=== PATIENT | male | born 1950 | race Caucasian/White ===

== ENCOUNTER → 2017-01-29 | Outpatient (CLI) | payer MEDICARE ==
[2017-01-29 16:55] LABS: Appearance,Urine Clear (Clear); Bilirubin,Urine Negative (Negative); Glucose,Urine (UA) 4+ (Negative); Ketones,Urine Negative (Negative); Leukocyte Esterase,Urine Negative (Negative); Nitrite,Urine Negative (Negative); Protein,Urine Negative (Negative); Specific Gravity,Urine 1.015 (1.001-1.035); UA Billing (MACRO vs. MICRO) CHEM; Urobilinogen,Urine <2.0 mg/dL (<2.0)
[2017-01-29 19:36] LABS: Prostate Specific Antigen 1.35 ng/mL (0.00-4.00)
== END ==
LOC: LABWHC1 16:12
PROVIDERS: ATTEND Internal Medicine
DX: Z00.00 Encounter for general adult medical examination without abnormal findings (principal); E55.9 Vitamin D deficiency, unspecified; E78.4 Other hyperlipidemia; E11.69 Type 2 diabetes mellitus with other specified complication; E03.9 Hypothyroidism, unspecified; I10 Essential (primary) hypertension; N40.0 Benign prostatic hyperplasia without lower urinary tract symptoms
CPT/HCPCS: 36415; 81003; 82550; 84153; 84439; 84550

== ENCOUNTER → 2017-01-29 | Outpatient (CLI) | payer MEDICARE ==
[2017-01-29 15:04] VITALS: BMI 31.1
[2017-01-29 15:20] VITALS: BP 135/73; PULSE 73; TEMP 97.7
[2017-01-29 16:44] LABS: Basophils # (A) 0.1 k/uL (0-0.2); Basophils % (A) 1 %; CH 28.2; Eosinophils # (A) 0.1 k/uL (0-0.7); Eosinophils % (A) 2 %; HCT 43.8 % (39.0-53.0); HDW 3.17; HGB 14.4 gm/dL (13.0-17.5); Luc # (Auto) 0.12; Luc % (Auto) 3; Lymphocytes # (A) 1.4 k/uL (1.0-4.8); Lymphocytes % (A) 32 %; MCH 28.2 pg (25.0-35.0); MCHC 32.9 g/dL (31.0-37.0); MCV 85.9 fL (80.0-100.0); Mean Platelet Volume 6.8; Monocytes # (A) 0.2 k/uL (0-1.0); Monocytes % (A) 5 %; Neutrophils # (A) 2.4 k/uL (1.3-7.7); Neutrophils % (A) 56 %; WBC 4.2 k/uL (3.8-10.6); WBC (Perox) 4.15
[2017-01-29 16:53] LABS: INR 1.1 (<1.1); Prothrombin Time 10.8 sec (9.0-12.0)
[2017-01-29 17:06] LABS: ALT 54 U/L (21-72); AST 38 U/L (17-59); Alkaline Phosphatase 88 U/L (38-126); Anion Gap 15 mmol/L; Blood Urea Nitrogen 25 mg/dL (9-20); Calcium 8.9 mg/dL (8.4-10.2); Carbon Dioxide 23 mmol/L (22-30); Chloride 104 mmol/L (98-107); Cholesterol 147 mg/dL (<200); Glucose 116 mg/dL (74-99); HDL Cholesterol 38 mg/dL (40-60); Iron 93 ug/dL (49-181); Magnesium 2.1 mg/dL (1.6-2.3); Non-African American GFR(MDRD) >60 (>60 ml/min/1.73 sqM); Phosphorous 3.8 mg/dL (2.5-4.5); Potassium 4.3 mmol/L (3.5-5.1); Sodium 142 mmol/L (137-145); Total Bilirubin 1.8 mg/dL (0.2-1.3); Total Protein 7.6 g/dL (6.3-8.2); Triglycerides 283 mg/dL (<150)
[2017-01-29 17:17] LABS: % Iron Saturation 21.1 % (20-50); Prealbumin 28 mg/dL (18-36); Total Iron Binding Capacity 440 ug/dL (261-462)
[2017-01-29 18:14] LABS: Vitamin B12 >1000 pg/mL (239-931)
[2017-01-29 19:50] LABS: Hemoglobin A1C 7.4 % (4.2-6.1)
[2017-02-04 17:58] LABS: Selenium 131 mcg/L (63-160)
--- NOTE | 2017-02-28 23:04 | P.PN ---
Progress Note - Text DATE OF SERVICE: 01/29/2017 CHIEF COMPLAINT: Followup gastric bypass. HISTORY OF PRESENT ILLNESS: Tim Rosas is a 66-year-old gentleman who is status post Tala-en-Y gastric bypass from January 23, 2015. He is now 2 years out. His highest weight was 274 pounds. Today he comes in weighing 222 pounds. He is maintaining a 61 pound weight loss. Percentage weight loss is 54%. Body mass index is reduced from 38.3 down to 31.1. He is 45 pounds overweight. Since his last visit, almost 6 to 7 months ago, he has gained 6 pounds. He comes in with frustration with weight regain. Upon further discussion, he still eats a moderate amount of carbohydrates despite being a diabetic. His is at his bedside and also confirms that he has moderate snacking habits. He now presents for further evaluation and management. PAST MEDICAL HISTORY: 1. Osteoarthritis. 2. Diabetes mellitus type 2 with moderate reduction in insulin use. 3. Hypothyroidism. 4. Hypertension. 5. ADHD. 6. Gastroesophageal reflux disease. 7. Dyslipidemia. 8. Obstructive sleep apnea. 9. Morbid obesity. 10. Diverticulosis. PAST SURGICAL HISTORY: 1. Tonsillectomy. 2. Cholecystectomy. 3. Liver biopsy. 4. Pilonidal cystectomy. 5. Multiple skin lesions removal on his head. 6. A broken left foot. 7. Status post Tala-en-Y gastric bypass. 8. Upper endoscopy. 9. Lower endoscopy. 10. Cystoscopy with kidney stone extraction. 11. Debridement of the bilateral great toes. MEDICATIONS: 1. Metformin. 2. Vitamin B. 3. Multivitamin. 4. Cozaar. 5. Synthroid. 6. Fish oil. 7. Vitamin D. 8. Invokana. 9. Tylenol. ALLERGIES: CLINDAMYCIN. SOCIAL HISTORY: Lifelong nontobacco user. FAMILY HISTORY: Denies any esophageal or stomach cancer. Colon cancer runs in the family. His father of blood clots after orthopedic procedure. Also he has mother with diabetes. REVIEW OF SYSTEMS: CONSTITUTIONAL: Weight gain of 5 pounds in approximately 6 to 7 months. Total maintained weight loss of 61 pounds. Percent excess weight loss is 54%. Body mass index reduced from 38.3 down to 31.1. [place] body weight of 178 pounds. Highest weight 274 pounds. ENDOCRINE: History of diabetes type 2; improved in terms of decreased insulin use. No reports of hypothyroidism. CARDIOVASCULAR: Hypertension is improved. GASTROINTESTINAL: No reports of gastroesophageal reflux disease. No reports of dumping syndrome. MUSCULOSKELETAL: He had chronic ulcerations of the bilateral great toes, now resolved. RESPIRATORY: He is off his CPAP machine. SKIN: He has history of dryness of the skin including chronic foot ulcers for which [facility]. HEENT: No troubles with vision or hearing. NEUROLOGIC: No reports of seizure disorder or stroke. PSYCH: No reports of depression or suicidal ideation. PHYSICAL EXAM: VITAL SIGNS: 97.7, 73, 12, 135/73, 5 foot 11, 223 pounds. Body mass index of 31.1. ABDOMEN: Soft, nontender. No palpable incisional hernias. GENERAL: Well-developed pleasant male in no acute distress. MUSCULOSKELETAL: No clubbing, cyanosis, or edema. HEENT: No sclerae icterus. Extraocular movements grossly intact. Moist buccal mucosa. NECK: Supple without lymphadenopathy. CHEST: Nonlabored respirations. Equal bilateral excursions. CARDIOVASCULAR: Regular rate. NEURO: No focal or lateralizing signs. PSYCH: Appropriate affect. Alert and oriented to person, place, and time. LABS: Bariatric metabolic panel demonstrates hemoglobin normal at 14.4. BUN is elevated at 25. Glucose was elevated at 116. Hemoglobin A1c is improved from 7.6 to 7.4. Ferritin is low at 11. Total bilirubin elevated at 1.8. Triglycerides elevated at 283. HDL low at 38. Vitamin B12 greater than 1000. ASSESSMENT: 1. Morbid obesity due to excess calories. 2. Body mass index reduced from 38.3 down to 31.1. 3. Status post Tala-en-Y gastric bypass. 4. History of food addiction, now resolved. 5. History of insulin-dependent diabetes type 2, now improved. 6. History of bilateral nonhealing, chronic great toe ulcers, now resolved. 7. Dietary surveillance and counseling. 8. History of gastrojejunal ulcer. 9. History of diverticulosis. 10. 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 11. Hypertensive heart disease, improved and stable. 12. Hypothyroidism. 13. Obstructive sleep apnea, improved. 14. Weight gain following a Tala-en-Y gastric bypass. 15. Food addiction. PLAN: 1. I have gone over with him that keeping close monitoring of his carbohydrate intake can actually help with weight loss. 2. As for his hunger, I have asked him to increase his protein intake including vegetables and fruits. 3. He has completed a bariatric metabolic panel without any findings of overt nutritional deficiencies. 4. Recommend increase in activity such as exercise to help improve his HDL's. 5. I have recommended followup at least on a yearly basis, if not sooner to help with overall weight loss.
== END | disposition home or self-care (01) ==
LOC: BARWHC3 13:58
PROVIDERS: ATTEND Surgery Plastic and Reconstructive Surgery
DX: Z48.815 Encounter for surgical aftercare following surgery on the digestive system (principal); E66.01 Morbid (severe) obesity due to excess calories; Z68.31 Body mass index [BMI] 31.0-31.9, adult; Z98.84 Bariatric surgery status; Z71.3 Dietary counseling and surveillance; E89.1 Postprocedural hypoinsulinemia; D50.8 Other iron deficiency anemias; E44.0 Moderate protein-calorie malnutrition; E55.9 Vitamin D deficiency, unspecified; K74.1 Hepatic sclerosis; N19 Unspecified kidney failure; K50.90 Crohn's disease, unspecified, without complications
CPT/HCPCS: 84255; 84134; 84425; 80061; 80053; 82607; 82728; 83036; 82525; 82746; 83540; 83550; 83735; 84100; 84443; 84590; 84630; 85025; 85610; 85730; 82306; 83970; 97803; G0463; 99211

== ENCOUNTER → 2017-04-07 | Outpatient (CLI) | payer MEDICARE ==
[2017-04-07 11:00] LABS: Basophils % (A) 1 %; CH 27.9; CHCM 33.2; Eosinophils # (A) 0.1 k/uL (0-0.7); Eosinophils % (A) 2 %; HCT 47.7 % (39.0-53.0); HDW 3.17; HGB 15.3 gm/dL (13.0-17.5); Luc # (Auto) 0.11; Luc % (Auto) 3; Lymphocytes # (A) 1.4 k/uL (1.0-4.8); Lymphocytes % (A) 33 %; MCH 27.1 pg (25.0-35.0); MCHC 32.1 g/dL (31.0-37.0); MCV 84.5 fL (80.0-100.0); Mean Platelet Volume 7.4; Monocytes # (A) 0.2 k/uL (0-1.0); Monocytes % (A) 5 %; Neutrophils # (A) 2.4 k/uL (1.3-7.7); Neutrophils % (A) 57 %; RBC 5.64 m/uL (4.30-5.90); RDW 15.3 % (11.5-15.5); WBC 4.2 k/uL (3.8-10.6); WBC (Perox) 4.03
[2017-04-07 11:01] LABS: Appearance,Urine Clear (Clear); Bilirubin,Urine Negative (Negative); Glucose,Urine (UA) 4+ (Negative); Ketones,Urine Negative (Negative); Leukocyte Esterase,Urine Negative (Negative); Nitrite,Urine Negative (Negative); Protein,Urine Negative (Negative); Specific Gravity,Urine 1.015 (1.001-1.035); UA Billing (MACRO vs. MICRO) CHEM; Urobilinogen,Urine <2.0 mg/dL (<2.0)
[2017-04-07 11:19] LABS: ALT 63 U/L (21-72); AST 38 U/L (17-59); Alkaline Phosphatase 94 U/L (38-126); Anion Gap 14 mmol/L; Blood Urea Nitrogen 22 mg/dL (9-20); Carbon Dioxide 24 mmol/L (22-30); Chloride 103 mmol/L (98-107); Cholesterol 155 mg/dL (<200); Creatine Kinase 204 U/L (55-170); Glucose 138 mg/dL (74-99); HDL Cholesterol 39 mg/dL (40-60); Non-African American GFR(MDRD) >60 (>60 ml/min/1.73 sqM); Potassium 4.2 mmol/L (3.5-5.1); Sodium 141 mmol/L (137-145); Total Bilirubin 2.3 mg/dL (0.2-1.3); Total Protein 7.6 g/dL (6.3-8.2); Triglycerides 213 mg/dL (<150); Uric Acid 6.8 mg/dL (3.5-8.5)
[2017-04-07 11:48] LABS: Prostate Specific Antigen 1.42 ng/mL (0.00-4.00)
[2017-04-07 12:18] LABS: Hemoglobin A1C 7.9 % (4.2-6.1)
[2017-04-07 17:05] LABS: Urine Creatinine 48.3 mg/dL
== END | disposition home or self-care (01) ==
LOC: LABWHC1 10:23
PROVIDERS: ATTEND Internal Medicine Endocrinology, Diabetes & Metabolism
DX: Z00.00 Encounter for general adult medical examination without abnormal findings (principal); E55.9 Vitamin D deficiency, unspecified; I10 Essential (primary) hypertension; E78.4 Other hyperlipidemia; E11.69 Type 2 diabetes mellitus with other specified complication; E03.9 Hypothyroidism, unspecified; N40.0 Benign prostatic hyperplasia without lower urinary tract symptoms; E11.65 Type 2 diabetes mellitus with hyperglycemia; E03.8 Other specified hypothyroidism
CPT/HCPCS: 36415; 80053; 80061; 81003; 82043; 82306; 82550; 82570; 83036; 84153; 84403; 84439; 84443; 84550; 85025

== ENCOUNTER → 2018-01-21 | Outpatient (CLI) | payer MEDICARE ==
--- NOTE | 2018-01-21 14:06 | P.PN ---
Subjective Progress Note Date: 01/21/18 DATE OF SERVICE: 01/21/2018 CHIEF COMPLAINT: Followup gastric bypass. HISTORY OF PRESENT ILLNESS: Tim Rosas is a 67-year-old gentleman who is status post Tala-en-Y gastric bypass from January 23, 2015. He is now 3 years out. His highest weight was 274 pounds. [place] body weight is 178 pounds. Today he comes in weighing 220 pounds from 222 pounds 1 year ago. He has lost 2 pounds in 1 year. He is maintaining a 54 pound weight, lifetime. Percentage weight loss is 56%. Body mass index is reduced from 38.3 down to 30.8. He is 42 pounds overweight. He is doing well. He went down to 207 pounds last year. He reports having the flu at that time. He has now regained his weight. Blood sugars are improved with Hgb A1 6.1. He reports grazing through the day. He is snacking on eggs, cheese, and sauerkraut. He had a foot ulcer along the left great toe now resolved. He still reports neuropathy of the fingers. No abdominal pain. PAST MEDICAL HISTORY: 1. Osteoarthritis. 2. Diabetes mellitus type 2 with moderate reduction in insulin use. 3. Hypothyroidism. 4. Hypertension. 5. ADHD. 6. Gastroesophageal reflux disease. 7. Dyslipidemia. 8. Obstructive sleep apnea. 9. Morbid obesity, BMI 38.3, initial 10. Diverticulosis. PAST SURGICAL HISTORY: 1. Tonsillectomy. 2. Cholecystectomy. 3. Liver biopsy. 4. Pilonidal cystectomy. 5. Multiple skin lesions removal on his head. 6. A broken left foot. 7. Status post Tala-en-Y gastric bypass. 8. Upper endoscopy. 9. Lower endoscopy. 10. Cystoscopy with kidney stone extraction. 11. Debridement of the bilateral great toes. MEDICATIONS: 1. Metformin. 2. Vitamin B. 3. Multivitamin. 4. Cozaar. 5. Synthroid. 6. Fish oil. 7. Vitamin D. 8. Invokana. 9. Tylenol. 10. Amaryl 11. Trulicity ALLERGIES: CLINDAMYCIN. SOCIAL HISTORY: Lifelong nontobacco user. FAMILY HISTORY: Denies any esophageal or stomach cancer. Colon cancer runs in the family. His father of blood clots after orthopedic procedure. Also he has mother with diabetes. REVIEW OF SYSTEMS: CONSTITUTIONAL: His highest weight was 274 pounds. Today he comes in weighing 220 pounds from 222 pounds 1 year ago. He has lost 2 pounds in 1 year. He is maintaining a 54 pound weight, lifetime. Percentage weight loss is 56%. Body mass index is reduced from 38.3 down to 30.8. He is 42 pounds overweight. [place] body weight is 178 pounds. ENDOCRINE: History of diabetes type 2; improved in terms of decreased insulin use. No reports of hypothyroidism. CARDIOVASCULAR: Hypertension is improved. GASTROINTESTINAL: No reports of gastroesophageal reflux disease. No reports of dumping syndrome. MUSCULOSKELETAL: He had chronic ulcerations of the bilateral great toes, now resolved. RESPIRATORY: He is off his CPAP machine. No pneumonia. SKIN: He has history of dryness of the skin. No panniculitis. HEENT: No troubles with vision or hearing. No dysphagia. NEUROLOGIC: No reports of seizure disorder or stroke. PSYCH: No reports of depression or suicidal ideation. PHYSICAL EXAM: VITAL SIGNS: 5 foot 11, 220 pounds. Body mass index of 30.8 Vital Signs Temp 98 F 01/21/18 14:57 Pulse 92 01/21/18 14:57 Resp BP 125/73 01/21/18 14:57 Pulse Ox . ABDOMEN: Soft, nontender. No palpable incisional hernias. GENERAL: Well-developed pleasant male in no acute distress. MUSCULOSKELETAL: No clubbing, cyanosis, or edema. HEENT: No sclerae icterus. Extraocular movements grossly intact. Moist buccal mucosa. NECK: Supple without lymphadenopathy. CHEST: Nonlabored respirations. Equal bilateral excursions. CARDIOVASCULAR: Regular rate. Regular rhythm. Radial pulses 2+. NEURO: No focal or lateralizing signs. Cranial nerves II-12 grossly intact. PSYCH: Appropriate affect. Alert and oriented to person, place, and time. SKIN: Well perfused. Good skin turgor. ASSESSMENT: 1. Morbid obesity due to excess calories. 2. Body mass index reduced from 38.3 down to 30.8 3. Status post Tala-en-Y gastric bypass. 4. History of food addiction, now resolved. 5. History of insulin-dependent diabetes type 2, now improved. 6. History of bilateral nonhealing, chronic great toe ulcers, now resolved. 7. Dietary surveillance and counseling. 8. History of gastrojejunal ulcer. 9. History of diverticulosis. 10. 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 11. Hypertensive heart disease, improved and stable. 12. Hypothyroidism. 13. Obstructive sleep apnea, improved. 14. Weight gain following a Tala-en-Y gastric bypass. 15. Food addiction. PLAN: 1. Recommend bariatric blood panel 2. He may be developing food allergy to milk 3. Recommend seeing food client care consultant 4. Recommend caution whey protein
[2018-01-21 15:07] VITALS: BP 125/73; PULSE 92; TEMP 98; BMI 30.8
== END | disposition home or self-care (01) ==
LOC: BARWHC3 12:47
PROVIDERS: ATTEND Surgery Plastic and Reconstructive Surgery
DX: Z48.815 Encounter for surgical aftercare following surgery on the digestive system (principal); E66.01 Morbid (severe) obesity due to excess calories; Z68.30 Body mass index [BMI] 30.0-30.9, adult; E03.9 Hypothyroidism, unspecified; E11.40 Type 2 diabetes mellitus with diabetic neuropathy, unspecified; I11.9 Hypertensive heart disease without heart failure; G47.33 Obstructive sleep apnea (adult) (pediatric); Z79.4 Long term (current) use of insulin; Z98.84 Bariatric surgery status
CPT/HCPCS: 99211

== ENCOUNTER → 2018-02-02 | Outpatient (CLI) | payer MEDICARE ==
[2018-02-02 12:25] LABS: Appearance,Urine Clear (Clear); Bilirubin,Urine Negative (Negative); Blood,Urine Negative (Negative); Color,Urine Yellow; Glucose,Urine (UA) 4+ (Negative); HCT 42.2 % (39.0-53.0); HGB 14.1 gm/dL (13.0-17.5); Ketones,Urine Negative (Negative); Leukocyte Esterase,Urine Negative (Negative); MCH 27.3 pg (25.0-35.0); MCHC 33.3 g/dL (31.0-37.0); MCV 81.7 fL (80.0-100.0); Mean Platelet Volume 6.9; Nitrite,Urine Negative (Negative); Platelet Count 164 k/uL (150-450); Protein,Urine Negative (Negative); RBC 5.16 m/uL (4.30-5.90); RDW 14.6 % (11.5-15.5); Specific Gravity,Urine 1.015 (1.001-1.035); Urobilinogen,Urine <2.0 mg/dL (<2.0); WBC 3.8 k/uL (3.8-10.6)
[2018-02-02 12:29] LABS: INR 1.1 (<1.2); Partial Thromboplastin Time 25.3 sec (22.0-30.0); Prothrombin Time 10.9 sec (9.0-12.0)
[2018-02-02 12:33] LABS: ALT 65 U/L (21-72); AST 47 U/L (17-59); Alkaline Phosphatase 97 U/L (38-126); Anion Gap 18 mmol/L; Blood Urea Nitrogen 29 mg/dL (9-20); Calcium 8.7 mg/dL (8.4-10.2); Carbon Dioxide 19 mmol/L (22-30); Chloride 107 mmol/L (98-107); Cholesterol 135 mg/dL (<200); Glucose 112 mg/dL (74-99); HDL Cholesterol 32 mg/dL (40-60); LDL Cholesterol,Calculated 67 mg/dL (0-99); Phosphorus 4.5 mg/dL (2.5-4.5); Potassium 4.3 mmol/L (3.5-5.1); Sodium 144 mmol/L (137-145); Total Bilirubin 1.7 mg/dL (0.2-1.3); Total Protein 7.7 g/dL (6.3-8.2); Triglycerides 178 mg/dL (<150); Uric Acid 6.6 mg/dL (3.5-8.5)
[2018-02-02 13:04] LABS: Prostate Specific Antigen 1.51 ng/mL (0.00-4.00)
[2018-02-02 18:41] LABS: Iron Saturation 18.03 (15.00-50.00)
[2018-02-02 18:49] LABS: Vitamin D 25 Hydroxy 52.9 ng/mL (30.0-100.0)
[2018-02-02 19:02] LABS: Folate, Serum >24.0 ng/mL
[2018-02-02 19:24] LABS: Parathyroid Hormone Intact 38.7 pg/mL (14.0-72.0)
[2018-02-03 14:01] LABS: Vitamin A 65 ug/dL (38-106)
[2018-02-03 15:34] LABS: Zinc, Serum 94 ug/dL (60-130)
[2018-02-04 05:42] LABS: Vitamin B1 74 ug/L (38-122)
== END | disposition home or self-care (01) ==
LOC: LABWHC1 11:04
PROVIDERS: ATTEND Internal Medicine Endocrinology, Diabetes & Metabolism
DX: E11.65 Type 2 diabetes mellitus with hyperglycemia (principal); E03.8 Other specified hypothyroidism; N40.0 Benign prostatic hyperplasia without lower urinary tract symptoms; E21.1 Secondary hyperparathyroidism, not elsewhere classified; E89.1 Postprocedural hypoinsulinemia; D50.8 Other iron deficiency anemias; K90.89 Other intestinal malabsorption; E44.0 Moderate protein-calorie malnutrition; K74.1 Hepatic sclerosis; E55.9 Vitamin D deficiency, unspecified; N19 Unspecified kidney failure; K50.90 Crohn's disease, unspecified, without complications
CPT/HCPCS: 36415; 80053; 80061; 81003; 82043; 82306; 82525; 82570; 82607; 82728; 82746; 83036; 83540; 83550; 83735; 83970; 84100; 84134; 84153; 84255; 84425; 84443; 84550; 84590; 84630; 85027; 85610; 85730

== ENCOUNTER → 2018-11-02 | Outpatient (CLI) | payer MEDICARE ==
--- NOTE | 2018-11-02 17:27 | XR ---
EXAMINATION TYPE: XR lumbar spine 2 or 3V DATE OF EXAM: 11/02/2018 CLINICAL HISTORY: Low back pain into right hip for 2 weeks after shoveling snow. TECHNIQUE: Frontal and lateral images of the lumbar spine are obtained. COMPARISON: CT abdomen and pelvis from 2015 FINDINGS: There are 5 lumbar type vertebral bodies redemonstrated. The lumbar spine redemonstrates straightened alignment without evidence of acute fracture or dislocation. Vertebral body heights kami in within normal limits. There is moderate disc space narrowing with moderate anterior spurring L3-L4 level redemonstrated. There is additional mild multilevel disc space narrowing with relative sparing of L4-L5 level redemonstrated. There are surgical sutures epigastric region from prior gastric bypas s surgery redemonstrated. IMPRESSION: No acute fracture or dislocation is seen in the lumbar spine.
== END | disposition home or self-care (01) ==
LOC: RADXRMAIN 16:31
PROVIDERS: ATTEND Internal Medicine
DX: M54.9 Dorsalgia, unspecified (principal)
CPT/HCPCS: 72100

== ENCOUNTER → 2018-12-09 | Outpatient (CLI) | payer MEDICARE ==
[2018-12-09 10:21] LABS: INR 1.1 (<1.2); Partial Thromboplastin Time 28.4 sec (22.0-30.0); Prothrombin Time 11.3 sec (9.0-12.0)
[2018-12-09 10:54] LABS: HCT 44.2 % (39.0-53.0); HGB 14.8 gm/dL (13.0-17.5); MCH 29.3 pg (25.0-35.0); MCHC 33.6 g/dL (31.0-37.0); MCV 87.2 fL (80.0-100.0); Mean Platelet Volume 6.9; Platelet Count 156 k/uL (150-450); RBC 5.07 m/uL (4.30-5.90); RDW 14.5 % (11.5-15.5); WBC 3.7 k/uL (3.8-10.6)
[2018-12-09 16:57] LABS: Iron Saturation 30.03 (15.00-50.00)
[2018-12-09 17:02] LABS: Albumin 4.8 g/dL (3.80-4.90); Albumin/Globulin Ratio 2.29 (1.60-3.17); Anion Gap 9.9 mmol/L (4.00-12.00); Calcium 8.9 mg/dL (8.7-10.3); Carbon Dioxide 23.1 mmol/L (21.6-31.8); Globulin 2.1 g/dL (1.6-3.3); LDL Cholesterol,Calculated 64.6 mg/dL (0.0-131.0); Magnesium 1.8 mg/dL (1.5-2.4); Phosphorus 3.9 mg/dL (2.4-5.1); Potassium 3.8 mmol/L (3.5-5.5); Total Bilirubin 2.5 mg/dL (0.3-1.2); Total Protein 6.9 g/dL (6.2-8.2); VLDL Calculation 42.4 mg/dL (5.00-40.00)
[2018-12-09 17:06] LABS: Vitamin D 25 Hydroxy 43.4 ng/mL (30.0-100.0)
[2018-12-09 17:27] LABS: Parathyroid Hormone Intact 55.9 pg/mL (14.0-72.0)
[2018-12-09 17:36] LABS: Folate, Serum >24.0 ng/mL
[2018-12-09 21:11] LABS: Hemoglobin A1C 7.4 % (4.0-6.0)
[2018-12-10 11:45] LABS: Zinc, Serum 79 ug/dL (60-130)
[2018-12-11 07:55] LABS: Vitamin A 68 ug/dL (38-106)
[2018-12-11 08:40] LABS: Vit B1(Thiamine) 71 ug/L (38-122)
== END ==
LOC: LABWHC1 08:51
PROVIDERS: ATTEND Internal Medicine Endocrinology, Diabetes & Metabolism
DX: Z48.815 Encounter for surgical aftercare following surgery on the digestive system (principal); E66.01 Morbid (severe) obesity due to excess calories; E21.1 Secondary hyperparathyroidism, not elsewhere classified; E89.1 Postprocedural hypoinsulinemia; D50.9 Iron deficiency anemia, unspecified; E44.0 Moderate protein-calorie malnutrition; E55.9 Vitamin D deficiency, unspecified; K74.1 Hepatic sclerosis; N19 Unspecified kidney failure; K50.90 Crohn's disease, unspecified, without complications; E11.65 Type 2 diabetes mellitus with hyperglycemia; Z98.84 Bariatric surgery status
CPT/HCPCS: 36415; 80053; 80061; 82043; 82306; 82525; 82570; 82607; 82728; 82746; 83036; 83540; 83550; 83735; 83970; 84100; 84134; 84255; 84425; 84443; 84590; 84630; 85027; 85610; 85730

== ENCOUNTER → 2019-01-06 | Outpatient (CLI) | payer MEDICARE ==
[2019-01-06 18:08] VITALS: BP 133/91; PULSE 75; TEMP 97.2; BMI 30.8
--- NOTE | 2019-01-06 18:14 | P.PN ---
Subjective Progress Note Date: 01/06/19 DATE OF SERVICE: 01/06/2019 CHIEF COMPLAINT: Followup gastric bypass. HISTORY OF PRESENT ILLNESS: Tim Rosas is a 68-year-old gentleman who is status post Tala-en-Y gastric bypass from January 23, 2015. He is now 4 years out. His highest weight was 274 pounds. [place] body weight is 178 pounds. Today he comes in weighing 221 pounds from 220 pounds, 1 year ago. He has lost gained 1 pound in 1 year. He has maintained 53 pound weight, lifetime. Percentage weight loss is 56%. Body mass index is reduced from 38.3 down to 30.8. He is 42 pounds overweight. He is doing a new diet called 16 hr fast. He gained his weight after being on vacation. He reports chronic pain all through out including new bilateral calf pain with walking. He reports infections of his feet. He is on new medications to manage his diabetes. No reports of abdominal pain. No dysphagia. No recent blood in stools. PAST MEDICAL HISTORY: 1. Osteoarthritis. 2. Diabetes mellitus type 2 with moderate reduction in insulin use. 3. Hypothyroidism. 4. Hypertension. 5. ADHD. 6. Gastroesophageal reflux disease. 7. Dyslipidemia. 8. Obstructive sleep apnea. 9. Morbid obesity, BMI 38.3, initial 10. Diverticulosis. PAST SURGICAL HISTORY: 1. Tonsillectomy. 2. Cholecystectomy. 3. Liver biopsy. 4. Pilonidal cystectomy. 5. Multiple skin lesions removal on his head. 6. A broken left foot. 7. Status post Tala-en-Y gastric bypass. 8. Upper endoscopy. 9. Lower endoscopy. 10. Cystoscopy with kidney stone extraction. 11. Debridement of the bilateral great toes. MEDICATIONS: Home Medications Medication Instructions Recorded Confirmed Levothyroxine Sodium [Synthroid] 112 mcg PO QAM 12/28/14 01/06/19 Losartan [Cozaar] 50 mg PO QAM 01/18/15 01/06/19 Cholecalciferol [Vitamin D3] 10,000 unit PO DAILY 01/24/15 01/06/19 Multivitamins, Thera [Theragran] 1 each PO DAILY 01/24/15 01/06/19 metFORMIN HCL [metFORMIN HCL ER] 1,000 mg PO BID 06/16/15 01/06/19 Fish Oil/Dha/Epa [Fish Oil 1,200 1 each PO DAILY 09/13/15 01/06/19 mg Fish Oil] Vitamin B Complex 1 each PO DAILY 10/12/15 01/06/19 Acetaminophen Tab [Tylenol Tab] 1,000 mg PO Q6HR PRN 12/14/15 01/06/19 Dulaglutide [Trulicity] 0.75 mg SQ WEEKLY 01/21/18 01/06/19 Glimepiride [Amaryl] 1 mg PO DAILY 01/21/18 01/06/19 ALLERGIES: CLINDAMYCIN. SOCIAL HISTORY: Lifelong nontobacco user. FAMILY HISTORY: Denies any esophageal or stomach cancer. Colon cancer runs in the family. His father of blood clots after orthopedic procedure. Also he has mother with diabetes. REVIEW OF SYSTEMS: CONSTITUTIONAL: His highest weight was 274 pounds. Body mass index was 38.3. [place] body weight is 178 pounds. ENDOCRINE: History of diabetes type 2; improved in terms of decreased insulin use. No reports of hypothyroidism. CARDIOVASCULAR: Hypertension is improved. GASTROINTESTINAL: No reports of gastroesophageal reflux disease. No reports of dumping syndrome. MUSCULOSKELETAL: He had chronic ulcerations of the bilateral great toes, now resolved. RESPIRATORY: He is off his CPAP machine. No pneumonia. SKIN: He has history of dryness of the skin. No panniculitis. HEENT: No troubles with vision or hearing. No dysphagia. NEUROLOGIC: No reports of seizure disorder or stroke. PSYCH: No reports of depression or suicidal ideation. PHYSICAL EXAM: VITAL SIGNS: 5 foot 11, 221 pounds. Body mass index of 30.8 Vital Signs Temp 97.2 F L 01/06/19 18:06 Pulse 75 01/06/19 18:06 Resp BP 133/91 01/06/19 18:06 Pulse Ox ABDOMEN: Soft, nontender. No palpable incisional hernias. GENERAL: Well-developed pleasant male in no acute distress. MUSCULOSKELETAL: No clubbing, cyanosis, or edema. HEENT: No sclerae icterus. Extraocular movements grossly intact. Moist buccal mucosa. NECK: Supple without lymphadenopathy. CHEST: Nonlabored respirations. Equal bilateral excursions. CARDIOVASCULAR: Regular rate. Regular rhythm. Radial pulses 2+. NEURO: No focal or lateralizing signs. Cranial nerves II-12 grossly intact. PSYCH: Appropriate affect. Alert and oriented to person, place, and time. SKIN: Well perfused. Good skin turgor. LABS: reviewed with Vitamin D deficiency ASSESSMENT: 1. Morbid obesity due to excess calories. 2. Body mass index reduced from 38.3 down to 30.8 3. Status post Tala-en-Y gastric bypass. 4. History of food addiction, now resolved. 5. History of insulin-dependent diabetes type 2, now improved. 6. History of bilateral nonhealing, chronic great toe ulcers, now resolved. 7. Dietary surveillance and counseling. 8. History of gastrojejunal ulcer, resolved 9. History of diverticulosis. 10. 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 11. Hypertensive heart disease, improved and stable. 12. Hypothyroidism. 13. Obstructive sleep apnea, improved. 14. Peripheral vascular occlussive disease 15. Vitamin D deficiency PLANT: 1. He reports chronic foot ulcerations including new foot cramping of the lower legs and feet. Recommend evaluation with vascular surgeon for worsening symptoms. 2. Recommend vitamin D supplement 3. Recommend bariatric labs
== END | disposition home or self-care (01) ==
LOC: BARWHC3 15:47
PROVIDERS: ATTEND Surgery Plastic and Reconstructive Surgery
DX: Z48.815 Encounter for surgical aftercare following surgery on the digestive system (principal); E66.01 Morbid (severe) obesity due to excess calories; E11.621 Type 2 diabetes mellitus with foot ulcer; L97.509 Non-pressure chronic ulcer of other part of unspecified foot with unspecified severity; E11.40 Type 2 diabetes mellitus with diabetic neuropathy, unspecified; I11.9 Hypertensive heart disease without heart failure; E03.9 Hypothyroidism, unspecified; G47.33 Obstructive sleep apnea (adult) (pediatric); E11.51 Type 2 diabetes mellitus with diabetic peripheral angiopathy without gangrene; E55.9 Vitamin D deficiency, unspecified; Z68.30 Body mass index [BMI] 30.0-30.9, adult; Z87.19 Personal history of other diseases of the digestive system; Z71.3 Dietary counseling and surveillance; Z98.84 Bariatric surgery status; Z79.4 Long term (current) use of insulin; Z79.899 Other long term (current) drug therapy; Z88.1 Allergy status to other antibiotic agents
CPT/HCPCS: 99211

== ENCOUNTER → 2019-04-29 | Outpatient (CLI) | payer MEDICARE ==
--- NOTE | 2019-04-29 14:44 | XR ---
EXAMINATION TYPE: XR cervical spine comp DATE OF EXAM: 04/29/2019 COMPARISON: NONE HISTORY: Pain TECHNIQUE: Four views are submitted. FINDINGS: The odontoid is intact. There are no compression deformities. The prevertebral soft tissue structur es are within normal limits. Calcifications the soft tissue the neck are noted. Hypertrophic spurs a nteriorly with multilevel mild degenerative disc disease. Suggestion of foraminal encroachment C4-5 o n the right. IMPRESSION: 1. Hypertrophic and changes involving the cervical spine with multilevel mild degenerative disc disea se. Findings are suspicious for foraminal encroachment C4-5 on the right. 2. Carotid artery atherosclerotic changes.
--- NOTE | 2019-04-29 14:47 | XR ---
EXAM TYPE: LUMBAR SPINE X RAY SERIES COMPARISON: 11/02/2018 HISTORY: Pain TECHNIQUE: 4 views are submitted. FINDINGS: Alignment is anatomic. The pedicles are intact. The transverse processes are intact. There is no s pondylolysis or spondylolisthesis. Hypertrophic change and degenerative changes are seen with facet arthropathy. Anterior spurring noted. Chronic appearing deformity superior endplate L4. This appears stable dating back to 2014. IMPRESSION: 1. Multilevel hypertrophic and degenerative changes..
== END | disposition home or self-care (01) ==
LOC: RADXRMAIN 13:44
PROVIDERS: ATTEND Internal Medicine
DX: M50.321 Other cervical disc degeneration at C4-C5 level (principal); I65.29 Occlusion and stenosis of unspecified carotid artery; M47.816 Spondylosis without myelopathy or radiculopathy, lumbar region
CPT/HCPCS: 72050; 72100

== ENCOUNTER → 2019-08-03 | Outpatient (CLI) | payer MEDICARE ==
[2019-08-03 21:13] LABS: African American GFR (CKD) 80.1 (60.0-200.0); Albumin/Globulin Ratio 2.63 (1.60-3.17); Anion Gap 5.7 mmol/L (4.00-12.00); Carbon Dioxide 30.3 mmol/L (21.6-31.8); Chol/HDL Ratio 3.69; Globulin 1.9 g/dL (1.6-3.3); LDL Cholesterol,Calculated 58.4 mg/dL (0.0-131.0); Non-African American GFR(CKD) 69.1 (60.0-200.0); Potassium 4.2 mmol/L (3.5-5.5); Total Bilirubin 1.9 mg/dL (0.2-1.2); Total Protein 6.9 g/dL (6.2-8.2); VLDL Calculation 38.6 mg/dL (5.00-40.00)
[2019-08-03 22:45] LABS: Hemoglobin A1C 6.7 % (4.0-6.0)
== END | disposition home or self-care (01) ==
LOC: LABWHC1 10:17
PROVIDERS: ATTEND Internal Medicine Endocrinology, Diabetes & Metabolism
DX: E11.65 Type 2 diabetes mellitus with hyperglycemia (principal)
CPT/HCPCS: 36415; 80053; 80061; 82043; 82570; 83036; 84443

== ENCOUNTER → 2019-10-06 | Outpatient (CLI) | payer MEDICARE ==
[2019-10-06 10:10] LABS: HCT 46.8 % (39.0-53.0); HGB 15.6 gm/dL (13.0-17.5); MCH 29.1 pg (25.0-35.0); MCHC 33.3 g/dL (31.0-37.0); MCV 87.3 fL (80.0-100.0); Mean Platelet Volume 7.4; Platelet Count 172 k/uL (150-450); RBC 5.36 m/uL (4.30-5.90); RDW 13.5 % (11.5-15.5)
[2019-10-06 10:19] LABS: Partial Thromboplastin Time 25.2 sec (22.0-30.0); Prothrombin Time 10.6 sec (9.0-12.0)
[2019-10-06 16:29] LABS: % Iron Saturation 22.91 (15.00-50.00); ALT 39 U/L (10-49); AST 34 U/L (14-35); African American GFR (CKD) 89.9 (60.0-200.0); Albumin/Globulin Ratio 2.58 (1.60-3.17); Alkaline Phosphatase 105 U/L (41-126); Calcium 8.6 mg/dL (8.7-10.3); Carbon Dioxide 26.4 mmol/L (21.6-31.8); Chloride 104 mmol/L (96-109); Chol/HDL Ratio 3.73; Cholesterol 138 mg/dL (0-200); Globulin 1.9 g/dL (1.6-3.3); Glucose 164 mg/dL (70-110); Iron 93 ug/dL (65-175); LDL Cholesterol,Calculated 60.2 mg/dL (0.0-131.0); Magnesium 2.1 mg/dL (1.5-2.4); Non-African American GFR(CKD) 77.5 (60.0-200.0); Phosphorus 3.3 mg/dL (2.4-5.1); Potassium 4.1 mmol/L (3.5-5.5); Sodium 141 mmol/L (135-145); Total Bilirubin 1.5 mg/dL (0.3-1.2); Total Iron Binding Capacity 406 ug/dL (228-460); Total Protein 6.8 g/dL (6.2-8.2)
[2019-10-06 16:43] LABS: Ferritin 18.3 ng/mL (22.0-322.0); Folate, Serum >24.0 ng/mL
[2019-10-06 18:41] LABS: Hemoglobin A1C 6.9 % (4.0-6.0)
[2019-10-07 14:50] LABS: Zinc, Serum 97 ug/dL (60-130)
[2019-10-08 07:45] LABS: Vitamin A 77 ug/dL (38-106)
[2019-10-08 10:48] LABS: Vit B1(Thiamine) 75 ug/L (38-122)
== END | disposition home or self-care (01) ==
LOC: LABWHC1 08:50
PROVIDERS: ATTEND Surgery Plastic and Reconstructive Surgery
DX: E21.1 Secondary hyperparathyroidism, not elsewhere classified (principal); D60.9 Acquired pure red cell aplasia, unspecified; E44.0 Moderate protein-calorie malnutrition; E55.9 Vitamin D deficiency, unspecified; K74.1 Hepatic sclerosis; N19 Unspecified kidney failure; K50.90 Crohn's disease, unspecified, without complications
CPT/HCPCS: 36415; 80053; 80061; 82306; 82525; 82607; 82728; 82746; 83036; 83540; 83550; 83735; 83970; 84100; 84134; 84255; 84425; 84443; 84590; 84630; 85027; 85610; 85730

== ENCOUNTER → 2019-10-13 | Outpatient (CLI) | payer MEDICARE ==
[2019-10-13 16:08] VITALS: BP 144/87; PULSE 92; RESP 16; TEMP 97.3; BMI 29.8
--- NOTE | 2019-10-13 17:15 | P.PN ---
Subjective Progress Note Date: 10/13/19 DATE OF SERVICE: 10/13/2019 CHIEF COMPLAINT: Followup gastric bypass. HISTORY OF PRESENT ILLNESS: Tim Rosas is a 68-year-old gentleman who is status post Tala-en-Y gastric bypass from January 23, 2015. He is 5 years out. He comes in with weight loss in the past year intentional. He reports no further diabetic foot sores on the feet. His Hgb A1c is down from over 8.0 to 6.9 in the past 5 years. He reports moderate burping. He has lower appetite. He is on iron. He is on [place]. He comes in with kidney stones. His highest weight was 274 pounds. [place] body weight is 178 pounds. Today he comes in weighing 214 pounds from 221 pounds, 9 months ago. He has lost 7 pounds in 9 months. He has maintained 60 pound weight loss, lifetime. Lifetime percent excess weight loss is 63%. Body mass index is reduced from 38.3 down to 29.8. He is 36 pounds overweight. PHYSICAL EXAM: VITAL SIGNS: 5 foot 11 inches, 214 pounds. Body mass index of 29.8 Vital Signs Temp 97.3 F L 10/13/19 16:06 Pulse 92 10/13/19 16:06 Resp 16 10/13/19 16:06 BP 144/87 10/13/19 16:06 Pulse Ox ABDOMEN: Soft, nontender. No palpable incisional hernias. GENERAL: Well-developed pleasant male in no acute distress. MUSCULOSKELETAL: No clubbing, cyanosis, or edema. HEENT: No sclerae icterus. Extraocular movements grossly intact. Moist buccal mucosa. NECK: Supple without lymphadenopathy. CHEST: Nonlabored respirations. Equal bilateral excursions. CARDIOVASCULAR: Regular rate. Regular rhythm. Radial pulses 2+. NEURO: No focal or lateralizing signs. Cranial nerves II-12 grossly intact. PSYCH: Appropriate affect. Alert and oriented to person, place, and time. SKIN: Well perfused. Good skin turgor. LABS: reviewed with Vitamin D deficiency ASSESSMENT: 1. Morbid obesity due to excess calories. 2. Body mass index reduced from 38.3 down to 29.8 3. Status post Tala-en-Y gastric bypass. 4. History of food addiction, now resolved. 5. History of insulin-dependent diabetes type 2, now improved. 6. History of bilateral nonhealing, chronic great toe ulcers, now resolved. 7. Dietary surveillance and counseling. 8. History of gastrojejunal ulcer, resolved 9. History of diverticulosis. 10. 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 11. Hypertensive heart disease, improved and stable. 12. Hypothyroidism. 13. Obstructive sleep apnea, improved. 14. Peripheral vascular occlussive disease 15. Vitamin D deficiency, resolved 16. Kidney stones PLAN: 1. He reports recurrent kidney stones and went over kidney stone diet 2. Medical reconciliation reviewed. Objective - Vital Signs Vital signs: Vital Signs Temp 97.3 F L 10/13/19 16:06 Pulse 92 10/13/19 16:06 Resp 16 10/13/19 16:06 BP 144/87 10/13/19 16:06 Pulse Ox Intake & Output 10/12/19 10/13/19 10/13/19 18:59 06:59 18:59 Weight 97.069 kg
== END | disposition home or self-care (01) ==
LOC: BARWHC3 15:40
PROVIDERS: ATTEND Surgery Plastic and Reconstructive Surgery
DX: Z48.815 Encounter for surgical aftercare following surgery on the digestive system (principal); E66.01 Morbid (severe) obesity due to excess calories; E11.621 Type 2 diabetes mellitus with foot ulcer; E11.40 Type 2 diabetes mellitus with diabetic neuropathy, unspecified; I11.9 Hypertensive heart disease without heart failure; E03.9 Hypothyroidism, unspecified; G47.33 Obstructive sleep apnea (adult) (pediatric); I99.8 Other disorder of circulatory system; N20.0 Calculus of kidney; Z68.29 Body mass index [BMI] 29.0-29.9, adult; Z87.19 Personal history of other diseases of the digestive system; Z71.3 Dietary counseling and surveillance; Z98.84 Bariatric surgery status; Z79.4 Long term (current) use of insulin
CPT/HCPCS: 99211

== ENCOUNTER → 2020-03-13 | Outpatient (CLI) | payer MEDICARE ==
[2020-03-13 15:26] LABS: African American GFR (CKD) 79.5 (60.0-200.0); Albumin 4.7 g/dL (3.80-4.90); Albumin/Globulin Ratio 2.14 (1.60-3.17); Anion Gap 6.1 mmol/L (4.00-12.00); BUN/Creat Ratio 23.64 Ratio (12.00-20.00); Calcium 9.1 mg/dL (8.7-10.3); Carbon Dioxide 27.9 mmol/L (21.6-31.8); Chol/HDL Ratio 3.41; Globulin 2.2 g/dL (1.6-3.3); LDL Cholesterol,Calculated 44.6 mg/dL (0.0-131.0); Non-African American GFR(CKD) 68.6 (60.0-200.0); Potassium 4.7 mmol/L (3.5-5.5); Total Bilirubin 2.6 mg/dL (0.2-1.2); Total Protein 6.9 g/dL (6.2-8.2); VLDL Calculation 49.4 mg/dL (5.00-40.00)
[2020-03-13 17:29] LABS: Hemoglobin A1C 7.8 % (4.0-6.0)
[2020-03-13 18:16] LABS: Urine Creatinine 75.2 mg/dL
== END | disposition home or self-care (01) ==
LOC: LABWHC1 08:55
PROVIDERS: ATTEND Internal Medicine Endocrinology, Diabetes & Metabolism
DX: E11.65 Type 2 diabetes mellitus with hyperglycemia (principal); E03.8 Other specified hypothyroidism
CPT/HCPCS: 36415; 80053; 80061; 82043; 82570; 83036; 84443

== ENCOUNTER → 2020-04-19 | Outpatient (CLI) | payer MEDICARE ==
[2020-04-19 17:31] VITALS: BP 139/85; PULSE 102; RESP 18; TEMP 98.1
--- NOTE | 2020-04-19 18:05 | P.PN ---
Subjective Progress Note Date: 04/19/20 Has new nausea and has decreased weight as a result. He is not eating much. He was started on Niacin. He has more burping. He is on niacin for triglycerides. he has been on niacin for sep 2019. Stop niacin he eats too much carbs Objective - Vital Signs Vital signs: Vital Signs Temp 98.1 F 04/19/20 17:26 Pulse 102 H 04/19/20 17:26 Resp 18 04/19/20 17:26 BP 139/85 04/19/20 17:26 Pulse Ox
== END | disposition home or self-care (01) ==
LOC: BARWHC3 16:21
PROVIDERS: ATTEND Surgery Plastic and Reconstructive Surgery
DX: R11.0 Nausea (principal); R63.4 Abnormal weight loss; R93.3 Abnormal findings on diagnostic imaging of other parts of digestive tract
CPT/HCPCS: 99211

== ENCOUNTER → 2020-05-22 | Outpatient (CLI) | payer MEDICARE ==
[2020-05-22 11:36] LABS: HCT 42.8 % (39.0-53.0); HGB 14.3 gm/dL (13.0-17.5); MCH 29.1 pg (25.0-35.0); MCHC 33.3 g/dL (31.0-37.0); MCV 87.5 fL (80.0-100.0); Platelet Count 145 k/uL (150-450); RBC 4.89 m/uL (4.30-5.90); WBC 4.1 k/uL (3.8-10.6)
[2020-05-22 16:38] LABS: INR 1.03 (0.90-1.11); Partial Thromboplastin Time 29.4 sec (24.7-29.9)
[2020-05-22 18:11] LABS: % Iron Saturation 24.61 (15.00-50.00); ALT 36 U/L (10-49); AST 31 U/L (14-35); African American GFR (CKD) 79.5 (60.0-200.0); Albumin/Globulin Ratio 2.37 (1.60-3.17); Alkaline Phosphatase 105 U/L (41-126); BUN/Creat Ratio 18.18 Ratio (12.00-20.00); Calcium 8.5 mg/dL (8.7-10.3); Carbon Dioxide 25.3 mmol/L (21.6-31.8); Chloride 105 mmol/L (96-109); Chol/HDL Ratio 3.36; Cholesterol 121 mg/dL (0-200); Globulin 1.9 g/dL (1.6-3.3); Glucose 166 mg/dL (70-110); Iron 95 ug/dL (65-175); LDL Cholesterol,Calculated 51.2 mg/dL (0.0-131.0); Magnesium 1.8 mg/dL (1.5-2.4); Non-African American GFR(CKD) 68.6 (60.0-200.0); Phosphorus 3.6 mg/dL (2.4-5.1); Potassium 4.2 mmol/L (3.5-5.5); Sodium 140 mmol/L (135-145); Total Bilirubin 1.8 mg/dL (0.3-1.2); Total Iron Binding Capacity 386 ug/dL (228-460); Total Protein 6.4 g/dL (6.2-8.2)
[2020-05-22 18:45] LABS: Ferritin 18.8 ng/mL (22.0-322.0); Folate, Serum >24.0 ng/mL; Vitamin B12 >4000.0 pg/mL (211-911)
[2020-05-22 19:46] LABS: Hemoglobin A1C 8.3 % (4.0-6.0)
[2020-05-23 14:04] LABS: Zinc, Serum 79 ug/dL (60-130)
[2020-05-24 06:49] LABS: Vit B1(Thiamine) 81 ug/L (38-122)
== END | disposition home or self-care (01) ==
LOC: LABWHC1 10:22
PROVIDERS: ATTEND Surgery Plastic and Reconstructive Surgery
DX: E89.1 Postprocedural hypoinsulinemia (principal); D50.8 Other iron deficiency anemias; K90.89 Other intestinal malabsorption; E55.9 Vitamin D deficiency, unspecified; K74.1 Hepatic sclerosis; N19 Unspecified kidney failure; K50.90 Crohn's disease, unspecified, without complications; E66.01 Morbid (severe) obesity due to excess calories
CPT/HCPCS: 36415; 80053; 80061; 82306; 82525; 82607; 82728; 82746; 83036; 83540; 83550; 83735; 83970; 84100; 84134; 84255; 84425; 84443; 84590; 84630; 85027; 85610; 85730

== ENCOUNTER → 2020-05-31 | Outpatient (CLI) | payer MEDICARE ==
--- NOTE | 2020-05-31 14:56 | XR ---
Lumbar spine HISTORY: Spondylosis with myelopathy 3 views of lumbar spine correlated prior exam 04/29/2019 There is no significant interval change. Multilevel spondylosis is present. Lumbar vertebral bodies s how preserved height, alignment, bone mineralization. Loss of disc height is present greatest at L3-4 greater than L5-S1. Sclerosis is present in the posterior elements consistent with facet arthropathy . Surgical clips present in the right upper quadrant, suture in the upper quadrant present on the lef t. Some rounded calcifications in the right hemiabdomen again noted consistent with calcified diverti cula. IMPRESSION: Degenerative disc disease, facet arthropathy. Stable exam with additional findings above.
== END | disposition home or self-care (01) ==
LOC: RADXRMAIN 12:08
PROVIDERS: ATTEND Internal Medicine
DX: M51.16 Intervertebral disc disorders with radiculopathy, lumbar region (principal); M47.16 Other spondylosis with myelopathy, lumbar region; M46.96 Unspecified inflammatory spondylopathy, lumbar region
CPT/HCPCS: 72100

== ENCOUNTER → 2020-06-21 | Outpatient (CLI) | payer MEDICARE ==
[2020-06-21 14:38] VITALS: BP 142/83; PULSE 85; RESP 18; TEMP 98.2; BMI 28.7
--- NOTE | 2020-06-21 15:06 | P.PN ---
Subjective Progress Note Date: 06/21/20 DATE OF SERVICE: 06/21/2020 CHIEF COMPLAINT: Followup gastric bypass. HISTORY OF PRESENT ILLNESS: Tim Rosas is a 69-year-old gentleman who is status post Tala-en-Y gastric bypass from January 23, 2015. He is 5 years out. He has started GOLO for diet. He reports nausea. He is losing weight from his medications. He is drinking tea. He reports stomach ache since being on GOLO. He presents with abdominal pain. His highest weight was 274 pounds. [place] body weight is 178 pounds. Today he comes in weighing 206 pounds from 208 pounds, 2 months ago. He has lost 2 pounds in 2 months. He has maintained 68 pound weight loss, lifetime. Lifetime percent excess weight loss is 71 %. Body mass index is reduced from 38.3 down to 28.7. He is 28 pounds overweight. PHYSICAL EXAM: VITAL SIGNS: 5 foot 11 inches, 206 pounds. Body mass index of 28.7 Vital Signs Temp 98.2 F 06/21/20 14:26 Pulse 85 06/21/20 14:26 Resp 18 06/21/20 14:26 BP 142/83 06/21/20 14:26 Pulse Ox ABDOMEN: Soft, nontender. No palpable incisional hernias. GENERAL: Well-developed pleasant male in no acute distress. MUSCULOSKELETAL: No clubbing, cyanosis, or edema. HEENT: No sclerae icterus. Extraocular movements grossly intact. Moist buccal mucosa. NECK: Supple without lymphadenopathy. CHEST: Nonlabored respirations. Equal bilateral excursions. CARDIOVASCULAR: Radial pulses 2+. NEURO: No focal or lateralizing signs. Cranial nerves II-12 grossly intact. PSYCH: Appropriate affect. Alert and oriented to person, place, and time. SKIN: Well perfused. Good skin turgor. LABS: Reviewed. Platelets is low. Hgb A1c elevated 8.3%. Triglycerides are elevated. Total bilirubin is elevated. ASSESSMENT: 1. Morbid obesity due to excess calories. 2. Body mass index reduced from 38.3 down to 28.7 3. Status post Tala-en-Y gastric bypass. 4. History of food addiction, now resolved. 5. History of insulin-dependent diabetes type 2, now improved. 6. History of bilateral nonhealing, chronic great toe ulcers, now resolved. 7. Dietary surveillance and counseling. 8. History of gastrojejunal ulcer, resolved 9. History of diverticulosis. 10. 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 11. Hypertensive heart disease, improved and stable. 12. Hypothyroidism. 13. Obstructive sleep apnea, improved. 14. Peripheral vascular occlussive disease 15. Vitamin D deficiency, resolved 16. Kidney stones 17. Generalized abdominal pain. PLAN: 1. He is on GOLO diet with side effections. Recommend stop GOLO. 2. He has abdominal pain with risk for gastritis. Recommend upper endoscopy. Objective - Vital Signs Vital signs: Vital Signs Temp 98.2 F 06/21/20 14:26 Pulse 85 06/21/20 14:26 Resp 18 06/21/20 14:26 BP 142/83 06/21/20 14:26 Pulse Ox Intake & Output 06/20/20 06/21/20 06/21/20 18:59 06:59 18:59 Weight 93.44 kg
== END | disposition home or self-care (01) ==
LOC: BARWHC3 14:08
PROVIDERS: ATTEND Surgery Plastic and Reconstructive Surgery
DX: E66.01 Morbid (severe) obesity due to excess calories (principal); E11.621 Type 2 diabetes mellitus with foot ulcer; I11.9 Hypertensive heart disease without heart failure; E03.9 Hypothyroidism, unspecified; G47.33 Obstructive sleep apnea (adult) (pediatric); I82.90 Acute embolism and thrombosis of unspecified vein; N20.0 Calculus of kidney; R10.9 Unspecified abdominal pain; Z79.4 Long term (current) use of insulin; Z71.3 Dietary counseling and surveillance; Z87.19 Personal history of other diseases of the digestive system; Z68.28 Body mass index [BMI] 28.0-28.9, adult; Z98.84 Bariatric surgery status
CPT/HCPCS: 99211

== ENCOUNTER 2020-07-06 08:15 | Day surgery (SDC) | payer MEDICARE ==
[2020-07-05 11:10] VITALS: BMI 28.7
--- NOTE | 2020-07-06 08:00 | P.GSHP ---
History of Present Illness H&P Date: 07/06/20 CHIEF COMPLAINT: GERD HISTORY OF PRESENT ILLNESS: The patient is a 69-year-old male who presents reports gastroesophageal reflux disease. Upper endoscopy was offered for further evaluation and management. PAST MEDICAL HISTORY: Please see list. PAST SURGICAL HISTORY: Please see list. MEDICATIONS: Please see list. ALLERGIES: Please see list. SOCIAL HISTORY: No illicit drug use FAMILY HISTORY: No reports of Crohn disease or ulcerative colitis. REVIEW OF ORGAN SYSTEMS: CONSTITUTIONAL: No reports of fevers or chills. GI: Denies any blood in stools or constipation. PHYSICAL EXAM: VITAL SIGNS: Stable GENERAL: Well-developed and pleasant in no acute distress. HEENT: No scleral icterus. Extraocular movements grossly intact. Moist buccal mucosa. NECK: Supple without lymphadenopathy. CHEST: Unlabored respirations. Equal bilateral excursions. CARDIOVASCULAR: Regular rate and rhythm. Distal 2+ pulses. ABDOMEN: Soft, nondistended. MUSCULOSKELETAL: No clubbing, cyanosis, or edema. ASSESSMENT: 1. Gastroesophageal reflux disease PLAN: 1. Recommend proceeding with an upper endoscopy Past Medical History Past Medical History: Diabetes Mellitus, GERD/Reflux, Hypertension, Osteoarthritis (OA), Skin Disorder, Sleep Apnea/CPAP/BIPAP, Thyroid Disorder Additional Past Medical History / Comment(s): Uses CPAP. Limps due to broken left foot in past that didn't heal properly, diabetic retinopathy & neuropathy. HAVING NAUSEA WITH EATING, CURRENTLY HAS UMBILICAL HERNIA, History of Any Multi-Drug Resistant Organisms: None Reported Past Surgical History: Bariatric Surgery, Cholecystectomy Additional Past Surgical History / Comment(s): Liver biopy. Pilonidal cyst. Cysts removed from head. Cataract & retinopathy surgery. Tala-en-Y. COLONOSCOPY Past Anesthesia/Blood Transfusion Reactions: No Reported Reaction Smoking Status: Never smoker - Past Family History Father Family Medical History: Diabetes Mellitus, Deep Vein Thrombosis (DVT) Mother Family Medical History: Cancer, Diabetes Mellitus Sister(s) Family Medical History: Cancer, Diabetes Mellitus Additional Family Medical History / Comment(s): uterine CA, lupus, bipolar disorder Medications and Allergies Home Medications Medication Instructions Recorded Confirmed Type Levothyroxine Sodium [Synthroid] 112 mcg PO QAM 12/28/14 07/05/20 History Losartan [Cozaar] 25 mg PO BID 01/18/15 07/05/20 History Cholecalciferol [Vitamin D3] 10,000 unit PO DAILY 01/24/15 07/05/20 History Multivitamins, Thera [Theragran] 1 each PO DAILY 01/24/15 07/05/20 History metFORMIN HCL [metFORMIN HCL ER] 1,000 mg PO BID 06/16/15 07/05/20 History Fish Oil/Dha/Epa [Fish Oil 1,200 1 each PO DAILY 09/13/15 07/05/20 History mg Fish Oil] Vitamin B Complex 1 each PO DAILY 10/12/15 07/05/20 History Acetaminophen Tab [Tylenol Tab] 1,000 mg PO Q6HR PRN 12/14/15 07/05/20 History Dulaglutide [Trulicity] 150 mg SQ WEEKLY 01/21/18 07/05/20 History Cyanocobalamin [Vitamin B-12] 500 mcg PO DAILY 04/19/20 07/05/20 History Magnesium 324 mg PO DAILY 04/19/20 07/05/20 History Pentoxifylline [TRENtal] 400 mg PO AC-TID 04/19/20 07/05/20 History Cyclobenzaprine [Flexeril] 5 mg PO BID PRN 06/21/20 07/05/20 History Allergies Allergy/AdvReac Type Severity Reaction Status Date / Time clindamycin Allergy Rash/Hives Verified 07/05/20 11:02 BACTRIM DS Allergy Rash/Hives. Uncoded 07/05/20 11:02 ITCHING.
[~2020-07-06 08:15] MED LIST: LACTATED RINGERS 1,000 ML IV SCH; LIDOCAINE 1% (10MG/ML) FOR IV START INTRADERMA PRN
[2020-07-06] MEDS ORDERED: LACTATED RINGERS 1,000 ML IV ONE (08:40)
[2020-07-06 08:47] LABS: Glucose,Whole Blood 138 mg/dL (75-99)
[2020-07-06 09:00] VITALS: TEMP 97.9
[2020-07-06] MEDS ORDERED: PROPOFOL 10 MG/ML 20 ML VIAL IV ONE (09:00)
[2020-07-06] MEDS ORDERED: LIDOCAINE 1% INJ 10MG/ML (20 ML MDV) ONE (09:00)
--- NOTE | 2020-07-06 09:26 | P.PCN ---
Date of Procedure: 07/06/20 Description of Procedure: PREOPERATIVE DIAGNOSES: 1. Epigastric abdominal pain. 2. Nausea and vomiting. 3. History of gastric bypass. 4. History of gastric ulcers. POSTOPERATIVE DIAGNOSES: 1. Epigastric abdominal pain. 2. Nausea and vomiting. 3. History of gastric bypass. 4. History of gastric ulcers. PROCEDURE PERFORMED: Esophagogastrojejunoscopy. SURGEON: Martita Wills MD ANESTHESIA: MAC. INDICATIONS: The patient is a 69-year-old male with prior history of Tala-en-Y gastric bypass. In the last several weeks, he has had intermittent nausea and vomiting, particularly of the epigastric abdominal pain. With his history of Tala-en-Y gastric bypass, upper endoscopy was offered for further evaluation and management. DESCRIPTION: Patient was brought to the endoscopy suite and laid in the left lateral decubitus position. After adequate IV sedation, a bite block was placed. An Olympus gastroscope was passed along the posterior oropharynx down to the distal esophagus where the squamocolumnar junction was found at approximately 38 cm from the incisors. His anastomosis was found at 42 cm, consistent with approximately 4 cm gastric pouch. The scope was advanced 60 cm from the incisors. No evidence of foreign body was found. No evidence of active gastrojejunal ulcerations were encountered. The GI tract was desufflated. The patient tolerated the procedure well. FINDINGS: 1. No acute gastrojejunal ulceration. 2. No foreign body found along the anastomosis. PLAN: 1. Recommend upper endoscopy as needed. 2. May benefit from additional studies with history of epigastric abdominal pain such as upper GI barium study. Plan - Discharge Summary Discharge Rx Participant: No New Discharge Prescriptions: Continue Levothyroxine Sodium [Synthroid] 112 mcg PO QAM Losartan [Cozaar] 25 mg PO BID Multivitamins, Thera [Multivitamin (formulary)] 1 each PO DAILY Cholecalciferol [Vitamin D3 (25 Mcg = 1000 Iu)] 10,000 unit PO DAILY metFORMIN HCL [metFORMIN HCL ER] 1,000 mg PO BID Fish Oil/Dha/Epa [Fish Oil 1,200 mg Fish Oil] 1 each PO DAILY Vitamin B Complex 1 each PO DAILY Acetaminophen Tab [Tylenol] 1,000 mg PO Q6HR PRN PRN Reason: Pain Dulaglutide [Trulicity] 150 mg SQ WEEKLY Pentoxifylline [TRENtal] 400 mg PO AC-TID Magnesium 324 mg PO DAILY Cyanocobalamin [Vitamin B-12] 500 mcg PO DAILY Cyclobenzaprine [Flexeril] 5 mg PO BID PRN PRN Reason: Muscle Spasm Discharge Medication List Levothyroxine Sodium [Synthroid] 112 mcg PO QAM 12/28/14 [History] Losartan [Cozaar] 25 mg PO BID 01/18/15 [History] Cholecalciferol [Vitamin D3 (25 Mcg = 1000 Iu)] 10,000 unit PO DAILY 01/24/15 [History] Multivitamins, Thera [Multivitamin (formulary)] 1 each PO DAILY 01/24/15 [History] metFORMIN HCL [metFORMIN HCL ER] 1,000 mg PO BID 06/16/15 [History] Fish Oil/Dha/Epa [Fish Oil 1,200 mg Fish Oil] 1 each PO DAILY 09/13/15 [History] Vitamin B Complex 1 each PO DAILY 10/12/15 [History] Acetaminophen Tab [Tylenol] 1,000 mg PO Q6HR PRN 12/14/15 [History] Dulaglutide [Trulicity] 150 mg SQ WEEKLY 01/21/18 [History] Cyanocobalamin [Vitamin B-12] 500 mcg PO DAILY 04/19/20 [History] Magnesium 324 mg PO DAILY 04/19/20 [History] Pentoxifylline [TRENtal] 400 mg PO AC-TID 04/19/20 [History] Cyclobenzaprine [Flexeril] 5 mg PO BID PRN 06/21/20 [History] [facility]Ref[facility] [facility] [place] [place] [facility] [place] [facility]20 Patient Instructions/Handouts: Gastroesophageal Reflux Disease (DC) Discharge Disposition: HOME SELF-CARE
[2020-07-06 09:42] VITALS: BP 124/78; PULSE 74; RESP 20
== END 2020-07-06 10:11 | disposition home or self-care (01) ==
LOC: ORWHC2ENDO 08:15
PROVIDERS: ATTEND Surgery Plastic and Reconstructive Surgery
DX: R10.13 Epigastric pain (principal); R11.2 Nausea with vomiting, unspecified; K21.9 Gastro-esophageal reflux disease without esophagitis; I10 Essential (primary) hypertension; M19.90 Unspecified osteoarthritis, unspecified site; E07.9 Disorder of thyroid, unspecified; R26.89 Other abnormalities of gait and mobility; E11.319 Type 2 diabetes mellitus with unspecified diabetic retinopathy without macular edema; E11.40 Type 2 diabetes mellitus with diabetic neuropathy, unspecified; K42.9 Umbilical hernia without obstruction or gangrene; I73.9 Peripheral vascular disease, unspecified; Z98.84 Bariatric surgery status; Z87.11 Personal history of peptic ulcer disease; Z88.2 Allergy status to sulfonamides; Z88.1 Allergy status to other antibiotic agents; Z87.2 Personal history of diseases of the skin and subcutaneous tissue; Z99.89 Dependence on other enabling machines and devices; Z87.81 Personal history of (healed) traumatic fracture; Z90.49 Acquired absence of other specified parts of digestive tract; Z98.890 Other specified postprocedural states; Z98.49 Cataract extraction status, unspecified eye; Z79.890 Hormone replacement therapy; Z79.899 Other long term (current) drug therapy; Z79.84 Long term (current) use of oral hypoglycemic drugs; Z83.3 Family history of diabetes mellitus; Z82.49 Family history of ischemic heart disease and other diseases of the circulatory system; Z80.9 Family history of malignant neoplasm, unspecified; Z80.49 Family history of malignant neoplasm of other genital organs; Z82.69 Family history of other diseases of the musculoskeletal system and connective tissue; Z81.8 Family history of other mental and behavioral disorders
CPT/HCPCS: 43235; J2001; J2704

== ENCOUNTER → 2020-07-19 | Outpatient (CLI) | payer MEDICARE ==
[2020-07-19 14:29] VITALS: BP 152/88; PULSE 98; RESP 16; TEMP 97.6; BMI 28.8
--- NOTE | 2020-07-19 15:01 | P.PN ---
Subjective Progress Note Date: 07/19/20 DATE OF SERVICE: 07/19/2020 CHIEF COMPLAINT: Followup gastric bypass. HISTORY OF PRESENT ILLNESS: Tim Rosas is a 69-year-old gentleman who is status post Tala-en-Y gastric bypass from January 23, 2015. He is 5 years out. He has side effects to [place] with stomach pain. He is taking 2 tablets at night and in the morning. His highest weight was 274 pounds. [place] body weight is 178 pounds. Today he comes in weighing 207 pounds from 206 pounds, 1 months ago. He has gained 1 pounds in 1 months. He has maintained 67 pound weight loss, lifetime. Lifetime percent excess weight loss is 70 %. Body mass index is reduced from 38.3 down to 28.9. He is 29 pounds overweight. PHYSICAL EXAM: VITAL SIGNS: 5 foot 11 inches, 207 pounds. Body mass index of 28.9 Vital Signs Temp 97.6 F 07/19/20 14:27 Pulse 98 07/19/20 14:27 Resp 16 07/19/20 14:27 BP 152/88 07/19/20 14:27 Pulse Ox ABDOMEN: Soft, nontender. GENERAL: Well-developed pleasant male in no acute distress. MUSCULOSKELETAL: No clubbing, cyanosis, or edema. HEENT: No sclerae icterus. Extraocular movements grossly intact. Moist buccal mucosa. NECK: Supple without lymphadenopathy. CHEST: Nonlabored respirations. Equal bilateral excursions. CARDIOVASCULAR: Radial pulses 2+. NEURO: No focal or lateralizing signs. Cranial nerves II-12 grossly intact. PSYCH: Appropriate affect. Alert and oriented to person, place, and time. SKIN: Well perfused. Good skin turgor. ASSESSMENT: 1. Morbid obesity due to excess calories. 2. Body mass index reduced from 38.3 down to 28.9 3. Status post Tala-en-Y gastric bypass. 4. History of food addiction, now resolved. 5. History of insulin-dependent diabetes type 2, now improved. 6. History of bilateral nonhealing, chronic great toe ulcers, now resolved. 7. Dietary surveillance and counseling. 8. History of gastrojejunal ulcer, resolved 9. History of diverticulosis. 10. 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 11. Hypertensive heart disease, improved and stable. 12. Hypothyroidism. 13. Obstructive sleep apnea, improved. 14. Peripheral vascular occlussive disease 15. Vitamin D deficiency, resolved 16. Kidney stones 17. Generalized abdominal pain. PLAN: 1. Medical reconciliation was performed. 2. Recommend exofolliant for skin and moisturizer. Objective - Vital Signs Vital signs: Vital Signs Temp 97.6 F 07/19/20 14:27 Pulse 98 07/19/20 14:27 Resp 16 07/19/20 14:27 BP 152/88 07/19/20 14:27 Pulse Ox Intake & Output 07/18/20 07/19/20 07/19/20 18:59 06:59 18:59 Weight 93.894 kg
== END | disposition home or self-care (01) ==
LOC: BARWHC3 14:02
PROVIDERS: ATTEND Surgery Plastic and Reconstructive Surgery
DX: E66.01 Morbid (severe) obesity due to excess calories (principal); E11.40 Type 2 diabetes mellitus with diabetic neuropathy, unspecified; I11.9 Hypertensive heart disease without heart failure; E03.9 Hypothyroidism, unspecified; G47.33 Obstructive sleep apnea (adult) (pediatric); I82.90 Acute embolism and thrombosis of unspecified vein; N20.0 Calculus of kidney; R10.9 Unspecified abdominal pain; Z87.19 Personal history of other diseases of the digestive system; Z68.28 Body mass index [BMI] 28.0-28.9, adult; Z98.84 Bariatric surgery status; Z71.3 Dietary counseling and surveillance
CPT/HCPCS: 99211

== ENCOUNTER → 2020-10-18 | Outpatient (CLI) | payer MEDICARE ==
[2020-10-18 16:15] LABS: Basophils # (A) 0.02 X 10*3/uL (0.00-0.10); Basophils % (A) 0.5 %; Eosinophils # (A) 0.08 X 10*3/uL (0.04-0.35); Eosinophils % (A) 2.1 %; HCT 43.5 % (39.6-50.0); HGB 14.6 g/dL (13.0-17.0); Lymphocytes # (A) 1.26 X 10*3/uL (0.90-5.00); Lymphocytes % (A) 33.5 %; MCH 29.3 pg (27.0-32.0); MCHC 33.6 g/dL (32.0-37.0); MCV 87.3 fL (80.0-97.0); Mean Platelet Volume 10.3 fL (9.5-12.2); Monocytes # (A) 0.27 X 10*3/uL (0.20-1.00); Monocytes % (A) 7.2 %; Neutrophils # (A) 2.12 X 10*3/uL (1.80-7.70); Neutrophils % (A) 56.4 %; Platelet Count 174 X 10*3/uL (140-440); RBC 4.98 X 10*6/uL (4.40-5.60); RDW 13.6 % (11.5-14.5); WBC 3.76 X 10*3/uL (4.50-10.00)
[2020-10-18 16:43] LABS: African American GFR (CKD) 71.6 (60.0-200.0); Albumin 5.1 g/dL (3.80-4.90); Albumin/Globulin Ratio 2.55 (1.60-3.17); Anion Gap 7.8 mmol/L (4.00-12.00); BUN/Creat Ratio 14.17 Ratio (12.00-20.00); Calcium 8.6 mg/dL (8.7-10.3); Carbon Dioxide 24.2 mmol/L (21.6-31.8); Chol/HDL Ratio 3.55; LDL Cholesterol,Calculated 53.4 mg/dL (0.0-131.0); Non-African American GFR(CKD) 61.8 (60.0-200.0); Potassium 4.2 mmol/L (3.5-5.5); Total Bilirubin 1.7 mg/dL (0.3-1.2); Total Protein 7.1 g/dL (6.2-8.2); VLDL Calculation 43.6 mg/dL (5.00-40.00)
[2020-10-18 17:41] LABS: Urine Creatinine 100.9 mg/dL
== END | disposition home or self-care (01) ==
LOC: LABWHC1 09:15
PROVIDERS: ATTEND Internal Medicine Endocrinology, Diabetes & Metabolism
DX: E11.65 Type 2 diabetes mellitus with hyperglycemia (principal); E11.621 Type 2 diabetes mellitus with foot ulcer
CPT/HCPCS: 36415; 80053; 80061; 82043; 82570; 83036; 84134; 84443; 85025

== ENCOUNTER → 2020-11-10 | Outpatient (CLI) | payer MEDICARE | END | disposition home or self-care (01) | LOC: LABWHC1 09:15 | PROVIDERS: ATTEND Internal Medicine Endocrinology, Diabetes & Metabolism | DX: I10 Essential (primary) hypertension (principal); E03.8 Other specified hypothyroidism; E11.65 Type 2 diabetes mellitus with hyperglycemia; E78.5 Hyperlipidemia, unspecified | CPT/HCPCS: 36415; 84403 ==

== ENCOUNTER → 2020-12-13 | Outpatient (CLI) | payer MEDICARE ==
--- NOTE | 2020-12-14 02:16 | MR ---
EXAMINATION TYPE: MR lumbar spine wo con DATE OF EXAM: 12/13/2020 COMPARISON: None HISTORY: Low back pain down left and right leg for 1-2 years. Multiplanar multiecho imaging of the lumbar spine was performed with no contrast. Lumbar vertebra have normal alignment. There is decreased signal in the disks throughout the lumbar s pine. There is some narrowing of the disc spaces and more noticeable at L3-4. There is no compression fracture. The neural foramina are fairly well-maintained. There is small posterior disc bulging at L 3-4. Sacroiliac joints are intact. There is no lumbar paraspinal mass. I see no significant spinal st enosis. There is developmentally adequate spinal canal. Lumbar nerve roots appear normal. IMPRESSION: Multilevel spondylotic changes. No fracture. Small posterior disc bulging at L3-4 and L5-S1 without s ignificant impingement on the spinal canal.
== END | disposition home or self-care (01) ==
LOC: RADMRIMAIN 19:43
PROVIDERS: ATTEND Internal Medicine
DX: M51.27 Other intervertebral disc displacement, lumbosacral region (principal); M47.816 Spondylosis without myelopathy or radiculopathy, lumbar region
CPT/HCPCS: 72148

== ENCOUNTER → 2021-01-03 | Outpatient (CLI) | payer MEDICARE ==
[2021-01-03 11:29] VITALS: BP 131/92; PULSE 100; RESP 16; TEMP 97.4
--- NOTE | 2021-01-03 11:51 | P.PAINCN ---
History of Present Illness - Reason for Consult Consult date: 01/03/21 - History of Present Illness This is a 70-year-old patient referred by Dr. Foster with a chief complaint of chronic pain in the low back. Patient has been having bilateral low back pain for many years. Pain is located in the low back with radiation into the buttocks. Pain is described as sharp and constant throughout the day. It is alleviated by sitting down and made worse with lumbar extension and rising from a seated position. Does not endorse any pain or weakness in his lower extremities, however he says it is difficult to walk due to the pain. Pain is currently a 3 out of 10, at best a 1 out of 10, at its worst 8 out of 10. In Terms of management the patient will take half a Chase 5 every now and then which he says helps, only takes it when he gets very bad. Patient is partially blind and he notes that taking too much Chase, which would be one tablet, makes his vision fuzzy and even more blind. He did physical therapy but he says this only made his pain worse. In terms of injections he recalls one year ago he had some type of injection involving 3 needles which only helped for 2-3 days. Notes spasms in his low back as well. Patient has been taking medications from primary care physician including [] with some relief. Patient denies adverse drug effects from medications. Patient also denies new-onset weakness, bowel/bladder incontinence, or any other signs or symptoms of cauda equina syndrome. There are no signs of acute intoxication, and no indications of medication diversion or overuse. In addition to above, 13-point review of systems is also negative for chest pain, shortness of breath, changes in vision, changes in hearing, new onset weakness, abdominal pain, diarrhea, extreme fatigue, malaise, fever, skin changes, homicidal or suicidal ideation, or bowel or bladder incontinence. Physical exam: Vital Signs: Reviewed in EMR GENERAL: Well appearing, in no acute distress PSYCH: Mood and affect is appropriate. Awake, alert, and oriented SKIN: Skin color, texture, turgor normal, no rashes or lesions HEENT: Normocephalic, atraumatic. EOM intact CV: No pedal edema RESP: Respirations are unlabored, no audible wheezing GI: Abdomen non-distended MUSCULOSKELETAL: Bilateral upper and lower extremity strength is normal and symmetric. No atrophy or tone abnormalities are noted. Lumbar spine: Straight leg raising in the sitting position is negative for radicular pain. Significant pain to palpation over the lumbar spine and paraspinous muscles. positive for pain with facet loading and back extension/rotation. Decreased range of motion, almost no ability to extend the low back due to pain Extremities: Peripheral joint ROM is full and pain free without obvious instability or laxity in all four extremities. No edema or skin discolorations noted. Gait: Gait is antalgic and slow, patient walks with a cane and flexing forward. NEUR: Bilateral upper and lower extremity coordination and muscle stretch reflexes are physiologic and symmetric. Negative clonus. No loss of sensation is noted. Cranial nerves are grossly intact. Imaging: Lumbar MRI 11/2020 View of the lumbar MRI shows normal alignment. There is significant disc dehydration throughout the spine. There is some narrowing of the disc space is most noticeable at L3-L4. Neural foramen are well maintained. Small posterior disc bulge L3-L4. No significant spinal stenosis. Mild to moderate facet hypertrophy at L4-5 and L5-S1 Assessment: 1. Lumbar spondylosis without myelopathy Plan: 1. Explanation: Diagnoses, prognoses, and multiple treatment options including but not limited to physical therapy, interventional therapies, medication management and surgery were discussed with the patient and all questions were answered to the patient's satisfaction. 2. Investigations: none 3. Counseling: The patient was counseled for 3 minutes on SMOKING CESSATION, BODY MASS INDEX, EXERCISE. Specifically, the patient was instructed regarding the importance of smoking cessation, weight control, and exercise in the context of both chronic pain and overall health. 4. Procedures: B/l MBB L4-L5 and L5-S1. Long discussion with the patient detailing the chronology of the procedure, commenting that we would need 2 good results from these medial branch blocks before proceeding to radiofrequency ablation. Patient understands 5. Consultations: none 6. Medications: Continue Chase sparingly as needed. I did discuss muscle relaxants given his muscle spasms in his low back, however given that even 2.5 mg of hydrocodone makes him feel drowsy I am worried what a muscle relaxant would do to him, so we will hold off 7. Disposition: For above procedure Past Medical History Past Medical History: Diabetes Mellitus, GERD/Reflux, Hypertension, Osteoarthritis (OA), Skin Disorder, Sleep Apnea/CPAP/BIPAP, Thyroid Disorder Additional Past Medical History / Comment(s): Uses CPAP. Limps due to broken left foot in past that didn't heal properly, diabetic retinopathy & neuropathy. HAVING NAUSEA WITH EATING, CURRENTLY HAS UMBILICAL HERNIA, History of Any Multi-Drug Resistant Organisms: None Reported Past Surgical History: Bariatric Surgery, Cholecystectomy Additional Past Surgical History / Comment(s): Liver biopy. Pilonidal cyst. Cysts removed from head. Cataract & retinopathy surgery. Tala-en-Y. COLONOSCOPY Past Anesthesia/Blood Transfusion Reactions: No Reported Reaction Past Psychological History: ADD/ADHD Smoking Status: Never smoker Past Alcohol Use History: Rare Additional Past Alcohol Use History / Comment(s): Patient is a lifelong nonsmoker. No medical marijuana, marijuana or street drug use. Patient drinks alcohol rarely. He is a retired nurse. He lives at home with his . Past Drug Use History: None Reported - Past Family History Father Family Medical History: Diabetes Mellitus, Deep Vein Thrombosis (DVT) Mother Family Medical History: Cancer, Diabetes Mellitus Sister(s) Family Medical History: Cancer, Diabetes Mellitus Additional Family Medical History / Comment(s): uterine CA, lupus, bipolar disorder Medications and Allergies Home Medications Medication Instructions Recorded Confirmed Type Levothyroxine Sodium [Synthroid] 112 mcg PO QAM 12/28/14 07/20/20 History Losartan [Cozaar] 25 mg PO BID 01/18/15 07/20/20 History Cholecalciferol [Vitamin D3 (25 10,000 unit PO DAILY 01/24/15 07/20/20 History Mcg = 1000 Iu)] metFORMIN HCL [metFORMIN HCL ER] 1,000 mg PO BID 06/16/15 07/20/20 History Acetaminophen Tab [Tylenol] 1,000 mg PO Q6HR PRN 12/14/15 07/20/20 History Dulaglutide [Trulicity] 150 mg SQ WEEKLY 01/21/18 07/20/20 History Cyanocobalamin [Vitamin B-12] 500 mcg PO DAILY 04/19/20 07/20/20 History Magnesium 324 mg PO DAILY 04/19/20 07/20/20 History Pentoxifylline [TRENtal] 400 mg PO AC-TID 04/19/20 07/20/20 History Allergies Allergy/AdvReac Type Severity Reaction Status Date / Time clindamycin Allergy Rash/Hives Verified 07/20/20 09:11 BACTRIM DS Allergy Rash/Hives. Uncoded 07/20/20 09:11 ITCHING. PQRS Measure Charge Sheet PQRS Narrative: Smoking Status Never smoker Home Medications: Ambulatory Orders Levothyroxine Sodium [Synthroid] 112 mcg PO QAM 12/28/14 Losartan [Cozaar] 25 mg PO BID 01/18/15 Cholecalciferol [Vitamin D3 (25 Mcg = 1000 Iu)] 10,000 unit PO DAILY 01/24/15 metFORMIN HCL [metFORMIN HCL ER] 1,000 mg PO BID 06/16/15 Acetaminophen Tab [Tylenol] 1,000 mg PO Q6HR PRN 12/14/15 Dulaglutide [Trulicity] 150 mg SQ WEEKLY 01/21/18 Cyanocobalamin [Vitamin B-12] 500 mcg PO DAILY 04/19/20 Magnesium 324 mg PO DAILY 04/19/20 Pentoxifylline [TRENtal] 400 mg PO AC-TID 04/19/20
== END ==
LOC: PNWHC3 11:08
PROVIDERS: ATTEND Anesthesiology
DX: M47.816 Spondylosis without myelopathy or radiculopathy, lumbar region (principal); E11.9 Type 2 diabetes mellitus without complications; I10 Essential (primary) hypertension; M19.90 Unspecified osteoarthritis, unspecified site; F90.9 Attention-deficit hyperactivity disorder, unspecified type; Z79.84 Long term (current) use of oral hypoglycemic drugs
CPT/HCPCS: 99211

== ENCOUNTER 2021-01-26 13:33 | Day surgery (SDC) | payer MEDICARE ==
[2021-01-24 11:34] VITALS: BMI 29.0
[~2021-01-26 13:33] MED LIST changes: -LIDOCAINE 1% (10MG/ML) FOR IV START INTRADERMA PRN
[2021-01-26 14:07] VITALS: RESP 16; TEMP 96.9
[2021-01-26 14:12] LABS: Glucose,Whole Blood 118 mg/dL (75-99)
[2021-01-26] MEDS ORDERED: MIDAZOLAM 2 MG/2 ML VIAL ONE (14:45)
[2021-01-26] MEDS ORDERED: fentaNYL (PF) 50 MCG/ML 2 ML AMP ONE (14:45)
[2021-01-26] MEDS ORDERED: methylPREDNISolone ACETATE 40 MG/ML 1 ML VIAL ONE (14:45)
[2021-01-26] MEDS ORDERED: ROPIVACAINE 5MG/ML 20ML VIAL ONE (14:45)
--- NOTE | 2021-01-26 15:02 | P.PCN ---
Date of Procedure: 01/26/21 Procedure(s) Performed: PREOPERATIVE DIAGNOSIS : 1- Lumbar spondylosis with Facet Arthropathy without myelopathy . POSTOPERATIVE DIAGNOSIS: 1- Lumbar spondylosis with Facet Arthropathy without myelopathy . PROCEDURE: Diagnostic bilateral L3 , L4 , and L5 medial branch block under fluoroscopy guidance(fluoroscopy images available in the radiology Department ) ( To target the facet joint between Bilateral L4-5 , and L5-S1 ) #1 st ANESTHESIA:monitored anesthesia care as per anesthesia department. EBL: Minimal COMPLICATION: None PROCEDURE INDICATION: Chronic low back pain secondary to Facet arthropathy unresponsive to conservative treatment. PROCEDURE DESCRIPTION: the patient was seen and identified in the preop holding area , risks and benefits and possible complications of the procedure and alternative were discussed with the patient, and the patient agreed to proceed with the procedure and signed the consent and vital signs monitored during the procedure and fluoroscopy was used to maximize the benefit and accuracy of the needle placement, and sedation was given to decrease patient anxiety, patient was taken to the procedure room and placed in prone position vital signs monitored in the back prepped with chlorhexidine X3 then under strict sterile technique using a right oblique fluoroscopy ,the junction of the transverse process and the superior articulating process of the right L3 , L4 , and L5 vertebra which corresponding to the fluoroscopy image of the eye of the Gregor dog on the block side for the medial branches and subsequently , after local infiltration of skin and subcu tissuies with Ropivacaine 0.5 % , one mL at each level ,then 22-gauge Quincke-type needles , 3 needle was used , each one of them placed at the junction of the base of the transverse process and the superior articular process at the appropriate level, and the needle was advanced until the periosteum contacted, needle placement confirmed with AP oblique and lateral view and after appropriate needle placement confirmed, and after negative aspiration for heme and CSF and there was no paresthesia 1-1/2 mL of Ropivacaine 0.5% mixed with 20 mg Depo-Medrol , then half mL injected at each level after negative aspiration the needle subsequently removed and the same procedure repeated for the left side at left side at L3 , L4 and L5 levels. At the end of the procedure and the needles removed and a bandage applied after the skin was cleaned the cleaning solution patient taken to recovery room in stable condition and monitors in the recovery room for 20-30 minutes and discharged home in stable condition after discharge criteria met and patient will follow up with the pain clinic in 2-4 weeks
[2021-01-26] MEDS ORDERED: IV FLUID CONTINUATION 1,000 ML IV ONE (15:06)
[2021-01-26 15:21] VITALS: BP 145/94; PULSE 85
--- NOTE | 2021-01-26 16:12 | FL ---
Fluoroscopy HISTORY: Pain 9 seconds fluoroscopy time supplied to the referring clinician. 4 intraoperative C-arm images docume nt the procedure. See dictated report from anesthesia.
== END 2021-01-26 15:34 | disposition home or self-care (01) ==
LOC: ORPAIN 13:33
PROVIDERS: ATTEND Specialist
DX: G89.29 Other chronic pain (principal); M47.816 Spondylosis without myelopathy or radiculopathy, lumbar region; Z88.1 Allergy status to other antibiotic agents; Z88.2 Allergy status to sulfonamides
CPT/HCPCS: 64493; 64494; J2250; J1030; J3010; J2795

== ENCOUNTER → 2021-02-21 | Outpatient (CLI) | payer MEDICARE ==
[2021-02-21 09:00] VITALS: BP 124/85; PULSE 105; RESP 18; TEMP 97.7
--- NOTE | 2021-02-21 09:04 | P.PAINPG ---
Subjective Progress Note Date: 02/21/21 This is a 70-year-old patient referred by Dr. Foster with a chief complaint of chronic pain in the low back. To recap he is been having bilateral low back pain for many years with radiation into the buttocks. Pain described as sharp and stabbing alleviated by sitting down made worse with extension and rising from a seated position. Denies any weakness in his lower extremities. Mentions that it is difficult to walk due to the pain. Terms of management he does take [place] 5 every now and then and tries to limit it given that he is partially blind and does not want to become dizzy. Has done physical therapy with no relief. In terms of injections he had what sounds Like medial branch blocks in the past which helped for 2 to 3 days. He recently received bilateral MBB of L4, L5, DR. Girard for followup today. he notes that she had 80% relief from medial branch block as well as a significant increase in his functionality. Him and his had several questions regarding the pathway towards radiofrequency ablation. I repeated that we would have to repeat this injection a second time to determine if he had similar relief in order to proceed with the radiofrequency ablation. Patient also had questions regarding her sizing and core strengthening. I told him that he should start a home exercise regimen consisting of low back stretching and strengthening as will help with his long-term health and might even prolong the efficacy of his radiofrequency ablation were we to go that route. Physical exam: Vital Signs: Reviewed in EMR GENERAL: Well appearing, in no acute distress PSYCH: Mood and affect is appropriate. Awake, alert, and oriented SKIN: Skin color, texture, turgor normal, no rashes or lesions HEENT: Normocephalic, atraumatic. EOM intact CV: No pedal edema RESP: Respirations are unlabored, no audible wheezing GI: Abdomen non-distended MUSCULOSKELETAL: Bilateral upper and lower extremity strength is normal and symmetric. No atrophy or tone abnormalities are noted. Lumbar spine: Straight leg raising in the sitting position is negative for radicular pain. Significant pain to palpation over the lumbar spine and paraspinous muscles. positive for pain with facet loading and back extension/rotation. Decreased range of motion, almost no ability to extend the low back due to pain Extremities: Peripheral joint ROM is full and pain free without obvious instability or laxity in all four extremities. No edema or skin discolorations noted. Gait: Gait is antalgic and slow, patient walks with a cane and flexing forward. NEUR: Bilateral upper and lower extremity coordination and muscle stretch reflexes are physiologic and symmetric. Negative clonus. No loss of sensation is noted. Cranial nerves are grossly intact. Imaging: Lumbar MRI 11/2020 View of the lumbar MRI shows normal alignment. There is significant disc dehydration throughout the spine. There is some narrowing of the disc space is most noticeable at L3-L4. Neural foramen are well maintained. Small posterior disc bulge L3-L4. No significant spinal stenosis. Mild to moderate facet hypertrophy at L4-5 and L5-S1 Assessment: 1. Lumbar spondylosis without myelopathy Plan: 1. Explanation: Diagnoses, prognoses, and multiple treatment options including but not limited to physical therapy, interventional therapies, medication management and surgery were discussed with the patient and all questions were answered to the patient's satisfaction. 2. Investigations: none 3. Counseling: The patient was counseled for 3 minutes on BODY MASS INDEX, EXERCISE. Specifically, the patient was instructed regarding the importance of smoking cessation, weight control, and exercise in the context of both chronic pain and overall health. 4. Procedures: B/l MBB L4-L5 and L5-S1 #2 5. Consultations: none 6. Medications: None at this time 7. Disposition: For above procedure I have spent 22 minutes on review of the records, review of the imaging available, [id number] interaction with the patient, medication management, follow-up care coordination and record creation. Objective - Vital Signs Vital signs: Intake & Output 02/19/21 02/20/21 02/20/21 18:59 06:59 18:59 Weight 90.718 kg PQRS Measure Charge Sheet PQRS Narrative: Smoking Status Never smoker Pain Intensity [Lower Back] 2 Scale Used Numeric (1 - 10) Hx Alcohol Use (MH) Yes Home Medications: Ambulatory Orders Levothyroxine Sodium [Synthroid] 112 mcg PO QAM 12/28/14 Losartan [Cozaar] 25 mg PO QAM 01/18/15 Cholecalciferol [Vitamin D3 (25 Mcg = 1000 Iu)] 5,000 unit PO DAILY 01/24/15 metFORMIN HCL [metFORMIN HCL ER] 1,000 mg PO BID 06/16/15 Dulaglutide [Trulicity] 150 mg SQ CARPIO 05/23/18 Magnesium 324 mg PO DAILY 04/19/20 Pentoxifylline [TRENtal] 400 mg PO AC-TID 04/19/20 Glimepiride [Amaryl] 1 mg PO AC-BRKFST 01/24/21 Multivitamins, Thera [Multivitamin (formulary)] 1 mg PO DAILY 01/24/21 HYDROcodone/APAP 5-325MG [[place] 5-325] 1 tab PO DIRECTED PRN 02/19/21 Controlled Substance Measures - Controlled Substance Measures Is patient prescribed a controlled substance at discharge?: No
== END | disposition home or self-care (01) ==
LOC: PNWHC3 08:35
PROVIDERS: ATTEND Anesthesiology
DX: M47.816 Spondylosis without myelopathy or radiculopathy, lumbar region (principal)
CPT/HCPCS: 99211

== ENCOUNTER 2021-03-16 07:45 | Day surgery (SDC) | payer MEDICARE ==
[2021-03-15 13:38] VITALS: BMI 29.0
[2021-03-16 08:01] VITALS: TEMP 97.7
[2021-03-16 08:07] LABS: Glucose,Whole Blood 95 mg/dL (75-99)
[2021-03-16] MEDS ORDERED: ROPIVACAINE 5MG/ML 20ML VIAL ONE (08:45)
[2021-03-16] MEDS ORDERED: MIDAZOLAM 2 MG/2 ML VIAL ONE (08:45)
[2021-03-16] MEDS ORDERED: fentaNYL (PF) 50 MCG/ML 2 ML AMP ONE (08:45)
[2021-03-16] MEDS ORDERED: TRIAMCINOLONE ACETONIDE 40 MG/ML 1 ML VIAL ONE (08:45)
--- NOTE | 2021-03-16 09:02 | P.PCN ---
Date of Procedure: 03/16/21 Surgeon: Lalitha Cano Pathology: none sent Condition: stable Disposition: PACU Description of Procedure: PREOPERATIVE DIAGNOSIS : 1- Lumbar spondylosis with Facet Arthropathy without myelopathy . POSTOPERATIVE DIAGNOSIS: 1- Lumbar spondylosis with Facet Arthropathy without myelopathy . PROCEDURE: Diagnostic bilateral L3 , L4 , and L5 medial branch block under fluoroscopy guidance(fluoroscopy images available in the radiology Department ) ( To target the facet joint between Bilateral L4-5 , and L5-S1 ) #2 ANESTHESIA:monitored anesthesia care as per anesthesia department. EBL: Minimal COMPLICATION: None PROCEDURE INDICATION: Chronic low back pain secondary to Facet arthropathy unresponsive to conservative treatment. PROCEDURE DESCRIPTION: the patient was seen and identified in the preop holding area , risks and benefits and possible complications of the procedure and alternative were discussed with the patient, and the patient agreed to proceed with the procedure and signed the consent and vital signs monitored during the procedure and fluoroscopy was used to maximize the benefit and accuracy of the needle placement, and sedation was given to decrease patient anxiety, patient was taken to the procedure room and placed in prone position vital signs monitored in the back prepped with chlorhexidine X3 then under strict sterile technique using a right oblique fluoroscopy ,the junction of the transverse process and the superior articulating process of the right L3 , L4 , and L5 vertebra which corresponding to the fluoroscopy image of the eye of the Gregor dog on the block side for the medial branches and subsequently , after local infiltration of skin and subcu tissuies with Ropivacaine 0.5 % , one mL at each level ,then 22-gauge 5 "Quincke-type spinal needles , 3 needle was used , each one of them placed at the junction of the base of the transverse process and the superior articular process at the appropriate level, and the needle was advanced until the periosteum contacted, needle placement confirmed with AP oblique and lateral view and after appropriate needle placement confirmed, and after negative aspiration for heme and CSF and there was no paresthesia 1-1/2 mL of Ropivacaine 0.5% mixed with 20 mg Kenalog , then half mL injected at each level after negative aspiration the needle subsequently removed and the same procedure repeated for the left side at left side at L3 , L4 and L5 levels. At the end of the procedure and the needles removed and a bandage applied after the skin was cleaned the cleaning solution patient taken to recovery room in stable condition and monitors in the recovery room for 20-30 minutes and discharged home in stable condition after discharge criteria met and patient will follow up with the pain clinic in 2-4 weeks
[2021-03-16] MEDS ORDERED: IV FLUID CONTINUATION 1,000 ML IV ONE (09:10)
[2021-03-16 09:27] VITALS: BP 152/89; PULSE 74; RESP 16
--- NOTE | 2021-03-16 09:54 | FL ---
EXAMINATION TYPE: FL guided pain mgmt statistic DATE OF EXAM: 03/16/2021 COMPARISON: NONE HISTORY: Bilateral facet block TECHNIQUE: Fluoroscopy. FINDINGS: Fluoroscopic guidance was provided during procedure performed by Dr. Cano. A total of 7 seconds of fluoroscopic time was utilized during the procedure and 4 spot images acquired. IMPRESSION: As Above.
== END 2021-03-16 09:51 | disposition home or self-care (01) ==
LOC: ORPAIN 07:45
PROVIDERS: ATTEND Anesthesiology
DX: M47.816 Spondylosis without myelopathy or radiculopathy, lumbar region (principal); I10 Essential (primary) hypertension; G47.33 Obstructive sleep apnea (adult) (pediatric); E11.9 Type 2 diabetes mellitus without complications; K21.9 Gastro-esophageal reflux disease without esophagitis; E07.9 Disorder of thyroid, unspecified; G62.9 Polyneuropathy, unspecified; Z79.84 Long term (current) use of oral hypoglycemic drugs; Z79.899 Other long term (current) drug therapy; Z88.1 Allergy status to other antibiotic agents
CPT/HCPCS: 64493; 64494; J2250; J3301; J3010; J2795

== ENCOUNTER → 2021-04-04 | Outpatient (CLI) | payer MEDICARE ==
--- NOTE | 2021-04-04 13:31 | P.PAINPG ---
Subjective Progress Note Date: 04/04/21 This is a 70-year-old patient referred by Dr. Foster with a chief complaint of chronic pain in the low back. To recap he is been having bilateral low back pain for many years with radiation into the buttocks. Pain described as sharp and stabbing alleviated by sitting down made worse with extension and rising from a seated position. Denies any weakness in his lower extremities. Mentions that it is difficult to walk due to the pain. Terms of management he does take [place] 5 every now and then and tries to limit it given that he is partially blind and does not want to become dizzy. Has done physical therapy with no relief. In terms of injections he had what sounds Like medial branch blocks in the past which helped for 2 to 3 days. He recently received bilateral MBB of L4, L5, DR #2 Here for followup today. The patient notes that second medial branch block was also significantly helpful providing greater than 80% relief and a significant increase in his functionality. A long discussion with the patient and his today regarding plan of care. I discussed that we'll be proceeding with radiofrequency ablation and specifically healthy ablation works. We also talked about length of analgesia, mentioning that it can last anywhere between 6-12 months but pain re lief can be prolonged with good exercise program and muscle strengthening. Patient was eager to start physical therapy but was concerned about doing too quickly, I mentioned that he can begin physical therapy after he starts to feel relief from the ablation itself. Physical exam: Vital Signs: Reviewed in EMR GENERAL: Well appearing, in no acute distress PSYCH: Mood and affect is appropriate. Awake, alert, and oriented SKIN: Skin color, texture, turgor normal, no rashes or lesions HEENT: Normocephalic, atraumatic. EOM intact CV: No pedal edema RESP: Respirations are unlabored, no audible wheezing GI: Abdomen non-distended MUSCULOSKELETAL: Bilateral upper and lower extremity strength is normal and symmetric. No atrophy or tone abnormalities are noted. Lumbar spine: Straight leg raising in the sitting position is negative for radicular pain. Significant pain to palpation over the lumbar spine and paraspinous muscles. positive for pain with facet loading and back extension/rotation. Decreased range of motion, almost no ability to extend the low back due to pain Extremities: Peripheral joint ROM is full and pain free without obvious instability or laxity in all four extremities. No edema or skin discolorations noted. Gait: Gait is antalgic and slow, patient walks with a cane and flexing forward. NEUR: Bilateral upper and lower extremity coordination and muscle stretch reflexes are physiologic and symmetric. Negative clonus. No loss of sensation is noted. Cranial nerves are grossly intact. Imaging: Lumbar MRI 11/2020 View of the lumbar MRI shows normal alignment. There is significant disc dehydration throughout the spine. There is some narrowing of the disc space is most noticeable at L3-L4. Neural foramen are well maintained. Small posterior disc bulge L3-L4. No significant spinal stenosis. Mild to moderate facet hypertrophy at L4-5 and L5-S1 Assessment: 1. Lumbar spondylosis without myelopathy Plan: 1. Explanation: Diagnoses, prognoses, and multiple treatment options including but not limited to physical therapy, interventional therapies, medication management and surgery were discussed with the patient and all questions were answered to the patient's satisfaction. 2. Investigations: none 3. Counseling: The patient was counseled for 3 minutes on BODY MASS INDEX, EXERCISE. Specifically, the patient was instructed regarding the importance of smoking cessation, weight control, and exercise in the context of both chronic pain and overall health. 4. Procedures: B/l RFA L4-L5 and L5-S1 5. Consultations: none 6. Medications: None at this time 7. Disposition: For above procedure I have spent 32 minutes on review of the records, review of the imaging available, [id number] interaction with the patient, medication management, follow-up care coordination and record creation. Objective - Vital Signs Vital signs: Intake & Output 04/02/21 04/03/21 04/03/21 18:59 06:59 18:59 Weight 90.718 kg PQRS Measure Charge Sheet PQRS Narrative: Smoking Status Never smoker Pain Intensity [Lower Back] 3 Hx Alcohol Use (MH) Yes Home Medications: Ambulatory Orders Levothyroxine Sodium [Synthroid] 112 mcg PO QAM 12/28/14 Losartan [Cozaar] 25 mg PO QAM 01/18/15 Cholecalciferol [Vitamin D3 (25 Mcg = 1000 Iu)] 5,000 unit PO DAILY 01/24/15 metFORMIN HCL [metFORMIN HCL ER] 1,000 mg PO BID 06/16/15 Dulaglutide [Trulicity] 1.5 mg SQ CARPIO 01/21/18 Magnesium 324 mg PO DAILY 04/19/20 Pentoxifylline [TRENtal] 400 mg PO AC-TID 04/19/20 Glimepiride [Amaryl] 1 mg PO AC-BRKFST 01/24/21 Multivitamins, Thera [Multivitamin (formulary)] 1 mg PO DAILY 01/24/21 B Complex W-C No.20/Folic Acid [Renal Caps Softgel] 1 mg PO BID 04/02/21 Controlled Substance Measures - Controlled Substance Measures Is patient prescribed a controlled substance at discharge?: No
[2021-04-04 14:00] VITALS: BP 121/84; PULSE 84; RESP 18; TEMP 98
== END | disposition home or self-care (01) ==
LOC: PNWHC3 13:01
PROVIDERS: ATTEND Anesthesiology
DX: M47.816 Spondylosis without myelopathy or radiculopathy, lumbar region (principal)
CPT/HCPCS: 99211

== ENCOUNTER 2021-06-08 10:43 | Day surgery (SDC) | payer MEDICARE ==
[2021-06-07 08:46] VITALS: BMI 28.1
[2021-06-08 11:02] VITALS: RESP 16; TEMP 97.6
[2021-06-08 11:09] LABS: Glucose,Whole Blood 106 mg/dL (75-99)
[2021-06-08] MEDS ORDERED: TRIAMCINOLONE ACETONIDE 40 MG/ML 1 ML VIAL ONE (11:14)
[2021-06-08] MEDS ORDERED: ROPIVACAINE 5MG/ML 20ML VIAL ONE (11:14)
[2021-06-08] MEDS ORDERED: LIDOCAINE 1% INJ 10MG/ML (20 ML MDV) ONE (11:14)
[2021-06-08] MEDS ORDERED: fentaNYL (PF) 50 MCG/ML 2 ML AMP ONE (11:14)
[2021-06-08] MEDS ORDERED: MIDAZOLAM 2 MG/2 ML VIAL ONE (11:14)
--- NOTE | 2021-06-08 11:53 | P.PCN ---
Date of Procedure: 06/08/21 Description of Procedure: Description of Procedure: Surgeon: Lalitah Cano Pathology: none sent Condition: stable Disposition: PACU Description of Procedure: PREOPERATIVE DIAGNOSIS: Lumbar spondylosis without myelopathy, obesity POSTOPERATIVE DIAGNOSIS: Lumbar spondylosis without myelopathy, obesity PROCEDURES : Bilateral Radiofrequency thermocoagulation L4-L5, and L5-S1 medial branch, with fluoroscopic guidance ANESTHESIA: IV moderate conscious sedation with versed and fentanyl by the anesthesia Department and local infiltration with lidocaine 1% 5 ml Physician:Lalitha Cano MD EBL: Minimal PROCEDURE INDICATION: The patient with low back pain secondary to lumbar facet arthropathy who had more than 50% relief of her pain with previous diagnostic lumbar medial branch block with bupivacaine. PROCEDURE DESCRIPTION / TECHNIQUE: The patient was seen and identified in the preoperative area. Risks, benefits, complications, including but not limited to risk of infection ,bleeding , allergic reactions to the medications and no complete pain relief , and alternatives were discussed with the patient, the patient agreed to proceed with the procedure and signed the consent. IV was sta rted. Vital signs remained stable throughout the procedure. Patient was taken to the OR and time out was completed. The patient was placed in the prone position on the procedure table. The lumber area was prepped and draped in the usual sterile fashion. . Vital signs were closely monitored during the procedure .IV sedation was used during the procedure to decrease patients anxiety. The target points were identified as follows: For the L5-S1 level which corresponds to the dorsal ramus of L5 the target point was at the superior medial aspect of the sacral ala on both sides of the spine on the AP view of fluoroscopy and for the L3, and L4 medial branches the target points were at the connection between the transverse process and the superior articular process of L4, and L5 vertebra respectively on the oblique view of fluoroscopy bilaterally. skin was marked, and localized with 1% lidocaineat these points. Subsequently, an [id number] radiofrequency needles with a 10-mm curved active tips were advanced guided by fluoroscopy to each of the target points mentioned above in a superior medial direction to get the active tips as parall el as possible to the medial branches tracks. AP, oblique, and lateral views of fluoroscopy were used to verify needle tips position. Each level then underwent motor testing at 2.5 Hz and 0 to 3 volt with local stimulation, but no radicular symptoms down the legs. I then injected 1 mL of lidocaine 1% in each needle before starting radiofrequency thermocoagulation at 80 degrees celsius for 90 seconds. After that I injected 1 ml of PF ropivacaine 0.5%(3 mls) with 40 mg of Kenalog, 1 mL of this mixture was given in each needle before taking the needles out intact. At the end of the procedure, the skin was cleansed and bandages were applied. A copy of needle placement fluoroscopy was saved on the C-arm machine. COMPLICATIONS: No acute complications. DISPOSITION / PLANS: The patient was placed in a supine position and transferred to the recovery area in a stable condition for observation and was discharged from the recovery room after meeting discharge criteria. Home discharge instructions given to the patient by the staff. The patient was reexamined prior to discharge. The patient will schedule a follow up in the clinic in 2-4 weeks.
[2021-06-08] MEDS ORDERED: IV FLUID CONTINUATION 1,000 ML IV ONE (12:04)
--- NOTE | 2021-06-08 12:13 | FL ---
Fluoroscopy HISTORY: Pain 22 seconds fluoroscopy time supplied to the referring clinician. 7 intraoperative C-arm images docum ent the procedure. See dictated report from anesthesia.
[2021-06-08 12:21] VITALS: BP 123/79; PULSE 85
== END 2021-06-08 12:53 | disposition home or self-care (01) ==
LOC: ORPAIN 10:43
PROVIDERS: ATTEND Anesthesiology
DX: M47.816 Spondylosis without myelopathy or radiculopathy, lumbar region (principal)
CPT/HCPCS: 64635; 64636; J2250; J3301; J2001 ×2; J3010; J2795

== ENCOUNTER → 2021-07-02 | Outpatient (CLI) | payer MEDICARE ==
[2021-07-02 12:53] VITALS: BP 151/92; PULSE 89; RESP 18; TEMP 97.9
--- NOTE | 2021-07-02 15:21 | P.PN ---
Subjective Progress Note Date: 07/02/21 Tim is a 70-year-old male presenting to clinic today for follow-up appointment after a bilateral radiofrequency ablation at L4 5 and L5-S1 on 06/08/2021. He has a history of lumbar spinal stenosis, lumbar spondylosis without myelopathy. He reports that after procedure he had significant reduction in his pain for about 9 days he states that his pain was relieved bilateral 75%. However his pain has returned in his lower back which reports he has difficulty standing up straight. He describes the pain in his back is a dull achy sensation. He states his pain is worse with excessive walking and excessive sitting. Pain is better with rest medications and interventions. His pain is currently localized between the spinous process and iliac crest. He rates his pain today as 6 out of 10 on a 0-to-10 scale. He denies any bowel or bladder dysfunction, saddle anesthesia, or any other red flag symptoms Objective - Vital Signs Vital signs: Vital Signs Temp 97.9 F 07/02/21 12:46 Pulse 89 07/02/21 12:46 Resp 18 07/02/21 12:46 BP 151/92 07/02/21 12:46 Pulse Ox 97 07/02/21 12:46 - Exam Physical Examinations : -Constitutiona : Cooperative , not in acute distress . -HEENT : nech : supple , no Lymphadenopathy , normal thyroid size . : eyes : no ptosis , no icterus, no photophobia , blind . - neurologic : Cranial nerve II to XII intact , no focal neurological deffecit . -psychatric : alert , oriented X 3 , appropriate affect , intact judgment and insight . -Lymphatic : no Lymphadenopathy . - musculoskeltal : moter stegnth lower extremities ,thigh and legs 5/5 Right side , 5/5 Left side deep tendon reflexes : normal Knee Jerk , normal ankle Jerk lumber facet Loading Test =positive Right , positive Left Range of motion of the lumbar spine Flexion 30 degrees, extension 10 degrees strait leg raising test = positive at 30 degree Fabere test= positive Right , and positive LT . Sever tenderness over the Sacroiliac joint on the Right , and Left sides Gaenslen test= positive right ,and positive left . Seated flexion test= positive right ,and positive Left . Distraction test= positive bilaterally Sacroiliac compression test= positive bilaterally Severe pain to palpation between the vertebral spinous process and the iliac crest bilaterally Assessment and Plan Assessment: Assessment and plan Assessment: Lumbar spondylosis and facet arthropathy without myelopathy Bilateral iliolumbar ligament inflammation Plan: Patient may benefit from bilateral iliolumbar ligament injections - PQRS measures = - Patient's medications are documented in the chart. -Tobacco use is negative -Patient's has received pneumococcal vaccine. -Advanced care planning discussed, patient not eligible. -Opiate contract not signed. -Pain positive and follow-up visit/procedure is scheduled. -Patient's blood pressure measured [151/92 ] , and documented in the record ,and patient will follow up with the primary care. -Patient was not identified as an unhealthy alcohol user
== END | disposition home or self-care (01) ==
LOC: PNWHC3 12:40
PROVIDERS: ATTEND Student in an Organized Health Care Education/Training Program
DX: M47.896 Other spondylosis, lumbar region (principal)
CPT/HCPCS: 99211

== ENCOUNTER 2021-08-07 11:58 | Day surgery (SDC) | payer MEDICARE ==
[2021-08-03 14:39] VITALS: BMI 29.0
[2021-08-07 12:24] VITALS: RESP 16; TEMP 96.8
[2021-08-07 12:25] LABS: Glucose,Whole Blood 103 mg/dL (75-99)
[2021-08-07] MEDS ORDERED: LIDOCAINE 1% (10MG/ML) FOR IV START INTRADERMA ONE (12:25)
[2021-08-07] MEDS ORDERED: ROPIVACAINE 5MG/ML 20ML VIAL ONE (12:26)
[2021-08-07] MEDS ORDERED: methylPREDNISolone ACETATE 40 MG/ML 1 ML VIAL ONE (12:26)
[2021-08-07] MEDS ORDERED: MIDAZOLAM 2 MG/2 ML VIAL ONE (12:26)
[2021-08-07] MEDS ORDERED: .fentaNYL (PF) 50 MCG/ML 2 ML AMP ONE (12:26)
[2021-08-07] MEDS ORDERED: IV FLUID CONTINUATION 700 ML IV ONE (12:45)
--- NOTE | 2021-08-07 12:46 | P.PCN ---
Date of Procedure: 08/07/21 Procedure(s) Performed: Procedure= bilateral iliolumbar ligament steroid injection under fluoroscopy guidance (fluoroscopy image stored on file in the radiology Department ) Preoperative diagnosis= 1-bilateral Iliolumbar ligament neurologic 2-lumbar facet arthropathy Postoperative diagnosis=Same as preop Diagnosis . Complication = none Condition= stable Anesthesia= moderate sedation with intravenous Versed 2 mg , and fentanyl 100 micrograms . Indication for the procedure= patient complaining of low back pain , examination was positive for severe tenderness over the iliolumbar ligament bilaterally and patient diagnosed with sacroiliitis, for this reason ,he was good candidate for bilateral iliolumbar ligament steroid injection steroid injection. Description of the procedure= procedure risk and benefits discussed with the patient, including but not limited, risk of infection and bleeding, and ALLERGIC reaction to the medication and not complete pain relief and patient agreed with the preceding patient taken to the operating room, placed in prone position or standard monitors applied to the patient then after induction of anesthesia back prepped with chlorhexidine 3 times , Then under strict sterile technique, first I did the right iliolumbar ligament steroid injections the which was identified under fluoroscopy guidance been local infiltration of the skin and subcu interstitial with lidocaine 1% then 22- gauge Quincke Needle advanced slowly under fluoroscopy and the needle placed between the middle of the distance between the transverse process of L5 on the right side and between the sacral ala,(the location of the right iliolumbar ligament ) then after needle placement confirmed under fluoroscopy total of ropivacaine 0.5% 4 mL and 20 mg of Depo-Medrol mixed with her and injected at the right iliolumbar ligament, injection done after negative aspiration under was no paresthesia during the injection and the needle removed and the exact same procedure done for the left side iliolumbar ligament, she tolerated the procedure well without any complications and he will follow up in the pain clinic in a few weeks.
--- NOTE | 2021-08-07 12:57 | FL ---
EXAMINATION TYPE: FL guided pain mgmt statistic DATE OF EXAM: 08/07/2021 HISTORY: Fluoroscopy time 3 seconds of fluoroscopy provided. IMPRESSION: 1. Fluoroscopy time.
[2021-08-07 13:08] VITALS: BP 135/81; PULSE 89
== END 2021-08-07 13:18 | disposition home or self-care (01) ==
LOC: ORPAIN 11:58
PROVIDERS: ATTEND Specialist
DX: M47.816 Spondylosis without myelopathy or radiculopathy, lumbar region (principal)
CPT/HCPCS: 20550; 99152

== ENCOUNTER → 2021-10-22 | Outpatient (CLI) | payer MEDICARE ==
--- NOTE | 2021-10-23 02:32 | MR ---
EXAMINATION TYPE: MR hips BILAT wo con DATE OF EXAM: 10/22/2021 COMPARISON: None HISTORY: Chronic bilateral hip pain, limited ROM. Multiplanar multiecho imaging of the pelvis and both hips without contrast. The pelvic ring appears intact. Acetabula appear intact. Proximal femurs have fairly normal signal pa ttern. There is no evidence of avascular necrosis. There is no evidence of any significant hip joint effusion. There is minimal hip joint space narrowing. There is no evidence of a pelvic mass. There is no free fluid in the pelvis. Bladder distends smoothl y. Sacroiliac joints appear normal. IMPRESSION: There is slight narrowing of the hip joint spaces. No fracture seen. No evidence of avascular necrosi s.
== END ==
LOC: RADMRIMAIN 15:53
PROVIDERS: ATTEND Orthopaedic Surgery Sports Medicine
DX: M25.561 Pain in right knee (principal); M87.051 Idiopathic aseptic necrosis of right femur; M87.052 Idiopathic aseptic necrosis of left femur

== ENCOUNTER → 2022-01-14 | Outpatient (CLI) | payer MEDICARE ==
--- NOTE | 2022-01-14 16:08 | CT ---
EXAMINATION TYPE: CT abdomen pelvis wo con DATE OF EXAM: 01/14/2022 COMPARISON: 01/10/2015 HISTORY: 71-year-old male R10.32, LLQ abdomen pain. Hx renal stones. CT DLP: 1025 mGycm. Automated exposure control for dose reduction was used. TECHNIQUE: Contiguous axial scanning of the abdomen and pelvis without IV contrast. Coronal and sagit ioana reconstructions performed. FINDINGS: Heart normal size with trace pericardial fluid. Strandy atelectasis/scarring in the lower lungs. No p leural effusion. Postsurgical change of Tala-en-Y gastric bypass. Noncontrast appearance of the liver, adrenal glands, and pancreas show no gross abnormality. Spleen enlarged at 15.1 cm measured on coronal series. Scattered right-sided renal calculi measuring up to 8 mm. No hydronephrosis. However, on the left, there are more numerous renal calculi measuring up to 9 mm as well as moderate hydronephrosis and a 1.5 x 1.0 cm stone in the upper third left ureter with proximal hydroureter. Perinephric edema is symmetric from [id number] likely senescent change. However, some asymmetric mi ld edema tracks down the left retroperitoneum. No dilated small bowel, free fluid, or free air. No mesenteric or retroperitoneal lymphadenopathy. Normal appendix. Moderate stool right side of the abdomen. There is some irregular nearly circumferential mural thick ening at the level of the rectum that probably represents adherent stool material. Direct visualizati on to exclude polyps or other suspicious mucosal lesion. Refer to axial image 148. No pericolonic inf lammatory change. Redundant sigmoid colon. Moderate circumferential wall thickening of the bladder. Prostate gland mildly enlarged at 4.7 cm wid e. No abnormal fluid collection in the pelvis or pelvic lymphadenopathy. Bones: Moderate degenerative change of the hips. Mild degenerative changes SI joints. Moderate degenerative disc disease L3-L4 and L5-S1. Facet arthropathy mid to lower lumbar spine. IMPRESSION: 1. A 1.5 x 1.0 cm stone in the upper third left ureter with moderate obstructive uropathy. 2. A number of additional nonobstructive renal calculi, greater in number in the left kidney, measur ing up to 9 mm. 3. Status post Tala-en-Y gastric bypass. Mild splenomegaly at 15.1 cm; clinically correlate. 4. Some irregular nearly circumferential mural thickening at the level of the rectum probably repres ents adherent stool material. Direct visualization to exclude polyps or other suspicious mucosal lesi on. 5. Moderate circumferential bladder wall thickening. Findings may represent chronic bladder wall hyp ertrophy. Correlate to exclude cystitis and correlate with patient's symptoms and PSA values.
== END | disposition home or self-care (01) ==
LOC: RADCTMAIN 15:02
PROVIDERS: ATTEND Internal Medicine
DX: N20.2 Calculus of kidney with calculus of ureter (principal)
CPT/HCPCS: 74176

== ENCOUNTER → 2022-01-25 | Outpatient (CLI) | payer MEDICARE ==
[2022-01-25 19:08] LABS: Basophils # (A) 0.01 X 10*3/uL (0.00-0.10); Basophils % (A) 0.2 %; Eosinophils # (A) 0.05 X 10*3/uL (0.04-0.35); HGB 11.7 g/dL (13.0-17.0); Immature Grans, Automated 0.2 %; Lymphocytes # (A) 0.92 X 10*3/uL (0.90-5.00); Lymphocytes % (A) 19.1 %; MCH 27.7 pg (27.0-32.0); MCHC 32.5 g/dL (32.0-37.0); MCV 85.1 fL (80.0-97.0); Mean Platelet Volume 9.5 fL (9.5-12.2); Monocytes # (A) 0.36 X 10*3/uL (0.20-1.00); Monocytes % (A) 7.5 %; NRBC Per 100 WBC 0 /100 WBCS (0.0-0.0); Neutrophils # (A) 3.47 X 10*3/uL (1.80-7.70); Platelet Count 247 X 10*3/uL (140-440); RBC 4.23 X 10*6/uL (4.40-5.60); RDW 12.8 % (11.5-14.5); WBC 4.82 X 10*3/uL (4.50-10.00)
[2022-01-25 19:18] LABS: African American GFR (CKD) 53.9 (60.0-200.0); Anion Gap 12.3 mmol/L (10.00-18.00); BUN/Creat Ratio 15.93 Ratio (12.00-20.00); Blood Urea Nitrogen 23.9 mg/dL (9.0-27.0); Calcium 8.2 mg/dL (8.7-10.3); Carbon Dioxide 20.7 mmol/L (20.0-27.5); Non-African American GFR(CKD) 46.5 (60.0-200.0); Potassium 4.4 mmol/L (3.5-5.5)
== END | disposition home or self-care (01) ==
LOC: LABPAT 11:06
PROVIDERS: ATTEND Urology
DX: Z01.812 Encounter for preprocedural laboratory examination (principal); N20.2 Calculus of kidney with calculus of ureter
CPT/HCPCS: 80048; 85025

== ENCOUNTER 2022-01-30 09:48 | Day surgery (SDC) | payer MEDICARE ==
--- NOTE | 2022-01-29 12:07 | P.GSHP ---
History of Present Illness H&P Date: 01/29/22 71 yo male recently evaluated for left back and abdominal pain. He was found to have a 12mm mid ureteral tone on the left and bilateral renal stones. He has had previous stones. There is no evidence of uti. We discussed the treatment options. He comes for left ureteroscopy with laser lithotripy to the ureteral stone on the left. - Constitutional Constitutional: Denies chills, Denies fever - EENT Eyes: denies blurred vision, denies pain Ears, nose, mouth and throat: Denies headache, Denies sore throat - Cardiovascular Cardiovascular: Denies chest pain, Denies shortness of breath - Respiratory Respiratory: Denies cough, Denies 7 - Gastrointestinal Gastrointestinal: Denies abdominal pain, Denies diarrhea, Denies nausea, Denies vomiting - Genitourinary (Female) Genitourinary: Denies dysuria, Denies hematuria - Genitourinary (Male) Genitourinary: Denies dysuria, Denies hematuria - Musculoskeletal Musculoskeletal: Denies myalgias - Integumentary Integumentary: Denies pruritus, Denies rash - Neurological Neurological: Denies numbness, Denies weakness - Psychiatric Psychiatric: Denies anxiety, Denies depression - Endocrine Endocrine: Denies fatigue, Denies weight change Past Medical History Past Medical History: Diabetes Mellitus, Eye Disorder, GERD/Reflux, Hypertension, Osteoarthritis (OA), Skin Disorder, Sleep Apnea/CPAP/BIPAP, Thyroid Disorder Additional Past Medical History / Comment(s): NEW SORE BEGINNING ON LEFT GREAT TOE, TRYING TO GET APPOINTMENT WITH DR KENT. Sore on Rt 2nd toe -pt states open but not draining., Not using CPAP. Limps due to broken left foot in the past that didn't heal properly. Diabetic Retinopathy and Neuropathy. UMBILICAL HERNIA. Legally blind. Chronic back pain. Fatty liver. Hx kidney stones. History of Any Multi-Drug Resistant Organisms: None Reported Past Surgical History: Bariatric Surgery, Cholecystectomy Additional Past Surgical History / Comment(s): Liver biopy. Pilonidal cyst. Cysts removed from head. Cataract & Retinopathy surgery. Tala-en-Y. COLONOSCOPY. Pain procedures Past Anesthesia/Blood Transfusion Reactions: No Reported Reaction, Motion Sickness Past Psychological History: No Psychological Hx Reported Smoking Status: Never smoker Past Alcohol Use History: Rare Additional Past Alcohol Use History / Comment(s): Patient is a lifelong nonsmoker. No medical marijuana, marijuana or street drug use. Patient drinks alcohol rarely. He is a retired nurse. He lives at home with his . Past Drug Use History: None Reported - Past Family History Father Family Medical History: Diabetes Mellitus, Deep Vein Thrombosis (DVT) Mother Family Medical History: Cancer, Diabetes Mellitus Sister(s) Family Medical History: Cancer, Diabetes Mellitus Additional Family Medical History / Comment(s): Uterine Cancer, Lupus, Bipolar Disorder. Medications and Allergies Home Medications Medication Instructions Recorded Confirmed Type Levothyroxine Sodium [Synthroid] 112 mcg PO QAM 12/28/14 01/29/22 History Losartan [Cozaar] 25 mg PO QAM 01/18/15 01/29/22 History Cholecalciferol [Vitamin D3 (25 5,000 unit PO DAILY 01/24/15 01/29/22 History Mcg = 1000 Iu)] metFORMIN HCL [metFORMIN HCL ER] 1,000 mg PO BID 06/16/15 01/29/22 History Dulaglutide [Trulicity] 1.5 mg SQ CARPIO 01/21/18 01/29/22 History Magnesium 324 mg PO HS 04/19/20 01/29/22 History Pentoxifylline [TRENtal] 400 mg PO AC-TID 04/19/20 01/29/22 History Glimepiride [Amaryl] 1 mg PO AC-BRKFST 01/24/21 01/29/22 History Multivitamins, Thera [Multivitamin 1 mg PO DAILY 01/24/21 01/29/22 History (formulary)] B Complex W-C No.20/Folic Acid 1 mg PO BID 04/02/21 01/29/22 History [Renal Caps Softgel] Pregabalin [Lyrica] 75 mg PO HS 06/29/21 01/29/22 History Acetaminophen-Codeine 300-30mg 1 tab PO Q8H PRN 01/29/22 01/29/22 History [Tylenol w/codeine #3] Allergies Allergy/AdvReac Type Severity Reaction Status Date / Time clindamycin Allergy Rash/Hives Verified 01/29/22 08:43 BACTRIM DS Allergy Rash/Hives. Uncoded 01/29/22 08:43 ITCHING. Surgical - Exam - General well developed, well nourished, no distress - Eyes normal ocular movement, no icteric - ENT no hearing loss, no congestion - Neck no masses, trachea midline - Respiratory normal respiratory effort, clear to auscultation - Abdomen Abdomen: soft, non tender, no guarding, no rigid, no rebound - Integumentary no rash, no abnormal pigmentation - Neurologic no disoriented, no combative - Psychiatric oriented to time, oriented to person, oriented to place, speech is normal, memory intact Results - Imaging CT scan - abdomen: report reviewed, image reviewed CT scan - pelvis: report reviewed, image reviewed Assessment and Plan Assessment: Impression: left ureteral stone , large. Plan: Left ureteroscoy with laser lithotripsy
[~2022-01-30 09:48] MED LIST changes: +DEXAMETHASONE SOD PHOSPHATE 4 MG/ML 1 ML VIAL IV ONE; +HYDROmorphone 0.5 MG/0.5 ML SYRINGE IVP PRN; +LIDOCAINE 1% (10MG/ML) FOR IV START INTRADERMA PRN; +ONDANSETRON 4 MG/2 ML VIAL IVP ONE
[2022-01-30] MEDS ORDERED: LACTATED RINGERS 1,000 ML IV ONE ×2 (10:24)
[2022-01-30 10:44] LABS: Glucose,Whole Blood 170 mg/dL (75-99)
--- NOTE | 2022-01-30 10:54 | XR ---
AB HISTORY: Preop, renal calculi, bilateral nephrolithiasis Correlation to CT 01/14/2022 , KUB submitted on 2 images Probable phleboliths are present within the pelvis. Bowel gas obscures detail, bilateral renal calcul i are again noted, approximately 10-15 calcifications are present in the left, largest measures appro ximately 1 cm. Approximately 6-7 calcifications are present in the right, largest measures 8 mm. Mid left ureteral calcification seen on CT not as well seen. Multiple clips are present in the right uppe r quadrant. Splenic artery calcifications are present. Degenerative disc change present in the visual ized spine. Postop changes are noted to the stomach. IMPRESSION: Bilateral nephrolithiasis.
[2022-01-30] MEDS ORDERED: fentaNYL (PF) 50 MCG/ML 2 ML AMP ONE (11:30)
[2022-01-30] MEDS ORDERED: LIDOCAINE 2% INJ 20 MG/ML (2 ML VIAL) ONE (11:30)
[2022-01-30] MEDS ORDERED: PHENYLEPHRINE-0.9% NACL SYG 1,000 MCG/10 ML SYRINGE ONE (11:30)
[2022-01-30] MEDS ORDERED: MIDAZOLAM 2 MG/2 ML VIAL ONE (11:30)
[2022-01-30] MEDS ORDERED: PROPOFOL 10 MG/ML 20 ML VIAL IV ONE (11:30)
--- NOTE | 2022-01-30 13:13 | P.OP ---
Date of Procedure: 01/30/22 Preoperative Diagnosis: Left ureteral stone with obstruction, large Postoperative Diagnosis: Same Procedure(s) Performed: Cystoscopy, left ureteroscopy with laser lithotripsy, placement of 626 stent Anesthesia: ALECIA Surgeon: Azeem Starr Estimated Blood Loss (ml): 10 Pathology: other (Stone) Condition: stable Disposition: PACU Indications for Procedure: The patient is 71. He has a 15 mm mid left ureteral stone causing obstruction and pain. He comes for left ureteroscopy and laser lithotripsy Description of Procedure: Patient is brought to the operating suite. He is given a general endotracheal anesthesia. He's placed lithotomy position with sterile prep and drape. Cystoscopy Foroblique lens and 21-Mongolian sheath identifies normal urethra. The prostate is not significantly obstructing. The bladder wall shows mild trabeculation. Both ureteral orifices are normal. Through the left ureteral orifice a 7-Mongolian ureteroscope was passed up to the stone. The stone was large and impacted. I attempted to pass an 035 wire by this but I cannot. I thus passed a 365 laser probe to the stone. I slowly dust the stone into small fragments up. Eventually I a remove about half of the stone. I then am able to pass an 035 wire up into the kidney. I repassed the ureteroscope alongside the wire. I then continue with the same laser probe and fracture and dust the remaining portion of the ureteral stone. I then use a 1.9 basket to scrape out the largest fragments out of the ureter. At the end of the procedure the only thing remaining is dust and sand-like fragments. I removed the ureteroscope and backloaded the wire onto the cystoscope. I then pass a 6 x 26 double-J catheter up the left ureter that coils in the renal pelvis and the bladder bladder strain the patient is awakened and returned recovery room good condition. He will be discharged home upon recovery. He'll follow in the office in 2 weeks for cystoscopy stent removal.
[2022-01-30 13:15] VITALS: TEMP 97
--- NOTE | 2022-01-30 13:31 | FL ---
Fluoroscopy HISTORY: Ureteral stent placement, left ureteral stone 11 seconds fluoroscopy time supplied to the referring clinician. 2 intraoperative C-arm images docum ent the procedure. See dictated report from urology.
[2022-01-30 13:41] LABS: Glucose,Whole Blood 178 mg/dL (75-99)
[2022-01-30] MEDS ORDERED: ONDANSETRON 4 MG/2 ML VIAL IVP ONE (13:50)
[2022-01-30 14:18] VITALS: PULSE 96
[2022-01-30 14:39] VITALS: BP 159/121; RESP 17
== END 2022-01-30 14:50 | disposition home or self-care (01) ==
LOC: OR 09:48
PROVIDERS: ATTEND Urology
DX: N20.2 Calculus of kidney with calculus of ureter (principal); E11.319 Type 2 diabetes mellitus with unspecified diabetic retinopathy without macular edema; E11.36 Type 2 diabetes mellitus with diabetic cataract; E11.40 Type 2 diabetes mellitus with diabetic neuropathy, unspecified; G47.30 Sleep apnea, unspecified; I10 Essential (primary) hypertension; K21.9 Gastro-esophageal reflux disease without esophagitis; K76.0 Fatty (change of) liver, not elsewhere classified; M19.90 Unspecified osteoarthritis, unspecified site; Z79.84 Long term (current) use of oral hypoglycemic drugs; Z83.3 Family history of diabetes mellitus; Z87.442 Personal history of urinary calculi; Z90.49 Acquired absence of other specified parts of digestive tract
CPT/HCPCS: 52356; 82365; 74018; C2625; C1769; J2250; J1100; J0690; J2405; J3010; J2370; J2704; J1170; J2001

== ENCOUNTER → 2022-09-24 | Outpatient (CLI) | payer MEDICARE ==
--- NOTE | 2022-09-24 10:21 | XR ---
EXAMINATION TYPE: XR chest 2V DATE OF EXAM: 09/24/2022 COMPARISON: 05/23/2016 HISTORY: Cough, congestion, shortness of breath x2 weeks TECHNIQUE: Frontal and lateral views of the chest are obtained. FINDINGS: There is no focal air space opacity, pleural effusion, or pneumothorax seen. The cardiac silhouette size is within normal limits. The osseous structures are intact. Surgical clips in the r ight upper quadrant. IMPRESSION: No acute cardiopulmonary process.
== END | disposition home or self-care (01) ==
LOC: RADXRMAIN 09:54
PROVIDERS: ATTEND Internal Medicine
DX: J21.9 Acute bronchiolitis, unspecified (principal)
CPT/HCPCS: 71046

== ENCOUNTER → 2022-10-03 | Outpatient (CLI) | payer MEDICARE ==
[2022-10-03 19:00] LABS: ALT 32 U/L (10-49); AST 34 U/L (14-35); African American GFR (CKD) 70.6 (60.0-200.0); Albumin 4.8 g/dL (3.8-4.9); Albumin/Globulin Ratio 1.78 (1.60-3.17); Alkaline Phosphatase 133 U/L (41-126); BUN/Creat Ratio 20.08 Ratio (12.00-20.00); Blood Urea Nitrogen 24.1 mg/dL (9.0-27.0); Calcium 9.3 mg/dL (8.7-10.3); Carbon Dioxide 22.5 mmol/L (20.0-27.5); Chloride 103 mmol/L (96-109); Chol/HDL Ratio 3.54 Ratio; Globulin 2.7 g/dL (1.6-3.3); Glucose 152 mg/dL (70-110); LDL Cholesterol,Calculated 77.5 mg/dL (0.0-131.0); Non-African American GFR(CKD) 60.9 (60.0-200.0); Potassium 4.6 mmol/L (3.5-5.5); Sodium 139 mmol/L (135-145); Total Protein 7.5 g/dL (6.2-8.2)
[2022-10-03 22:59] LABS: Urine Creatinine 64.9 mg/dL (39.0-259.0)
== END | disposition home or self-care (01) ==
LOC: LABWHC1 08:37
PROVIDERS: ATTEND Internal Medicine Endocrinology, Diabetes & Metabolism
DX: E11.65 Type 2 diabetes mellitus with hyperglycemia (principal)
CPT/HCPCS: 36415; 80053; 80061; 82043; 82570; 83036; 84443

== ENCOUNTER → 2022-11-25 | Outpatient (CLI) | payer MEDICARE ==
[~2022-11-25] MED LIST changes: -DEXAMETHASONE SOD PHOSPHATE 4 MG/ML 1 ML VIAL IV ONE; -HYDROmorphone 0.5 MG/0.5 ML SYRINGE IVP PRN; -LACTATED RINGERS 1,000 ML IV SCH; -LIDOCAINE 1% (10MG/ML) FOR IV START INTRADERMA PRN; -ONDANSETRON 4 MG/2 ML VIAL IVP ONE; +REGADENOSON 0.4 MG/5 ML SYRINGE IV PRN
--- NOTE | 2022-11-25 08:23 | US ---
EXAMINATION TYPE: US carotid duplex BILAT DATE OF EXAM: 11/25/2022 COMPARISON: US 2010 CLINICAL HISTORY: I25.10ashd I65.23occl stenosis b/l carotid arterie. Lightheadedness TECHNIQUE: Carotid duplex ultrasound examination. Indirect Doppler criteria was utilized. FINDINGS: EXAM MEASUREMENTS: RIGHT: Peak Systolic Velocity (PSV) cm/sec ----- Right CCA: 87.6 ----- Right ICA: 89.5 ----- Right ECA: 80.3 ICA/CCA ratio: 1.0 RIGHT: End Diastole cm/sec ----- Right CCA: 25.3 ----- Right ICA: 20.5 ----- Right ECA: 9.6 LEFT: Peak Systolic Velocity (PSV) cm/sec ----- Left CCA: 105.0 ----- Left ICA: 80.7 ----- Left ECA: 71.5 ICA/CCA ratio: 0.8 LEFT: End Diastole cm/sec ----- Left CCA: 16.7 ----- Left ICA: 28.0 ----- Left ECA: 11.1 VERTEBRALS (direction of flow): Right Vertebral: Antegrade Left Vertebral: Antegrade Rhythm: Arrhythmia No significant stenosis IMPRESSION: No evidence for hemodynamically significant stenosis. Criteria for Assigning % of Stenosis / Diameter reduction (Estimation based on the indirect measurements of the internal carotid artery velocities (ICA PSV). 1. Normal (no stenosis)=ICA PSV < 125 cm/s: ratio < 2.0: ICA EDV<40 cm/s. 2. Less than 50% stenosis=ICA PSV < 125 cm/s: ratio < 2.0: ICA EDV<40 cm/s. 3. 50 to 69% stenosis=ICA PSV of 125 to 230 cm/s: ration 2.0 ? 4.0: ICA EDV 40-100 cm/s. 4. Greater than 70% stenosis to near occlusion= ICA PSV > 230 cm/s: ratio > 4.0: ICA EDV > 100 cm/s. 5. Near occlusion= ICA PSV velocities may be low or undetectable: variable ratio and ICA EDV. 6. Total occlusion=unable to detect flow.
--- NOTE | 2022-11-25 12:38 | NM ---
EXAMINATION TYPE: NM stress lexiscan cardiolite DATE OF EXAM: 11/25/2022 COMPARISON: NONE HISTORY: Chest pain TECHNIQUE: After the intravenous administration of 10.7 mCi Tc 99m Sestamibi - Cardiolite resting SP ECT images acquired 45 minutes post injection. The patient received 0.4mg Lexiscan, 25.5 mCi Tc 99m Sestamibi - Stress images obtained [address] injection FINDINGS: Review of stress and rest SPECT images demonstrates there is a small apical lateral area of stress-in duced reversible ischemia.. Gated analysis shows an estimated left ventricular ejection fraction of 43 %. IMPRESSION: 1. There is a small area of stress-induced reversible ischemia in apical lateral myocardium. 2. Ejection fraction of 43% correlate clinically. A [place] level critical message alert has been initiated for Jeff Foster MD via the [employer] Critical Results System on 11/25/2022 12:36 PM. This message alert has been sent to Jeff Foster MD vi a the preferences provided by the clinician for the receipt of Radiology Critical Findings. Message I [id number].
--- NOTE | 2022-11-25 13:10 | CA ---
Lexiscan Nuclear Stress Test Report Name: Tim Rosas Exam Date: 11/25/2022 10:20 Exam Location: [facility] Ht (in): 70 Wt (lb): 201 BSA: 2.09 Ordering Phys: Jeff Foster MD Referring Phys: Jeff Foster MD Technologist: Jason Chapman Age: 71 Gender: M : 1950 Procedure CPT: Indications: I25.10ashd I65.23occl stenosis b/l carotid arterie ICD-10 Codes: Patient History: Medications: SYNTHROID, METFORMIN, OZEMPIC, METOPROLOL, ACTOSE, LOSARTAN Meds past 24 hrs: Pretest Chest Pain: STRESS TEST Lexiscan Protocol Exercise Duration (min:sec): 01:[address] Depressions (mm): Angina Score: Daven[place] Score: Resting HR (bpm): 107 Peak HR (bpm): 121 Resting BP (mmHg): 135 / 96 Peak BP (mmHg): 114 / 69 MPHR: 150 Target HR: 128 % MPHR: 81 METS: 1.0 Total Dose: Peak Dose: Atropine: Double Product: 82797 BP Response: Stress Termination: INFUSION COMPLETE Stress Symptoms: DIFFICULTY IN BREATHING,NAUSEA Stress Summary: ECG ANALYSIS Resting ECG: Stress ECG: CONCLUSIONS At baseline EKG showed normal sinus rhythm, normal axis, no significant ST or T wave abnormalities. Patient recieved IV infusion of Lexiscan 0.4mg and at peak infusion EKG showed no significant change from baseline. Conclusions: 1. Normal EKG response to Lexiscan infusion 2. Nuclear imaging to be reported separately. Dr. Mauri Cortes DO (Electronically Signed) Final Date: 25 November 2022 13:10
== END | disposition home or self-care (01) ==
LOC: RADUSWWP 07:32
PROVIDERS: ATTEND Internal Medicine
DX: I25.10 Atherosclerotic heart disease of native coronary artery without angina pectoris (principal); I65.23 Occlusion and stenosis of bilateral carotid arteries; I24.8 Other forms of acute ischemic heart disease
CPT/HCPCS: 93017; 93880; 78452; A9500; J2785

== ENCOUNTER → 2023-01-13 | Outpatient (CLI) | payer MEDICARE ==
--- NOTE | 2023-01-14 08:53 | CT ---
EXAMINATION TYPE: CT brain wo/w con DATE OF EXAM: 01/13/2023 COMPARISON: None HISTORY: Visual hallucinations since heart cath last placed x [address] DLP: 2438 mGycm Automated exposure control for dose reduction was used. CONTRAST: CT scan of the head is performed without and with IV Contrast, patient injected with 80 cc mL of Isov ue 300. FINDINGS: There is no abnormal enhancing mass or midline shift identified. The ventricles and sulci are within normal limits in size. The globes are intact and the visualized sinuses are clear. There is subcutaneous area of increased density along the left lateral occiput axial image 9 could re present a small soft tissue hematoma or area of scarring measuring 1 x 2 cm. Correlate with clinical exam. Craniocervical junction maintained. There is mild generalized degenerative change. Intracranial ather osclerotic changes noted. IMPRESSION: 1. No enhancing mass or mass effect. Mild generalized degenerative change. 2. There is a subcutaneous area of abnormal soft tissue attenuation measuring 1 x 2 cm along the left lateral occipital axial image 9. It could represent scarring or soft tissue hematoma. Correlate clin ically
== END | disposition home or self-care (01) ==
LOC: RADCTMAIN 15:13
PROVIDERS: ATTEND Internal Medicine Interventional Cardiology
DX: G93.89 Other specified disorders of brain (principal); R44.1 Visual hallucinations; I10 Essential (primary) hypertension; R93.89 Abnormal findings on diagnostic imaging of other specified body structures; G31.89 Other specified degenerative diseases of nervous system; R44.3 Hallucinations, unspecified
CPT/HCPCS: 82565; 84520; 70470; 36415; Q9967

== ENCOUNTER → 2023-03-07 | Outpatient (CLI) | payer MEDICARE ==
--- NOTE | 2023-03-07 11:08 | MR ---
EXAMINATION TYPE: MR lumbar spine wo con DATE OF EXAM: 03/07/2023 COMPARISON: 12/14/2019 HISTORY: Pain. TECHNIQUE: T1 and T2 axial and sagittal images of the lumbar spine are submitted. FINDINGS: There is no abnormal signal seen within the visualized spinal cord. There are bilateral harpreet al calculi. At L1-2 there is mild degenerative disc disease. No foraminal encroachment or canal stenosis. At L2-3 there is Hypertrophic facet arthropathy. No disc herniation or canal stenosis. No foraminal e ncroachment. Mild degenerative disc disease. At L3-4 there is severe degenerative disc disease with discogenic marrow changes. Mild circumferentia l disc bulging with no focal herniation. No canal stenosis. Hypertrophic facet arthropathy with mild bilateral foraminal encroachment. At L4-5 there is mild degenerative disc disease with circumferential disc bulging, ligamentum flavum hypertrophy and facet arthropathy result in borderline canal stenosis and mild bilateral approach. At L5-S1 there is severe degenerative disc disease with vacuum disc. There is facet arthropathy with small focal central disc version abutting the anterior margin of the thecal sac. No nerve root contac t. Mild bilateral foraminal encroachment. IMPRESSION: 1. Stable small focal central disc protrusion at L5-S1 with mild bilateral foraminal encroachment but no canal stenosis. 2. Multilevel degenerative disc disease with severe changes at L3-4 and L5-S1. 3. Stable multilevel disc bulging and facet arthropathy with mild multilevel foraminal protrusion sim ilar to the prior exam. 4. Bilateral renal calculi.
== END | disposition home or self-care (01) ==
LOC: RADMRIMAIN 09:23
PROVIDERS: ATTEND Internal Medicine
DX: M47.817 Spondylosis without myelopathy or radiculopathy, lumbosacral region (principal); M51.37 Other intervertebral disc degeneration, lumbosacral region; M99.73 Connective tissue and disc stenosis of intervertebral foramina of lumbar region
CPT/HCPCS: 72148

== ENCOUNTER → 2023-04-14 | Outpatient (CLI) | payer MEDICARE ==
[2023-04-14 20:06] LABS: ALT 23 U/L (10-49); AST 28 U/L (14-35); Albumin 4.9 d/dL (3.8-4.9); Albumin/Globulin Ratio 2.04 Ratio (1.60-3.17); Alkaline Phosphatase 115 U/L (41-126); BUN/Creat Ratio 16.33 Ratio (12.00-20.00); Blood Urea Nitrogen 19.6 mg/dL (9.0-27.0); Calcium 9.2 mg/dL (8.7-10.3); Carbon Dioxide 19.3 mmol/L (21.6-31.8); Chloride 109 mmol/L (96-109); Chol/HDL Ratio 3.17 Ratio; Globulin 2.4 d/dL (1.6-3.3); Glucose 95 mg/dL (70-110); LDL Cholesterol,Calculated 58.1 mg/dL (0.0-131.0); Potassium 4.3 mmol/L (3.5-5.5); Sodium 142 mmol/L (135-145); Total Bilirubin 1.2 mg/dL (0.3-1.2); Total Protein 7.3 d/dL (6.2-8.2)
[2023-04-15 02:43] LABS: Urine Creatinine 69.8 mg/dL (39.0-259.0)
== END | disposition home or self-care (01) ==
LOC: LABWHC1 10:27
PROVIDERS: ATTEND Internal Medicine Endocrinology, Diabetes & Metabolism
DX: E11.65 Type 2 diabetes mellitus with hyperglycemia (principal)
CPT/HCPCS: 36415; 80053; 80061; 82043; 82570; 83036; 84443

== ENCOUNTER → 2023-07-16 | Outpatient (CLI) | payer MEDICARE ==
[2023-07-16 20:47] LABS: HCT 38.6 % (39.6-50.0); HGB 12.2 g/dL (13.0-17.0); MCH 24.7 pg (27.0-32.0); MCHC 31.6 g/dL (32.0-37.0); MCV 78.1 FL (80.0-97.0); Mean Platelet Volume 10.8 FL (9.5-12.2); NRBC Per 100 WBC 0 X 10*3/uL (0.00-0.01); Platelet Count 223 X 10*3/uL (140-440); RBC 4.94 X 10*6/uL (4.40-5.60); RDW 15.2 % (11.5-14.5); WBC 4.54 X 10*3/uL (4.50-10.00)
[2023-07-16 21:50] LABS: Prealbumin 22.9 mg/dL (18.0-42.0)
[2023-07-16 22:38] LABS: % Iron Saturation 8.63 (15.00-50.00); ALT 20 U/L (10-49); AST 23 U/L (14-35); Albumin 4.5 g/dL (3.8-4.9); Albumin/Globulin Ratio 1.96 Ratio (1.60-3.17); Alkaline Phosphatase 118 U/L (41-126); BUN/Creat Ratio 24.08 Ratio (12.00-20.00); Blood Urea Nitrogen 28.9 mg/dL (9.0-27.0); Calcium 9.4 mg/dL (8.7-10.3); Carbon Dioxide 19.5 mmol/L (21.6-31.8); Chloride 102 mmol/L (96-109); Chol/HDL Ratio 3.61 Ratio; Ferritin 11.9 ng/mL (22.0-322.0); Globulin 2.3 g/dL (1.6-3.3); Glucose 129 mg/dL (70-110); Iron 41 UG/DL (65-175); LDL Cholesterol,Calculated 56.3 mg/dL (0.0-131.0); Magnesium 1.5 mg/dL (1.5-2.4); Phosphorus 3.4 mg/dL (2.4-5.1); Potassium 4.4 mmol/L (3.5-5.5); Sodium 139 mmol/L (135-145); Total Bilirubin 1.1 mg/dL (0.3-1.2); Total Iron Binding Capacity 475 UG/DL (228-460); Total Protein 6.8 g/dL (6.2-8.2)
[2023-07-17 10:30] LABS: Zinc, Serum 78 ug/dL (60-130)
[2023-07-18 08:40] LABS: Vitamin A 72 ug/dL (38-106)
[2023-07-18 09:14] LABS: Vit B1(Thiamine) 43 ug/L (38-122)
== END | disposition home or self-care (01) ==
LOC: LABWHC1 14:59
PROVIDERS: ATTEND Surgery Plastic and Reconstructive Surgery
DX: E66.01 Morbid (severe) obesity due to excess calories (principal)
CPT/HCPCS: 36415; 80053; 80061; 82306; 82525; 82607; 82728; 82746; 83036; 83540; 83550; 83735; 83970; 84100; 84134; 84255; 84425; 84443; 84590; 84630; 85027; 85610; 85730

== ENCOUNTER 2023-08-13 06:54 | Day surgery (SDC) | payer MEDICARE ==
[2023-08-11 18:15] VITALS: BMI 28.1
[~2023-08-13 06:54] MED LIST changes: +LACTATED RINGERS 1,000 ML IV SCH; -REGADENOSON 0.4 MG/5 ML SYRINGE IV PRN
[2023-08-13 07:31] LABS: Glucose,Whole Blood 92 mg/dL (70-110)
[2023-08-13] MEDS ORDERED: LIDOCAINE 1% INJ 10MG/ML (20 ML MDV) ONE (07:34)
[2023-08-13] MEDS ORDERED: PROPOFOL 10 MG/ML 20 ML VIAL IV ONE (07:34)
--- NOTE | 2023-08-13 07:35 | P.GSHP ---
History of Present Illness H&P Date: 08/13/23 CHIEF COMPLAINT: GERD and colon screen HISTORY OF PRESENT ILLNESS: The patient is a 72-year-old male who presents with gastroesophageal reflux disease and need for colon screen. Upper and lower endoscopy were offered for further evaluation and management. PAST MEDICAL HISTORY: Please see list. PAST SURGICAL HISTORY: Please see list. MEDICATIONS: Please see list. ALLERGIES: Please see list. SOCIAL HISTORY: No illicit drug use FAMILY HISTORY: No reports of Crohn disease or ulcerative colitis. REVIEW OF ORGAN SYSTEMS: CONSTITUTIONAL: No reports of fevers or chills. GI: Denies any blood in stools or constipation. PHYSICAL EXAM: VITAL SIGNS: Stable GENERAL: Well-developed pleasant in no acute distress. HEENT: No scleral icterus. Extraocular movements grossly intact. Moist buccal mucosa. NECK: Supple without lymphadenopathy. CHEST: Unlabored respirations. Equal bilateral excursions. CARDIOVASCULAR: Regular rate and rhythm. Distal 2+ pulses. ABDOMEN: Soft, nondistended. MUSCULOSKELETAL: No clubbing, cyanosis, or edema. ASSESSMENT: 1. Gastroesophageal reflux disease 2. Colon screen. PLAN: 1. Recommend proceeding with an upper and lower endoscopy Past Medical History Past Medical History: Diabetes Mellitus, Eye Disorder, GERD/Reflux, Hypertension, Osteoarthritis (OA), Skin Disorder, Sleep Apnea/CPAP/BIPAP, Thyroid Disorder Additional Past Medical History / Comment(s): Not using CPAP. Limps due to broken left foot in the past that didn't heal properly. Diabetic Retinopathy and Neuropathy. UMBILICAL HERNIA. Legally blind. Chronic back pain. Fatty liver. Hx kidney stones. LOW HGB History of Any Multi-Drug Resistant Organisms: None Reported Past Surgical History: Bariatric Surgery, Cholecystectomy Additional Past Surgical History / Comment(s): Liver biopsy. Pilonidal cyst. Cysts removed from head. Cataract & Retinopathy surgery. Tala-en-Y. COLONOSCOPY. Pain procedures Past Anesthesia/Blood Transfusion Reactions: No Reported Reaction Smoking Status: Never smoker - Past Family History Father Family Medical History: Diabetes Mellitus, Deep Vein Thrombosis (DVT) Mother Family Medical History: Cancer, Diabetes Mellitus Sister(s) Family Medical History: Cancer, Diabetes Mellitus Additional Family Medical History / Comment(s): Uterine Cancer, Lupus, Bipolar Disorder. Medications and Allergies Home Medications Medication Instructions Recorded Confirmed Type Levothyroxine Sodium [Synthroid] 112 mcg PO QAM 12/28/14 08/11/23 History Losartan [Cozaar] 25 mg PO QAM 01/18/15 08/11/23 History Cholecalciferol [Vitamin D3 (25 10,000 unit PO DAILY 01/24/15 08/11/23 History Mcg = 1000 Iu)] metFORMIN HCL [metFORMIN HCL ER] 1,000 mg PO BID 06/16/15 08/11/23 History Multivitamins, Thera [Multivitamin 1 tab PO DAILY 01/24/21 08/11/23 History (formulary)] Aspirin EC [Ecotrin Low Dose] 81 mg PO DAILY 01/02/23 08/11/23 History Pentoxifylline [TRENtal] 400 mg PO BID 01/02/23 08/11/23 History Pioglitazone [Actos] 30 mg PO DAILY 01/02/23 08/11/23 History Semaglutide [Ozempic] 0.5 mg SQ CARPIO 01/02/23 08/11/23 History Glimepiride [Amaryl] 1 mg PO AC-BRKFST 08/11/23 08/11/23 History Metoprolol Succinate (ER) [Toprol 50 mg PO HS 08/11/23 08/11/23 History Xl] Allergies Allergy/AdvReac Type Severity Reaction Status Date / Time clindamycin Allergy Rash/Hives Verified 08/13/23 07:18 BACTRIM DS Allergy Rash/Hives. Uncoded 08/13/23 07:18 ITCHING. Surgical - Exam Vital Signs Temp Pulse Resp BP Pulse Ox 97.1 F L 60 16 122/88 95 08/13/23 07:18 08/13/23 07:18 08/13/23 07:18 08/13/23 07:18 08/13/23 07:18
[2023-08-13 07:38] VITALS: TEMP 97.1
--- NOTE | 2023-08-13 08:07 | P.PCN ---
Date of Procedure: 08/13/23 Description of Procedure: PREOPERATIVE DIAGNOSIS: Dysphagia. Gastroesophageal reflux disease POSTOPERATIVE DIAGNOSIS: Dysphagia. Gastroesophageal reflux disease Esophageal dysmotility Angiodysplasia of the stomach Esophageal partial obstruction OPERATION: Esophagogastrojejunoscopy with rigid dilator over the guidewire 57 Fr with dilation of esophageal stenosis/dysmotility SURGEON: Martita Wills MD ANESTHESIA: MAC. INDICATIONS: The patient is a 72-year-old female who presents with a history of dysphagia. Benefits and risks of the procedure were described. Informed consent was obtained. DESCRIPTION: The patient was brought into the endoscopy suite and laid in the left lateral decubitus position. After a timeout was confirmed, the procedure was initiated. An Olympus gastroscope was passed into the posterior oropharynx down into the gastric pouch. The scope was entered into the gastric pouch with angiodysplasia of the stomach and anastomosis was identified without active bleeding. Hypertensive lower esophageal sphincter was identified as a cause of dysphagia. Next using an [place] rigid dilator, a guidewire was placed through the gastroscope. Next the scope was withdrawn. A 57-Tamazight rigid [place] dilator was passed carefully along the posterior oropharynx to 45 cm and left in place for 2-3 minutes stretch to treat presbyesophagus. The dilator was withdrawn including the guidewire. The scope was reentered along the posterior oropharynx with no findings of full-thickness tear of the upper esophageal sphincter. No full-thickness injury was encountered. The GI tract was desufflated. The patient tolerated the procedure well. FINDINGS: Gastrojejunal anastomotic angiodysplasia without active bleeding Presbyesophagus with esophageal dysmotility dilated [place]ian rigid dilator 57-Tamazight completed. Gastric pouch 5 cm RECOMMENDATIONS: Upper endoscopy as needed
--- NOTE | 2023-08-13 08:12 | P.PCN ---
Date of Procedure: 08/13/23 Description of Procedure: PREOPERATIVE DIAGNOSIS: Personal history colon polyps Colonoscopy screening. POSTOPERATIVE DIAGNOSIS: Diverticulosis, scattered. Internal and external hemorrhoids, grade 2 OPERATION: Colonoscopy to the cecum, ileocecal valve and appendiceal orifice. SURGEON: Martita Wills MD. ANESTHESIA: MAC. INDICATIONS: The patient is a 72-year-old male who presents for colonoscopy screening. Last colonoscopy over 5 years ago with personal history of colon polyps Benefits and risks were described and informed consent was obtained. DESCRIPTION OF PROCEDURE: The patient had undergone Sutab prep. The patient had been brought into the operating room and laid in the left lateral decubitus position. After adequate intravenous sedation, the rectum was examined with 2% lidocaine jelly. External hemorrhoids were encountered. The rectal tone was within normal limits. No lesions were palpated in the rectal vault. An Olympus colonoscope was advanced until the cecum, ileocecal valve and appendiceal orifice were clearly viewed. The prep was good. Scattered diverticulosis was encountered. No colonic polyps were found. No evidence of focal colitis was found. Retroflexion of the scope demonstrated grade 3 internal hemorrhoids without active bleeding or inflammation. The colon was desufflated. The patient had tolerated the procedure well. Withdrawal time was over 6 minutes. FINDINGS: Aronchick preparation quality scale 2 (1-5) Internal hemorrhoids, grade 2 External prolapsed hemorrhoids, grade 2 No arteriovenous malformations. No adenomatous polyps. No focal colitis. Scattered diverticulosis RECOMMENDATIONS: Lower endoscopy 5 years, 2027 Plan - Discharge Summary Discharge Rx Participant: No New Discharge Prescriptions: Continue Levothyroxine Sodium [Synthroid] 112 mcg PO QAM Losartan [Cozaar] 25 mg PO QAM Cholecalciferol [Vitamin D3 (25 Mcg = 1000 Iu)] 10,000 unit PO DAILY metFORMIN HCL [metFORMIN HCL ER] 1,000 mg PO BID Pentoxifylline [TRENtal] 400 mg PO BID Metoprolol Succinate (ER) [Toprol XL] 50 mg PO HS Glimepiride [Amaryl] 1 mg PO AC-BRKFST Multivitamins, Thera [Multivitamin (formulary)] 1 tab PO DAILY Pioglitazone [Actos] 30 mg PO DAILY Semaglutide [Ozempic] 0.5 mg SQ CARPIO Aspirin EC [Ecotrin Low Dose] 81 mg PO DAILY Discharge Medication List Levothyroxine Sodium [Synthroid] 112 mcg PO QAM 12/28/14 [History] Losartan [Cozaar] 25 mg PO QAM 01/18/15 [History] Cholecalciferol [Vitamin D3 (25 Mcg = 1000 Iu)] 10,000 unit PO DAILY 01/24/15 [History] metFORMIN HCL [metFORMIN HCL ER] 1,000 mg PO BID 06/16/15 [History] Multivitamins, Thera [Multivitamin (formulary)] 1 tab PO DAILY 01/24/21 [History] Aspirin EC [Ecotrin Low Dose] 81 mg PO DAILY 01/02/23 [History] Pentoxifylline [TRENtal] 400 mg PO BID 01/02/23 [History] Pioglitazone [Actos] 30 mg PO DAILY 01/02/23 [History] Semaglutide [Ozempic] 0.5 mg SQ CARPIO 01/02/23 [History] Glimepiride [Amaryl] 1 mg PO AC-BRKFST 08/11/23 [History] Metoprolol Succinate (ER) [Toprol XL] 50 mg PO HS 08/11/23 [History] [facility]ment[facility] [place] [facility] - [facility] Patient Instructions/Handouts: Diverticulosis (GEN), Dysphagia (ED), Angiodysplasia of the Gastrointestinal Tract (DC) Activity/Diet/Wound Care/Special Instructions: Repeat colonoscopy 5 years, 2027 Discharge Disposition: HOME SELF-CARE
[2023-08-13 08:30] VITALS: RESP 20
[2023-08-13 08:55] VITALS: BP 120/75; PULSE 70
== END 2023-08-13 09:25 | disposition home or self-care (01) ==
LOC: ORWHC2ENDO 06:54
PROVIDERS: ATTEND Surgery Plastic and Reconstructive Surgery
DX: Z12.11 Encounter for screening for malignant neoplasm of colon (principal); K22.4 Dyskinesia of esophagus; K21.00 Gastro-esophageal reflux disease with esophagitis, without bleeding; K64.1 Second degree hemorrhoids; E11.40 Type 2 diabetes mellitus with diabetic neuropathy, unspecified; G47.30 Sleep apnea, unspecified; K64.4 Residual hemorrhoidal skin tags; G89.29 Other chronic pain; I10 Essential (primary) hypertension; K21.9 Gastro-esophageal reflux disease without esophagitis; M19.90 Unspecified osteoarthritis, unspecified site; K76.0 Fatty (change of) liver, not elsewhere classified; E11.36 Type 2 diabetes mellitus with diabetic cataract; E11.319 Type 2 diabetes mellitus with unspecified diabetic retinopathy without macular edema; Z79.82 Long term (current) use of aspirin; Z79.84 Long term (current) use of oral hypoglycemic drugs; Z79.890 Hormone replacement therapy; Z90.49 Acquired absence of other specified parts of digestive tract
CPT/HCPCS: 43249; J2001; J2704; G0121

== ENCOUNTER → 2023-08-16 | Outpatient (CLI) | payer MEDICARE ==
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
== END | disposition home or self-care (01) ==
LOC: RADMRIMAIN 13:31
PROVIDERS: ATTEND Neurological Surgery
DX: M47.812 Spondylosis without myelopathy or radiculopathy, cervical region (principal); M99.71 Connective tissue and disc stenosis of intervertebral foramina of cervical region; M50.30 Other cervical disc degeneration, unspecified cervical region
CPT/HCPCS: 72141

== ENCOUNTER → 2023-08-27 | Outpatient (CLI) | payer MEDICARE ==
[2023-08-27 13:30] VITALS: BP 132/78; PULSE 99; RESP 16; TEMP 98.2; BMI 28.5
--- NOTE | 2023-08-27 14:17 | P.BASOAP ---
Subjective Progress Note Date: 08/27/23 DATE OF SERVICE: 08/27/23 CHIEF COMPLAINT: Followup gastric bypass. HISTORY OF PRESENT ILLNESS: Tim Rosas is a 72-year-old gentleman who is status post Tala-en-Y gastric bypass from January 23, 2015. He is 8 years out. He comes in her chronic nausea. He has on Ozempic for diabetes. He completed both upper and lower endoscopy due to his abdominal pain. He is still taking Ozempic for glycemic control. He reports intermittent hypoglycemia. He reports worsening symptoms. His highest weight was 274 pounds. [place] body weight is 178 pounds. Today he comes in weighing 205 pounds from 206 pounds, 3 years. He has lost 2 pounds in 1 year. He has maintained 69 pound weight loss, lifetime. Lifetime percent excess weight loss is 72 %. Body mass index is reduced from 38.3 down to 28.6. He is 27 pounds overweight. PAST MEDICAL HISTORY: 1. Osteoarthritis. 2. Diabetes type 2. 3. Hypothyroidism. 4. Hypertensive heart disease 5. ADHD. 6. Gastroesophageal reflux disease. 7. Dyslipidemia. 8. Obstructive sleep apnea. 9. Morbid obesity. 10. Diverticulosis. 11. Hyperlipidemia PAST SURGICAL HISTORY: 1. Tonsillectomy. 2. Cholecystectomy. 3. Liver biopsy. 4. Pilonidal cystectomy. 5. Multiple skin lesions removal on his head. 6. A broken left foot. 7. Status post Tala-en-Y gastric bypass. 8. Upper endoscopy. 9. Lower endoscopy. 10. Cystoscopy with kidney stone extraction. MEDICATIONS: Home Medications Medication Instructions Recorded Confirmed Levothyroxine Sodium [Synthroid] 112 mcg PO QAM 12/28/14 08/27/23 Losartan [Cozaar] 25 mg PO QAM 01/18/15 08/27/23 Cholecalciferol [Vitamin D3 (25 10,000 unit PO DAILY 01/24/15 08/27/23 Mcg = 1000 Iu)] metFORMIN HCL [metFORMIN HCL ER] 1,000 mg PO BID 06/16/15 08/27/23 Multivitamins, Thera [Multivitamin 1 tab PO DAILY 01/24/21 08/27/23 (formulary)] Aspirin EC [Ecotrin Low Dose] 81 mg PO DAILY 01/02/23 08/27/23 Pentoxifylline [TRENtal] 400 mg PO BID 01/02/23 08/27/23 Pioglitazone [Actos] 30 mg PO DAILY 01/02/23 08/27/23 Semaglutide [Ozempic] 0.5 mg SQ CARPIO 01/02/23 08/27/23 Glimepiride [Amaryl] 1 mg PO AC-BRKFST 08/11/23 08/27/23 Metoprolol Succinate (ER) [Toprol 50 mg PO HS 08/11/23 08/27/23 XL] ALLERGIES: CLINDAMYCIN. SOCIAL HISTORY: Lifelong nontobacco user. FAMILY HISTORY: Denies any esophageal or stomach cancer. Colon cancer runs in the family. His father of blood clots after orthopedic procedure. Also he has mother with diabetes. REVIEW OF SYSTEMS: CONSTITUTIONAL: His highest weight was 274 pounds. [place] body weight is 178 pounds. Today he comes in weighing 205 pounds from 206 pounds, 3 years. He has lost 2 pounds in 1 year. He has maintained 69 pound weight loss, lifetime. Lifetime percent excess weight loss is 72 %. Body mass index is reduced from 38.3 down to 28.6. He is 27 pounds overweight. HEENT: Denies any trouble with vision, hearing or nosebleeds. No difficulty swallowing. LYMPHATIC: The patient denies any lumps and bumps around the neck. ENDOCRINE: Has hypothyroidism. Has diabetes type 2, [id number]. RESPIRATORY: Denies pneumonia. Denies any troubles with breathing or dyspnea on exertion. CARDIOVASCULAR: Hypertensive heart disease. Has hyperlipidemia. GASTROINTESTINAL: History of gastrointestinal bleed. GENITOURINARY: Denies any blood in urine or increased urinary frequency. Has diabetic nephropathy MUSCULOSKELETAL: Has back pain, stiffness, joint arthritis. NEUROLOGIC: Has diabetic neuropathy. PSYCHIATRIC: Denies depression or suidical ideation. HEMATOLOGIC: Denies any abnormal bleeding or bruising. BREASTS: Denies any breast lumps, pain or nipple discharge. PHYSICAL EXAM: VITAL SIGNS: 5 foot 11 inches, 205 pounds. Body mass index of 28.6 Vital Signs Temp 98.2 F 08/27/23 13:09 Pulse 99 08/27/23 13:09 Resp 16 08/27/23 13:09 BP 132/78 08/27/23 13:09 Pulse Ox FiO2 ABDOMEN: Soft, nontender. No palpable incisional hernias. GENERAL: Well-developed pleasant male in no acute distress. MUSCULOSKELETAL: No clubbing, cyanosis, or edema. HEENT: No sclerae icterus. Extraocular movements grossly intact. Moist buccal mucosa. NECK: Supple without lymphadenopathy. CHEST: Nonlabored respirations. Equal bilateral excursions. CARDIOVASCULAR: Radial pulses 2+. NEURO: No focal or lateralizing signs. Cranial nerves II-12 grossly intact. PSYCH: Appropriate affect. Alert and oriented to person, place, and time. SKIN: Well perfused. Good skin turgor. LABS: Reviewed. Hemoglobin 12.2, low; atropine elevated, hemoglobin A1c 7.5, elevated; iron low EGD FINDINGS: Gastrojejunal anastomotic angiodysplasia without active bleeding Presbyesophagus with esophageal dysmotility dilated [place] rigid dilator 57-Frisian completed. Gastric pouch 5 cm COLON FINDINGS: Aronchick preparation quality scale 2 (1-5) Internal hemorrhoids, grade 2 External prolapsed hemorrhoids, grade 2 No arteriovenous malformations. No adenomatous polyps. No focal colitis. Scattered diverticulosis ASSESSMENT: 1. Morbid obesity due to excess calories. 2. Body mass index reduced from 38.3 down to 28.6 3. Status post Tala-en-Y gastric bypass. 4. History of food addiction, now resolved. 5. Insulin-dependent diabetes type 2 with nephropathy 6. Bilateral nonhealing, chronic great toe ulcers, now resolved. 7. Dietary surveillance and counseling. 8. History of gastrojejunal ulcer, resolved 9. Sigmoid diverticulosis 10. 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 11. Hypertensive heart disease 12. Hypothyroidism. 13. Obstructive sleep apnea 14. Peripheral vascular occlussive disease 15. Vitamin D deficiency 16. Kidney stones 17. Generalized abdominal pain. 18. Adverse reaction from medication, Ozempic 19. Presbyesophagus 20. Anemia, iron deficiency 21. Hyperlipidemia PLAN: 1. He has side effect of ozempic with chronic nausea. Adjustment of medication per primary care provider. Medical reconciliation performed 2. Repeat colonoscopy in 5 years Objective - Vital Signs Vital signs: Vital Signs Temp 98.2 F 08/27/23 13:09 Pulse 99 08/27/23 13:09 Resp 16 08/27/23 13:09 BP 132/78 08/27/23 13:09 Pulse Ox FiO2 Intake & Output 08/26/23 08/27/23 08/27/23 18:59 06:59 18:59 Weight 92.986 kg Assessment/Plan Plan: Date: 08/27/23 Initial Weight: 124.466 kg Initial BMI: 38.2 Current Weight: 92.986 kg Current BMI: 28.5 Type of Surgery: Tala-en-Y Gastric Bypass Total Volume in Band: Previous Volume: Volume Removed: Volume Added: Band Size:
== END ==
LOC: BARWHC3 12:57
PROVIDERS: ATTEND Surgery Plastic and Reconstructive Surgery
DX: E66.01 Morbid (severe) obesity due to excess calories (principal); M19.90 Unspecified osteoarthritis, unspecified site; I11.0 Hypertensive heart disease with heart failure; E03.9 Hypothyroidism, unspecified; F90.9 Attention-deficit hyperactivity disorder, unspecified type; K21.9 Gastro-esophageal reflux disease without esophagitis; E78.5 Hyperlipidemia, unspecified; G47.33 Obstructive sleep apnea (adult) (pediatric); L97.529 Non-pressure chronic ulcer of other part of left foot with unspecified severity; L97.519 Non-pressure chronic ulcer of other part of right foot with unspecified severity; K57.90 Diverticulosis of intestine, part unspecified, without perforation or abscess without bleeding; E11.21 Type 2 diabetes mellitus with diabetic nephropathy; E11.40 Type 2 diabetes mellitus with diabetic neuropathy, unspecified; I73.9 Peripheral vascular disease, unspecified; E55.9 Vitamin D deficiency, unspecified; N20.0 Calculus of kidney; R10.84 Generalized abdominal pain; Z98.84 Bariatric surgery status; Z90.49 Acquired absence of other specified parts of digestive tract; Z98.890 Other specified postprocedural states; Z68.28 Body mass index [BMI] 28.0-28.9, adult; Z79.4 Long term (current) use of insulin; Z88.1 Allergy status to other antibiotic agents; Z79.84 Long term (current) use of oral hypoglycemic drugs; Z79.899 Other long term (current) drug therapy; Z79.890 Hormone replacement therapy; Z79.82 Long term (current) use of aspirin
CPT/HCPCS: 99211

== ENCOUNTER → 2024-01-23 | Outpatient (CLI) | payer MEDICARE ==
[2024-01-23 15:22] LABS: ALT 18 U/L (10-49); AST 25 U/L (14-35); Albumin 4.7 g/dL (3.8-4.9); Albumin/Globulin Ratio 2.14 Ratio (1.60-3.17); Alkaline Phosphatase 116 U/L (41-126); Blood Urea Nitrogen 16.4 mg/dL (9.0-27.0); Calcium 9.5 mg/dL (8.7-10.3); Carbon Dioxide 27.8 mmol/L (21.6-31.8); Chloride 100 mmol/L (96-109); Chol/HDL Ratio 2.97 Ratio; Globulin 2.2 g/dL (1.6-3.3); Glucose 97 mg/dL (70-110); LDL Cholesterol,Calculated 55.4 mg/dL (0.0-131.0); Potassium 3.6 mmol/L (3.5-5.5); Sodium 141 mmol/L (135-145); Total Bilirubin 1.9 mg/dL (0.3-1.2); Total Protein 6.9 g/dL (6.2-8.2)
[2024-01-23 19:22] LABS: Urine Creatinine 92.9 mg/dL (39.0-259.0)
== END | disposition home or self-care (01) ==
LOC: LABWHC1 08:59
PROVIDERS: ATTEND Internal Medicine Endocrinology, Diabetes & Metabolism
DX: E11.65 Type 2 diabetes mellitus with hyperglycemia (principal)
CPT/HCPCS: 36415; 80053; 80061; 82043; 82570; 83036; 84443

== ENCOUNTER → 2024-05-12 | Outpatient (CLI) | payer MEDICARE ==
[2024-05-12 16:22] LABS: Chol/HDL Ratio 4.21 Ratio; LDL Cholesterol,Calculated 78.5 mg/dL (0.0-131.0)
[2024-05-12 16:23] LABS: ALT 28 U/L (10-49); AST 24 U/L (14-35); Albumin 4.6 g/dL (3.8-4.9); Alkaline Phosphatase 150 U/L (41-126); BUN/Creat Ratio 13.73 Ratio (12.00-20.00); Blood Urea Nitrogen 15.1 mg/dL (9.0-27.0); Carbon Dioxide 21.9 mmol/L (21.6-31.8); Chloride 106 mmol/L (96-109); Globulin 2.3 g/dL (1.6-3.3); Glucose 174 mg/dL (70-110); Potassium 3.8 mmol/L (3.5-5.5); Sodium 143 mmol/L (135-145); Total Bilirubin 2.2 mg/dL (0.3-1.2); Total Protein 6.9 g/dL (6.2-8.2)
[2024-05-12 18:13] LABS: Urine Creatinine 96.8 mg/dL (39.0-259.0)
== END | disposition home or self-care (01) ==
LOC: LABWHC1 11:03
PROVIDERS: ATTEND Internal Medicine Endocrinology, Diabetes & Metabolism
DX: E11.65 Type 2 diabetes mellitus with hyperglycemia (principal)
CPT/HCPCS: 36415; 80053; 80061; 82043; 82570; 83036; 84443

== ENCOUNTER → 2024-08-04 | Outpatient (CLI) | payer MEDICARE ==
[2024-08-04 15:49] VITALS: BMI 27.8
[2024-08-04 15:51] VITALS: BP 147/90; PULSE 92; RESP 16; TEMP 97.2
--- NOTE | 2024-08-04 16:13 | P.HPBAR ---
Bariatric H&P - History & Physicial H&P Date: 08/04/24 History & Physicial: Visit/CC: f/u Patient initial contact: Initial weight: 124.466 kg Initial weight in pounds: 274.40 Height: 5 ft 10 in Initial BMI: 39.4 Last weight: Current weight: 87.997 kg Current weight in pounds: 194.00 Current BMI: 27.8 [place] body weight (based on NIH guidelines): 75.296 kg Excess body weight loss: 74.1% The patient is a 73 year-old M who presents for Bariatric Assessment. He comes in with moderate abdominal pain. He is taking ozempic. All side effects. Will need EGD/Colon GI bleed. He has left upper abdominal pain. Labs EKG. CT scan of abdomen. Needs lysis of adhesions aug 23 Past Medical History Past Medical History: Diabetes Mellitus, Eye Disorder, GERD/Reflux, Hypertension, Osteoarthritis (OA), Skin Disorder, Sleep Apnea/CPAP/BIPAP, Thyroid Disorder Additional Past Medical History / Comment(s): Not using CPAP. Limps due to broken left foot in the past that didn't heal properly. Diabetic Retinopathy and Neuropathy. UMBILICAL HERNIA. Legally blind. Chronic back pain. Fatty liver. Hx kidney stones. History of Any Multi-Drug Resistant Organisms: None Reported Past Surgical History: Bariatric Surgery, Cholecystectomy Additional Past Surgical History / Comment(s): Liver biopsy. Pilonidal cyst. Cysts removed from head. Cataract & Retinopathy surgery. Tala-en-Y. COLONOSCOPY. Pain procedures, Kidney stone sx/ureteral stenting with removal last 06/2024 Past Anesthesia/Blood Transfusion Reactions: No Reported Reaction Past Psychological History: No Psychological Hx Reported Smoking Status: Never smoker Past Alcohol Use History: Rare Additional Past Alcohol Use History / Comment(s): Patient is a lifelong nonsmoker. No medical marijuana, marijuana or street drug use. Patient drinks alcohol rarely. He is a retired nurse. He lives at home with his . Past Drug Use History: None Reported - Past Family History Father Family Medical History: Diabetes Mellitus, Deep Vein Thrombosis (DVT) Mother Family Medical History: Cancer, Diabetes Mellitus Sister(s) Family Medical History: Cancer, Diabetes Mellitus Additional Family Medical History / Comment(s): Uterine Cancer, Lupus, Bipolar Disorder. Surgical - Exam Vital Signs Temp Pulse Resp BP 97.2 F L 92 16 147/90 08/04/24 15:41 08/04/24 15:41 08/04/24 15:41 08/04/24 15:41 Bariatric Checklist Checklist: Plan: Checklist: EGD: 1. Hiatal hernia: 2. H. Pylori: HgbA1c: Vitamin D: Smoking: Never smoker Primary care physician referral: DR. HILL Psychiatry clearance: Cardiology clearance: Sleep study: Diet journal: VTE risk score: VTE risk level: Rehab needs at discharge:
== END ==
LOC: BARWHC3 15:25
PROVIDERS: ATTEND Surgery Plastic and Reconstructive Surgery
DX: E66.01 Morbid (severe) obesity due to excess calories (principal); R10.9 Unspecified abdominal pain; Z68.27 Body mass index [BMI] 27.0-27.9, adult; Z98.84 Bariatric surgery status; Z88.1 Allergy status to other antibiotic agents
CPT/HCPCS: 99211

== ENCOUNTER → 2024-08-06 | Outpatient (CLI) | payer MEDICARE ==
[2024-08-06 13:16] LABS: Partial Thromboplastin Time 27.1 sec (22.0-30.0); Prothrombin Time 10.8 sec (10.0-12.5)
[2024-08-06 19:46] LABS: % Iron Saturation 17.65 (15.00-50.00); ALT 22 U/L (10-49); AST 25 U/L (14-35); Albumin 4.7 g/dL (3.8-4.9); Albumin/Globulin Ratio 1.74 Ratio (1.60-3.17); Alkaline Phosphatase 186 U/L (41-126); BUN/Creat Ratio 19.18 Ratio (12.00-20.00); Blood Urea Nitrogen 21.1 mg/dL (9.0-27.0); Carbon Dioxide 23.9 mmol/L (21.6-31.8); Chloride 100 mmol/L (96-109); Chol/HDL Ratio 4.47 Ratio; Creatine Kinase 216 U/L (35-257); Ferritin 23.7 ng/mL (22.0-322.0); Globulin 2.7 g/dL (1.6-3.3); Glucose 185 mg/dL (70-110); Iron 81 UG/DL (65-175); LDL Cholesterol,Calculated 92.8 mg/dL (0.0-131.0); Magnesium 1.9 mg/dL (1.5-2.4); Phosphorus 3.3 mg/dL (2.4-5.1); Potassium 4.8 mmol/L (3.5-5.5); Sodium 138 mmol/L (135-145); Total Bilirubin 1.8 mg/dL (0.3-1.2); Total Iron Binding Capacity 459 UG/DL (228-460); Total Protein 7.4 g/dL (6.2-8.2); Uric Acid 6.9 mg/dL (3.7-8.7)
[2024-08-06 19:51] LABS: Appearance,Urine Clear (Clear); Bilirubin,Urine Negative (Negative); Blood,Urine Trace (Negative); Color,Urine Yellow (Yellow); Ketones,Urine Negative (Negative); Nitrite,Urine Negative (Negative); Specific Gravity,Urine 1.018 (1.001-1.030); Urobilinogen,Urine 0.2 E.U./DL
[2024-08-06 19:57] LABS: Bacteria,Urine None Seen (None Seen)
[2024-08-06 20:16] LABS: Basophils # (A) 0.04 X 10*3/uL (0.00-0.10); Eosinophils # (A) 0.07 X 10*3/uL (0.04-0.35); Eosinophils % (A) 1.8 %; HCT 46.4 % (39.6-50.0); HGB 14.9 g/dL (13.0-17.0); Lymphocytes # (A) 1.01 X 10*3/uL (0.90-5.00); Lymphocytes % (A) 26.5 %; MCH 28.1 pg (27.0-32.0); MCHC 32.1 g/dL (32.0-37.0); MCV 87.4 FL (80.0-97.0); Mean Platelet Volume 10.8 FL (9.5-12.2); Monocytes # (A) 0.24 X 10*3/uL (0.20-1.00); Monocytes % (A) 6.3 %; NRBC Per 100 WBC 0 X 10*3/uL (0.00-0.01); Neutrophils # (A) 2.44 X 10*3/uL (1.80-7.70); Neutrophils % (A) 64.1 %; Platelet Count 236 X 10*3/uL (140-440); RBC 5.31 X 10*6/uL (4.40-5.60); RDW 13.2 % (11.5-14.5); WBC 3.81 X 10*3/uL (4.50-10.00)
[2024-08-06 20:25] LABS: Prealbumin 24.3 mg/dL (18.0-42.0)
== END | disposition home or self-care (01) ==
LOC: LABWHC1 11:57
PROVIDERS: ATTEND Internal Medicine
DX: Z00.00 Encounter for general adult medical examination without abnormal findings (principal); I10 Essential (primary) hypertension; E78.2 Mixed hyperlipidemia; E11.9 Type 2 diabetes mellitus without complications; E11.65 Type 2 diabetes mellitus with hyperglycemia; D50.0 Iron deficiency anemia secondary to blood loss (chronic); E66.01 Morbid (severe) obesity due to excess calories; E03.9 Hypothyroidism, unspecified; E55.9 Vitamin D deficiency, unspecified; E89.1 Postprocedural hypoinsulinemia; D50.8 Other iron deficiency anemias; D50.9 Iron deficiency anemia, unspecified; E44.0 Moderate protein-calorie malnutrition; E44.1 Mild protein-calorie malnutrition; E46 Unspecified protein-calorie malnutrition; K74.1 Hepatic sclerosis; N19 Unspecified kidney failure; T56.894A Toxic effect of other metals, undetermined, initial encounter
CPT/HCPCS: 36415; 80053; 80061; 81001; 82043; 82306; 82525; 82550; 82570; 82607; 82728; 82746; 83036; 83540; 83550; 83735; 83970; 84100; 84134; 84255; 84425; 84439; 84443; 84550; 84590; 84630; 85025; 85610; 85730; 93005

== ENCOUNTER → 2024-08-10 | Outpatient (CLI) | payer MEDICARE ==
[2024-08-10 12:40] LABS: African American GFR (CKD) 81 (>60 ml/min/1.73 sqM); Blood Urea Nitrogen 21 mg/dL (9-20); Non-African American GFR(CKD) 70 (>60 ml/min/1.73 sqM)
--- NOTE | 2024-08-10 15:56 | CT ---
EXAMINATION TYPE: CT abdomen pelvis w con CT DLP: 1887 mGycm, Automated exposure control for dose reduction was used. DATE OF EXAM: 08/10/2024 2:11 PM COMPARISON: CT abdomen pelvis 01/14/2022 CLINICAL INDICATION:Male, 73 years old with history of K56.601 COMPLETE INTESTINAL OBSTRUCTION; compl ete intestinal obstruction TECHNIQUE: Standard CT of the abdomen and pelvis following the administration of 100 cc of Isovue 3 00 IV contrast material and oral contrast. Coronal and sagittal reformats were performed. FINDINGS: LOWER CHEST: Unremarkable ABDOMEN LIVER: Subcentimeter right hepatic lobe hypodense lesion which is too small characterize but probably represents a cyst. Anterior right hepatic dome heterogenous enhancing 2.7 cm lesion (series 3, image 14). May have been present on prior CT with low attenuating region however evaluation is limited due to lack of contrast from prior CT. GALLBLADDER AND BILE DUCTS: The gallbladder is surgically absent. No biliary duct dilatation. PANCREAS: Unremarkable. SPLEEN: Unremarkable. ADRENAL GLANDS: Unremarkable. KIDNEYS AND URETERS: No evidence of hydronephrosis. Nonobstructive bilateral renal calculi with large st in the right kidney measuring up to 1.6 cm. Largest within the left kidney measures up to 1.6 cm. The kidneys enhance symmetrically. Contrast is demonstrated within both collecting systems on the del ayed phase. PELVIS BLADDER: Unremarkable REPRODUCTIVE: Unremarkable. ABDOMEN & PELVIS STOMACH AND BOWEL: Postsurgical changes from Tala-en-Y gastric bypass.Redundant sigmoid colon. Enteri c contrast reaches the hepatic flexure. No focal bowel wall thickening or surrounding inflammatory ch anges. The appendix is within normal limits. No evidence of bowel obstruction. PERITONEUM: No evidence of pneumoperitoneum or free fluid. Several peritoneal and metastatic soft tis waldo lesions identified which are new from prior CT. Examples include a right mid abdomen mesenteric 4 .3 x 4.2 cm soft tissue mass (series 3, image 48), and adjacent inferior right midabdomen 5.4 x 3.7 c m soft tissue mass (series 3, image 55), a 2.1 x 2.0 cm soft tissue mass abutting the inferior right hepatic lobe anteriorly (series 3, image 36), left mid abdomen mesenteric 1.9 cm soft tissue mass (se alena 3, and 43), peripheral left peritoneal 1.3 cm soft tissue nodule (series 3, image 28), and a rig ht upper quadrant peritoneal 1 cm soft tissue nodule (series 3, image 29), No other lymphadenopathy i dentified. VASCULATURE: No evidence of aortic aneurysm. MUSCULOSKELETAL: No acute osseous abnormalities. Moderate lower lumbar spine degenerative disc diseas e. No aggressive osseous lesion. SOFT TISSUE/ABDOMINAL WALL: Unremarkable IMPRESSION: 1. Several soft tissue peritoneal/mesenteric masses and nodules identified measuring up to 5.4 cm an d are highly concerning for malignancy until proven otherwise. Etiologies include lymphoma versus met astasis from unknown primary. Further workup is recommended. 2. Enhancing indeterminate anterior right hepatic dome 2.7 cm lesion. Could represent metastasis gerber florencia other etiologies such as a hemangioma. Further evaluation with MR abdomen with IV contrast liver mass protocol is recommended. 3. No evidence for bowel obstruction. 4. Nonobstructive bilateral renal calculi. [facility], , 08/10/2024 3:54 PM
== END | disposition home or self-care (01) ==
LOC: RADCTMAIN 11:57
PROVIDERS: ATTEND Surgery Plastic and Reconstructive Surgery
DX: K56.601 Complete intestinal obstruction, unspecified as to cause (principal); N20.0 Calculus of kidney
CPT/HCPCS: 82565; 84520; 74177; 36415; Q9967

== ENCOUNTER 2024-08-16 08:04 | Day surgery (SDC) | payer MEDICARE ==
[2024-08-13 08:55] VITALS: BMI 26.4
[2024-08-16] MEDS: LACTATED RINGERS 1,000 ML IV SCH (08:50)
[2024-08-16] MEDS: IV FLUID CONTINUATION 1,000 ML IV ONE (08:50)
[2024-08-16] MEDS: LIDOCAINE 1% (10MG/ML) FOR IV START INTRADERMA STA (08:50)
[2024-08-16 09:02] VITALS: RESP 16; TEMP 97.4
[2024-08-16 09:04] LABS: Glucose,Whole Blood 182 mg/dL (70-110)
[2024-08-16] MEDS ORDERED: LIDOCAINE 1% INJ 10MG/ML (20 ML MDV) ONE (09:10)
[2024-08-16] MEDS ORDERED: PROPOFOL 10 MG/ML 20 ML VIAL IV ONE (09:10)
--- NOTE | 2024-08-16 09:15 | P.GSHP ---
History of Present Illness H&P Date: 08/16/24 CHIEF COMPLAINT: GERD and colon screen HISTORY OF PRESENT ILLNESS: The patient is a 73-year-old male who presents with gastroesophageal reflux disease and need for colon screen. Upper and lower endoscopy were offered for further evaluation and management. PAST MEDICAL HISTORY: Please see list. PAST SURGICAL HISTORY: Please see list. MEDICATIONS: Please see list. ALLERGIES: Please see list. SOCIAL HISTORY: No illicit drug use FAMILY HISTORY: No reports of Crohn disease or ulcerative colitis. REVIEW OF ORGAN SYSTEMS: CONSTITUTIONAL: No reports of fevers or chills. GI: Denies any blood in stools or constipation. PHYSICAL EXAM: VITAL SIGNS: Stable GENERAL: Well-developed pleasant in no acute distress. HEENT: No scleral icterus. Extraocular movements grossly intact. Moist buccal mucosa. NECK: Supple without lymphadenopathy. CHEST: Unlabored respirations. Equal bilateral excursions. CARDIOVASCULAR: Regular rate and rhythm. Distal 2+ pulses. ABDOMEN: Soft, nondistended. MUSCULOSKELETAL: No clubbing, cyanosis, or edema. ASSESSMENT: 1. Gastroesophageal reflux disease 2. Colon screen. PLAN: 1. Recommend proceeding with an upper and lower endoscopy Past Medical History Past Medical History: Diabetes Mellitus, Eye Disorder, GERD/Reflux, Hypertension, Osteoarthritis (OA), Skin Disorder, Sleep Apnea/CPAP/BIPAP, Thyroid Disorder Additional Past Medical History / Comment(s): Not using CPAP. Limps due to broken left foot in the past that didn't heal properly. Diabetic Retinopathy and Neuropathy. UMBILICAL HERNIA. Legally blind. Chronic back pain. Fatty liver. Hx kidney stones. History of Any Multi-Drug Resistant Organisms: None Reported Past Surgical History: Bariatric Surgery, Cholecystectomy Additional Past Surgical History / Comment(s): Liver biopsy. Pilonidal cyst. Cysts removed from head. Cataract & Retinopathy surgery. Tala-en-Y. COLONOSCOPY. Pain procedures, Kidney stone sx/ureteral stenting with removal last , 06/2024, colonoscopy Past Anesthesia/Blood Transfusion Reactions: No Reported Reaction Additional Past Anesthesia/Blood Transfusion Reaction / Comment(s): no blood transfusion Smoking Status: Never smoker - Past Family History Father Family Medical History: Diabetes Mellitus, Deep Vein Thrombosis (DVT) Mother Family Medical History: Cancer, Diabetes Mellitus Additional Family Medical History / Comment(s): thyroid Sister(s) Family Medical History: Cancer, Diabetes Mellitus Additional Family Medical History / Comment(s): Uterine Cancer, Lupus, Bipolar Disorder. Medications and Allergies Home Medications Medication Instructions Recorded Confirmed Type Levothyroxine Sodium [Synthroid] 112 mcg PO QAM 12/28/14 08/13/24 History Losartan [Cozaar] 25 mg PO QAM 01/18/15 08/13/24 History Cholecalciferol [Vitamin D3 (25 10,000 unit PO DAILY 01/24/15 08/13/24 History Mcg = 1000 Iu)] metFORMIN HCL [metFORMIN HCL ER] 1,000 mg PO BID 06/16/15 08/13/24 History Multivitamins, Thera [Multivitamin 1 tab PO DAILY 01/24/21 08/13/24 History (formulary)] Aspirin EC [Ecotrin Low Dose] 81 mg PO DAILY 01/02/23 08/13/24 History Pentoxifylline [TRENtal] 400 mg PO BID 01/02/23 08/13/24 History Pioglitazone [Actos] 30 mg PO DAILY 01/02/23 08/13/24 History Semaglutide [Ozempic] 0.35 mg SQ CARPIO 01/02/23 08/13/24 History Glimepiride [Amaryl] 1 mg PO AC-BRKFST 08/11/23 08/13/24 History Metoprolol Succinate (ER) [Toprol 50 mg PO HS 08/11/23 08/13/24 History XL] Omeprazole 20 mg PO DAILY 08/04/24 08/13/24 History Potassium Citrate [Potassium 20 meq PO TID 08/04/24 08/13/24 History Citrate ER] Allergies Allergy/AdvReac Type Severity Reaction Status Date / Time clindamycin Allergy Rash/Hives Verified 08/13/24 08:49 BACTRIM DS Allergy Rash/Hives. Uncoded 08/13/24 08:49 ITCHING. Surgical - Exam Vital Signs Temp Pulse Resp BP Pulse Ox 97.4 F L 88 16 165/92 98 08/16/24 08:50 08/16/24 08:50 08/16/24 08:50 08/16/24 08:50 08/16/24 08:50 Results - Labs Abnormal Lab Results - Last 24 Hours (Table) 08/16/24 Range/Units 08:47 POC Glucose (mg/dL) 182 H (70-110) mg/dL
--- NOTE | 2024-08-16 09:29 | P.PCN ---
Date of Procedure: 08/16/24 Description of Procedure: PREOPERATIVE DIAGNOSES: 1. Gastroesophageal reflux disease 2. Epigastric abdominal pain. 3. History of Tala-en-Y gastric bypass 4. Lymphoma POSTOPERATIVE DIAGNOSES: 1. Gastroesophageal reflux disease 2. Acute posterior oropharyngeal bleeding 3. Gastritis PROCEDURE PERFORMED: Esophagogastrojejunoscopy with biopsies on the gastric pouch, esophagus, jejunum. SURGEON: Martita Wills MD ANESTHESIA: MAC. INDICATIONS: The patient is a 73-year-old male with prior history of Tala-en-Y gastric bypass. He reports unintentional weight loss including epigastric abdominal pain. He has pre-existing history of gastroesophageal reflux disease. Recent diagnostic imaging demonstrated multiple nodules within the abdomen highly suspicious for lymphoma. Upper endoscopy with biopsies were described. Informed consent was obtained. DESCRIPTION: Patient was brought to the endoscopy suite and laid in the left lateral decubitus position. After adequate IV sedation, a bite block was placed. An Olympus gastroscope was passed along the posterior oropharynx down to the distal esophagus where the squamocolumnar junction was found at approximately 40 cm from the incisors. The diaphragmatic hiatus was found at 40 cm from the incisors. The anastomosis was found at 45 cm, consistent with approximately 5 cm gastric pouch. No evidence of foreign body was found. No active gastrojejunal ulceration was found. Biopsies along the gastric pouch, jejunum, esophagus was performed. The scope was passed to 60 cm of the Tala limb. The GI tract was desufflated. The patient tolerated the procedure well. FINDINGS: 1. No acute gastrojejunal ulceration 2. Acute posterior oropharyngeal bleeding found within the oropharynx from nasal pharyngeal source 3. No elongated jejunal blind pouch. 4. Squamocolumnar junction at 40 cm from the incisors. 5. Diaphragmatic hiatus at 40 cm from the incisors. 6. No large hiatal hernia 7. Anastomosis at 45 cm from the incisors. 8. Gastric pouch 5 cm. 9. Chronic gastritis of the gastric pouch. 10. Biopsies obtained of gastric pouch, jejunum, esophagus. PLAN: 1. Upper endoscopy as needed
--- NOTE | 2024-08-16 10:11 | P.PCN ---
Date of Procedure: 08/16/24 Description of Procedure: PREOPERATIVE DIAGNOSIS: Personal history of colon polyps Colonoscopy screening Abnormal CT scan for lymphoma, metastatic disease POSTOPERATIVE DIAGNOSIS: Tubular adenoma sigmoid colon Sigmoid diverticulosis Internal hemorrhoids, grade 2 OPERATION: Colonoscopy to the ileocecal valve and appendiceal orifice, cecum Colonoscopy with cold forceps biopsy SURGEON: Martita Wills MD. ANESTHESIA: MAC. INDICATIONS: The patient is an 73-year-old male who presents personal history of colon polyps. Last colonoscopy 5 years. Additionally, patient has new diagnosis of intra-abdominal lesions from metastatic lesions versus lymphoma. Benefits and risks were described and informed consent was obtained. DESCRIPTION OF PROCEDURE: The patient had undergone Sutab prep. The patient had been brought into the operating room and laid in the left lateral decubitus position. After adequate intravenous sedation, the rectum was examined with 2% lidocaine jelly. The prostate was unremarkable. External hemorrhoids were encountered. The rectal tone was within normal limits. No lesions were palpated in the rectal vault. An Olympus colonoscope was advanced until the cecum, ileocecal valve and appendiceal orifice were clearly viewed. The prep was excellent. Sigmoid diverticulosis was encountered. Colonic polyps were found and removed. Random biopsies were obtained for metastatic disease. No evidence of focal colitis was found. Retroflexion of the scope demonstrated grade 2 internal hemorrhoids without active bleeding or inflammation. The colon was desufflated. The patient had tolerated the procedure well. Withdrawal time was over 6 minutes. FINDINGS: Aronchick preparation quality scale 1 (1-5) Internal hemorrhoids, grade 1 External hemorrhoids, grade 1. No arteriovenous malformations. Sigmoid diverticulosis Random biopsies for lymphoma/metastatic disease Removal of 1 polyps: - Cold forceps biopsy at 20 cm from the anal verge, 4 mm polyp, sigmoid No focal colitis. RECOMMENDATIONS: Recommend repeat colonoscopy 3 years, 2026. Plan - Discharge Summary Discharge Rx Participant: No New Discharge Prescriptions: Continue Levothyroxine Sodium [Synthroid] 112 mcg PO QAM Losartan [Cozaar] 25 mg PO QAM Cholecalciferol [Vitamin D3 (25 Mcg = 1000 Iu)] 10,000 unit PO DAILY metFORMIN HCL [metFORMIN HCL ER] 1,000 mg PO BID Pentoxifylline [TRENtal] 400 mg PO BID Metoprolol Succinate (ER) [Toprol XL] 50 mg PO HS Glimepiride [Amaryl] 1 mg PO AC-BRKFST Potassium Citrate [Potassium Citrate ER] 20 meq PO TID Omeprazole 20 mg PO DAILY Multivitamins, Thera [Multivitamin (formulary)] 1 tab PO DAILY Pioglitazone [Actos] 30 mg PO DAILY Semaglutide [Ozempic] 0.35 mg SQ CARPIO Aspirin EC [Ecotrin Low Dose] 81 mg PO DAILY Discharge Medication List Levothyroxine Sodium [Synthroid] 112 mcg PO QAM 12/28/14 [History] Losartan [Cozaar] 25 mg PO QAM 01/18/15 [History] Cholecalciferol [Vitamin D3 (25 Mcg = 1000 Iu)] 10,000 unit PO DAILY 01/24/15 [History] metFORMIN HCL [metFORMIN HCL ER] 1,000 mg PO BID 06/16/15 [History] Multivitamins, Thera [Multivitamin (formulary)] 1 tab PO DAILY 01/24/21 [History] Aspirin EC [Ecotrin Low Dose] 81 mg PO DAILY 01/02/23 [History] Pentoxifylline [TRENtal] 400 mg PO BID 01/02/23 [History] Pioglitazone [Actos] 30 mg PO DAILY 01/02/23 [History] Semaglutide [Ozempic] 0.35 mg SQ CARPIO 01/02/23 [History] Glimepiride [Amaryl] 1 mg PO AC-BRKFST 08/11/23 [History] Metoprolol Succinate (ER) [Toprol XL] 50 mg PO HS 08/11/23 [History] Omeprazole 20 mg PO DAILY 08/04/24 [History] Potassium Citrate [Potassium Citrate ER] 20 meq PO TID 08/04/24 [History] Follow up Appointment(s)/Referral(s): Martita Wills MD [STAFF PHYSICIAN] - As Needed Patient Instructions/Handouts: Colorectal Polyps (GEN), Moderate Sedation (ED), Diverticulosis Diet (GEN) Activity/Diet/Wound Care/Special Instructions: Repeat colonoscopy 3 years, 2026 Discharge Disposition: HOME SELF-CARE
[2024-08-16 10:21] VITALS: BP 120/76; PULSE 80
== END 2024-08-16 11:02 | disposition home or self-care (01) ==
LOC: ORWHC2ENDO 08:04
PROVIDERS: ATTEND Surgery Plastic and Reconstructive Surgery
DX: Z12.11 Encounter for screening for malignant neoplasm of colon (principal); K29.50 Unspecified chronic gastritis without bleeding; D12.5 Benign neoplasm of sigmoid colon; K21.9 Gastro-esophageal reflux disease without esophagitis; K57.30 Diverticulosis of large intestine without perforation or abscess without bleeding; K64.0 First degree hemorrhoids; K64.1 Second degree hemorrhoids; C85.90 Non-Hodgkin lymphoma, unspecified, unspecified site; I10 Essential (primary) hypertension; G47.33 Obstructive sleep apnea (adult) (pediatric); E07.9 Disorder of thyroid, unspecified; E11.36 Type 2 diabetes mellitus with diabetic cataract; M19.90 Unspecified osteoarthritis, unspecified site; E11.319 Type 2 diabetes mellitus with unspecified diabetic retinopathy without macular edema; E11.40 Type 2 diabetes mellitus with diabetic neuropathy, unspecified; K76.0 Fatty (change of) liver, not elsewhere classified; Z90.49 Acquired absence of other specified parts of digestive tract; Z98.84 Bariatric surgery status; Z83.3 Family history of diabetes mellitus; Z83.49 Family history of other endocrine, nutritional and metabolic diseases; Z79.890 Hormone replacement therapy; Z79.82 Long term (current) use of aspirin; Z79.899 Other long term (current) drug therapy; Z79.84 Long term (current) use of oral hypoglycemic drugs
CPT/HCPCS: 88305; 45380; 43239; J2003; J2704

== ENCOUNTER 2024-08-23 07:46 | Day surgery (SDC) | payer MEDICARE ==
[2024-08-20 10:55] VITALS: BMI 27.2
[~2024-08-23 07:46] MED LIST changes: -LACTATED RINGERS 1,000 ML IV SCH; +LIDOCAINE 1% (10MG/ML) FOR IV START INTRADERMA PRN; +Pre Op ABX Message 1 EACH MISC MISCELLANE ONE; +droPERidol 5 MG/2 ML VIAL IVP ONE
--- NOTE | 2024-08-23 08:02 | P.GSHP ---
History of Present Illness H&P Date: 08/23/24 CHIEF COMPLAINT: History of intra-abdominal adhesions HISTORY OF PRESENT ILLNESS: The patient is a 73-year-old male who presents with history of intra-abdominal adhesions from multiple prior surgeries including increasing abdominal pain for over 3 months. He recently underwent CT scan demonstrating new intra-abdominal lesions suspicious for malignancy. Oncology consultation was obtained for possible biopsies. He now presents for diagnostic laparoscopy including lysis of adhesions. PAST MEDICAL HISTORY: Please see list. PAST SURGICAL HISTORY: Please see list. MEDICATIONS: Please see list. ALLERGIES: Please see list. SOCIAL HISTORY: No illicit drug use FAMILY HISTORY: No reports of Crohn disease or ulcerative colitis. REVIEW OF ORGAN SYSTEMS: CONSTITUTIONAL: Denies any fever or chills. Has recent weight loss. HEENT: Denies any trouble with vision, hearing or nosebleeds. No difficulty swallowing. LYMPHATIC: The patient denies any lumps and bumps around the neck. ENDOCRINE: Has diabetes type 2, uncontrolled. RESPIRATORY: Denies pneumonia. Denies any troubles with breathing or dyspnea on exertion. CARDIOVASCULAR: Denies any chest pain, palpitations, or recent heart attacks. GASTROINTESTINAL: Denies heart burn, constipation or bright red blood per rectum. GENITOURINARY: Denies any blood in urine or increased urinary frequency. MUSCULOSKELETAL: Has back pain, stiffness, joint arthritis. NEUROLOGIC: Has neuropathy. PSYCHIATRIC: Denies depression or suidical ideation. HEMATOLOGIC: Denies any abnormal bleeding or bruising. BREASTS: Denies any breast lumps, pain or nipple discharge. PHYSICAL EXAM: GENERAL: Well-developed pleasant male in no acute distress. HEENT: No scleral icterus. Extraocular movements grossly intact. Moist buccal mucosa. NECK: Supple without lymphadenopathy. CHEST: Unlabored respirations. Equal bilateral excursions. CARDIOVASCULAR: Regular rate and rhythm. Distal 2+ pulses. ABDOMEN: Soft, nondistended. Generalized tenderness. MUSCULOSKELETAL: No clubbing, cyanosis, or edema. SKIN: Well perfused. PSYCH: Alert and oriented to self, place and time STUDIES: CT of the abdomen pelvis independently reviewed demonstrating multiple intra-abdominal lesions with along the mesentery. Highly suspicious for malignancy versus lymphoma. ASSESSMENT: 1. Diffuse abdominal pain. 2. History of multiple abdominal surgeries. 3. Intra-abdominal adhesions. 4. Multiple intra-abdominal neoplasms PLAN: 1. Robotic lysis of adhesions were described in detail including risk of injury to the intestine, need for further surgery, and open technique. Possible biopsies described 2. DVT prophylaxis. 3. Antibiotic prophylaxis. Past Medical History Past Medical History: Diabetes Mellitus, Eye Disorder, GERD/Reflux, Hypertension, Osteoarthritis (OA), Skin Disorder, Sleep Apnea/CPAP/BIPAP, Thyroid Disorder Additional Past Medical History / Comment(s): Not using CPAP. Limps due to broken left foot in the past that didn't heal properly. Diabetic Retinopathy and Neuropathy. UMBILICAL HERNIA. Legally blind. Chronic back pain. Fatty liver. Hx kidney stones. States possibly adhesions now. History of Any Multi-Drug Resistant Organisms: None Reported Past Surgical History: Bariatric Surgery, Cholecystectomy Additional Past Surgical History / Comment(s): Liver biopsy. Pilonidal cyst. Cysts removed from head. Cataract & Retinopathy surgery. Tala-en-Y. . Pain procedures, Kidney stone sx/ureteral stenting with removal last 06/2024, colonoscopy. Past Anesthesia/Blood Transfusion Reactions: No Reported Reaction Smoking Status: Never smoker - Past Family History Father Family Medical History: Diabetes Mellitus, Deep Vein Thrombosis (DVT) Mother Family Medical History: Cancer, Diabetes Mellitus Additional Family Medical History / Comment(s): thyroid Sister(s) Family Medical History: Cancer, Diabetes Mellitus Additional Family Medical History / Comment(s): Uterine Cancer, Lupus, Bipolar Disorder. Medications and Allergies Home Medications Medication Instructions Recorded Confirmed Type Levothyroxine Sodium [Synthroid] 112 mcg PO QAM 12/28/14 08/20/24 History Losartan [Cozaar] 25 mg PO QAM 01/18/15 08/20/24 History Cholecalciferol [Vitamin D3 (25 10,000 unit PO DAILY 01/24/15 08/20/24 History Mcg = 1000 Iu)] metFORMIN HCL [metFORMIN HCL ER] 1,000 mg PO BID 06/16/15 08/20/24 History Multivitamins, Thera [Multivitamin 1 tab PO DAILY 01/24/21 08/20/24 History (formulary)] Aspirin EC [Ecotrin Low Dose] 81 mg PO DAILY 01/02/23 08/20/24 History Pentoxifylline [TRENtal] 400 mg PO BID 01/02/23 08/20/24 History Pioglitazone [Actos] 30 mg PO DAILY 01/02/23 08/20/24 History Metoprolol Succinate (ER) [Toprol 50 mg PO HS 08/11/23 08/20/24 History XL] Omeprazole 20 mg PO DAILY 08/04/24 08/20/24 History Potassium Citrate [Potassium 20 meq PO TID 08/04/24 08/20/24 History Citrate ER] Insulin Aspart [Insulin Aspart 0 unit SQ TID PRN 08/20/24 08/20/24 History Flexpen] Allergies Allergy/AdvReac Type Severity Reaction Status Date / Time clindamycin Allergy Rash/Hives Verified 08/20/24 10:23 BACTRIM DS Allergy Rash/Hives. Uncoded 08/20/24 10:23 ITCHING.
[2024-08-23] MEDS: IV FLUID CONTINUATION 1,000 ML IV ONE ×2 (08:10→15:10)
[2024-08-23 08:21] VITALS: RESP 16
[2024-08-23 08:29] LABS: Glucose,Whole Blood 140 mg/dL (70-110)
[2024-08-23] MEDS: DEXAMETHASONE SOD PHOSPHATE 4 MG/ML 1 ML VIAL IV ONE (08:50)
[2024-08-23] MEDS: ONDANSETRON 4 MG/2 ML VIAL IVP STA (08:50)
[2024-08-23] MEDS: LACTATED RINGERS 1,000 ML IV SCH (08:51)
[2024-08-23] MEDS: MIDAZOLAM 2 MG/2 ML VIAL IVP ONE (09:02)
[2024-08-23] MEDS ORDERED: ePHEDrine 50 MG/ML 1 ML VIAL ONE (09:52)
[2024-08-23] MEDS ORDERED: HEPARIN SODIUM,PORCINE 5,000 UNIT/ML 1 ML VIAL ONE (09:52)
[2024-08-23] MEDS ORDERED: SODIUM CHLORIDE 0.9% (PF) 10 ML VIAL ONE (09:52)
[2024-08-23] MEDS ORDERED: PHENYLEPHRINE-0.9% NACL SYG 1,000 MCG/10 ML SYRINGE ONE (09:52)
[2024-08-23] MEDS ORDERED: PROPOFOL 10 MG/ML 20 ML VIAL IV ONE (09:52)
[2024-08-23] MEDS ORDERED: GLYCOPYRROLATE 0.2 MG/ML 2 ML VIAL ONE (09:52)
[2024-08-23] MEDS ORDERED: MIDAZOLAM 2 MG/2 ML VIAL ONE (09:52)
[2024-08-23] MEDS ORDERED: ceFAZolin 1 GM/50 ML BAG (PMX) ONE (09:52)
[2024-08-23] MEDS ORDERED: WATER FOR INJECTION, STERILE 10 ML VIAL IV ONE (09:52)
[2024-08-23] MEDS ORDERED: ROCURONIUM 10 MG/ML (5 ML VIAL) IV ONE (09:52)
[2024-08-23] MEDS ORDERED: NEOSTIGMINE 1 MG/ML 10 ML VIAL ONE (09:52)
[2024-08-23] MEDS ORDERED: ROPIVACAINE 5 MG/ML 30 ML VIAL ONE (09:52)
[2024-08-23] MEDS ORDERED: SUCCINYLCHOLINE CHLORIDE 200 MG/10 ML VIAL IV ONE (09:52)
[2024-08-23] MEDS ORDERED: fentaNYL (PF) 50 MCG/ML 2 ML AMP ONE (09:52)
[2024-08-23] MEDS ORDERED: LIDOCAINE 1% INJ 10MG/ML (20 ML MDV) ONE (09:52)
[2024-08-23] MEDS: ceFAZolin 1,000 MG VIAL IVPB ONE (10:22)
--- NOTE | 2024-08-23 10:22 | P.ANPRN ---
Procedure Note - Anesthesia - Nerve Block Performed Erector Spinae Time Out Performed: Yes (900) Date of Procedure: 08/23/24 Procedure Start Time: : Procedure Stop Time: :10 Location of Patient: PreOp Indication: Acute Post-Operative Pain, Analgesia, Requested by Surgeon Sedation Type: Sedate with meaningful contact maintained Preparation: Sterile Prep Position: Prone Needle Types: Pajunk Needle Gauge: 21 Ultrasound used to visualize needle placement: Yes Ultrasound used to observe medication spread: Yes
[2024-08-23] MEDS: LIDOCAINE 1%-EPI 1:100,000 20 ML VIAL SQ ONE (10:23)
[2024-08-23] MEDS: LACTATED RINGERS 1,000 ML IV ONE (10:45)
[2024-08-23 11:59] VITALS: TEMP 97
[2024-08-23] MEDS: HYDROmorphone 0.5 MG/0.5 ML SYRINGE IVP PRN (12:48)
[2024-08-23 13:28] LABS: Glucose,Whole Blood 227 mg/dL (70-110)
--- NOTE | 2024-08-23 13:55 | P.OP ---
Date of Procedure: 08/23/24 Description of Procedure: SURGEON: DESTINEY GORDON MD MOTOR WINDER: MARYJANE PREOPERATIVE DIAGNOSES: 1. Generalized abdominal pain risk of abdominal adhesions/internal hernia 2. Abnormal CT scan for intra-abdominal neoplasm 3. History of gastric bypass 4. Diabetes type 2 with hyperglycemia, poorly controlled 5. Hypothyroidism 6. Diabetes type 2 with diabetic retinopathy, blindness 7. Diabetes type 2 with diabetic nephropathy 8. Vascular occlusive disease 9. Hypertensive heart disease 10. Gastroesophageal reflux disease 11. Insulin-dependent diabetes type 2 12. Obstructive sleep apnea 13. Recurrent kidney stones 14. Family history of deep venous thrombosis POSTOPERATIVE DIAGNOSES: 1. Diffuse nodular malignant neoplasms, omental lesions 2. Abnormal CT scan for intra-abdominal neoplasm 3. History of gastric bypass 4. Diabetes type 2 with hyperglycemia, poorly controlled 5. Hypothyroidism 6. Diabetes type 2 with diabetic retinopathy, blindness 7. Diabetes type 2 with diabetic nephropathy 8. Vascular occlusive disease 9. Hypertensive heart disease 10. Gastroesophageal reflux disease 11. Insulin-dependent diabetes type 2 12. Obstructive sleep apnea 13. Recurrent kidney stones 14. Family history of deep venous thrombosis 15. Retroperitoneal lymphadenopathy 16. Periaortic lymphadenopathy 17. Abdominal wall malignant neoplasm OPERATION: 1. Robotic-assisted da Charis Xi laparoscopic lysis of adhesions 2. Robotic-assisted da Charis Xi laparoscopic excision of omental transverse mesocolon highly suspicious for malignant neoplasm, 9 x 3 cm ESTIMATED BLOOD LOSS: 50 mL. SPECIMENS REMOVED: None. COMPLICATIONS: None. OPERATIVE FINDINGS: 1. Bleeding metastatic omental mass/neoplasm involving transverse mesocolon, 9 x 3 cm 2. Periaortic lymphadenopathy 3. Multiple abdominal wall neoplastic nodularity 1 to 3 cm periumbilical, right lateral abdominal wall including left lateral abdominal wall 4. Mildly distended sigmoid colon for sigmoid volvulus 5. Adherent right lower quadrant adenopathy with adhesions 6. Petersons defect obliterated without internal hernia 7. Jejunojejunostomy mesenteric defect without internal hernia 8. Small bowel without ischemia or volvulus 9. Excision of omental mass 9 x 3 cm transvers mesocolon 10. Lysis of adhesions performed 11. Left sided docking performed 12. Incision left upper quadrant extended to 3 cm to facilitate removal of large mass 13. Diffuse nodularity and lymphadenopathy of the mesentery including the abdominal wall over 1 to 3 cm highly suspicious for malignant neoplasm 14. Retroperitoneal lymphadenopathy identified along the aorta at the superior mesenteric artery axis 15. Andrews-en-Y gastric bypass otherwise unremarkable 16. Tethering point along the right lower quadrant suspicious for aggressive retroadenopathy 17. Oncologist notified of findings 18. Specimen sent as fresh for cytology flow cytometry and malignancy INDICATIONS: The patient is a 73-year-old male who presents with epigastric abdominal pain including right, left upper quadrant and periumbilical abdominal pain. Patient had recent CT scan with unexpected findings of multiple intra- abdominal neoplasms. Surgical intervention with diagnostic laparoscopy, lysis of adhesions including biopsy were described. Informed consent was obtained. Robotic assisted laparoscopic approach was described. Benefits and risks of the procedure including but not limited to bleeding, infection, injury to the small bowel was described. Informed consent was obtained. DESCRIPTION OF PROCEDURE: Patient was brought to the operating room, placed in supine position. After general induction, the abdomen had been prepped and draped in standard sterile fashion. The robotic da Charis XI system was primed. After a timeout protocol was performed, the patient had been prepped and draped in standard sterile fashion. The robot was docked along the right lateral abdomen. The patient was repositioned in with right side up. Please note prior to docking of the robot; however, a 5 mm 0 degrees laparoscopic trocar entry was performed along the left upper quadrant. The abdomen was insufflated to 15 mmHg pressure which she tolerated well. Diagnostic laparoscopy was performed. A bleeding multinodular mass of the right transverse mesocolon was identified. Multiple small nodularities 1 to 3 cm flesh-colored appearance was found along the right side of the abdominal wall including left-sided abdominal wall. At the umbilical area a abdominal wall neoplasm firm calcified of 3 cm size was found. All findings are highly suspicious of metastatic malignant neoplasm. Next, two 8 mm robotic ports were placed along the left lateral abdominal wall. The 5 mm trocar was replaced for a 12 mm trocar. The camera 8-mm port was maintained along mid-lateral abdomen. Please note that the ports were placed at least 10 to 15 cm away from the target anatomy. Instruments including graspers and vessel sealer were interchanged by the geological survey field assistant. I had sat at the console. No evidence of incisional hernia was identified. The small bowel from the andrews limb to distal ileum was inspected without volvulus. The small bowel was investigated from the terminal ileum to the ligament of Treitz with finding of tethered small bowel at the right lower quadrant highly suspicious of retroperitoneal adenopathy. Attention was brought to the Petersons defect which was obliterated and without internal hernia. The mesentery small bowel was without volvulus. Adhesions along the epigastrium linvolving the transverse colon to the andrews limb was lysed using vessel sealer. No herniation of bowel was found along the Oconnor defect or jejunojejunostomy mesenteric defect. Multiple lymphadenopathy and nodularity of abdominal aorta and superior mesenteric arterial access was found. Moderate gaseous distention including redundancy of sigmoid colon was identified without active sigmoid volvulus. Attention was brought to the multinodular bleeding mass 9 x 3 cm found of the right to mid transverse mesocolon which was resected using vessel sealer. The small bowel was viable and without active obstruction.The robot was undocked. The specimen was removed via the left upper quadrant using 10 mm Endo Catch bag. Incision was widened to 3 cm to allow for complete removal of the specimen which was passed fresh to pathology for flow cytometry, assessment of malignant lymphoma and metastatic malignancy. The incision was closed using Arcenio Castaneda and 0 Vicryl. All pneumoperitoneum instruments were evacuated from the abdominal cavity. The incisions were cleaned with hydrogen peroxide and reapproximated using 4-0 Monocryl in an interrupted subcuticular fashion. Please note along the trocar sites, local anesthetic was placed as a field block prior to insertion of all instruments. Dermabond was applied to the skin with Optifoam applied to the left upper quadrant widening incision. At the end of the procedure needle, sponge, and instrument count had been verified correct by the rn surgical. The patient was transferred to postanesthesia care unit in stable condition. Intraoperative findings were photographed and given to the patient's . His oncologist was notified of intra-abdominal findings as well. Plan - Discharge Summary Discharge Rx Participant: Yes New Discharge Prescriptions: New Simethicone [Gas-X] 125 mg PO AC-TID PRN #20 capsule PRN Reason: Pain Acetaminophen Tab [Tylenol Tab] 1,000 mg PO Q6HR PRN #30 tablet PRN Reason: Pain Continue Levothyroxine Sodium [Synthroid] 112 mcg PO QAM Losartan [Cozaar] 25 mg PO QAM Cholecalciferol [Vitamin D3 (25 Mcg = 1000 Iu)] 10,000 unit PO DAILY metFORMIN HCL [metFORMIN HCL ER] 1,000 mg PO BID Pentoxifylline [TRENtal] 400 mg PO BID Metoprolol Succinate (ER) [Toprol XL] 50 mg PO HS Potassium Citrate [Potassium Citrate ER] 20 meq PO TID Omeprazole 20 mg PO DAILY Multivitamins, Thera [Multivitamin (formulary)] 1 tab PO DAILY Pioglitazone [Actos] 30 mg PO DAILY Aspirin EC [Ecotrin Low Dose] 81 mg PO DAILY Insulin Aspart [Insulin Aspart Flexpen] 0 unit SQ TID PRN PRN Reason: Blood Sugar - High Discharge Medication List Levothyroxine Sodium [Synthroid] 112 mcg PO QAM 12/28/14 [History] Losartan [Cozaar] 25 mg PO QAM 01/18/15 [History] Cholecalciferol [Vitamin D3 (25 Mcg = 1000 Iu)] 10,000 unit PO DAILY 01/24/15 [History] metFORMIN HCL [metFORMIN HCL ER] 1,000 mg PO BID 06/16/15 [History] Multivitamins, Thera [Multivitamin (formulary)] 1 tab PO DAILY 01/24/21 [History] Aspirin EC [Ecotrin Low Dose] 81 mg PO DAILY 01/02/23 [History] Pentoxifylline [TRENtal] 400 mg PO BID 01/02/23 [History] Pioglitazone [Actos] 30 mg PO DAILY 01/02/23 [History] Metoprolol Succinate (ER) [Toprol XL] 50 mg PO HS 08/11/23 [History] Omeprazole 20 mg PO DAILY 08/04/24 [History] Potassium Citrate [Potassium Citrate ER] 20 meq PO TID 08/04/24 [History] Insulin Aspart [Insulin Aspart Flexpen] 0 unit SQ TID PRN 08/20/24 [History] Acetaminophen Tab [Tylenol Tab] 1,000 mg PO Q6HR PRN #30 tablet 08/23/24 [Rx] Simethicone [Gas-X] 125 mg PO AC-TID PRN #20 capsule 08/23/24 [Rx] Follow up Appointment(s[facility] [place] [facility] - 08/27/24 9:00 am Patient Instructions/Handouts: *Surgery [facility] - (Anesthesia) Discharge Instructions Outpatient Surgery, Lysis of Abdominal Adhesions (DC) Activity/Diet/Wound Care/Special Instructions: NO LONG DRIVES OR AIRPLANE RIDES OVER 60 MINUTES FOR THE NEXT 2 WEEKS, 09/06/24, DUE TO HIGH RISK OF PULMONARY EMBOLISM/DVTs May drive in 72 hrs, 08/26/24 No lifting over 10 pounds in 2 weeks until 09/06/24 May shower. No bath tub soaks for two weeks until 09/06/24, Diet as tolerated. Use Tylenol, simethicone scheduled for the next 24-48 hours for best pain relief. Use ice along incisions for today to prevent swelling. Discharge Disposition: HOME SELF-CARE
[2024-08-23] MEDS: METOCLOPRAMIDE 5 MG/ML 2 ML VIAL IVP STA (16:51)
[2024-08-23 16:55] VITALS: PULSE 85
[2024-08-23 17:51] VITALS: BP 145/78
[2024-08-23] MEDS: TAMSULOSIN 0.4 MG CAP.ER.24H PO STA (18:08)
== END 2024-08-23 18:43 | disposition home or self-care (01) ==
LOC: OR 07:46
PROVIDERS: ATTEND Surgery Plastic and Reconstructive Surgery
DX: K66.0 Peritoneal adhesions (postprocedural) (postinfection) (principal); K21.9 Gastro-esophageal reflux disease without esophagitis; K76.0 Fatty (change of) liver, not elsewhere classified; N20.0 Calculus of kidney; G47.33 Obstructive sleep apnea (adult) (pediatric); R59.0 Localized enlarged lymph nodes; E11.65 Type 2 diabetes mellitus with hyperglycemia; E03.9 Hypothyroidism, unspecified; E11.319 Type 2 diabetes mellitus with unspecified diabetic retinopathy without macular edema; E11.21 Type 2 diabetes mellitus with diabetic nephropathy; E11.36 Type 2 diabetes mellitus with diabetic cataract; M19.90 Unspecified osteoarthritis, unspecified site; I11.9 Hypertensive heart disease without heart failure; Z82.49 Family history of ischemic heart disease and other diseases of the circulatory system; Z98.84 Bariatric surgery status; Z90.49 Acquired absence of other specified parts of digestive tract; Z83.3 Family history of diabetes mellitus; Z83.49 Family history of other endocrine, nutritional and metabolic diseases; Z79.890 Hormone replacement therapy; Z79.84 Long term (current) use of oral hypoglycemic drugs; Z79.82 Long term (current) use of aspirin; Z79.4 Long term (current) use of insulin; Z79.899 Other long term (current) drug therapy
CPT/HCPCS: 43644; 49329; S2900; 64999

== ENCOUNTER → 2024-08-27 | Outpatient (CLI) | payer MEDICARE ==
[2024-08-27 09:33] VITALS: BP 129/86; PULSE 76; RESP 16; TEMP 97.9
== END ==
LOC: BARWHC3 08:51
PROVIDERS: ATTEND Surgery Plastic and Reconstructive Surgery
DX: E66.01 Morbid (severe) obesity due to excess calories (principal); Z53.9 Procedure and treatment not carried out, unspecified reason
CPT/HCPCS: 99211

== ENCOUNTER → 2024-09-20 | Outpatient (CLI) | payer MEDICARE ==
[2024-09-20 14:45] LABS: African American GFR (CKD) 85 (>60 ml/min/1.73 sqM); Blood Urea Nitrogen 22 mg/dL (9-20); Non-African American GFR(CKD) 73 (>60 ml/min/1.73 sqM)
--- NOTE | 2024-09-20 15:33 | CT ---
EXAMINATION TYPE: CT chest w con CT DLP: 648 mGycm, Automated exposure control for dose reduction was used. DATE OF EXAM: 09/20/2024 3:15 PM COMPARISON: CT abdomen and pelvis 08/10/2024 CLINICAL INDICATION:Male, 73 years old with history of C22.0 Liver cancer; PHH, Chest discomfort, rib pain. r/o Ca. Mets from Liver TECHNIQUE: Multiple axial images were obtained through the chest following the administration of 100 cc of Isovue 300. . Coronal and sagittal reformats reviewed. FINDINGS: LUNGS/ PLEURA: No pleural effusion, pneumothorax, or focal consolidation. Elevation of the right ravinder diaphragm. No 2 mm right upper lobe pulmonary nodule (series 4, image 16). AIRWAY: Patent and unremarkable. HEART: Size within normal limits.No pericardial effusion. MEDIASTINUM: No evidence of adenopathy. VASCULATURE: No aortic aneurysm. MUSCULOSKELETAL: No acute osseous abnormalities. No aggressive osseous lesion. SOFT TISSUES/LYMPH NODES: Unremarkable. LOWER NECK: No significant findings. UPPER ABDOMEN: Post surgical changes from Tala-en-Y gastric bypass. Postsurgical changes from cholecy stectomy. Redemonstration anterior right hepatic dome 2.7 cm heterogenous enhancing lesion. Additiona l increased size of a soft tissue lesion of the anterior right hepatic lobe inferiorly measuring up t o 3.2 cm, previously measured up to 2.9 cm one measurement was similar technique. Increasing size of several scattered enhancing nodules within the upper abdomen with exams including a right anterior up per abdomen 1.7 cm lesion, previously measured 1 cm (series 3, image 55). Left upper abdomen lateral to 0.2 cm enhancing lesion, previously measured 1.3 cm (series 3, image 58). Increasing size of peric aval enlarged lymph node measuring up to 2.3 cm, previously 1.1 cm (series 3, image 60). IMPRESSION: 1. No definitive evidence for metastasis within the chest however there is a 2 mm right upper lobe pu lmonary nodule. Attention on follow-up exams. No thoracic adenopathy. 2. Progression of disease within the visualized upper abdomen with enlarging peritoneal nodules and p ericaval adenopathy. Stable size of right hepatic dome enhancing lesion. [facility], , 09/20/2024 3:31 PM
== END | disposition home or self-care (01) ==
LOC: RADCTMAIN 13:53
PROVIDERS: ATTEND Internal Medicine
DX: E03.9 Hypothyroidism, unspecified (principal); I88.0 Nonspecific mesenteric lymphadenitis; E11.9 Type 2 diabetes mellitus without complications; C78.7 Secondary malignant neoplasm of liver and intrahepatic bile duct; M10.9 Gout, unspecified; R60.0 Localized edema; Z85.05 Personal history of malignant neoplasm of liver
CPT/HCPCS: 82565; 84520; 71260; 36415; Q9967

== ENCOUNTER → 2024-09-29 | Outpatient (CLI) | payer MEDICARE ==
[2024-09-29 13:38] VITALS: BP 151/95; PULSE 79; RESP 16; TEMP 97.4; BMI 27.8
--- NOTE | 2024-09-29 13:49 | P.BASOAP ---
Subjective Progress Note Date: 09/29/24 DATE OF SERVICE: 09/29/24 CHIEF COMPLAINT: Followup gastric bypass. HISTORY OF PRESENT ILLNESS: Tim Rosas is a 73-year-old gentleman who is status post Tala-en-Y gastric bypass from January 23, 2015. He is 10 years out. He comes in with new diagnosis of hepatocellular cancer. Patient has seen an oncologist. He reports increased midepigastric abdominal pain from his metastatic cancer. He is pending further oncological workup. Patient reports that he is pending chemotherapy. His highest weight was 274 pounds. Milligan body weight is 178 pounds. Today he comes in weighing pounds 200 from 207 pounds, 5 years ago. He has lost 7 pounds in 5 years. He has maintained 74 pound weight loss, lifetime. Lifetime percent excess weight loss is 77 %. Body mass index is reduced from 38.3 down to 27.9. He is 22 pounds overweight. PAST MEDICAL HISTORY: 1. Osteoarthritis. 2. Diabetes mellitus type 2 with moderate reduction in insulin use. 3. Hypothyroidism. 4. Hypertension. 5. ADHD. 6. Gastroesophageal reflux disease. 7. Dyslipidemia. 8. Obstructive sleep apnea. 9. Morbid obesity, BMI 38.3, initial 10. Diverticulosis. PAST SURGICAL HISTORY: 1. Tonsillectomy. 2. Cholecystectomy. 3. Liver biopsy. 4. Pilonidal cystectomy. 5. Multiple skin lesions removal on his head. 6. A broken left foot. 7. Status post Tala-en-Y gastric bypass. 8. Upper endoscopy. 9. Lower endoscopy. 10. Cystoscopy with kidney stone extraction. 11. Debridement of the bilateral great toes. MEDICATIONS: Home Medications Medication Instructions Recorded Confirmed Aspirin EC [Ecotrin Low Dose] 81 mg PO DAILY 01/02/23 10/01/24 Insulin Glargine,Hum.rec.anlog 30 units SQ HS 09/29/24 10/01/24 [Lantus Solostar Pen] Previous Rx's Medication Instructions Recorded Acetaminophen Tab [Tylenol Tab] 1,000 mg PO Q6HR PRN #30 tablet 10/04/24 ALLERGIES: Allergies Allergy/AdvReac Type Severity Reaction Status Date / Time clindamycin Allergy Rash/Hives Verified 10/01/24 11:22 BACTRIM DS Allergy Rash/Hives. Uncoded 10/01/24 11:22 ITCHING. SOCIAL HISTORY: Lifelong nontobacco user. FAMILY HISTORY: Denies any esophageal or stomach cancer. Colon cancer runs in the family. His father of blood clots after orthopedic procedure. Also he has mother with diabetes. REVIEW OF SYSTEMS: CONSTITUTIONAL: His highest weight was 274 pounds. Milligan body weight is 178 pounds. Today he comes in weighing pounds 200 from 207 pounds, 5 years ago. He has lost 7 pounds in 5 years. He has maintained 74 pound weight loss, lifetime. Lifetime percent excess weight loss is 77 %. Body mass index is reduced from 38.3 down to 27.9. He is 22 pounds overweight. ENDOCRINE: History of diabetes type 2. No reports of hypothyroidism. CARDIOVASCULAR: Hypertension is improved. GASTROINTESTINAL: No reports of gastroesophageal reflux disease. No reports of dumping syndrome. MUSCULOSKELETAL: He had chronic ulcerations of the bilateral great toes, now resolved. RESPIRATORY: He is off his CPAP machine. No pneumonia. SKIN: He has history of dryness of the skin. No panniculitis. HEENT: No troubles with vision or hearing. No dysphagia. NEUROLOGIC: No reports of seizure disorder or stroke. PSYCH: No reports of depression or suicidal ideation. PHYSICAL EXAM: VITAL SIGNS: 5 foot 11 inches, 200 pounds. Body mass index of 27.9 Vital Signs Temp 97.4 F L 09/29/24 13:25 Pulse 79 09/29/24 13:25 Resp 16 09/29/24 13:25 BP 151/95 09/29/24 13:25 Pulse Ox FiO2 ABDOMEN: Soft incisions clean dry intact. Incisions granulated.. GENERAL: Well-developed pleasant male in no acute distress. MUSCULOSKELETAL: No clubbing, cyanosis, or edema. HEENT: No sclerae icterus. Extraocular movements grossly intact. Moist buccal mucosa. NECK: Supple without lymphadenopathy. CHEST: Nonlabored respirations. Equal bilateral excursions. CARDIOVASCULAR: Radial pulses 2+. NEURO: No focal or lateralizing signs. Cranial nerves II-12 grossly intact. PSYCH: Appropriate affect. Alert and oriented to person, place, and time. SKIN: Well perfused. Good skin turgor. ASSESSMENT: 1. Hepatocellular carcinoma, metastatic 2. History of morbid obesity due to excess calories. Body mass index reduced from 38.3 down to 27.9 3. Status post Tala-en-Y gastric bypass. 4. History of food addiction, now resolved. 5. History of insulin-dependent diabetes type 2, now improved. 6. History of bilateral nonhealing, chronic great toe ulcers, now resolved. 7. Dietary surveillance and counseling. 8. History of gastrojejunal ulcer, resolved 9. History of diverticulosis. 10. 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 11. Hypertensive heart disease, improved and stable. 12. Hypothyroidism. 13. Obstructive sleep apnea, improved. 14. Peripheral vascular occlussive disease 15. Vitamin D deficiency, resolved 16. Kidney stones 17. Generalized abdominal pain. PLAN: 1. Recommend optimal nutritional intake at least over 60 to 75 g daily due to new cancer diagnosis and risk of wasting away syndrome. 2. May need a port for chemotherapy treatment. Oncologist Dr. Reyes. 3. Additional education provided for chronic abdominal pain from his cancer which should improve following chemotherapy. 4. May need PET CT scan for additional diagnostic workup. Objective - Vital Signs Vital signs: Vital Signs Temp 97.4 F L 09/29/24 13:25 Pulse 79 09/29/24 13:25 Resp 16 09/29/24 13:25 BP 151/95 09/29/24 13:25 Pulse Ox FiO2 Intake & Output 09/28/24 09/29/24 09/29/24 18:59 06:59 18:59 Weight 90.718 kg Assessment/Plan Plan: Date: 09/29/24 Initial Weight: 124.466 kg Initial BMI: 38.2 Current Weight: 90.718 kg Current BMI: 27.8 Type of Surgery: Total Volume in Band: Previous Volume: Volume Removed: Volume Added: Band Size:
== END ==
LOC: BARWHC3 13:16
PROVIDERS: ATTEND Surgery Plastic and Reconstructive Surgery
DX: C78.7 Secondary malignant neoplasm of liver and intrahepatic bile duct (principal); G47.33 Obstructive sleep apnea (adult) (pediatric); N20.0 Calculus of kidney; I73.9 Peripheral vascular disease, unspecified; E03.9 Hypothyroidism, unspecified; I11.9 Hypertensive heart disease without heart failure; E11.621 Type 2 diabetes mellitus with foot ulcer; Z87.19 Personal history of other diseases of the digestive system; Z98.84 Bariatric surgery status; Z71.3 Dietary counseling and surveillance; Z88.1 Allergy status to other antibiotic agents; Z88.8 Allergy status to other drugs, medicaments and biological substances
CPT/HCPCS: 99211

== ENCOUNTER 2024-10-04 07:00 | Day surgery (SDC) | payer MEDICARE ==
[2024-10-01 11:35] VITALS: BMI 29.0
[~2024-10-04 07:00] MED LIST changes: +HYDROmorphone 0.5 MG/0.5 ML SYRINGE IVP PRN; +LACTATED RINGERS 1,000 ML IV SCH; -LIDOCAINE 1% (10MG/ML) FOR IV START INTRADERMA PRN; +ONDANSETRON 4 MG/2 ML VIAL IVP PRN; -droPERidol 5 MG/2 ML VIAL IVP ONE
[2024-10-04] MEDS: ACETAMINOPHEN TAB 500 MG TAB PO PRN (07:24)
--- NOTE | 2024-10-04 07:28 | P.GSHP ---
History of Present Illness H&P Date: 10/04/24 CHIEF COMPLAINT: Metastatic liver cancer HISTORY OF PRESENT ILLNESS: The patient is a 73-year-old male diagnosed with metastatic liver cancer. He needs a Mediport placement for chemotherapy. PAST MEDICAL HISTORY: See list and reviewed PAST SURGICAL HISTORY: See list and reviewed CURRENT MEDICATIONS: See list and reviewed ALLERGIES: See list and reviewed SOCIAL HISTORY: See list and reviewed FAMILY HISTORY: See list and reviewed REVIEW OF ORGAN SYSTEMS: CONSTITUTIONAL: No fevers or chills RESPIRATORY: No pneumonia. No dyspnea on exertion. CARDIOVASCULAR: No recent chest pain. No history of blood clots PHYSICAL EXAMINATION: Vital signs: Stable GENERAL: Well developed and in no acute distress. Pleasant. HEENT: No sclera icterus. Extraocular movements grossly intact. Moist buccal mucosa. Head is atraumatic, normocephalic. Hears conversational speech. No nasal drainage. NECK: Supple without lymphadenopathy. No JV distention. CHEST: Non-labored respirations and equal bilateral excursions. CARDIOVASCULAR: Regular rate and rhythm. Palpable 2+ radial pulses. ABDOMEN: Nontender. MUSCULOSKELETAL: No clubbing, cyanosis or edema. NEUROLOGIC: No focal or lateralizing signs. PSYCH: Appropriate affect. Alert and oriented to person, place and time. ASSESSMENT: 1. Metastatic liver cancer 2. Need for chemotherapeutic access. PLAN: 1. Port-A-Cath placement for chemotherapy access Past Medical History Past Medical History: Cancer, Diabetes Mellitus, Eye Disorder, GERD/Reflux, Hypertension, Osteoarthritis (OA), Skin Disorder, Sleep Apnea/CPAP/BIPAP, Thyroid Disorder Additional Past Medical History / Comment(s): No longer has sleep apena. Limps due to broken left foot in the past that didn't heal properly. Diabetic Retinopathy and Neuropathy. UMBILICAL HERNIA. Legally blind. Chronic back pain. Fatty liver. Hx kidney stones. States possibly adhesions now. Heptacellular carcinoma History of Any Multi-Drug Resistant Organisms: None Reported Past Surgical History: Bariatric Surgery, Cholecystectomy Additional Past Surgical History / Comment(s): Liver biopsy. Pilonidal cyst. Cysts removed from head. Cataract & Retinopathy surgery. Tala-en-Y. Pain procedures, Kidney stone sx/ureteral stenting with removal last 06/2024, colonoscopy. Tumor removal, lysis of adhesions Past Anesthesia/Blood Transfusion Reactions: No Reported Reaction Smoking Status: Never smoker - Past Family History Father Family Medical History: Diabetes Mellitus, Deep Vein Thrombosis (DVT) Mother Family Medical History: Cancer, Diabetes Mellitus Additional Family Medical History / Comment(s): thyroid Sister(s) Family Medical History: Cancer, Diabetes Mellitus Additional Family Medical History / Comment(s): Uterine Cancer, Lupus, Bipolar Disorder. Medications and Allergies Home Medications Medication Instructions Recorded Confirmed Type Aspirin EC [Ecotrin Low Dose] 81 mg PO DAILY 01/02/23 10/01/24 History Insulin Glargine,Hum.rec.anlog 30 units SQ HS 09/29/24 10/01/24 History [Lantus Solostar Pen] Allergies Allergy/AdvReac Type Severity Reaction Status Date / Time clindamycin Allergy Rash/Hives Verified 10/01/24 11:22 BACTRIM DS Allergy Rash/Hives. Uncoded 10/01/24 11:22 ITCHING.
[2024-10-04 07:30] LABS: Glucose,Whole Blood 137 mg/dL (70-110)
[2024-10-04 07:34] VITALS: TEMP 97.6
[2024-10-04] MEDS: LACTATED RINGERS 1,000 ML IV ONE (07:37)
[2024-10-04] MEDS: ONDANSETRON 4 MG/2 ML VIAL IVP ONE (07:39)
[2024-10-04] MEDS: HEPARIN SODIUM,PORCINE 5,000 UNIT/ML 1 ML VIAL SQ PRN (07:39)
[2024-10-04] MEDS: DEXAMETHASONE SOD PHOSPHATE 4 MG/ML 1 ML VIAL IV ONE (07:54)
[2024-10-04] MEDS ORDERED: LIDOCAINE 1% INJ 10MG/ML (20 ML MDV) ONE (08:25)
[2024-10-04] MEDS ORDERED: MIDAZOLAM 2 MG/2 ML VIAL ONE (08:25)
[2024-10-04] MEDS ORDERED: PROPOFOL 10 MG/ML 20 ML VIAL IV ONE (08:25)
[2024-10-04] MEDS ORDERED: PHENYLEPHRINE-0.9% NACL SYG 1,000 MCG/10 ML SYRINGE ONE (08:25)
[2024-10-04] MEDS: SODIUM CHLORIDE 0.9% 500 ML 500 ML with HEPARIN SODIUM,PORCINE (1 ML) 5,000 UNIT IV ONE (08:44)
[2024-10-04] MEDS: ceFAZolin 1,000 MG VIAL IVPB ONE (08:55)
[2024-10-04] MEDS: LIDOCAINE 1%-EPI 1:100,000 20 ML VIAL SQ ONE (09:07)
--- NOTE | 2024-10-04 09:44 | FL ---
Intraoperative/procedural fluoroscopic services were provided for right IJ approach Mediport catheter with distal tip in the region of the low SVC. Total fluoroscopy time is 0.9 seconds with a total of 3 submitted images to PACS. Total DAP 0.0410 Gycm2. Please see the operative note for further detail [email or web address], , 10/04/2024 9:42 AM
--- NOTE | 2024-10-04 09:57 | P.OP ---
Date of Procedure: 10/04/24 Description of Procedure: SURGEON: MARTITA WILLS MD [employer] SALES MANAGER: None. PREOPERATIVE DIAGNOSES: 1. Metastatic hepatocellular carcinoma 2. Need for chemotherapeutic access. 3. Diabetes type 2, insulin-dependent 4. History of gastric bypass 5. Diabetic retinopathy 6. Diabetic nephropathy 7. Hypertensive heart disease 8. Intractable abdominal pain due to metastatic disease 9. Intractable nausea and vomiting due to metastatic disease POSTOPERATIVE DIAGNOSES: 1. Metastatic hepatocellular carcinoma 2. Need for chemotherapeutic access. 3. Diabetes type 2, insulin-dependent 4. History of gastric bypass 5. Diabetic retinopathy 6. Diabetic nephropathy 7. Hypertensive heart disease 8. Intractable abdominal pain due to metastatic disease 9. Intractable nausea and vomiting due to metastatic disease PROCEDURES PERFORMED: 1. Ultrasound guided central venous access of the right internal jugular venous vein. 2. Fluoroscopic guidance for central venous access right internal jugular vein less than 1 seconds. 3. Placement of right internal jugular power port 6 [place] [employer], [employer] Plus Port ANESTHESIA: LMA sedation with local. ESTIMATED BLOOD LOSS: 5 mL. SPECIMENS REMOVED: None. COMPLICATIONS: None. FINDINGS: 1. No thrombus encountered along the right carotid artery or internal jugular vein. 2. Access of the right internal jugular vein under ultrasound guidance. 3. Fluoroscopy of less than 1 seconds. INDICATIONS: The patient is a 73-year-old male recently diagnosed with metastatic hepatocellular carcinoma. He presents for chemotherapeutic access. Benefits and risks of surgical intervention were described including bleeding, infection, mechanical problems with his port. Informed consent was obtained. DESCRIPTION OR PROCEDURE: Patient was brought into the operating room, laid in supine position. After adequate IV sedation, the chest and right neck were prepped and draped in a standard sterile fashion including the shoulder with ChloraPrep. Timeout protocol was confirmed with the surgical team regarding the patient's name, procedure to be performed including preoperative medications for which she received IV antibiotics. Bilateral SCDs were placed. An ultrasound was used to capture views of the right internal jugular vein including right carotid artery, which was patent and without thrombus along its course. The right IJ was then localized using anesthetic for the skin. A 16 [place] needle was used to access the IJ. A guidewire was advanced into the IJ with dark nonpulsatile venous blood. Two fingerbreadths distal to the clavicle, on the lateral third, a transverse 1.5 to 2 cm incision was deepened into the skin after localizing the skin. A pocket was created for the port. The port on the back table was flushed with heparinized saline and then attached to the catheter tubing. An adapter was fastened to the actual port site over the tubing. The port easily had fit snug into the pocket. A subcutaneous tunneler was placed along the open end of the tubing and brought out through the separate stab incision. Fluoroscopic guidance confirmed no kinking along the tubing and the port site. Next, the J-wire was exchanged for a catheter sheath for which the tubing was cut to 27 cm and then advanced through the catheter sheath. The Peel-away sheath was then removed and the tubing was secured at the junction of the superior vena cava as well as the right atrium. The tubing was found to be crossed however functional. This was all done under fluoroscopic guidance under 1 seconds. Easy pullback as well as return and aspiration was obtained of the port site. The skin incision was closed using layers using 3-0 Vicryl for the subcu followed by 4-0 Monocryl in a running subcuticular fashion. At the stick site this was also reapproximated using 4-0 Monocryl. The incisions were covered with Optifoam, The skin was cleansed and Exofin liquid glue was applied. Optifoam dressing was placed over the port site. A total of 30 mL of local anesthetic was placed. At the end of the procedure, needle, sponge, and instrument count was verified correct by surgical instrument technician. Heparin lock of 5 mL was placed. The patient was awoken and pain free and taken to the second stage postanesthesia care unit. The patient tolerated the procedure well. Plan - Discharge Summary Discharge Rx Participant: No New Discharge Prescriptions: New Acetaminophen Tab [Tylenol Tab] 1,000 mg PO Q6HR PRN #30 tablet PRN Reason: Pain Continue Aspirin EC [Ecotrin Low Dose] 81 mg PO DAILY Insulin Glargine,Hum.rec.anlog [Lantus Solostar Pen] 30 units SQ HS Discharge Medication List Aspirin EC [Ecotrin Low Dose] 81 mg PO DAILY 01/02/23 [History] Insulin Glargine,Hum.rec.anlog [Lantus Solostar Pen] 30 units SQ HS 09/29/24 [History] Acetaminophen Tab [Tylenol Tab] 1,000 mg PO Q6HR PRN #30 tablet 10/04/24 [Rx] Follow up Appointment(s)/Referral(s): Martita Wills MD [STAFF PHYSICIAN] - As Needed Patient Instructions/Handouts: Implanted Venous Access Port (IP), How to Care for Your Implanted Venous Access Port (DC) Activity/Diet/Wound Care/Special Instructions: May shower. No bathtub soaks for 2 weeks until 10/18/24. Remove dressing 10/08/24. Sleep on elevated pillows at least 3 for 3 days. Bruising is normal and subsides in 2 weeks 10/18/24 Take Tylenol for 24 hrs for pain, if needed. Use ice along incision to decrease swelling. Discharge Disposition: HOME SELF-CARE
--- NOTE | 2024-10-04 10:20 | XR ---
EXAMINATION TYPE: XR chest 1V confirm line plcmt DATE OF EXAM: 10/04/2024 10:14 AM COMPARISON: Fluoroscopic images 10/04/2024, CT chest 09/20/2024, chest radiograph 09/24/2022 TECHNIQUE: XR chest 1V confirm line plcmt Frontal view of the chest. CLINICAL INDICATION:Male, 73 years old with history of Port placement; FINDINGS: Lungs/Pleura: There is no evidence of pleural effusion, focal consolidation, or pneumothorax. Elevat ion the right hemidiaphragm. Pulmonary vascularity: Unremarkable. Heart/mediastinum: Cardiomediastinal silhouette is unremarkable. Musculoskeletal: No acute osseous pathology. Other findings: None Lines/Tubes: Interval placement of right IJ approach Mediport catheter with distal tip terminating at the superior cavoatrial junction. IMPRESSION: Interval placement of right IJ approach Mediport catheter with distal tip terminating at the superior cavoatrial junction. No pneumothorax. [facility], , 10/04/2024 10:18 AM
[2024-10-04 10:26] LABS: Glucose,Whole Blood 218 mg/dL (70-110)
[2024-10-04 10:50] VITALS: RESP 16
[2024-10-04 10:57] VITALS: BP 138/80; PULSE 64
== END 2024-10-04 11:23 | disposition home or self-care (01) ==
LOC: OR 07:00
PROVIDERS: ATTEND Surgery Plastic and Reconstructive Surgery
DX: C22.0 Liver cell carcinoma (principal); C26.0 Malignant neoplasm of intestinal tract, part unspecified; I10 Essential (primary) hypertension; N20.0 Calculus of kidney; E11.319 Type 2 diabetes mellitus with unspecified diabetic retinopathy without macular edema; E11.21 Type 2 diabetes mellitus with diabetic nephropathy; I48.91 Unspecified atrial fibrillation; I11.9 Hypertensive heart disease without heart failure; G47.33 Obstructive sleep apnea (adult) (pediatric); G89.3 Neoplasm related pain (acute) (chronic); M19.90 Unspecified osteoarthritis, unspecified site; Z98.84 Bariatric surgery status; Z88.1 Allergy status to other antibiotic agents; Z88.2 Allergy status to sulfonamides; Z79.4 Long term (current) use of insulin; Z79.82 Long term (current) use of aspirin; Z79.899 Other long term (current) drug therapy
CPT/HCPCS: 77001; 36561; 76937; C1788; J2250; J1644; J1100; J2405; J0690; J2003; J1642; J2704; J2371

== ENCOUNTER 2024-11-15 16:53 | Inpatient (IN) | payer MEDICARE ==
[2024-11-15] MEDS ORDERED: VANCOMYCIN IV PER PHARMACY 1 EACH MISC MISCELLANE PRN (18:01)
--- NOTE | 2024-11-15 18:05 | ED ---
General Adult HPI - General Chief complaint: Skin/Abscess/Foreign Body Stated complaint: Urogenital-sent by PCP Time Seen by Provider: 11/15/24 17:26 Source: patient, family, RN notes reviewed Mode of arrival: ambulatory Limitations: no limitations - History of Present Illness Initial comments: Patient is a 73-year-old male presenting to the emergency department with concern for wound to the right groin. This has been present for around 10 days. Patient sent by primary care physician. Patient is on treatment for hepatocellular cancer. Patient has discomfort right groin increases with touch and movement. Patient states it has been draining and a little bit of blood. Patient has had some chills. Questional if he had fever. Patient is diabetic. - Related Data Home Medications Medication Instructions Recorded Confirmed Aspirin EC [Ecotrin Low Dose] 81 mg PO HS 01/02/23 11/15/24 Insulin Glargine,Hum.rec.anlog 30 units SQ HS 09/29/24 11/15/24 [Lantus Solostar Pen] Lidocaine-Prilocaine Cream [Emla 1 applic TOPICAL DIRECTED PRN 11/15/24 11/15/24 Cream 2.5%/2.5%] Losartan [Cozaar] 50 mg PO HS 11/15/24 11/15/24 Metoprolol Succinate [Toprol XL] 50 mg PO DAILY 11/15/24 11/15/24 Ondansetron [Zofran] 4 - 8 mg PO Q4H PRN 11/15/24 11/15/24 amLODIPine [Norvasc] 5 mg PO DAILY 11/15/24 11/15/24 traMADol HCL 50 mg PO Q6H PRN 11/15/24 11/15/24 Allergies Allergy/AdvReac Type Severity Reaction Status Date / Time clindamycin Allergy Rash/Hives Verified 11/15/24 19:08 sulfamethoxazole Allergy Rash/Hives/ Verified 11/15/24 19:08 [From Bactrim] Itching trimethoprim [From Bactrim] Allergy Rash/Hives/ Verified 11/15/24 19:08 Itching Review of Systems ROS Statement: Those systems with pertinent positive or pertinent negative responses have been documented in the HPI. ROS Other: All systems not noted in ROS Statement are negative. Constitutional: Reports: fever, chills Eyes: Denies: eye pain ENT: Denies: ear pain Respiratory: Denies: cough Cardiovascular: Denies: chest pain Endocrine: Denies: fatigue Gastrointestinal: Denies: abdominal pain Genitourinary: Reports: as per HPI Past Medical History Past Medical History: Cancer, Diabetes Mellitus, Eye Disorder, GERD/Reflux, Hypertension, Osteoarthritis (OA), Skin Disorder, Sleep Apnea/CPAP/BIPAP, Thyroid Disorder Additional Past Medical History / Comment(s): No longer has sleep apena. Limps due to broken left foot in the past that didn't heal properly. Diabetic Retinopathy and Neuropathy. UMBILICAL HERNIA. Legally blind. Chronic back pain. Fatty liver. Hx kidney stones. States possibly adhesions now. Heptacellular carcinoma History of Any Multi-Drug Resistant Organisms: None Reported Past Surgical History: Bariatric Surgery, Cholecystectomy Additional Past Surgical History / Comment(s): Liver biopsy. Pilonidal cyst. Cysts removed from head. Cataract & Retinopathy surgery. Tala-en-Y. Pain procedures, Kidney stone sx/ureteral stenting with removal last 06/2024, colonoscopy. Tumor removal, lysis of adhesions Past Anesthesia/Blood Transfusion Reactions: No Reported Reaction Past Psychological History: No Psychological Hx Reported Smoking Status: Never smoker Past Alcohol Use History: Occasional Past Drug Use History: Marijuana - Past Family History Father Family Medical History: Diabetes Mellitus, Deep Vein Thrombosis (DVT) Mother Family Medical History: Cancer, Diabetes Mellitus Additional Family Medical History / Comment(s): thyroid Sister(s) Family Medical History: Cancer, Diabetes Mellitus Additional Family Medical History / Comment(s): Uterine Cancer, Lupus, Bipolar Disorder. General Exam Limitations: no limitations General appearance: alert, in no apparent distress Head exam: Present: normocephalic Eye exam: Present: normal appearance Neck exam: Present: normal inspection Respiratory exam: Present: normal lung sounds bilaterally Cardiovascular Exam: Present: regular rate, normal rhythm GI/Abdominal exam: Present: soft. Absent: tenderness exam: Present: other (Right groin lateral to the scrotum with approximately 6 x 6 area of erythema and swelling and tenderness. Central open area with puru lent discharge and odor.) Extremities exam: Present: normal inspection Neurological exam: Present: alert Psychiatric exam: Present: normal affect, normal mood Skin exam: Present: erythema Course Vital Signs 11/15/24 11/15/24 11/15/24 17:32 18:01 18:52 Temperature 97.3 F L Pulse Rate 77 98 Respiratory 18 20 20 Rate Blood Pressure 152/99 157/98 O2 Sat by Pulse 98 97 Oximetry 11/15/24 19:00 Temperature Pulse Rate 68 Respiratory 16 Rate Blood Pressure 135/96 O2 Sat by Pulse 97 Oximetry EKG Findings - EKG Results: EKG: interpreted by ERMD (First-degree AV block. Left axis.), sinus rhythm, normal QRS, normal ST/T Medical Decision Making - Medical Decision Making Was pt. sent in by a medical professional or institution (, PA, PASTORAL ASSISTANT, urgent care, hospital, or jail...) When possible be specific @ -Patient was sent by Dr. Joshua her office Did you speak to anyone other than the patient for history (EMS, parent, family, police, friend...)? What history was obtained from this source @ -Family helps present onset of symptoms. Case was also discussed with Dr. Joshua her who provided critical patient past medical history Did you review nursing and triage notes (agree or disagree)? Why? @ -I reviewed and agree with nursing and triage notes Were old charts reviewed (outside hosp., previous admission, EMS record, old EKG, old radiological studies, urgent care reports/EKG's, jail records)? Report findings @ -No old charts were reviewed Differential Diagnosis (chest pain, altered mental status, abdominal pain women, abdominal pain men, vaginal bleeding, weakness, fever, dyspnea, syncope, headache, dizziness, GI bleed, back pain, seizure, CVA, palpatations, mental health, musculoskeletal)? @ -Differential Fever: Pneumonia, viral URI, endocarditis, myocarditis, pericarditis, otitis, sinusitis, peritonsillar Abscess, retropharyngeal Abscess, epiglottitis, peritonitis, appendicitis, Gregoria cystitis, diverticulitis, hepatitis, colitis, UTI, PID, TOA, pyelonephritis, prostatitis, epididymitis, meningitis, encephalitis, pulmonary embolism, CVA, thyroid storm, pancreatitis, adrenal crisis, cavernous sinus thrombosis, this is not meant to be an all-inclusive list. EKG interpreted by me (3pts min.). @ -As above X-rays interpreted by me (1pt min.). @ -None done CT interpreted by me (1pt min.). @ -CT scan without definitive abscess. Mild edema. Liver changes. Soft tissue deposits. U/S interpreted by me (1pt. min.). @ -None done What testing was considered but not performed or refused? (CT, X-rays, U/S, labs)? Why? @ -None What meds were considered but not given or refused? Why? @ -None Did you discuss the management of the patient with other professionals (professionals i.e. , PA, PASTORAL ASSISTANT, lab, RT, psych nurse, social service worker, payroll officer, t eacher, activities officer, case packer and sealer)? Give summary @ -Case discussed with Dr. Joshua her again who will admit his patient Was smoking cessation discussed for >3mins.? @ -No Was critical care preformed (if so, how long)? @ -No Were there social determinants of health that impacted care today? How? (H omelessness, low income, unemployed, alcoholism, drug addiction, transportation, low edu. Level, literacy, decrease access to med. care, assisted, rehab)? @ -No Was there de-escalation of care discussed even if they declined (Discuss DNR or withdrawal of care, Hospice)? DNR status @ -No What co-morbidities impacted this encounter? (DM, HTN, Smoking, COPD, CAD, Cancer, CVA, ARF, Chemo, Hep., AIDS, mental health diagnosis, sleep apnea, morbid obesity)? @ -Hepatocellular carcinoma Was patient admitted / discharged? Hospital course, mention meds given and route, prescriptions, significant lab abnormalities, going to OR and other pertinent info. @ -Patient presents with right groin wound for [address] scan without concern for obvious abscess. Patient will be admitted with IV antibiotics and consults. Admission orders written. Patient reevaluated and updated. Undiagnosed new problem with uncertain prognosis? @ -No Drug Therapy requiring intensive monitoring for toxicity (Heparin, Nitro, Insulin, Cardizem)? @ -No Were any procedures done? @ -No Diagnosis/symptom? @ -Right inguinal cellulitis Acute, or Chronic, or Acute on Chronic? @ -Acute Uncomplicated (without systemic symptoms) or Complicated (systemic symptoms)? @ -Default Side effects of treatment? @ -No Exacerbation, Progression, or Severe Exacerbation? @ -No Poses a threat to life or bodily function? How? (Chest pain, [place], [place], pneumonia, PE, COPD, DKA, ARF, appy, cholecystitis, CVA, Diverticulitis, Homicidal, Levine icidal, threat to staff... and all critical care pts) @ -No - Lab Data Result diagrams: 11/15/24 18:01 11/15/24 18:01 Lab Results 11/15/24 11/15/24 11/15/24 Range/Units 18:01 18:01 18:01 WBC 3.5 L (3.8-10.6) k/uL RBC 5.12 (4.30-5.90) m/uL Hgb 13.3 (13.0-17.5) gm/dL Hct 43.3 (39.0-53.0) % MCV 84.5 (80.0-100.0) fL MCH 26.1 (25.0-35.0) pg MCHC 30.8 L (31.0-37.0) g/dL RDW 14.6 (11.5-15.5) % Plt Count 222 (150-450) k/uL MPV 7.2 Neutrophils % 63 % Lymphocytes % 25 % Monocytes % 6 % Eosinophils % 3 % Basophils % 1 % Neutrophils # 2.2 (1.3-7.7) k/uL Lymphocytes # 0.9 L (1.0-4.8) k/uL Monocytes # 0.2 (0-1.0) k/uL Eosinophils # 0.1 (0-0.7) k/uL Basophils # 0.0 (0-0.2) k/uL PT 10.8 (10.0-12.5) sec INR 1.0 (<1.2) APTT 26.6 (22.0-30.0) sec Sodium 136 L (137-145) mmol/L Potassium 4.9 (3.5-5.1) mmol/L Chloride 99 (98-107) mmol/L Carbon Dioxide 26 (22-30) mmol/L Anion Gap 11 mmol/L BUN 20 (9-20) mg/dL Creatinine 0.98 (0.66-1.25) mg/dL Est GFR (CKD-EPI)AfAm 90 (>60 ml/min/1.73 sqM) Est GFR (CKD-EPI)NonAf 77 (>60 ml/min/1.73 sqM) Glucose 359 H (74-99) mg/dL Plasma Lactic Acid Aneudy (0.7-2.0) mmol/L Calcium 8.6 (8.4-10.2) mg/dL Total Bilirubin 1.7 H (0.2-1.3) mg/dL AST 26 (17-59) U/L ALT 18 (4-49) U/L Alkaline Phosphatase 173 H (38-126) U/L Total Protein 7.3 (6.3-8.2) g/dL Albumin 4.4 (3.5-5.0) g/dL 11/15/24 Range/Units 18:01 WBC (3.8-10.6) k/uL RBC (4.30-5.90) m/uL Hgb (13.0-17.5) gm/dL Hct (39.0-53.0) % MCV (80.0-100.0) fL MCH (25.0-35.0) pg MCHC (31.0-37.0) g/dL RDW (11.5-15.5) % Plt Count (150-450) k/uL MPV Neutrophils % % Lymphocytes % % Monocytes % % Eosinophils % % Basophils % % Neutrophils # (1.3-7.7) k/uL Lymphocytes # (1.0-4.8) k/uL Monocytes # (0-1.0) k/uL Eosinophils # (0-0.7) k/uL Basophils # (0-0.2) k/uL PT (10.0-12.5) sec INR (<1.2) APTT (22.0-30.0) sec Sodium (137-145) mmol/L Potassium (3.5-5.1) mmol/L Chloride (98-107) mmol/L Carbon Dioxide (22-30) mmol/L Anion Gap mmol/L BUN (9-20) mg/dL Creatinine (0.66-1.25) mg/dL Est GFR (CKD-EPI)AfAm (>60 ml/min/1.73 sqM) Est GFR (CKD-EPI)NonAf (>60 ml/min/1.73 sqM) Glucose (74-99) mg/dL Plasma Lactic Acid Aneudy 2.0 (0.7-2.0) mmol/L Calcium (8.4-10.2) mg/dL Total Bilirubin (0.2-1.3) mg/dL AST (17-59) U/L ALT (4-49) U/L Alkaline Phosphatase (38-126) U/L Total Protein (6.3-8.2) g/dL Albumin (3.5-5.0) g/dL Disposition Clinical Impression: Cellulitis Disposition: ADMITTED IP TO THIS HOSP Is patient prescribed a controlled substance at d/c from ED?: No Referrals: Jeff Foster MD [Primary Care Provider] - 1-2 days Time of Disposition: 19:25
[2024-11-15] MEDS: LACTATED RINGERS 1,000 ML IV SCH (18:37)
[2024-11-15] MEDS: CEFEPIME 2 GM in SODIUM CHLORIDE 0.9% 100 ML IVPB ONE (18:37)
[2024-11-15 18:43] LABS: Partial Thromboplastin Time 26.6 sec (22.0-30.0); Prothrombin Time 10.8 sec (10.0-12.5)
[2024-11-15 18:44] LABS: ALT 18 U/L (4-49); AST 26 U/L (17-59); African American GFR (CKD) 90 (>60 ml/min/1.73 sqM); Albumin 4.4 g/dL (3.5-5.0); Alkaline Phosphatase 173 U/L (38-126); Anion Gap 11 mmol/L; Blood Urea Nitrogen 20 mg/dL (9-20); Calcium 8.6 mg/dL (8.4-10.2); Carbon Dioxide 26 mmol/L (22-30); Chloride 99 mmol/L (98-107); Glucose 359 mg/dL (74-99); Non-African American GFR(CKD) 77 (>60 ml/min/1.73 sqM); Potassium 4.9 mmol/L (3.5-5.1); Sodium 136 mmol/L (137-145); Total Bilirubin 1.7 mg/dL (0.2-1.3); Total Protein 7.3 g/dL (6.3-8.2)
[2024-11-15] MEDS: VANCOMYCIN 1,500 MG in SODIUM CHLORIDE 0.9% 500 ML 500 ML IVPB ONE (19:03)
[2024-11-15 19:06] LABS: Basophils % (A) 1 %; Eosinophils # (A) 0.1 k/uL (0-0.7); Eosinophils % (A) 3 %; HCT 43.3 % (39.0-53.0); HGB 13.3 gm/dL (13.0-17.5); Lymphocytes # (A) 0.9 k/uL (1.0-4.8); Lymphocytes % (A) 25 %; MCH 26.1 pg (25.0-35.0); MCHC 30.8 g/dL (31.0-37.0); MCV 84.5 fL (80.0-100.0); Mean Platelet Volume 7.2; Monocytes # (A) 0.2 k/uL (0-1.0); Monocytes % (A) 6 %; Neutrophils # (A) 2.2 k/uL (1.3-7.7); Neutrophils % (A) 63 %; Platelet Count 222 k/uL (150-450); RBC 5.12 m/uL (4.30-5.90); RDW 14.6 % (11.5-15.5); WBC 3.5 k/uL (3.8-10.6)
--- NOTE | 2024-11-15 19:19 | CT ---
EXAMINATION TYPE: CT ChestAbdPelvis w con DATE OF EXAM: 11/15/2024 6:47 PM COMPARISON: 1 2 on 825 08/10/2024. CLINICAL INDICATION: Male, 73 years old with history of R groin abcess; PHH, R groin abscess. Liver c a Technique: CT ChestAbdPelvis w con; Multiple axial images were obtained. Two-dimensional coronal and sagittal reconstructions were obtained. Contrast used:100ml mL of Isovue 300 with IV Contrast, (None if empty) Oral contrast used: without Oral Contrast CT DLP: 1449.1 mGycm, Automated exposure control for dose reduction was used. Findings: CHEST: LUNGS/ PLEURA: No focal consolidation, pneumothorax or pleural effusion. AIRWAY: Patent and unremarkable. HEART: Size within normal limits. No significant coronary artery calcifications. MEDIASTINUM: No gross evidence of adenopathy. VASCULATURE: No aortic aneurysm. Right Gqkswy-a-Rtga central venous catheter is coiled in the international flight attendant al jugular vein on the right before terminating inferiorly in the superior vena cava. MUSCULOSKELETAL: No acute osseous abnormalities. SOFT TISSUES/LYMPH NODES: Unremarkable. LOWER NECK: No significant findings. ABDOMEN: ABDOMEN LIVER: Observation anterior segment 4A measuring 24 mm previously 27. Suboptimally evaluated due to p hase of contrast. GALLBLADDER AND BILE DUCTS: The gallbladder surgically absent. PANCREAS: Unremarkable. SPLEEN: Unremarkable. ADRENAL GLANDS: Unremarkable. KIDNEYS AND URETERS: Bilateral calculi present to 14 mm and left and 17 mm on the right.r PELVIS BLADDER: Unremarkable REPRODUCTIVE: Unremarkable. ABDOMEN & PELVIS STOMACH AND BOWEL: No evidence of bowel obstruction. Visualized on the colon. Large amount stool is s een within the colon. PERITONEUM/RETROPERITONEUM: No evidence of pneumoperitoneum or free fluid. VASCULATURE: No evidence of aortic aneurysm. MUSCULOSKELETAL: No acute osseous abnormalities LYMPH NODES: No gross evidence for lymphadenopathy. SOFT TISSUE/ABDOMINAL WALL: Soft tissue deposit near the sacrum subtle be separate from the bowel roel sing from the bowel measuring 16 mm previously 7 mm. series 201 image 82. Conglomerate mass in the ri ght mesentery measuring 59 x 44 previously 43 x 42r mass in the left mesentery measuring 26 x 24 mm p reviously 19 mm. Soft tissues about the near the spleen anteriorly has increased measuring 23 mm prev iously 13 mm. Eufemia hepatis nodule measuring 15 mm previously 6 mm. No organizing fluid collections are seen within the right groin region. Somewhat symmetric edema bila terally. IMPRESSION: 1. No evidence for groin abscess. Mild perineum subcutaneous edema noted which is somewhat symmetric . 2. Enlarging soft tissue deposits throughout the abdomen agree secondary to patient's history of mal ignancy. The right hepatic lobe segment 4A lesion may be smaller however phasic contrast limits evalu ation and comparison. 3. Right Xoohym-o-Mzer central venous catheter is coiled in the internal jugular vein on the right b efore terminating inferiorly in the superior vena cava. 4. Nonobstructing bilateral renal calculi. [facility], , 11/15/2024 7:16 PM
[2024-11-15] MEDS ORDERED: MORPHINE SULFATE 4 MG/ML SYRINGE IV PRN (19:26)
[2024-11-15] MEDS ORDERED: NALOXONE 0.4 MG/ML 1 ML VIAL IV PRN (19:26)
[2024-11-15] MEDS: SODIUM CHLORIDE 0.9% 1,000 ML IV SCH (19:59)
[2024-11-15] MEDS: FAMOTIDINE 20 MG TAB PO SCH (22:40)
[2024-11-15] MEDS: LOSARTAN 50 MG TAB PO SCH (22:40)
[2024-11-15] MEDS: INSULIN GLARGINE (LANTUS) 100 UNIT/ML SYR SQ SCH (22:40)
[2024-11-15] MEDS: ASPIRIN 81 MG PO SCH (22:40)
[2024-11-16 05:12] LABS: ALT 15 U/L (4-49); AST 24 U/L (17-59); African American GFR (CKD) >90 (>60 ml/min/1.73 sqM); Albumin 3.6 g/dL (3.5-5.0); Albumin/Globulin Ratio 1.3; Alkaline Phosphatase 154 U/L (38-126); Anion Gap 11 mmol/L; Blood Urea Nitrogen 16 mg/dL (9-20); Calcium 8.2 mg/dL (8.4-10.2); Carbon Dioxide 24 mmol/L (22-30); Chloride 101 mmol/L (98-107); Globulin 2.7 g/dL; Glucose 134 mg/dL (74-99); Non-African American GFR(CKD) >90 (>60 ml/min/1.73 sqM); Potassium 3.6 mmol/L (3.5-5.1); Sodium 136 mmol/L (137-145); Total Bilirubin 1.4 mg/dL (0.2-1.3); Total Protein 6.3 g/dL (6.3-8.2)
[2024-11-16] MEDS: CEFEPIME 2 GM in SODIUM CHLORIDE 0.9% 100 ML IVPB SCH ×2 (06:13→16:11)
[2024-11-16] MEDS: VANCOMYCIN 1,500 MG in SODIUM CHLORIDE 0.9% 500 ML 500 ML IVPB SCH (06:14)
[2024-11-16 07:49] LABS: Glucose,Whole Blood 125 mg/dL (70-110)
[2024-11-16] MEDS: INSULIN LISPRO (HumaLOG) 100 UNIT/ML 10 mL VL SQ SCH (08:03)
[2024-11-16] MEDS: amLODIPine 5 MG TAB PO SCH (09:31)
[2024-11-16] MEDS: METOPROLOL SUCCINATE (ER) 50 MG TAB.ER.24H PO SCH (09:31)
[2024-11-16] MEDS: ENOXAPARIN 40 MG/0.4 ML SYRINGE SQ SCH (09:32)
[2024-11-16 09:38] LABS: Basophils # (A) 0.03 X 10*3/uL (0.00-0.10); Basophils % (A) 0.9 %; Eosinophils # (A) 0.13 X 10*3/uL (0.04-0.35); Eosinophils % (A) 3.7 %; HCT 37.9 % (39.6-50.0); HGB 12.1 g/dL (13.0-17.0); Lymphocytes % (A) 28.6 %; MCH 26.1 pg (27.0-32.0); MCHC 31.9 g/dL (32.0-37.0); MCV 81.9 FL (80.0-97.0); Mean Platelet Volume 9.5 FL (9.5-12.2); Monocytes # (A) 0.29 X 10*3/uL (0.20-1.00); Monocytes % (A) 8.3 %; NRBC Per 100 WBC 0 X 10*3/uL (0.00-0.01); Neutrophils # (A) 2.04 X 10*3/uL (1.80-7.70); Neutrophils % (A) 58.2 %; Platelet Count 206 X 10*3/uL (140-440); RBC 4.63 X 10*6/uL (4.40-5.60)
[2024-11-16] MEDS: AMMONIUM LACTATE 12% LOTION 225 GM BTL TOPICAL SCH (10:26)
[2024-11-16 12:42] LABS: Glucose,Whole Blood 173 mg/dL (70-110)
--- NOTE | 2024-11-16 14:03 | CT ---
EXAMINATION TYPE: CT femur RT wo con CT DLP: 797.4 mGycm, Automated exposure control for dose reduction was used. DATE OF EXAM: 11/16/2024 1:51 PM COMPARISON: CT chest abdomen pelvis 11/15/2024, MR bilateral hips 10/22/2021 CLINICAL INDICATION:Male, 73 years old with history of significant pain; PHH, right groin pain TECHNIQUE: Axial images were obtained of the right femur without the use of IV contrast. Additional coronal and sagittal reformatted images and soft tissue and bone window were obtained for review. FINDINGS: There is no evidence of fracture, subluxation, or dislocation. The right SI joint is intact . Mild osteoarthritic changes of the right hip with medial joint space narrowing and acetabular scler osis with marginal osteophytosis. Mild osteoarthritic changes of the medial and lateral tibiofemoral joint spaces with subchondral cystic changes. Similar lucent foci within the right humeral head datin g back to 2021 and considered benign. Prominent supra and infrapatellar spurring. No periosteal react ion. Right Ruth's cyst measuring 2.0 x 1.2 cm. No effusion. Similar right scrotal edema and no evidence f or organized fluid collection. No other focal muscular atrophy or edema is identified. No radiopaque foreign body identified. Enlarged prostate gland measuring at least 5.1 cm in transverse dimension. Few pelvic phleboliths. No right inguinal adenopathy or hernia identified. Atherosclerotic calcification of the arterial vascul ature. IMPRESSION: 1. No acute fracture or dislocation. 2. Similar right scrotal edema. 3. Mild osteoarthritic changes of the right hip and right knee. 4. Right Ruth's cyst. 5. Prostatomegaly. [facility], , 11/16/2024 2:00 PM
--- NOTE | 2024-11-16 14:46 | P.GSCN ---
History of Present Illness Consult date: 11/16/24 History of present illness: CHIEF COMPLAINT: Right groin pain and swelling HISTORY OF PRESENT ILLNESS: This is a 73-year-old male who has a history of diabetes and metastatic hepatocellular cancer and currently on chemotherapy. Patient reports he has had pain, swelling and redness in the right groin for about 2 weeks. He reports that it had been draining some blood. And came into the ER for further evaluation. He denies any prior history of any abscesses. He had a CT scan abdomen pelvis that had reported mild perineum edema but no groin abscess. He is currently on antibiotics. PAST MEDICAL HISTORY: See list. PAST SURGICAL HISTORY: See list. MEDICATIONS: See list. ALLERGIES: See list. SOCIAL HISTORY: No illicit drug use. REVIEW OF SYSTEMS: CONSTITUTIONAL: Denies fever or chills. HEENT: Denies blurred vision, vision changes, or eye pain. Denies hemoptysis ENDOCRINE: Denies heat or cold intolerance. CARDIOVASCULAR: Denies chest pain or pressure. RESPIRATORY: No shortness of breath. GASTROINTESTINAL: Denies abdominal pain. Denies nausea or vomiting. NEURO: Denies history of seizures. PSYCH: No depression or suicidal ideation HEMATOLOGIC: Denies bleeding disorders. LYMPHATIC: The patient denies any lumps and bumps around the neck. GENITOURINARY: Denies any blood in urine or increased urinary frequency. MUSCULOSKELETAL: Denies myalgias. Denies joint swelling. Denies decreased range of motion beyond patients baseline. SKIN: Denies pruitis. Denies rash. PHYSICAL EXAM: VITAL SIGNS: Reviewed GENERAL: Well-developed in no acute distress. HEENT: No sclera icterus. Extraocular movements grossly intact. Moist buccal mucosa. Head is atraumatic, normocephalic. Hears conversational speech. No nasal drainage. NECK: Supple without lymphadenopathy. CHEST: Non-labored respirations and equal bilateral excursions. CARDIOVASCULAR: Palpable 2+ radial pulses. ABDOMEN: Soft. Nondistended. Nontender MUSCULOSKELETAL: No clubbing or cyanosis. NEUROLOGIC: No focal or lateralizing signs. Cranial nerves II through XII grossly intact. PSYCH: Appropriate affect. Alert and oriented to person, place and time. SKIN: Right groin lateral and near the scrotal extremely tender, area is indurated, swollen. There is some fluctuance noted. There is an area of ulceration that is open with purulent drainage. Patient's tenderness does go down into the right upper thigh LABORATORY DATA: WBC 3.5 Hgb 12.1 platelets 206 Sodium 136 potassium 3.6 creatinine 0.78 Lactic acid 2.0 Glucose 359 down to 125 IMAGING: CT scan chest abdomen pelvis no evidence for groin abscess. Mild perineum subcutaneous edema noted. Enlarging soft tissue deposits throughout the abdomen agree secondary to patient's history of malignancy. Right hepatic lobe segment 4A lesion may be smaller however phasic contrast limits evaluation comparison. Right [id number] central venous catheters coiled in the internal jugular vein on the right before terminating inferiorly to the superior vena cava. Nonobstructing bilateral renal calculi. ASSESSMENT: 1. Right groin abscess and cellulitis with purulent drainage 2. Diabetes mellitus 3. Metastatic hepatocellular cancer on chemo PLAN: -Recommend patient to be evaluated by urology service regarding right groin abscess -Continue antibiotics per ID service -Continue pain management -Continue supportive care Physician Digital Imaging Specialist note has been reviewed by physician. Signing provider agrees with the documented findings, assessment, and plan of care. Past Medical History Past Medical History: Cancer, Diabetes Mellitus, Eye Disorder, GERD/Reflux, Hypertension, Osteoarthritis (OA), Skin Disorder, Sleep Apnea/CPAP/BIPAP, Thyroid Disorder Additional Past Medical History / Comment(s): No longer has sleep apena. Limps due to broken left foot in the past that didn't heal properly. Diabetic Retinopathy and Neuropathy. UMBILICAL HERNIA. Legally blind. Chronic back pain. Fatty liver. Hx kidney stones. States possibly adhesions now. Heptacellular carcinoma History of Any Multi-Drug Resistant Organisms: None Reported Past Surgical History: Bariatric Surgery, Cholecystectomy Additional Past Surgical History / Comment(s): Liver biopsy. Pilonidal cyst. Cysts removed from head. Cataract & Retinopathy surgery. Tala-en-Y. Pain procedures, Kidney stone sx/ureteral stenting with removal last 06/2024, colonoscopy. Tumor removal, lysis of adhesions Past Anesthesia/Blood Transfusion Reactions: No Reported Reaction Past Psychological History: No Psychological Hx Reported Smoking Status: Never smoker Past Alcohol Use History: Occasional Additional Past Alcohol Use History / Comment(s): Patient is a lifelong nonsmoker. No medical marijuana, marijuana or street drug use. Patient drinks alcohol rarely. He is a retired nurse. He lives at home with his . Past Drug Use History: Marijuana Additional Drug Use History / Comment(s): THC- no use 24 hrs prior - Past Family History Father Family Medical History: Diabetes Mellitus, Deep Vein Thrombosis (DVT) Mother Family Medical History: Cancer, Diabetes Mellitus Additional Family Medical History / Comment(s): thyroid Sister(s) Family Medical History: Cancer, Diabetes Mellitus Additional Family Medical History / Comment(s): Uterine Cancer, Lupus, Bipolar Disorder. Medications and Allergies Home Medications Medication Instructions Recorded Confirmed Type Aspirin EC [Ecotrin Low Dose] 81 mg PO HS 01/02/23 11/15/24 History Insulin Glargine,Hum.rec.anlog 30 units SQ HS 09/29/24 11/15/24 History [Lantus Solostar Pen] Lidocaine-Prilocaine Cream [Emla 1 applic TOPICAL DIRECTED PRN 11/15/24 11/15/24 History Cream 2.5%/2.5%] Losartan [Cozaar] 50 mg PO HS 11/15/24 11/15/24 History Metoprolol Succinate [Toprol XL] 50 mg PO DAILY 11/15/24 11/15/24 History Ondansetron [Zofran] 4 - 8 mg PO Q4H PRN 11/15/24 11/15/24 History amLODIPine [Norvasc] 5 mg PO DAILY 11/15/24 11/15/24 History traMADol HCL 50 mg PO Q6H PRN 11/15/24 11/15/24 History Allergies Allergy/AdvReac Type Severity Reaction Status Date / Time clindamycin Allergy Rash/Hives Verified 11/15/24 19:08 sulfamethoxazole Allergy Rash/Hives/ Verified 11/15/24 19:08 [From Bactrim] Itching trimethoprim [From Bactrim] Allergy Rash/Hives/ Verified 11/15/24 19:08 Itching Surgical - Exam Vital Signs Temp Pulse Resp BP Pulse Ox 97.3 F L 77 18 152/99 98 11/15/24 17:32 11/15/24 17:32 11/15/24 17:32 11/15/24 17:32 11/15/24 17:32 Results - Labs 11/16/24 04:49 11/16/24 04:49 Abnormal Lab Results - Last 24 Hours (Table) 11/15/24 11/15/24 11/16/24 Range/Units 18:01 18:01 04:49 WBC 3.5 L (3.8-10.6) k/uL Hgb (13.0-17.0) g/dL Hct (39.6-50.0) % MCH (27.0-32.0) pg MCHC 30.8 L (31.0-37.0) g/dL Lymphocytes # 0.9 L (1.0-4.8) k/uL Sodium 136 L 136 L (137-145) mmol/L Glucose 359 H 134 H (74-99) mg/dL POC Glucose (mg/dL) (70-110) mg/dL Calcium 8.2 L (8.4-10.2) mg/dL Total Bilirubin 1.7 H 1.4 H (0.2-1.3) mg/dL Alkaline Phosphatase 173 H 154 H (38-126) U/L 11/16/24 11/16/24 Range/Units 04:49 07:40 WBC 3.50 L (3.8-10.6) k/uL Hgb 12.1 L (13.0-17.0) g/dL Hct 37.9 L (39.6-50.0) % MCH 26.1 L (27.0-32.0) pg MCHC 31.9 L (31.0-37.0) g/dL Lymphocytes # (1.0-4.8) k/uL Sodium (137-145) mmol/L Glucose (74-99) mg/dL POC Glucose (mg/dL) 125 H (70-110) mg/dL Calcium (8.4-10.2) mg/dL Total Bilirubin (0.2-1.3) mg/dL Alkaline Phosphatase (38-126) U/L Diabetes panel 11/15/24 11/16/24 Range/Units 18:01 04:49 Sodium 136 L 136 L (137-145) mmol/L Potassium 4.9 3.6 (3.5-5.1) mmol/L Chloride 99 101 (98-107) mmol/L Carbon Dioxide 26 24 (22-30) mmol/L BUN 20 16 (9-20) mg/dL Creatinine 0.98 0.78 (0.66-1.25) mg/dL Glucose 359 H 134 H (74-99) mg/dL Calcium 8.6 8.2 L (8.4-10.2) mg/dL AST 26 24 (17-59) U/L ALT 18 15 (4-49) U/L Alkaline Phosphatase 173 H 154 H (38-126) U/L Total Protein 7.3 6.3 (6.3-8.2) g/dL Albumin 4.4 3.6 (3.5-5.0) g/dL Calcium panel 11/15/24 11/16/24 Range/Units 18:01 04:49 Calcium 8.6 8.2 L (8.4-10.2) mg/dL Albumin 4.4 3.6 (3.5-5.0) g/dL Pituitary panel 11/15/24 11/16/24 Range/Units 18:01 04:49 Sodium 136 L 136 L (137-145) mmol/L Potassium 4.9 3.6 (3.5-5.1) mmol/L Chloride 99 101 (98-107) mmol/L Carbon Dioxide 26 24 (22-30) mmol/L BUN 20 16 (9-20) mg/dL Creatinine 0.98 0.78 (0.66-1.25) mg/dL Glucose 359 H 134 H (74-99) mg/dL Calcium 8.6 8.2 L (8.4-10.2) mg/dL Adrenal panel 11/15/24 11/16/24 Range/Units 18:01 04:49 Sodium 136 L 136 L (137-145) mmol/L Potassium 4.9 3.6 (3.5-5.1) mmol/L Chloride 99 101 (98-107) mmol/L Carbon Dioxide 26 24 (22-30) mmol/L BUN 20 16 (9-20) mg/dL Creatinine 0.98 0.78 (0.66-1.25) mg/dL Glucose 359 H 134 H (74-99) mg/dL Calcium 8.6 8.2 L (8.4-10.2) mg/dL Total Bilirubin 1.7 H 1.4 H (0.2-1.3) mg/dL AST 26 24 (17-59) U/L ALT 18 15 (4-49) U/L Alkaline Phosphatase 173 H 154 H (38-126) U/L Total Protein 7.3 6.3 (6.3-8.2) g/dL Albumin 4.4 3.6 (3.5-5.0) g/dL
--- NOTE | 2024-11-16 14:48 | P.CONS ---
History of Present Illness - Reason for Consult Consult date: 11/16/24 on treatment for NSCLC Requesting physician: Benjamín Lamb - Chief Complaint rt thigh and groin pain - History of Present Illness Mr. Rosas is a 73-year-old male patient of Dr. Nikki Reyes with a PMH of metabolic syndrome with obesity, status post Tala-en-Y gastric bypass in 2014, hypertension, DM type II, cirrhosis, with a diagnosis of hepatic cellular carcinoma in 2023. Patient initially presented with abdominal pain that was progressively worsening around June 2024, this was associated with early satiety and weight loss 5 to 10 pounds. He was followed up by his bariatric surgeon who ordered CT AP 08/10/2024 noting several soft tissue peritoneal/mesenteric masses with nodules. He underwent exploratory laparotomy with lysis of adhesions 08/23/2024, it was reported there was a nodular appearance to the liver concerning for cirrhosis as well as nodularities along the right and left abdominal bishop concerning for malignancy. A multinodular bleeding mass measuring 9.3 cm was resected, pathology, unfortunately was positive for poorly differentiated hepatocellular carcinoma. Patient did have a EGD/colonoscopy just prior to surgical procedures, no unusual findings. Patient met with Medical Oncology. It was reviewed with patient that he has what represents stage IV disease, treatable for some time but unfortunately, not curable. 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 Circulating tumor DNA revealed no detectable somatic genetic alterations. Patient is status post 2 cycles of atezoulumab and mvasi-PD-L1 ab therapy and VEGF inhibitor. Plan for 4 cycles of treatment prior to restaging CT scans to assess treatment response. Patient is currently admitted for right groin cellulitis. Patient states that about 2 weeks ago he had a very eventful fall, sliding 2 pieces of cardboard, twisting his body and falling on the ground extremely hard hitting the side of his head and crushing his genitals between his legs. Since that time he is has had progressive discomfort in the rt groin area, initially the area was red and irritated, then a golf ball size mass appeared, this increased to a baseball sized mass, then proceeded to bleed/drain. The area is significantly tender to touch, bordering unrealistic pain, there is ongoing drainage. He denies fever, rigors, numbness or tingling in the leg, no dysuria, hematuria, hematochezia or melena, diarrhea or constipation. Patient states that he feels he tolerated HCC treatment rather well, only complains of some mild fatigue. On admission CT CAP was performed, discussion of some disease progression in known areas, no newly reported sites. Vital signs, laboratory investigations reviewed, nothing grossly abnormal Review of Systems 14 point ROS is neg except as stated in HPI Past Medical History Past Medical History: Cancer, Diabetes Mellitus, Eye Disorder, GERD/Reflux, Hypertension, Osteoarthritis (OA), Skin Disorder, Sleep Apnea/CPAP/BIPAP, Thyroid Disorder Additional Past Medical History / Comment(s): No longer has sleep apena. Limps due to broken left foot in the past that didn't heal properly. Diabetic Retinopathy and Neuropathy. UMBILICAL HERNIA. Legally blind. Chronic back pain. Fatty liver. Hx kidney stones. States possibly adhesions now. Heptacellular carcinoma History of Any Multi-Drug Resistant Organisms: None Reported Past Surgical History: Bariatric Surgery, Cholecystectomy Additional Past Surgical History / Comment(s): Liver biopsy. Pilonidal cyst. Cysts removed from head. Cataract & Retinopathy surgery. Tala-en-Y. Pain procedures, Kidney stone sx/ureteral stenting with removal last 06/2024, colonoscopy. Tumor removal, lysis of adhesions Past Anesthesia/Blood Transfusion Reactions: No Reported Reaction Past Psychological History: No Psychological Hx Reported Smoking Status: Never smoker Past Alcohol Use History: Occasional Additional Past Alcohol Use History / Comment(s): Patient is a lifelong nonsmoker. No medical marijuana, marijuana or street drug use. Patient drinks alcohol rarely. He is a retired nurse. He lives at home with his . Past Drug Use History: Marijuana Additional Drug Use History / Comment(s): THC- no use 24 hrs prior - Past Family History Father Family Medical History: Diabetes Mellitus, Deep Vein Thrombosis (DVT) Mother Family Medical History: Cancer, Diabetes Mellitus Additional Family Medical History / Comment(s): thyroid Sister(s) Family Medical History: Cancer, Diabetes Mellitus Additional Family Medical History / Comment(s): Uterine Cancer, Lupus, Bipolar Disorder. Medications and Allergies Home Medications Medication Instructions Recorded Confirmed Type Aspirin EC [Ecotrin Low Dose] 81 mg PO HS 01/02/23 11/15/24 History Insulin Glargine,Hum.rec.anlog 30 units SQ HS 09/29/24 11/15/24 History [Lantus Solostar Pen] Lidocaine-Prilocaine Cream [Emla 1 applic TOPICAL DIRECTED PRN 11/15/24 11/15/24 History Cream 2.5%/2.5%] Losartan [Cozaar] 50 mg PO HS 11/15/24 11/15/24 History Metoprolol Succinate [Toprol XL] 50 mg PO DAILY 11/15/24 11/15/24 History Ondansetron [Zofran] 4 - 8 mg PO Q4H PRN 11/15/24 11/15/24 History amLODIPine [Norvasc] 5 mg PO DAILY 11/15/24 11/15/24 History traMADol HCL 50 mg PO Q6H PRN 11/15/24 11/15/24 History Allergies Allergy/AdvReac Type Severity Reaction Status Date / Time clindamycin Allergy Rash/Hives Verified 11/15/24 19:08 sulfamethoxazole Allergy Rash/Hives/ Verified 11/15/24 19:08 [From Bactrim] Itching trimethoprim [From Bactrim] Allergy Rash/Hives/ Verified 11/15/24 19:08 Itching Physical Exam Vitals: Vital Signs Temp Pulse Pulse Resp BP BP Pulse Ox 11/16/24 02:00 97.6 F 97 18 151/92 97 11/15/24 20:00 97.6 F 89 14 149/94 97 11/15/24 19:00 68 16 135/96 97 11/15/24 18:52 20 11/15/24 18:01 98 20 157/98 97 11/15/24 17:32 97.3 F L 77 18 152/99 98 Intake and Output 11/15/24 11/16/24 11/16/24 22:59 06:59 14:59 Intake Total 1040 Output Total 600 350 Balance -600 690 Intake: Intake, IV Titration 1040 Amount Sodium Chloride 0.9% 1, 1040 000 ml @ 130 mls/hr IV . [id number] [facility] Rx#:[id number] Output: Urine 600 350 Other: Voiding Method Urinal # Voids 2 Weight 89.358 kg 89.358 kg - Constitutional General appearance: average body habitus, cooperative, no acute distress - EENT Eyes: anicteric sclerae, EOMI ENT: hearing grossly normal, normal oropharynx - Respiratory Respiratory: bilateral: CTA - Cardiovascular Rhythm: regular Abnormal Heart Sounds: no systolic murmur, no diastolic murmur, no rub, no S3 Gallop, no S4 Gallop, no click, no other leg Peripheral Edema: right: Trace, left: None - Gastrointestinal General gastrointestinal: normal bowel sounds, soft - Integumentary Rt groin skin is discolored, sm amt of purulent drainage noted, moderate swelling, pain to the groin, medial thigh about 1/3 distal, and the lateral aspect of of the scrotum - Neurologic Neurologic: CNII-XII intact - Psychiatric Psychiatric: A&O x's 3, appropriate affect, intact judgment & insight Results CBC & Chem 7: 11/16/24 04:49 11/16/24 04:49 Labs: Abnormal Lab Results - Last 24 Hours (Table) 11/15/24 11/15/24 11/16/24 Range/Units 18:01 18:01 04:49 WBC 3.5 L (3.8-10.6) k/uL MCHC 30.8 L (31.0-37.0) g/dL Lymphocytes # 0.9 L (1.0-4.8) k/uL Sodium 136 L 136 L (137-145) mmol/L Glucose 359 H 134 H (74-99) mg/dL POC Glucose (mg/dL) (70-110) mg/dL Calcium 8.2 L (8.4-10.2) mg/dL Total Bilirubin 1.7 H 1.4 H (0.2-1.3) mg/dL Alkaline Phosphatase 173 H 154 H (38-126) U/L 11/16/24 Range/Units 07:40 WBC (3.8-10.6) k/uL MCHC (31.0-37.0) g/dL Lymphocytes # (1.0-4.8) k/uL Sodium (137-145) mmol/L Glucose (74-99) mg/dL POC Glucose (mg/dL) 125 H (70-110) mg/dL Calcium (8.4-10.2) mg/dL Total Bilirubin (0.2-1.3) mg/dL Alkaline Phosphatase (38-126) U/L CT scan - abdomen: report reviewed CT scan - chest: report reviewed CT scan - pelvis: report reviewed Assessment and Plan (1) Cellulitis Current Visit: Yes Status: Acute Priority: High Code(s): L03.90 - CELLULITIS, UNSPECIFIED SNOMED Code(s): 431552834 (2) HCC (hepatocellular carcinoma) Current Visit: Yes Status: Acute Priority: Medium Code(s): C22.0 - LIVER CELL CARCINOMA SNOMED Code(s): 178492994 Plan: Cellulitis -Presenting symptoms, as well as likely provoking event reviewed in HPI -Patient is currently on antibiotics, drainage from the area has been sent for culture -Infectious disease is consulted, pending evaluation and recommendations, will defer treatment of the same to them -Due to patient's extreme response to touching the thigh, CT has been ordered of the right thigh to rule out n. fascitis. HCC -Diagnosis and treatment as documented in HPI -Patient is status post 2 cycles of PD-L1/VEGF inhibitor treatment. Patient reports he feels very well other than some mild fatigue -CT CAP done on admission, compared to scan 08/2024, reporting: no evidence for groin abscess, some mild perineum subcutaneous edema. Enlarging soft tissue deposits throughout the abdomen. Right hepatic lobe segment 4A lesion may be smaller. We do not assess for response to treatment with immunotherapy this soon after initiating treatment. Scans to assess treatment response is typically done after 4-5 cycles. The description of enlarging soft tissue deposits throughout the abdomen is more likely the phenomenon of pseudo progression- immune system response in the area of tumors can make the disease appear to have progressed when, it actually has not. Also, patient is reporting feeling really well, this is more consistent with a patient who is successfully being treated. Plan is to continue with therapy once his acute condition is adequately treated and resolved. Patient agreed with that plan. Doctor attests: I performed a history and physical examination of this patient, developed impression and plan of care. Discussed with dictator. I agree with dictators note, documented as a scribe.
[2024-11-16] MEDS: LOSARTAN 50 MG TAB PO SCH (16:11)
--- NOTE | 2024-11-16 16:19 | US ---
EXAMINATION TYPE: US scrotum with doppler. DATE OF EXAM: 11/16/2024 Exam done portable COMPARISON: NONE CLINICAL INDICATION: Male, 73 years old with history of Scrotal abscess; TECHNIQUE: Grayscale, color Doppler and spectral Doppler imaging of the scrotum. FINDINGS: EXAM MEASUREMENTS: TESTICLES: Right Testicle: 3.9 x 1.8 x 2.8 cm Left Testicle: 3.4 x 1.7 x 2.3 cm EPIDIDYMIS HEAD: Right Epididymis: 1.2 cm Left Epididymis: 1.4 cm Doppler performed to assess for testicular vascularity; good bilateral color flow and spectral wavefo robby are seen. There is no evidence of testicular torsion. Presence of hydroceles: no Presence of varicoceles: no IMPRESSION: There is evidence of scrotal skin thickening without definite abscess. Correlate clinically. [facility], , 11/16/2024 4:16 PM
[2024-11-16 17:03] LABS: Glucose,Whole Blood 251 mg/dL (70-110)
--- NOTE | 2024-11-16 18:15 | P.HPIM ---
History of Present Illness H&P Date: 11/16/24 Chief Complaint: Infected right cellulitis with possible abscess HISTORY OF PRESENT ILLNESS: This is a 73-year-old male with a previous medical history significant for hypertension and hypertensive cardiovascular disease, mixed hyperlipidemia, diabetes mellitus type 2 insulin requiring, history of significant ichthyosis, coronary artery disease under the care of Dr. George, diabetic polyneuropathy, hypothyroidism, enlarged prostate, recently was diagnosed of having metastatic hepatocellular carcinoma has been receiving treatment for hematology oncology and was supposed to get his third cycle of Tercentriq and Avastin but the patient stated to the nurse that he is having draining wound from the right groin so he was sent to my office for evaluation, upon evaluation in the office patient had significant erythema and edema and significant swelling to the right groin area extending to the scrotum and the right testicle was very tender to touch, and there was foul brownish discoloration coming out of the side of the right groin, therefore the patient was sent to the ER for evaluation ended up going for a CT scan of the abdomen pelvis that did not show evidence of any acute abscess but it did show evidence of metastatic hepatitis hepatocellular carcinoma that is known, and the patient was started on IV antibiotic in the form of vancomycin as well as cefepime, infectious ease consultation as well as surgical consultation was obtained, I also consulted hematology oncology since the patient is well-known to them. Blood cultures as well as wound cultures were obtained. REVIEW OF SYSTEMS: Constitutional: positive for documented fever, no chills, no night sweats. positive for weight change. positive for weakness, fatigue or lethargy. No da ytime sleepiness. EENT: No headache. No blurred vision or double vision, no loss of vision. No loss of Hearing, no ringing in the ears, no dizziness. No nasal drainage or congestion. No epistaxis. No sore throat. Lungs: No shortness of breath, no cough, no sputum production. No wheezing. Reports dyspnea with activity. Cardiovascular: No chest pain, no lower extremity edema. No palpitations. No paroxysmal nocturnal dyspnea. No orthopnea. No lightheadedness or dizziness. No syncopal episodes. Abdominal: Reports abdominal pain. No nausea, vomiting. No diarrhea. No constipation. No bloody or tarry stools reports loss of appetite. Genitourinary: No dysuria, increased frequency, urgency. No urinary retention. Musculoskeletal: No myalgias. No muscle weakness, no gait dysfunction, positive for frequent falls. positive for back pain. No neck pain. Integumentary: Right groin swelling with wound draining brown purulent material no lesions. No rash or pruritus. No unusual bruising. No change in hair or nails, positive for calluses Neurologic: No aphasia. No facial droop. No change in mentation. No head injury. No headache. No paralysis. positive for paresthesia. Psychiatric: No depression. No anxiety. No mood swings. Endocrine: positive for abnormal blood sugars. positive for weight change. PAST MEDICAL HISTORY: Coronary artery disease Hypertension and hypertensive cardiovascular disease. Mixed hyperlipidemia. Hypothyroidism. Diabetes mellitus type 2. Diabetic polyneuropathy. Ichthyosis. Vitamin D deficiency. 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 Hepatocellular carcinoma metastatic. Enlarged prostate. PAST SURGICAL HISTORY: Bariatric surgery 2014 Tonsillectomy sebaceous cyst removed from the scalp Sebaceous cyst removed of his back Cholecystectomy. Kidney stone 01/19/2024 Mesenteric mass resection August 2024 Port a catheter September 2024 SOCIAL HISTORY: Lifelong non-smoker, he denies any alcohol ingestion, no drug use or abuse. 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 FAMILY HISTORY: Father at the age of 85 from diabetes complication and also had CAD, mother at the age of 80 from complications of diabetes went blind and she has PAD patient has 5 sisters all diabetic and 3 sons healthy. PHYSICAL EXAMINATION: General: 73-year-old male laying down in bed in no distress. HEENT: Head is atraumatic, normocephalic, pupils were equal round reactive to light and recommendation, extraocular muscle movement were intact, sclera nonicteric, conjunctivae were pale, mucous membranes of the mouth are somewhat dry. Neck: Supple, no JVP, normal carotid upstroke bilaterally, no lymphadenopathy. Chest: Decreased breath sounds at the bases, few rhonchi, no expiratory wheezes, no chest wall tenderness, no intercostal retractions. Heart: First heart sound is normal, second heart sounds normal there is systolic ejection murmur 2 over systolic in the left sternal border. Abdomen: Soft, distended moderate tenderness all over the abdomen, there is significant tenderness to the right groin area extending to the right scrotum and the right testicle with the wound draining brown material. Extremities: There is no edema no calf tenderness DP +2 bilaterally. Neurologic examination: Patient is awake alert and oriented x3, cranial nerves II-12 appear grossly intact, muscle power were 5 out of 5 in upper extremities and 5 out of 5 in bilateral lower extremities, deep tendon reflexes normal brad aterally. ASSESSMENT AND PLAN: 1. Right groin cellulitis with possible abscess formation extending to the right scrotum with sepsis. blood cultures x 2, wound culture, patient was started on vancomycin 500 mg IV every 12 hours, cefepime 2 g piggyback every 12 hours, infectious ease consultation/surgical consultation was obtained continue treatment plan, follow-up with the patient laboratory evaluation in the next 24 hours, continue morphine as needed for pain control. 2. Metastatic hepatocellular carcinoma status post a recent CT scan of the chest abdomen pelvis that showed enlarging conglomerate mass in the mesentery patient was supposed to get his third cycle of Avastin and Tercentriq yesterday and that was put on hold due to the infection and cellulitis of the right groin area continue IV antibiotic, consult hematology oncology. 3. Hypertension and hypertensive cardiovascular disease. Continue patient on losartan 50 mg once every day, amlodipine 5 mg once every day, metoprolol ER 50 mg once every day monitor the patient blood pressure very closely. 4. Mixed hyperlipidemia patient is not taking any statin at this point in time. 5. Diabetes mellitus type II. Continue patient on Lantus 30 units at bedtime along with a sliding scale insulin. 6. History of hypothyroidism currently off thyroid replacement therapy. 7. 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 Continue current pain management. 8. History of ichthyosis and dry skin. Stable at this time. 9. Diabetic polyneuropathy. Controlled diabetes. Patient was not able to tolerate Lyrica. 10. DVT prophylaxis. Lovenox 40 mg subcutaneous every 24 hours. 11. GI prophylaxis. Famotidine 20 mg orally twice every day. 12. Admit to inpatient. Estimated length of stay 2 midnights 13. Patient is full code. Past Medical History Past Medical History: Cancer, Diabetes Mellitus, Eye Disorder, GERD/Reflux, Hypertension, Osteoarthritis (OA), Skin Disorder, Sleep Apnea/CPAP/BIPAP, Thyroid Disorder Additional Past Medical History / Comment(s): No longer has sleep apena. Limps due to broken left foot in the past that didn't heal properly. Diabetic Retinopathy and Neuropathy. UMBILICAL HERNIA. Legally blind. Chronic back pain. Fatty liver. Hx kidney stones. States possibly adhesions now. Heptacellular carcinoma History of Any Multi-Drug Resistant Organisms: None Reported Past Surgical History: Bariatric Surgery, Cholecystectomy Additional Past Surgical History / Comment(s): Liver biopsy. Pilonidal cyst. Cysts removed from head. Cataract & Retinopathy surgery. Tala-en-Y. Pain procedures, Kidney stone sx/ureteral stenting with removal last 06/2024, colonoscopy. Tumor removal, lysis of adhesions Past Anesthesia/Blood Transfusion Reactions: No Reported Reaction Past Psychological History: No Psychological Hx Reported Smoking Status: Never smoker Past Alcohol Use History: Occasional Additional Past Alcohol Use History / Comment(s): Patient is a lifelong nonsmoker. No medical marijuana, marijuana or street drug use. Patient drinks alcohol rarely. He is a retired nurse. He lives at home with his . Past Drug Use History: Marijuana Additional Drug Use History / Comment(s): THC- no use 24 hrs prior - Past Family History Father Family Medical History: Diabetes Mellitus, Deep Vein Thrombosis (DVT) Mother Family Medical History: Cancer, Diabetes Mellitus Additional Family Medical History / Comment(s): thyroid Sister(s) Family Medical History: Cancer, Diabetes Mellitus Additional Family Medical History / Comment(s): Uterine Cancer, Lupus, Bipolar Disorder. Medications and Allergies Home Medications Medication Instructions Recorded Confirmed Type Aspirin EC [Ecotrin Low Dose] 81 mg PO HS 01/02/23 11/15/24 History Insulin Glargine,Hum.rec.anlog 30 units SQ HS 09/29/24 11/15/24 History [Lantus Solostar Pen] Lidocaine-Prilocaine Cream [Emla 1 applic TOPICAL DIRECTED PRN 11/15/24 11/15/24 History Cream 2.5%/2.5%] Losartan [Cozaar] 50 mg PO HS 11/15/24 11/15/24 History Metoprolol Succinate [Toprol XL] 50 mg PO DAILY 11/15/24 11/15/24 History Ondansetron [Zofran] 4 - 8 mg PO Q4H PRN 11/15/24 11/15/24 History amLODIPine [Norvasc] 5 mg PO DAILY 11/15/24 11/15/24 History traMADol HCL 50 mg PO Q6H PRN 11/15/24 11/15/24 History Allergies Allergy/AdvReac Type Severity Reaction Status Date / Time clindamycin Allergy Rash/Hives Verified 11/15/24 19:08 sulfamethoxazole Allergy Rash/Hives/ Verified 11/15/24 19:08 [From Bactrim] Itching trimethoprim [From Bactrim] Allergy Rash/Hives/ Verified 11/15/24 19:08 Itching Physical Exam Vitals: Vital Signs Temp Pulse Pulse Resp BP BP Pulse Ox 11/16/24 02:00 97.6 F 97 18 151/92 97 11/15/24 20:00 97.6 F 89 14 149/94 97 11/15/24 19:00 68 16 135/96 97 11/15/24 18:52 20 11/15/24 18:01 98 20 157/98 97 11/15/24 17:32 97.3 F L 77 18 152/99 98 Intake and Output 11/15/24 11/15/24 11/16/24 14:59 22:59 06:59 Intake Total 1040 Output Total 600 350 Balance -600 690 Intake: Intake, IV Titration 1040 Amount Sodium Chloride 0.9% 1, 1040 000 ml @ 130 mls/hr IV . [id number] [facility] Rx#:[id number] Output: Urine 600 350 Other: Voiding Method Urinal # Voids 2 Weight 89.358 kg 89.358 kg Results CBC & Chem 7: 11/15/24 18:01 11/16/24 04:49 Labs: Abnormal Lab Results - Last 24 Hours (Table) 11/15/24 11/15/24 11/16/24 Range/Units 18:01 18:01 04:49 WBC 3.5 L (3.8-10.6) k/uL MCHC 30.8 L (31.0-37.0) g/dL Lymphocytes # 0.9 L (1.0-4.8) k/uL Sodium 136 L 136 L (137-145) mmol/L Glucose 359 H 134 H (74-99) mg/dL Calcium 8.2 L (8.4-10.2) mg/dL Total Bilirubin 1.7 H 1.4 H (0.2-1.3) mg/dL Alkaline Phosphatase 173 H 154 H (38-126) U/L Thrombosis Risk Factor Assmnt - Choose All That Apply Any of the Below Risk Factors Present?: Yes Each Factor Represents 1 point: Obesity (BMI >25) Other Risk Factors: Yes Each Risk Factor Represents 2 Points: Age 61-74 years, Malignancy Other congenital or acquired thrombophilia - If yes, enter type in comment: No Thrombosis Risk Factor Assessment Total Risk Factor Score: 5 Thrombosis Risk Factor Assessment Level: High Risk
--- NOTE | 2024-11-16 18:23 | P.GSCN ---
History of Present Illness Consult date: 11/16/24 Reason for Consult: Right groin cellulitis Requesting physician: Carmella Senior History of present illness: The patient is a 73-year-old white male who fell approximately 10 days ago, sustaining blunt trauma to the scrotum. He states that his scrotum swelled significantly and became painful. It began draining 2 to 3 days ago, and he states that the swelling is significantly diminished. He continues to experience right groin discomfort which increases with contact and movement. He is unsure whether or not he has had a fever, and he believes he did experience a very transient episode of chills at 1 point. He has had no prior similar episodes. His medical history is significant for diabetes mellitus and hep atocellular carcinoma. Review of Systems - Constitutional Reports as per HPI Past Medical History Past Medical History: Cancer, Diabetes Mellitus, Eye Disorder, GERD/Reflux, Hypertension, Osteoarthritis (OA), Skin Disorder, Sleep Apnea/CPAP/BIPAP, Thyroid Disorder Additional Past Medical History / Comment(s): No longer has sleep apena. Limps due to broken left foot in the past that didn't heal properly. Diabetic Retinopathy and Neuropathy. UMBILICAL HERNIA. Legally blind. Chronic back pain. Fatty liver. Hx kidney stones. States possibly adhesions now. Heptacellular carcinoma History of Any Multi-Drug Resistant Organisms: None Reported Past Surgical History: Bariatric Surgery, Cholecystectomy Additional Past Surgical History / Comment(s): Liver biopsy. Pilonidal cyst. Cysts removed from head. Cataract & Retinopathy surgery. Tala-en-Y. Pain procedures, Kidney stone sx/ureteral stenting with removal last 06/2024, colonoscopy. Tumor removal, lysis of adhesions Past Anesthesia/Blood Transfusion Reactions: No Reported Reaction Past Psychological History: No Psychological Hx Reported Smoking Status: Never smoker Past Alcohol Use History: Occasional Additional Past Alcohol Use History / Comment(s): Patient is a lifelong nonsmoker. No medical marijuana, marijuana or street drug use. Patient drinks alcohol rarely. He is a retired nurse. He lives at home with his . Past Drug Use History: Marijuana Additional Drug Use History / Comment(s): THC- no use 24 hrs prior - Past Family History Father Family Medical History: Diabetes Mellitus, Deep Vein Thrombosis (DVT) Mother Family Medical History: Cancer, Diabetes Mellitus Additional Family Medical History / Comment(s): thyroid Sister(s) Family Medical History: Cancer, Diabetes Mellitus Additional Family Medical History / Comment(s): Uterine Cancer, Lupus, Bipolar Disorder. Medications and Allergies Home Medications Medication Instructions Recorded Confirmed Type Aspirin EC [Ecotrin Low Dose] 81 mg PO HS 01/02/23 11/15/24 History Insulin Glargine,Hum.rec.anlog 30 units SQ HS 09/29/24 11/15/24 History [Lantus Solostar Pen] Lidocaine-Prilocaine Cream [Emla 1 applic TOPICAL DIRECTED PRN 11/15/24 11/15/24 History Cream 2.5%/2.5%] Losartan [Cozaar] 50 mg PO HS 11/15/24 11/15/24 History Metoprolol Succinate [Toprol XL] 50 mg PO DAILY 11/15/24 11/15/24 History Ondansetron [Zofran] 4 - 8 mg PO Q4H PRN 11/15/24 11/15/24 History amLODIPine [Norvasc] 5 mg PO DAILY 11/15/24 11/15/24 History traMADol HCL 50 mg PO Q6H PRN 11/15/24 11/15/24 History Allergies Allergy/AdvReac Type Severity Reaction Status Date / Time clindamycin Allergy Rash/Hives Verified 11/15/24 19:08 sulfamethoxazole Allergy Rash/Hives/ Verified 11/15/24 19:08 [From Bactrim] Itching trimethoprim [From Bactrim] Allergy Rash/Hives/ Verified 11/15/24 19:08 Itching Surgical - Exam Vital Signs Temp Pulse Resp BP Pulse Ox 97.3 F L 77 18 152/99 98 11/15/24 17:32 11/15/24 17:32 11/15/24 17:32 11/15/24 17:32 11/15/24 17:32 - General well developed, well nourished, no distress - Respiratory normal respiratory effort - Genitourinary Normal phallus, normal testes. The left hemiscrotum is normal. At the lateral aspect of the right hemiscrotum, near the groin crease, there is an opening measuring approximately 5 mm in size. A minimal degree of purulent drainage is noted. There is no fluctuance or cellulitis. - Psychiatric oriented to time, oriented to person, oriented to place, speech is normal, memory intact Results - Labs 11/16/24 04:49 11/16/24 04:49 Abnormal Lab Results - Last 24 Hours (Table) 11/15/24 11/15/24 11/16/24 Range/Units 18:01 18:01 04:49 WBC 3.5 L (3.8-10.6) k/uL Hgb (13.0-17.0) g/dL Hct (39.6-50.0) % MCH (27.0-32.0) pg MCHC 30.8 L (31.0-37.0) g/dL Lymphocytes # 0.9 L (1.0-4.8) k/uL Sodium 136 L 136 L (137-145) mmol/L Glucose 359 H 134 H (74-99) mg/dL POC Glucose (mg/dL) (70-110) mg/dL Calcium 8.2 L (8.4-10.2) mg/dL Total Bilirubin 1.7 H 1.4 H (0.2-1.3) mg/dL Alkaline Phosphatase 173 H 154 H (38-126) U/L 11/16/24 11/16/24 11/16/24 Range/Units 04:49 07:40 12:32 WBC 3.50 L (3.8-10.6) k/uL Hgb 12.1 L (13.0-17.0) g/dL Hct 37.9 L (39.6-50.0) % MCH 26.1 L (27.0-32.0) pg MCHC 31.9 L (31.0-37.0) g/dL Lymphocytes # (1.0-4.8) k/uL Sodium (137-145) mmol/L Glucose (74-99) mg/dL POC Glucose (mg/dL) 125 H 173 H (70-110) mg/dL Calcium (8.4-10.2) mg/dL Total Bilirubin (0.2-1.3) mg/dL Alkaline Phosphatase (38-126) U/L Diabetes panel 11/15/24 11/16/24 Range/Units 18:01 04:49 Sodium 136 L 136 L (137-145) mmol/L Potassium 4.9 3.6 (3.5-5.1) mmol/L Chloride 99 101 (98-107) mmol/L Carbon Dioxide 26 24 (22-30) mmol/L BUN 20 16 (9-20) mg/dL Creatinine 0.98 0.78 (0.66-1.25) mg/dL Glucose 359 H 134 H (74-99) mg/dL Calcium 8.6 8.2 L (8.4-10.2) mg/dL AST 26 24 (17-59) U/L ALT 18 15 (4-49) U/L Alkaline Phosphatase 173 H 154 H (38-126) U/L Total Protein 7.3 6.3 (6.3-8.2) g/dL Albumin 4.4 3.6 (3.5-5.0) g/dL Calcium panel 11/15/24 11/16/24 Range/Units 18:01 04:49 Calcium 8.6 8.2 L (8.4-10.2) mg/dL Albumin 4.4 3.6 (3.5-5.0) g/dL Pituitary panel 11/15/24 11/16/24 Range/Units 18:01 04:49 Sodium 136 L 136 L (137-145) mmol/L Potassium 4.9 3.6 (3.5-5.1) mmol/L Chloride 99 101 (98-107) mmol/L Carbon Dioxide 26 24 (22-30) mmol/L BUN 20 16 (9-20) mg/dL Creatinine 0.98 0.78 (0.66-1.25) mg/dL Glucose 359 H 134 H (74-99) mg/dL Calcium 8.6 8.2 L (8.4-10.2) mg/dL Adrenal panel 11/15/24 11/16/24 Range/Units 18:01 04:49 Sodium 136 L 136 L (137-145) mmol/L Potassium 4.9 3.6 (3.5-5.1) mmol/L Chloride 99 101 (98-107) mmol/L Carbon Dioxide 26 24 (22-30) mmol/L BUN 20 16 (9-20) mg/dL Creatinine 0.98 0.78 (0.66-1.25) mg/dL Glucose 359 H 134 H (74-99) mg/dL Calcium 8.6 8.2 L (8.4-10.2) mg/dL Total Bilirubin 1.7 H 1.4 H (0.2-1.3) mg/dL AST 26 24 (17-59) U/L ALT 18 15 (4-49) U/L Alkaline Phosphatase 173 H 154 H (38-126) U/L Total Protein 7.3 6.3 (6.3-8.2) g/dL Albumin 4.4 3.6 (3.5-5.0) g/dL - Imaging CT scan - abdomen: report reviewed, image reviewed Assessment and Plan Plan: Findings are consistent with a spontaneously draining groin abscess. Cultures have been sent, and the patient is receiving cefepime. I reviewed the CT scan, which does not show a fluid collection. I intend to perform a bedside incision and drainage tomorrow to simply increase the size of the wound to enhance drainage and to allow the wound to be packed with iodoform gauze. Time with Patient: Greater than 30
[2024-11-16 20:32] LABS: Glucose,Whole Blood 147 mg/dL (70-110)
[2024-11-16] MEDS: traMADol 50 MG TAB PO PRN (22:01)
--- NOTE | 2024-11-16 23:20 | P.CONS ---
History of Present Illness - Reason for Consult Consult date: 11/16/24 Cellulitis Requesting physician: Benjamín Lamb - Chief Complaint Right groin pain and swelling x days - History of Present Illness Patient is a 73-year-old male with a past medical history significant for Diabetes Mellitus, Eye Disorder, GERD/Reflux, Hypertension, Osteoarthritis (OA), Skin Disorder, Sleep Apnea/CPAP/BIPAP, Thyroid Disorder recently did have a ground-level fall with injuries mostly to the right side of her body patient mention since then has developed right groin area swelling and pain that has been getting worse progressively over the last 10 days describing the pain to be sharp almost 9-10 severity without any additional associated swelling redness and did have some drainage with the send the patient presented to hospital on arrival to the patient was afebrile no fever have been called subsequently patient was not tachycardic hypotensive or hypoxic patient did have vital of 3.5 creatinine has been normal bilirubin mildly elevated patient did have chest and abdominal pelvis CT no evidence for the groin abscess mild perineum subcutaneous edema involving soft tissue deposits throughout the abdomen patient has been admitted to the hospital started on cefepime and vancomycin infectious disease was consulted for further management of antibiotic therapy Review of Systems Positive point and negatives has been mentioned in the HPI, complete review of systems was performed and all other systems are negative Past Medical History Past Medical History: Cancer, Diabetes Mellitus, Eye Disorder, GERD/Reflux, Hypertension, Osteoarthritis (OA), Skin Disorder, Sleep Apnea/CPAP/BIPAP, Thyroid Disorder Additional Past Medical History / Comment(s): No longer has sleep apena. Limps due to broken left foot in the past that didn't heal properly. Diabetic Retinopathy and Neuropathy. UMBILICAL HERNIA. Legally blind. Chronic back pain. Fatty liver. Hx kidney stones. States possibly adhesions now. Heptacellular carcinoma History of Any Multi-Drug Resistant Organisms: None Reported Past Surgical History: Bariatric Surgery, Cholecystectomy Additional Past Surgical History / Comment(s): Liver biopsy. Pilonidal cyst. Cysts removed from head. Cataract & Retinopathy surgery. Tala-en-Y. Pain procedures, Kidney stone sx/ureteral stenting with removal last 06/2024, colonos copy. Tumor removal, lysis of adhesions Past Anesthesia/Blood Transfusion Reactions: No Reported Reaction Past Psychological History: No Psychological Hx Reported Smoking Status: Never smoker Past Alcohol Use History: Occasional Additional Past Alcohol Use History / Comment(s): Patient is a lifelong nonsmoker. No medical marijuana, marijuana or street drug use. Patient drinks alcohol rarely. He is a retired nurse. He lives at home with his . Past Drug Use History: Marijuana Additional Drug Use History / Comment(s): THC- no use 24 hrs prior - Past Family History Father Family Medical History: Diabetes Mellitus, Deep Vein Thrombosis (DVT) Mother Family Medical History: Cancer, Diabetes Mellitus Additional Family Medical History / Comment(s): thyroid Sister(s) Family Medical History: Cancer, Diabetes Mellitus Additional Family Medical History / Comment(s): Uterine Cancer, Lupus, Bipolar Disorder. Medications and Allergies Home Medications Medication Instructions Recorded Confirmed Type Aspirin EC [Ecotrin Low Dose] 81 mg PO HS 01/02/23 11/15/24 History Insulin Glargine,Hum.rec.anlog 30 units SQ HS 09/29/24 11/15/24 History [Lantus Solostar Pen] Lidocaine-Prilocaine Cream [Emla 1 applic TOPICAL DIRECTED PRN 11/15/24 11/15/24 History Cream 2.5%/2.5%] Losartan [Cozaar] 50 mg PO HS 11/15/24 11/15/24 History Metoprolol Succinate [Toprol XL] 50 mg PO DAILY 11/15/24 11/15/24 History Ondansetron [Zofran] 4 - 8 mg PO Q4H PRN 11/15/24 11/15/24 History amLODIPine [Norvasc] 5 mg PO DAILY 11/15/24 11/15/24 History traMADol HCL 50 mg PO Q6H PRN 11/15/24 11/15/24 History Allergies Allergy/AdvReac Type Severity Reaction Status Date / Time clindamycin Allergy Rash/Hives Verified 11/15/24 19:08 sulfamethoxazole Allergy Rash/Hives/ Verified 11/15/24 19:08 [From Bactrim] Itching trimethoprim [From Bactrim] Allergy Rash/Hives/ Verified 11/15/24 19:08 Itching Physical Exam Vitals: Vital Signs Temp Pulse Pulse Resp BP BP BP 11/16/24 13:49 88 147/97 11/16/24 13:15 97.4 F L 80 19 141/97 11/16/24 08:00 98 F 78 18 149/88 03/18/25 02:00 97.6 F 97 18 151/92 11/15/24 20:00 97.6 F 89 14 149/94 11/15/24 19:00 68 16 135/96 11/15/24 18:52 20 11/15/24 18:01 98 20 157/98 11/15/24 17:32 97.3 F L 77 18 152/99 Pulse Ox 11/16/24 13:49 11/16/24 13:15 97 11/16/24 08:00 97 11/16/24 02:00 97 11/15/24 20:00 97 11/15/24 19:00 97 11/15/24 18:52 11/15/24 18:01 97 11/15/24 17:32 98 Intake and Output 11/16/24 11/16/24 11/16/24 06:59 14:59 22:59 Intake Total 1040 780 Output Total 350 Balance 690 780 Intake: Intake, IV Titration 1040 Amount Sodium Chloride 0.9% 1, 1040 000 ml @ 100 mls/hr IV . Q10H [facility] Rx#:[id number] Oral 780 Output: Urine 350 Other: Voiding Method Toilet Urinal # Voids 2 2 # Bowel Movements 1 Weight 89.358 kg GENERAL DESCRIPTION: Elderly male lying in bed, no distress. No tachypnea or a ccessory muscle of respiration use. HEENT: Shows Pallor , no scleral icterus. Oral mucous membrane is dry. No pharyngeal erythema or thrush NECK: Trachea central, no thyromegaly. LUNGS: Unlabored breathing. Clear to auscultation anteriorly. No wheeze or crackle. HEART: S1, S2, regular rate and rhythm. No loud murmur ABDOMEN: Soft, no tenderness , guarding or rigidity, no organomegaly EXTREMITIES: Right groin/scrotal area did have swelling and redness with some drainage SKIN: No rash, no masses palpable. NEUROLOGICAL: The patient is awake, alert, oriented x3, mood and affect normal. Results CBC & Chem 7: 11/16/24 04:49 11/16/24 04:49 Labs: Abnormal Lab Results - Last 24 Hours (Table) 11/15/24 11/15/24 11/16/24 Range/Units 18:01 18:01 04:49 WBC 3.5 L (3.8-10.6) k/uL Hgb (13.0-17.0) g/dL Hct (39.6-50.0) % MCH (27.0-32.0) pg MCHC 30.8 L (31.0-37.0) g/dL Lymphocytes # 0.9 L (1.0-4.8) k/uL Sodium 136 L 136 L (137-145) mmol/L Glucose 359 H 134 H (74-99) mg/dL POC Glucose (mg/dL) (70-110) mg/dL Calcium 8.2 L (8.4-10.2) mg/dL Total Bilirubin 1.7 H 1.4 H (0.2-1.3) mg/dL Alkaline Phosphatase 173 H 154 H (38-126) U/L 11/16/24 11/16/24 11/16/24 Range/Units 04:49 07:40 12:32 WBC 3.50 L (3.8-10.6) k/uL Hgb 12.1 L (13.0-17.0) g/dL Hct 37.9 L (39.6-50.0) % MCH 26.1 L (27.0-32.0) pg MCHC 31.9 L (31.0-37.0) g/dL Lymphocytes # (1.0-4.8) k/uL Sodium (137-145) mmol/L Glucose (74-99) mg/dL POC Glucose (mg/dL) 125 H 173 H (70-110) mg/dL Calcium (8.4-10.2) mg/dL Total Bilirubin (0.2-1.3) mg/dL Alkaline Phosphatase (38-126) U/L Assessment and Plan (1) Cellulitis of groin, right Current Visit: Yes Status: Acute Code(s): L03.314 - CELLULITIS OF GROIN SNOMED Code(s): 04785031 (2) Allergy to multiple antibiotics Current Visit: Yes Status: Acute Code(s): Z88.1 - ALLERGY STATUS TO OTHER ANTIBIOTIC AGENTS SNOMED Code(s): 584487796 Plan: 1patient presented to hospital with increasing pain swelling to the right foot area in this patient who did have a developing abscess with spontaneous drainage will need to cover for the gram-positive skin den as well as enteric gram- negative pathogen with swelling of the scrotal area 2-we will obtain a scrotal ultrasound to make sure evidence of any scrotal abscess 3-patient with multiple antibiotic ALLERGIES that would limit the number of antibiotic safe to use 4-patient is empirically covered with vancomycin and cefepime to continue while waiting for the culture to finalize We will follow on clinical condition and cultures to further adjust medication if needed Thank you for this consultation we will follow the patient along with you Dictation was produced using [employer] dictation software. please excuse any grammatical, word or spelling errors. Time with Patient: Greater than 30
[2024-11-17 07:40] LABS: Glucose,Whole Blood 77 mg/dL (70-110)
[2024-11-17 08:44] LABS: Basophils # (A) 0.04 X 10*3/uL (0.00-0.10); Basophils % (A) 1.2 %; Eosinophils # (A) 0.11 X 10*3/uL (0.04-0.35); Eosinophils % (A) 3.2 %; HGB 11.5 g/dL (13.0-17.0); Lymphocytes # (A) 1.05 X 10*3/uL (0.90-5.00); Lymphocytes % (A) 30.3 %; MCH 26.5 pg (27.0-32.0); MCHC 32.9 g/dL (32.0-37.0); MCV 80.6 FL (80.0-97.0); Mean Platelet Volume 9.5 FL (9.5-12.2); Monocytes # (A) 0.39 X 10*3/uL (0.20-1.00); Monocytes % (A) 11.2 %; NRBC Per 100 WBC 0 X 10*3/uL (0.00-0.01); Neutrophils # (A) 1.86 X 10*3/uL (1.80-7.70); Neutrophils % (A) 53.5 %; Platelet Count 182 X 10*3/uL (140-440); RBC 4.34 X 10*6/uL (4.40-5.60); RDW 13.8 % (11.5-14.5); WBC 3.47 X 10*3/uL (4.50-10.00)
[2024-11-17 09:02] LABS: ALT 15 U/L (10-49); AST 22 U/L (14-35); Albumin 3.7 g/dL (3.8-4.9); Albumin/Globulin Ratio 1.76 Ratio (1.60-3.17); Alkaline Phosphatase 163 U/L (41-126); Blood Urea Nitrogen 16.6 mg/dL (9.0-27.0); Chloride 106 mmol/L (96-109); Globulin 2.1 g/dL (1.6-3.3); Glucose 106 mg/dL (70-110); Potassium 3.7 mmol/L (3.5-5.5); Sodium 141 mmol/L (135-145); Total Bilirubin 0.9 mg/dL (0.3-1.2); Total Protein 5.8 g/dL (6.2-8.2)
--- NOTE | 2024-11-17 10:37 | P.PN ---
Subjective Progress Note Date: 11/17/24 CHIEF COMPLAINT: Right groin cellulitis HISTORY OF PRESENT ILLNESS: Patient continues to have drainage from the right groin cellulitis. He does report some decrease in pain and swelling. Patient had a scrotal ultrasound completed that reported no definite abscess. CT scan of femur reported right scrotal edema and no evidence of fluid collection. Preliminary culture growing E. coli. WBC 3.47 PHYSICAL EXAM: VITAL SIGNS: Reviewed GENERAL: Well-developed in no acute distress. HEENT: No sclera icterus. Extraocular movements grossly intact. Moist buccal mucosa. Head is atraumatic, normocephalic. Hears conversational speech. No nasal drainage. NECK: Supple without lymphadenopathy. CHEST: Non-labored respirations and equal bilateral excursions. CARDIOVASCULAR: Palpable 2+ radial pulses. ABDOMEN: Soft. Nondistended. Nontender. MUSCULOSKELETAL: No clubbing or cyanosis. NEUROLOGIC: No focal or lateralizing signs. Cranial nerves II through XII grossly intact. PSYCH: Appropriate affect. Alert and oriented to person, place and time. ASSESSMENT: 1. Right groin cellulitis and abscess spontaneously draining 2. Diabetes mellitus 3. Metastatic hepatocellular cancer on chemo PLAN: -Urology consult appreciated. They are planning a bedside incision and drainage today. -Antibiotics per ID service -Continue supportive care Physician Pharmaceutical Worker note has been reviewed by physician. Signing provider agrees with the documented findings, assessment, and plan of care. Objective - Vital Signs Vital signs: Vital Signs Temp 97.4 F L 11/17/24 08:00 Pulse 67 11/17/24 08:00 Resp 20 11/17/24 08:00 BP 167/90 11/17/24 08:00 Pulse Ox 97 11/17/24 08:00 FiO2 Intake & Output 11/16/24 11/17/24 11/17/24 18:59 06:59 18:59 Intake Total 2040 1700 120 Balance 2040 1700 120 Intake: Intake, IV Titration 1700 Amount Cefepime 2 gm In Sodium 100 Chloride 0.9% 100 ml @ 25 mls/hr IVPB Q8HR [facility] Rx# :[id number] Sodium Chloride 0.9% 1, 1100 000 ml @ 100 mls/hr IV . Q10H [facility] Rx#:[id number] Vancomycin 1,500 mg In 500 Sodium Chloride 0.9% 500 ml 500 ml @ 167 mls/hr IVPB Q12H [facility] Rx#: [id number] Oral 2040 120 Other: Voiding Method Toilet Toilet Toilet Urinal Urinal Urinal # Voids 2 1 # Bowel Movements 1 - Labs CBC & Chem 7: 11/17/24 03:36 11/17/24 03:36 Labs: Abnormal Lab Results - Last 24 Hours (Table) 11/16/24 11/16/24 11/16/24 Range/Units 12:32 17:02 20:29 WBC (4.50-10.00) X 10*3/uL RBC (4.40-5.60) X 10*6/uL Hgb (13.0-17.0) g/dL Hct (39.6-50.0) % MCH (27.0-32.0) pg POC Glucose (mg/dL) 173 H 251 H 147 H (70-110) mg/dL Calcium (8.7-10.3) mg/dL Alkaline Phosphatase (41-126) U/L Total Protein (6.2-8.2) g/dL Albumin (3.8-4.9) g/dL 11/17/24 11/17/24 Range/Units 03:36 03:36 WBC 3.47 L (4.50-10.00) X 10*3/uL RBC 4.34 L (4.40-5.60) X 10*6/uL Hgb 11.5 L (13.0-17.0) g/dL Hct 35.0 L (39.6-50.0) % MCH 26.5 L (27.0-32.0) pg POC Glucose (mg/dL) (70-110) mg/dL Calcium 8.0 L (8.7-10.3) mg/dL Alkaline Phosphatase 163 H (41-126) U/L Total Protein 5.8 L (6.2-8.2) g/dL Albumin 3.7 L (3.8-4.9) g/dL Microbiology - Last 24 Hours (Table) 11/15/24 18:10 Blood Culture - Preliminary Blood 11/15/24 18:01 Gram Stain - Preliminary Groin Wound Culture - Preliminary Escherichia coli
[2024-11-17 12:39] LABS: Glucose,Whole Blood 105 mg/dL (70-110)
--- NOTE | 2024-11-17 14:19 | P.PN ---
Subjective Progress Note Date: 11/17/24 HISTORY OF PRESENT ILLNESS: This is a 73-year-old male with a previous medical history significant for hypertension and hypertensive cardiovascular disease, mixed hyperlipidemia, diabetes mellitus type 2 insulin requiring, history of significant ichthyosis, coronary artery disease under the care of Dr. George, diabetic polyneuropathy, hypothyroidism, enlarged prostate, recently was diagnosed of having metastatic hepatocellular carcinoma has been receiving treatment for hematology oncology a nd was supposed to get his third cycle of Tercentriq and Avastin but the patient stated to the nurse that he is having draining wound from the right groin so he was sent to my office for evaluation, upon evaluation in the office patient had significant erythema and edema and significant swelling to the right groin area extending to the scrotum and the right testicle was very tender to touch, and t here was foul brownish discoloration coming out of the side of the right groin, therefore the patient was sent to the ER for evaluation ended up going for a CT scan of the abdomen pelvis that did not show evidence of any acute abscess but it did show evidence of metastatic hepatitis hepatocellular carcinoma that is known, and the patient was started on IV antibiotic in the form of vancomycin as well as cefepime, infectious ease consultation as well as surgical consultation was obtained, I also consulted hematology oncology since the patient is well- known to them. Blood cultures as well as wound cultures were obtained. 11/17: Patient is laying down in bed in no apparent distress, his pain and swelling of the right groin area is a lot better, he continued to have some yellowish drainage coming out of the area, ultrasound of the scrotum did not show evidence of any acute abnormalities, CT scan of the right lower extremity that was ordered by hematology oncology was negative, except for osteoarthritis, patient will be seen by urology, he will be going for I&D of the abscess of the right groin area, continue IV antibiotic in the form of vancomycin 500 mg IV piggyback every 12 hours, continue cefepime 2 g IV piggyback every 8 hours, follow-up with the patient very closely. Decrease IV fluid to KVO, I will increase his amlodipine to 5 mg orally twice every day to optimize his blood pressure. REVIEW OF SYSTEMS: Constitutional: positive for documented fever, no chills, no night sweats. positive for weight change. positive for weakness, fatigue or lethargy. No daytime sleepiness. EENT: No headache. No blurred vision or double vision, no loss of vision. No loss of Hearing, no ringing in the ears, no dizziness. No nasal drainage or congestion. No epistaxis. No sore throat. Lungs: No shortness of breath, no cough, no sputum production. No wheezing. Reports dyspnea with activity. Cardiovascular: No chest pain, no lower extremity edema. No palpitations. No paroxysmal nocturnal dyspnea. No orthopnea. No lightheadedness or dizziness. No syncopal episodes. Abdominal: Reports abdominal pain. No nausea, vomiting. No diarrhea. No constipation. No bloody or tarry stools reports loss of appetite. Genitourinary: No dysuria, increased frequency, urgency. No urinary retention. Musculoskeletal: No myalgias. No muscle weakness, no gait dysfunction, positive for frequent falls. positive for back pain. No neck pain. Integumentary: Right groin swelling with wound draining brown purulent material no lesions. No rash or pruritus. No unusual bruising. No change in hair or nails, positive for calluses Neurologic: No aphasia. No facial droop. No change in mentation. No head injury. No headache. No paralysis. positive for paresthesia. Psychiatric: No depression. No anxiety. No mood swings. Endocrine: positive for abnormal blood sugars. positive for weight change. PHYSICAL EXAMINATION: General: 73-year-old male laying down in bed in no distress. HEENT: Head is atraumatic, normocephalic, pupils were equal round reactive to light and recommendation, extraocular muscle movement were intact, sclera nonicteric, conjunctivae were pale, mucous membranes of the mouth are somewhat dry. Neck: Supple, no JVP, normal carotid upstroke bilaterally, no lymphadenopathy. Chest: Decreased breath sounds at the bases, few rhonchi, no expiratory wheezes, no chest wall tenderness, no intercostal retractions. Heart: First heart sound is normal, second heart sounds normal there is systolic ejection murmur 2 over systolic in the left sternal border. Abdomen: Soft, distended moderate tenderness all over the abdomen, there is significant tenderness to the right groin area extending to the right scrotum and the right testicle with the wound draining brown material. Extremities: There is no edema no calf tenderness DP +2 bilaterally. Neurologic examination: Patient is awake alert and oriented x3, cranial nerves II-12 appear grossly intact, muscle power were 5 out of 5 in upper extremities and 5 out of 5 in bilateral lower extremities, deep tendon reflexes normal bilaterally. ASSESSMENT AND PLAN: 1. Right groin cellulitis with possible abscess formation extending to the right scrotum with sepsis. Continue patient on vancomycin 500 mg IV piggyback every 12 hours, continue cefepime 2 g IV piggyback every 8 hours, blood cultures so far are negative, wound culture so far showing E. coli, we will continue to monitor the patient very closely, he is going for an I&D at the bedside with Dr. Connelly today, infectious disease consultation appreciated, we will continue to follow-up the patient progression. Likely will be going home with home health care. 2. Metastatic hepatocellular carcinoma status post a recent CT scan of the chest abdomen pelvis that showed enlarging conglomerate mass in the mesentery patient was supposed to get his third cycle of Avastin and Tercentriq yesterday and that was put on hold due to the infection and cellulitis of the right groin area continue IV antibiotic, hematology oncology consultation appreciated. 3. Hypertension and hypertensive cardiovascular disease. Continue patient on losartan 50 mg orally twice every day, amlodipine 5 mg twice every day, metoprolol ER 50 mg once every day monitor the patient blood pressure very closely. 4. Mixed hyperlipidemia patient is not taking any statin at this point in time. 5. Diabetes mellitus type II. Continue patient on Lantus 30 units at bedtime along with a sliding scale insulin. 6. History of hypothyroidism currently off thyroid replacement therapy. 7. 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 Continue current pain management. 8. History of ichthyosis and dry skin. Stable at this time. 9. Diabetic polyneuropathy. Controlled diabetes. Patient was not able to tolerate Lyrica. 10. DVT prophylaxis. Lovenox 40 mg subcutaneous every 24 hours. 11. GI prophylaxis. Famotidine 20 mg orally twice every day. 12. Physical therapy evaluation. 13. commissary worker consultation for discharge planning. 14. Plan is for home with home health care. Objective - Vital Signs Vital signs: Vital Signs Temp 97.4 F L 11/17/24 08:00 Pulse 60 11/17/24 10:45 Resp 20 11/17/24 08:00 BP 149/80 11/17/24 10:45 Pulse Ox 97 11/17/24 08:00 FiO2 Intake & Output 11/16/24 11/17/24 11/17/24 18:59 06:59 18:59 Intake Total 2039 1700 120 Balance 2039 1699 120 Intake: Intake, IV Titration 1700 Amount Cefepime 2 gm In Sodium 100 Chloride 0.9% 100 ml @ 25 mls/hr IVPB Q8HR [facility] Rx# :[id number] Sodium Chloride 0.9% 1, 1100 000 ml @ 100 mls/hr IV . Q10H [facility] Rx#:[id number] Vancomycin 1,500 mg In 500 Sodium Chloride 0.9% 500 ml 500 ml @ 167 mls/hr IVPB Q12H [facility] Rx#: [id number] Oral 2039 120 Other: Voiding Method Toilet Toilet Toilet Urinal Urinal Urinal # Voids 2 1 # Bowel Movements 1 - Labs CBC & Chem 7: 11/17/24 03:36 11/17/24 03:36 Labs: Abnormal Lab Results - Last 24 Hours (Table) 11/16/24 11/16/24 11/17/24 Range/Units 17:02 20:29 03:36 WBC 3.47 L (4.50-10.00) X 10*3/uL RBC 4.34 L (4.40-5.60) X 10*6/uL Hgb 11.5 L (13.0-17.0) g/dL Hct 35.0 L (39.6-50.0) % MCH 26.5 L (27.0-32.0) pg POC Glucose (mg/dL) 251 H 147 H (70-110) mg/dL Calcium (8.7-10.3) mg/dL Alkaline Phosphatase (41-126) U/L Total Protein (6.2-8.2) g/dL Albumin (3.8-4.9) g/dL 11/17/24 Range/Units 03:36 WBC (4.50-10.00) X 10*3/uL RBC (4.40-5.60) X 10*6/uL Hgb (13.0-17.0) g/dL Hct (39.6-50.0) % MCH (27.0-32.0) pg POC Glucose (mg/dL) (70-110) mg/dL Calcium 8.0 L (8.7-10.3) mg/dL Alkaline Phosphatase 163 H (41-126) U/L Total Protein 5.8 L (6.2-8.2) g/dL Albumin 3.7 L (3.8-4.9) g/dL Microbiology - Last 24 Hours (Table) 11/15/24 18:10 Blood Culture - Preliminary Blood 11/15/24 18:01 Gram Stain - Preliminary Groin Wound Culture - Preliminary Escherichia coli
[2024-11-17] MEDS: ONDANSETRON 4 MG/2 ML VIAL IVP PRN (16:19)
--- NOTE | 2024-11-17 16:46 | P.PN ---
Subjective Progress Note Date: 11/17/24 Principal diagnosis: Reason for follow-up is right groin abscess Patient is a 73-year-old male with a past medical history significant for Diabetes Mellitus, Eye Disorder, GERD/Reflux, Hypertension, Osteoarthritis (OA), Skin Disorder, Sleep Apnea/CPAP/BIPAP, Thyroid Disorder recently did have a ground-level fall with injuries mostly to the right side of her body, pr esented to hospital with worsening pain and swelling to the right coronary has been diagnosed in the abscess with spontaneous drainage. On today's evaluation that is 11/17/2024,the patient denies any fever or any chills, patient is breathing comfortably on room air, the patient denies chest pain shortness of breath and no significant cough, patient denies abdominal pain, no nausea vomiting or diarrhea. Pain to the right groin has slightly decreased in intensity. Patient white count is 3.47, creatinine is 1.0 local culture with E. coli blood cultures so far negative Objective - Vital Signs Vital signs: Vital Signs Temp 97.4 F L 11/17/24 08:00 Pulse 60 11/17/24 10:45 Resp 20 11/17/24 08:00 BP 149/80 11/17/24 10:45 Pulse Ox 97 11/17/24 08:00 FiO2 Intake & Output 11/16/24 11/17/24 11/17/24 18:59 06:59 18:59 Intake Total 2039 1700 120 Balance 2039 1700 120 Intake: Intake, IV Titration 1700 Amount Cefepime 2 gm In Sodium 100 Chloride 0.9% 100 ml @ 25 mls/hr IVPB Q8HR [facility] Rx# :[id number] Sodium Chloride 0.9% 1, 1100 000 ml @ 100 mls/hr IV . Q10H [facility] Rx#:[id number] Vancomycin 1,500 mg In 500 Sodium Chloride 0.9% 500 ml 500 ml @ 167 mls/hr IVPB Q12H [facility] Rx#: [id number] Oral 2040 120 Other: Voiding Method Toilet Toilet Toilet Urinal Urinal Urinal # Voids 2 1 # Bowel Movements 1 - Exam GENERAL DESCRIPTION: An elderly male lying in bed in no distress RESPIRATORY SYSTEM: Unlabored breathing , decreased breath sounds at bases HEART: S1 S2 regular rate and rhythm , ABDOMEN: Soft , no tenderness EXTREMITIES: No edema feet - Labs CBC & Chem 7: 11/17/24 03:36 11/17/24 03:36 Labs: Abnormal Lab Results - Last 24 Hours (Table) 11/16/24 11/16/24 11/17/24 Range/Units 17:02 20:29 03:36 WBC 3.47 L (4.50-10.00) X 10*3/uL RBC 4.34 L (4.40-5.60) X 10*6/uL Hgb 11.5 L (13.0-17.0) g/dL Hct 35.0 L (39.6-50.0) % MCH 26.5 L (27.0-32.0) pg POC Glucose (mg/dL) 251 H 147 H (70-110) mg/dL Calcium (8.7-10.3) mg/dL Alkaline Phosphatase (41-126) U/L Total Protein (6.2-8.2) g/dL Albumin (3.8-4.9) g/dL 11/17/24 Range/Units 03:36 WBC (4.50-10.00) X 10*3/uL RBC (4.40-5.60) X 10*6/uL Hgb (13.0-17.0) g/dL Hct (39.6-50.0) % MCH (27.0-32.0) pg POC Glucose (mg/dL) (70-110) mg/dL Calcium 8.0 L (8.7-10.3) mg/dL Alkaline Phosphatase 163 H (41-126) U/L Total Protein 5.8 L (6.2-8.2) g/dL Albumin 3.7 L (3.8-4.9) g/dL Microbiology - Last 24 Hours (Table) 11/15/24 18:10 Blood Culture - Preliminary Blood 11/15/24 18:01 Gram Stain - Preliminary Groin Wound Culture - Preliminary Escherichia coli Assessment and Plan (1) Cellulitis of groin, right Current Visit: Yes Status: Acute Code(s): L03.314 - CELLULITIS OF GROIN SNOMED Code(s): 85917865 (2) Allergy to multiple antibiotics Current Visit: Yes Status: Acute Code(s): Z88.1 - ALLERGY STATUS TO OTHER ANTIBIOTIC AGENTS SNOMED Code(s): 617260663 Plan: 1patient presented to hospital with increasing pain swelling to the right foot area in this patient who did have a developing abscess with spontaneous drainage will need to cover for the gram-positive skin den as well as enteric gram- negative pathogen with swelling of the scrotal area 2- scrotal ultrasound did not show any evidence of any scrotal abscess 3-patient with multiple antibiotic ALLERGIES that would limit the number of antibiotic safe to use 4-patient local culture growing E. coli with sensitivities pending to continue vancomycin and cefepime while waiting for the culture to finalize if no MRSA vancomycin will be discontinued Dictation was produced using [employer] dictation software. please excuse any grammatical, word or spelling errors. Time with Patient: Less than 30
[2024-11-17 17:26] LABS: Glucose,Whole Blood 236 mg/dL (70-110)
[2024-11-17] MEDS ORDERED: LIDOCAINE 2% INJ 20 MG/ML (10 ML MDV) SQ ONE (17:40)
[2024-11-17] MEDS: LIDOCAINE 2% INJ 20 MG/ML (20 ML MDV) SQ ONE (17:46)
[2024-11-17] MEDS: SCOPOLAMINE 1 MG/72 HR PATCH TRANSDERM SCH (17:50)
[2024-11-17] MEDS: VANCOMYCIN TROUGH DUE 1 EACH MISC MISCELLANE ONE (18:08)
--- NOTE | 2024-11-17 18:08 | P.PCN ---
Date of Procedure: 11/17/24 Preoperative Diagnosis: Right scrotal abscess Postoperative Diagnosis: Same Procedure(s) Performed: Incision and drainage of right scrotal abscess Anesthesia: local Surgeon: Kavon Meek Estimated Blood Loss (ml): 3 Pathology: none sent Condition: stable Disposition: PACU Indications for Procedure: The patient is a 73-year-old white male admitted with a right scrotal abscess, which is draining spontaneously. Cultures show E. coli, and he is receiving cefepime. He now comes for I&D, to be sure there is not an area which is inadequately drained. Examination reveals edema at the right scrotal neck. There is no fluctuance, and I am unable to express any purulence through the incision at this time. Operative Findings: Small abscess cavity. Description of Procedure: The patient was lying supine in his hospital bed. Attention was paid to the right hemiscrotum. A 5 mm incision is noted, with a small amount of exudate adherent to the skin. The area was prepped and draped sterilely. 2% lidocaine was injected subcutaneously, though due to edema it was difficult to anesthetize the skin. An 11 blade scalpel was then used to extend the incision to approximately 1 cm in size. Some oozing was noted from the skin edges. No purulence was drained. The area of exudate was detached from the skin. Forceps were used to probe the wound, and it was apparent that there was a small abscess cavity, which was filled with several inches of half-inch iodoform gauze. The patient tolerated the procedure well.
[2024-11-17 20:48] LABS: Glucose,Whole Blood 147 mg/dL (70-110)
[2024-11-17] MEDS: amLODIPine 5 MG TAB PO SCH (22:12)
[2024-11-18 07:27] LABS: Glucose,Whole Blood 74 mg/dL (70-110)
[2024-11-18 08:36] LABS: ALT 16 U/L (10-49); AST 25 U/L (14-35); Albumin 3.8 g/dL (3.8-4.9); Albumin/Globulin Ratio 1.73 Ratio (1.60-3.17); Alkaline Phosphatase 171 U/L (41-126); Blood Urea Nitrogen 12.6 mg/dL (9.0-27.0); Calcium 8.3 mg/dL (8.7-10.3); Carbon Dioxide 27.6 mmol/L (21.6-31.8); Chloride 102 mmol/L (96-109); Globulin 2.2 g/dL (1.6-3.3); Glucose 67 mg/dL (70-110); Sodium 140 mmol/L (135-145)
[2024-11-18 08:49] LABS: Basophils # (A) 0.04 X 10*3/uL (0.00-0.10); Basophils % (A) 1.1 %; Eosinophils # (A) 0.16 X 10*3/uL (0.04-0.35); Eosinophils % (A) 4.5 %; HCT 37.4 % (39.6-50.0); Lymphocytes # (A) 0.91 X 10*3/uL (0.90-5.00); Lymphocytes % (A) 25.6 %; MCH 26.3 pg (27.0-32.0); MCHC 32.1 g/dL (32.0-37.0); MCV 81.8 FL (80.0-97.0); Mean Platelet Volume 9.3 FL (9.5-12.2); Monocytes # (A) 0.32 X 10*3/uL (0.20-1.00); NRBC Per 100 WBC 0 X 10*3/uL (0.00-0.01); Neutrophils # (A) 2.11 X 10*3/uL (1.80-7.70); Neutrophils % (A) 59.5 %; Platelet Count 199 X 10*3/uL (140-440); RBC 4.57 X 10*6/uL (4.40-5.60); RDW 13.9 % (11.5-14.5); WBC 3.55 X 10*3/uL (4.50-10.00)
[2024-11-18 12:20] LABS: Glucose,Whole Blood 195 mg/dL (70-110)
--- NOTE | 2024-11-18 12:43 | P.PN ---
Subjective Progress Note Date: 11/18/24 CHIEF COMPLAINT: Right groin cellulitis HISTORY OF PRESENT ILLNESS: Patient reports his right groin abscess is feeling better since the incision and drainage by urology yesterday. He reports decreased pain and decreased swelling. He reports the packing is in place and is scheduled to be changed. Afebrile. Wound culture growing E. coli. WBC 3.55 PHYSICAL EXAM: VITAL SIGNS: Reviewed GENERAL: Well-developed in no acute distress. HEENT: No sclera icterus. Extraocular movements grossly intact. Moist buccal mucosa. Head is atraumatic, normocephalic. Hears conversational speech. No nasal draina ge. NECK: Supple without lymphadenopathy. CHEST: Non-labored respirations and equal bilateral excursions. CARDIOVASCULAR: Palpable 2+ radial pulses. ABDOMEN: Soft. Nondistended. Nontender. MUSCULOSKELETAL: No clubbing or cyanosis. NEUROLOGIC: No focal or lateralizing signs. Cranial nerves II through XII grossly intact. PSYCH: Appropriate affect. Alert and oriented to person, place and time. ASSESSMENT: 1. Right groin cellulitis and abscess spontaneously draining and status post I&D by urology 2. Diabetes mellitus 3. Metastatic hepatocellular cancer on chemo PLAN: -Antibiotics per ID service -Continue local wound care per urology recommendations Physician Occupational Therapy Co Director note has been reviewed by physician. Signing provider agrees with the documented findings, assessment, and plan of care. Objective - Vital Signs Vital signs: Vital Signs Temp 97.9 F 11/18/24 12:04 Pulse 63 11/18/24 12:04 Resp 19 11/18/24 12:04 BP 153/90 11/18/24 12:04 Pulse Ox 98 11/18/24 12:04 FiO2 Intake & Output 11/17/24 11/18/24 11/18/24 18:59 06:59 18:59 Intake Total 1200 Output Total 600 Balance 1200 -600 Intake: Oral 1200 Output: Urine 600 Other: Voiding Method Toilet Toilet Toilet Urinal Urinal Urinal # Voids 2 - Labs CBC & Chem 7: 11/18/24 05:15 11/18/24 05:15 Labs: Abnormal Lab Results - Last 24 Hours (Table) 11/17/24 11/17/24 11/18/24 Range/Units 17:15 20:44 05:15 WBC 3.55 L (4.50-10.00) X 10*3/uL Hgb 12.0 L (13.0-17.0) g/dL Hct 37.4 L (39.6-50.0) % MCH 26.3 L (27.0-32.0) pg MPV 9.3 L (9.5-12.2) FL Glucose (70-110) mg/dL POC Glucose (mg/dL) 236 H 147 H (70-110) mg/dL Calcium (8.7-10.3) mg/dL Alkaline Phosphatase (41-126) U/L Total Protein (6.2-8.2) g/dL 11/18/24 11/18/24 Range/Units 05:15 12:07 WBC (4.50-10.00) X 10*3/uL Hgb (13.0-17.0) g/dL Hct (39.6-50.0) % MCH (27.0-32.0) pg MPV (9.5-12.2) FL Glucose 67 L (70-110) mg/dL POC Glucose (mg/dL) 195 H (70-110) mg/dL Calcium 8.3 L (8.7-10.3) mg/dL Alkaline Phosphatase 171 H (41-126) U/L Total Protein 6.0 L (6.2-8.2) g/dL Microbiology - Last 24 Hours (Table) 11/15/24 18:10 Blood Culture - Preliminary Blood 11/15/24 18:01 Gram Stain - Final Groin Wound Culture - Final Escherichia coli
--- NOTE | 2024-11-18 16:03 | P.PN ---
Subjective Progress Note Date: 11/18/24 Principal diagnosis: Right scrotal abscess The patient presented with a right scrotal abscess which drained spontaneously. Cultures have shown E. coli, and he is currently receiving cefepime. He underwent formal I&D on November 17 to confirm that there is not an undrained abscess cavity. His wound is being packed and he has no complaints at this time. Objective - Vital Signs Vital signs: Vital Signs Temp 97.9 F 11/18/24 07:22 Pulse 60 11/18/24 07:22 Resp 18 11/18/24 07:22 BP 145/78 11/18/24 07:22 Pulse Ox 97 11/18/24 07:22 FiO2 Intake & Output 11/17/24 11/18/24 11/18/24 18:59 06:59 18:59 Intake Total 1200 Output Total 600 Balance 1200 -600 Intake: Oral 1200 Output: Urine 600 Other: Voiding Method Toilet Toilet Toilet Urinal Urinal Urinal # Voids 2 - Constitutional General appearance: Present: average body habitus, cooperative, no acute distress - Genitourinary Genitourinary Comment(s): There is no scrotal swelling. The incision is clean and dry, with minimal serosanguineous drainage. - Psychiatric Psychiatric: Present: A&O x's 3 - Labs CBC & Chem 7: 11/18/24 05:15 11/18/24 05:15 Labs: Abnormal Lab Results - Last 24 Hours (Table) 11/17/24 11/17/24 11/18/24 Range/Units 17:15 20:44 05:15 WBC 3.55 L (4.50-10.00) X 10*3/uL Hgb 12.0 L (13.0-17.0) g/dL Hct 37.4 L (39.6-50.0) % MCH 26.3 L (27.0-32.0) pg MPV 9.3 L (9.5-12.2) FL Glucose (70-110) mg/dL POC Glucose (mg/dL) 236 H 147 H (70-110) mg/dL Calcium (8.7-10.3) mg/dL Alkaline Phosphatase (41-126) U/L Total Protein (6.2-8.2) g/dL 11/18/24 Range/Units 05:15 WBC (4.50-10.00) X 10*3/uL Hgb (13.0-17.0) g/dL Hct (39.6-50.0) % MCH (27.0-32.0) pg MPV (9.5-12.2) FL Glucose 67 L (70-110) mg/dL POC Glucose (mg/dL) (70-110) mg/dL Calcium 8.3 L (8.7-10.3) mg/dL Alkaline Phosphatase 171 H (41-126) U/L Total Protein 6.0 L (6.2-8.2) g/dL Microbiology - Last 24 Hours (Table) 11/15/24 18:10 Blood Culture - Preliminary Blood 11/15/24 18:01 Gram Stain - Final Groin Wound Culture - Final Escherichia coli Assessment and Plan Plan: From my standpoint, the patient may be discharged home on oral antibiotics with local wound care.
--- NOTE | 2024-11-18 16:07 | P.PN ---
Subjective Progress Note Date: 11/18/24 Principal diagnosis: Reason for follow-up is right groin abscess Patient is a 73-year-old male with a past medical history significant for Diabetes Mellitus, Eye Disorder, GERD/Reflux, Hypertension, Osteoarthritis (OA), Skin Disorder, Sleep Apnea/CPAP/BIPAP, Thyroid Disorder recently did have a ground-level fall with injuries mostly to the right side of her body, pr esented to hospital with worsening pain and swelling to the right coronary has been diagnosed in the abscess with spontaneous drainage. On today's evaluation that is 11/18/2024,the patient remains to be afebrile, patient is on room air not requiring supplemental oxygen and denies any shortness of breath no chest pain or cough.Patient denies having any nausea or vomiting, no abdominal pain and no diarrhea pain to the right but has decreased in intensity. Patient white count is 3.55 creatinine 0.9 culture with E. coli blood culture has been negative Objective - Vital Signs Vital signs: Vital Signs Temp 97.9 F 11/18/24 12:04 Pulse 63 11/18/24 12:04 Resp 19 11/18/24 12:04 BP 153/90 11/18/24 12:04 Pulse Ox 98 11/18/24 12:04 FiO2 Intake & Output 11/17/24 11/18/24 11/18/24 18:59 06:59 18:59 Intake Total 1200 Output Total 600 Balance 1200 -600 Intake: Oral 1200 Output: Urine 600 Other: Voiding Method Toilet Toilet Toilet Urinal Urinal Urinal # Voids 2 - Exam GENERAL DESCRIPTION: An elderly male lying in bed in no distress RESPIRATORY SYSTEM: Unlabored breathing , decreased breath sounds at bases HEART: S1 S2 regular rate and rhythm , ABDOMEN: Soft , no tenderness Right groin/scrotal area swelling redness has decreased EXTREMITIES: No edema feet - Labs CBC & Chem 7: 11/18/24 05:15 11/18/24 05:15 Labs: Abnormal Lab Results - Last 24 Hours (Table) 11/17/24 11/17/24 11/18/24 Range/Units 17:15 20:44 05:15 WBC 3.55 L (4.50-10.00) X 10*3/uL Hgb 12.0 L (13.0-17.0) g/dL Hct 37.4 L (39.6-50.0) % MCH 26.3 L (27.0-32.0) pg MPV 9.3 L (9.5-12.2) FL Glucose (70-110) mg/dL POC Glucose (mg/dL) 236 H 147 H (70-110) mg/dL Calcium (8.7-10.3) mg/dL Alkaline Phosphatase (41-126) U/L Total Protein (6.2-8.2) g/dL 11/18/24 11/18/24 Range/Units 05:15 12:07 WBC (4.50-10.00) X 10*3/uL Hgb (13.0-17.0) g/dL Hct (39.6-50.0) % MCH (27.0-32.0) pg MPV (9.5-12.2) FL Glucose 67 L (70-110) mg/dL POC Glucose (mg/dL) 195 H (70-110) mg/dL Calcium 8.3 L (8.7-10.3) mg/dL Alkaline Phosphatase 171 H (41-126) U/L Total Protein 6.0 L (6.2-8.2) g/dL Microbiology - Last 24 Hours (Table) 11/15/24 18:10 Blood Culture - Preliminary Blood 11/15/24 18:01 Gram Stain - Final Groin Wound Culture - Final Escherichia coli Assessment and Plan (1) Cellulitis of groin, right Current Visit: Yes Status: Acute Code(s): L03.314 - CELLULITIS OF GROIN SNOMED Code(s): 41681023 (2) Allergy to multiple antibiotics Current Visit: Yes Status: Acute Code(s): Z88.1 - ALLERGY STATUS TO OTHER ANTIBIOTIC AGENTS SNOMED Code(s): 118126996 Plan: 1patient presented to hospital with increasing pain swelling to the right foot area in this patient who did have a developing abscess with spontaneous drainage will need to cover for the gram-positive skin den as well as enteric gram-negative pathogen with swelling of the scrotal area 2- scrotal ultrasound did not show any evidence of any scrotal abscess 3-patient with multiple antibiotic ALLERGIES that would limit the number of antibiotic safe to use 4-patient local culture growing E. coli which is a sensitive pathogen patient is covered with cefepime will be able to finish therapy with either Ceftin or Cipro discontinue vancomycin Dictation was produced using [employer] dictation software. please excuse any grammatical, word or spelling errors. Time with Patient: Less than 30
--- NOTE | 2024-11-18 16:30 | P.PN ---
Subjective Progress Note Date: 11/18/24 Principal diagnosis: Rt groin abscess. On treatment for HCC IN f/u today pt is reporting significant improvement in pain and swelling the groin area, thigh is less sore, he can move the leg. Denies F, no other acute c/o. Objective - Vital Signs Vital signs: Vital Signs Temp 97.9 F 11/18/24 12:04 Pulse 63 11/18/24 12:04 Resp 19 11/18/24 12:04 BP 153/90 11/18/24 12:04 Pulse Ox 98 11/18/24 12:04 FiO2 Intake & Output 11/17/24 11/18/24 11/18/24 18:59 06:59 18:59 Intake Total 1200 Output Total 600 Balance 1200 -600 Intake: Oral 1200 Output: Urine 600 Other: Voiding Method Toilet Toilet Toilet Urinal Urinal Urinal # Voids 2 - Constitutional General appearance: Present: average body habitus, cooperative, no acute distress - EENT Eyes: Present: anicteric sclerae, EOMI ENT: Present: hearing grossly normal - Respiratory Details: resp unlabored at rest - Cardiovascular Details: skin warm, well perfused - Peripheral edema leg Peripheral Edema: bilateral: None - Gastrointestinal General gastrointestinal: Present: soft - Integumentary Integumentary Comment(s): rt groin area gauze has bloody drainage on it, the area is less swollen and certainly less tender, the medial thigh is much less tender too - Neurologic Neurologic: Present: CNII-XII intact (visually impaired at baseline) - Musculoskeletal Musculoskeletal: Present: strength equal bilaterally - Psychiatric Psychiatric: Present: A&O x's 3, appropriate affect, intact judgment & insight - Labs CBC & Chem 7: 11/18/24 05:15 11/18/24 05:15 Labs: Abnormal Lab Results - Last 24 Hours (Table) 11/17/24 11/17/24 11/18/24 Range/Units 17:15 20:44 05:15 WBC 3.55 L (4.50-10.00) X 10*3/uL Hgb 12.0 L (13.0-17.0) g/dL Hct 37.4 L (39.6-50.0) % MCH 26.3 L (27.0-32.0) pg MPV 9.3 L (9.5-12.2) FL Glucose (70-110) mg/dL POC Glucose (mg/dL) 236 H 147 H (70-110) mg/dL Calcium (8.7-10.3) mg/dL Alkaline Phosphatase (41-126) U/L Total Protein (6.2-8.2) g/dL 11/18/24 11/18/24 Range/Units 05:15 12:07 WBC (4.50-10.00) X 10*3/uL Hgb (13.0-17.0) g/dL Hct (39.6-50.0) % MCH (27.0-32.0) pg MPV (9.5-12.2) FL Glucose 67 L (70-110) mg/dL POC Glucose (mg/dL) 195 H (70-110) mg/dL Calcium 8.3 L (8.7-10.3) mg/dL Alkaline Phosphatase 171 H (41-126) U/L Total Protein 6.0 L (6.2-8.2) g/dL Microbiology - Last 24 Hours (Table) 11/15/24 18:10 Blood Culture - Preliminary Blood 11/15/24 18:01 Gram Stain - Final Groin Wound Culture - Final Escherichia coli Assessment and Plan (1) Cellulitis Current Visit: Yes Status: Acute Code(s): L03.90 - CELLULITIS, UNSPECIFIED SNOMED Code(s): 548322384 (2) Cellulitis of groin, right Current Visit: Yes Status: Acute Code(s): L03.314 - CELLULITIS OF GROIN SNOMED Code(s): 25249853 Plan: Cellulitis -2/2 to a very traumatic fall -ID following, tolerating abx, culture pending, defer treatment of the same to them -CT neg for fascitis. Pain is much improved today HCC -Diagnosis and treatment as documented in consult -Patient is status post 2 cycles of PD-L1/VEGF inhibitor treatment. Patient reports he feels very well other than some mild fatigue -CT CAP done on admission, compared to scan 08/2024, reporting: no evidence for groin abscess, some mild perineum subcutaneous edema. Enlarging soft tissue deposits throughout the abdomen. Right hepatic lobe segment 4A lesion may be smaller. We do not assess for response to treatment with immunotherapy this soon after initiating treatment. Scans to assess treatment response is typical ly done after 4-5 cycles. The description of enlarging soft tissue deposits throughout the abdomen is more likely the phenomenon of pseudo progression- immune system response in the area of tumors can make the disease appear to have progressed when, it actually has not. Also, patient is reporting feeling really well, this is more consistent with a patient who is successfully being treated. Plan is to continue with therapy once his acute condition is adequately treated and resolved. Patient agreed with that plan. This was reviewed with his at bedside today-she agrees with plan as well Doctor attests: I performed a history and physical examination of this patient, developed impression and plan of care. Discussed with dictator. I agree with dictators note, documented as a scribe.
[2024-11-18 17:14] LABS: Glucose,Whole Blood 156 mg/dL (70-110)
--- NOTE | 2024-11-18 17:51 | P.PN ---
Subjective Progress Note Date: 11/18/24 HISTORY OF PRESENT ILLNESS: This is a 73-year-old male with a previous medical history significant for hypertension and hypertensive cardiovascular disease, mixed hyperlipidemia, diabetes mellitus type 2 insulin requiring, history of significant ichthyosis, coronary artery disease under the care of Dr. George, diabetic polyneuropathy, hypothyroidism, enlarged prostate, recently was diagnosed of having metastatic hepatocellular carcinoma has been receiving treatment for hematology oncology a nd was supposed to get his third cycle of Tercentriq and Avastin but the patient stated to the nurse that he is having draining wound from the right groin so he was sent to my office for evaluation, upon evaluation in the office patient had significant erythema and edema and significant swelling to the right groin area extending to the scrotum and the right testicle was very tender to touch, and t here was foul brownish discoloration coming out of the side of the right groin, therefore the patient was sent to the ER for evaluation ended up going for a CT scan of the abdomen pelvis that did not show evidence of any acute abscess but it did show evidence of metastatic hepatitis hepatocellular carcinoma that is known, and the patient was started on IV antibiotic in the form of vancomycin as well as cefepime, infectious ease consultation as well as surgical consultation was obtained, I also consulted hematology oncology since the patient is well- known to them. Blood cultures as well as wound cultures were obtained. 11/17: Patient is laying down in bed in no apparent distress, his pain and swelling of the right groin area is a lot better, he continued to have some yellowish drainage coming out of the area, ultrasound of the scrotum did not show evidence of any acute abnormalities, CT scan of the right lower extremity that was ordered by hematology oncology was negative, except for osteoarthritis, patient will be seen by urology, he will be going for I&D of the abscess of the right groin area, continue IV antibiotic in the form of vancomycin 500 mg IV piggyback every 12 hours, continue cefepime 2 g IV piggyback every 8 hours, follow-up with the patient very closely. Decrease IV fluid to KVO, I will increase his amlodipine to 5 mg orally twice every day to optimize his blood pressure. 11/18: Patient is sitting up in bed in no apparent distress, his was at the bedside, she was updated about the current condition, he is doing much better since he has the I&D with Dr. Connelly, he has been on IV antibiotic in the form of cefepime 2 g IV piggyback every 8 hours, add his culture showing E. coli that is sensitive to cefepime, he will likely be switched to oral antibiotic and can be discharged home in the next 24 hours with home health care for wound care as well as increased activity, continue current treatment plan, the plan for the patient to go home tomorrow morning. REVIEW OF SYSTEMS: Constitutional: positive for documented fever, no chills, no night sweats. positive for weight change. positive for weakness, fatigue or lethargy. No daytime sleepiness. EENT: No headache. No blurred vision or double vision, no loss of vision. No loss of Hearing, no ringing in the ears, no dizziness. No nasal drainage or congestion. No epistaxis. No sore throat. Lungs: No shortness of breath, no cough, no sputum production. No wheezing. Reports dyspnea with activity. Cardiovascular: No chest pain, no lower extremity edema. No palpitations. No paroxysmal nocturnal dyspnea. No orthopnea. No lightheadedness or dizziness. No syncopal episodes. Abdominal: Reports abdominal pain. No nausea, vomiting. No diarrhea. No constipation. No bloody or tarry stools reports loss of appetite. Genitourinary: No dysuria, increased frequency, urgency. No urinary retention. Musculoskeletal: No myalgias. No muscle weakness, no gait dysfunction, positive for frequent falls. positive for back pain. No neck pain. Integumentary: Right groin swelling with wound draining brown purulent material no lesions. No rash or pruritus. No unusual bruising. No change in hair or nails, positive for calluses Neurologic: No aphasia. No facial droop. No change in mentation. No head injury. No headache. No paralysis. positive for paresthesia. Psychiatric: No depression. No anxiety. No mood swings. Endocrine: positive for abnormal blood sugars. positive for weight change. PHYSICAL EXAMINATION: General: 73-year-old male laying down in bed in no distress. HEENT: Head is atraumatic, normocephalic, pupils were equal round reactive to light and recommendation, extraocular muscle movement were intact, sclera nonicteric, conjunctivae were pale, mucous membranes of the mouth are somewhat dry. Neck: Supple, no JVP, normal carotid upstroke bilaterally, no lymphadenopathy. Chest: Decreased breath sounds at the bases, few rhonchi, no expiratory wheezes, no chest wall tenderness, no intercostal retractions. Heart: First heart sound is normal, second heart sounds normal there is systolic ejection murmur 2 over systolic in the left sternal border. Abdomen: Soft, distended moderate tenderness all over the abdomen, there is significant tenderness to the right groin area extending to the right scrotum and the right testicle with the wound draining brown material. Extremities: There is no edema no calf tenderness DP +2 bilaterally. Neurologic examination: Patient is awake alert and oriented x3, cranial nerves II-12 appear grossly intact, muscle power were 5 out of 5 in upper extremities and 5 out of 5 in bilateral lower extremities, deep tendon reflexes normal bilaterally. ASSESSMENT AND PLAN: 1. Right groin cellulitis with E. coli and abscess formation extending to the right scrotum with sepsis status post incision and drainage of the abscess continue cefepime 2 g IV piggyback every 8 hours, continue local care, continue pain management, will likely be switched to oral antibiotic tomorrow morning, with a home health care consult in the morning. 2. Metastatic hepatocellular carcinoma status post a recent CT scan of the chest abdomen pelvis that showed enlarging conglomerate mass in the mesentery patient was supposed to get his third cycle of Avastin and Tercentriq yesterday and that was put on hold due to the infection and cellulitis of the right groin area continue IV antibiotic, hematology oncology consultation appreciated. 3. Hypertension and hypertensive cardiovascular disease. Continue patient on losartan 50 mg orally twice every day, amlodipine 5 mg twice every day, metoprolol ER 50 mg once every day monitor the patient blood pressure very closely. 4. Mixed hyperlipidemia patient is not taking any statin at this point in time. 5. Diabetes mellitus type II. Continue patient on Lantus 30 units at bedtime along with a sliding scale insulin. 6. History of hypothyroidism currently off thyroid replacement therapy. 7. 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 Continue current pain management. 8. History of ichthyosis and dry skin. Stable at this time. 9. Diabetic polyneuropathy. Controlled diabetes. Patient was not able to tolerate Lyrica. 10. DVT prophylaxis. Lovenox 40 mg subcutaneous every 24 hours. 11. GI prophylaxis. Famotidine 20 mg orally twice every day. 12. Physical therapy evaluation. 13. transplant worker consultation for discharge planning. 14. Plan is for home with home health care tomorrow morning. Objective - Vital Signs Vital signs: Vital Signs Temp 97.9 F 11/18/24 12:04 Pulse 63 11/18/24 12:04 Resp 19 11/18/24 12:04 BP 153/90 11/18/24 12:04 Pulse Ox 98 11/18/24 12:04 FiO2 Intake & Output 11/17/24 11/18/24 11/18/24 18:59 06:59 18:59 Intake Total 1200 Output Total 600 Balance 1200 -600 Intake: Oral 1200 Output: Urine 600 Other: Voiding Method Toilet Toilet Toilet Urinal Urinal Urinal # Voids 2 - Labs CBC & Chem 7: 11/18/24 05:15 11/18/24 05:15 Labs: Abnormal Lab Results - Last 24 Hours (Table) 11/17/24 11/17/24 11/18/24 Range/Units 17:15 20:44 05:15 WBC 3.55 L (4.50-10.00) X 10*3/uL Hgb 12.0 L (13.0-17.0) g/dL Hct 37.4 L (39.6-50.0) % MCH 26.3 L (27.0-32.0) pg MPV 9.3 L (9.5-12.2) FL Glucose (70-110) mg/dL POC Glucose (mg/dL) 236 H 147 H (70-110) mg/dL Calcium (8.7-10.3) mg/dL Alkaline Phosphatase (41-126) U/L Total Protein (6.2-8.2) g/dL 11/18/24 11/18/24 Range/Units 05:15 12:07 WBC (4.50-10.00) X 10*3/uL Hgb (13.0-17.0) g/dL Hct (39.6-50.0) % MCH (27.0-32.0) pg MPV (9.5-12.2) FL Glucose 67 L (70-110) mg/dL POC Glucose (mg/dL) 195 H (70-110) mg/dL Calcium 8.3 L (8.7-10.3) mg/dL Alkaline Phosphatase 171 H (41-126) U/L Total Protein 6.0 L (6.2-8.2) g/dL Microbiology - Last 24 Hours (Table) 11/15/24 18:10 Blood Culture - Preliminary Blood 11/15/24 18:01 Gram Stain - Final Groin Wound Culture - Final Escherichia coli
[2024-11-18 20:25] LABS: Glucose,Whole Blood 143 mg/dL (70-110)
[2024-11-19 07:31] LABS: Glucose,Whole Blood 68 mg/dL (70-110)
[2024-11-19 07:38] VITALS: RESP 18
[2024-11-19 08:02] LABS: Glucose,Whole Blood 129 mg/dL (70-110)
--- NOTE | 2024-11-19 09:14 | P.PN ---
Subjective Progress Note Date: 11/19/24 Principal diagnosis: Right scrotal abscess The patient presented with a right scrotal abscess which drained spontaneously. Cultures have shown E. coli, and he is currently receiving cefepime. He underwent formal I&D on November 17 to confirm that there is not an undrained abscess cavity. His wound is being packed and he has no complaints at this time. Objective - Vital Signs Vital signs: Vital Signs Temp 98.4 F 11/19/24 01:34 Pulse 64 11/19/24 01:34 Resp 16 11/19/24 01:34 BP 156/97 11/19/24 01:34 Pulse Ox 95 11/19/24 01:34 FiO2 Intake & Output 11/18/24 11/19/24 11/19/24 18:59 06:59 18:59 Output Total 375 800 Balance -375 -800 Output: Urine 375 800 Other: Voiding Method Toilet Toilet Urinal Urinal - Constitutional General appearance: Present: average body habitus, cooperative, no acute d istress - Genitourinary Genitourinary Comment(s): Normal phallus, normal testes. No scrotal edema. Right scrotal incision is clean with minimal serosanguineous drainage. - Psychiatric Psychiatric: Present: A&O x's 3 - Labs CBC & Chem 7: 11/18/24 05:15 11/18/24 05:15 Labs: Abnormal Lab Results - Last 24 Hours (Table) 11/18/24 11/18/24 11/18/24 Range/Units 05:15 05:15 12:07 WBC 3.55 L (4.50-10.00) X 10*3/uL Hgb 12.0 L (13.0-17.0) g/dL Hct 37.4 L (39.6-50.0) % MCH 26.3 L (27.0-32.0) pg MPV 9.3 L (9.5-12.2) FL Glucose 67 L (70-110) mg/dL POC Glucose (mg/dL) 195 H (70-110) mg/dL Calcium 8.3 L (8.7-10.3) mg/dL Alkaline Phosphatase 171 H (41-126) U/L Total Protein 6.0 L (6.2-8.2) g/dL 11/18/24 11/18/24 Range/Units 17:12 20:22 WBC (4.50-10.00) X 10*3/uL Hgb (13.0-17.0) g/dL Hct (39.6-50.0) % MCH (27.0-32.0) pg MPV (9.5-12.2) FL Glucose (70-110) mg/dL POC Glucose (mg/dL) 156 H 143 H (70-110) mg/dL Calcium (8.7-10.3) mg/dL Alkaline Phosphatase (41-126) U/L Total Protein (6.2-8.2) g/dL Microbiology - Last 24 Hours (Table) 11/15/24 18:10 Blood Culture - Preliminary Blood 11/17/24 17:02 Blood Culture - Preliminary Blood Assessment and Plan Plan: From my standpoint, the patient may be discharged home on oral antibiotics with local wound care and follow-up with me in 1 to 2 weeks. Please notify me if I can be of any further assistance.
--- NOTE | 2024-11-19 10:06 | P.DS ---
Providers Date of admission: 11/15/24 19:28 Expected date of discharge: 11/19/24 Attending physician: Jeff Foster Consults: 11/15/24 19:26 Consult Physician Routine Consulting Provider: Alonso Mcleod Consult Reason/Comments: oncological care Do you want consulting provider notified?: Yes Consult Physician Routine Consulting Provider: Titus Christopher Consult Reason/Comments: cellulitis Do you want consulting provider notified?: Yes 11/16/24 13:04 Consult Physician Routine Consulting Provider: Kavon Meek Consult Reason/Comments: groin abscess Do you want consulting provider notified?: Yes Primary care physician: Jeff Foster [facility] Course: HISTORY OF PRESENT ILLNESS: This is a 73-year-old male with a previous medical history significant for hypertension and hypertensive cardiovascular disease, mixed hyperlipidemia, diabetes mellitus type 2 insulin requiring, history of significant ichthyosis, coronary artery disease under the care of Dr. George, diabetic polyneuropathy, hypothyroidism, enlarged prostate, recently was diagnosed of having metastatic hepatocellular carcinoma has been receiving treatment for hematology oncology and was supposed to get his third cycle of Tercentriq and Avastin but the patient stated to the nurse that he is having draining wound from the right groin so he was sent to my office for evaluation, upon evaluation in the office patient had significant erythema and edema and significant swelling to the right groin area extending to the scrotum and the right testicle was very tender to touch, and there was foul brownish discoloration coming out of the side of the right groin, therefore the patient was sent to the ER for evaluation ended up going for a CT scan of the abdomen pelvis that did not show evidence of any ac [place]hal[place] abscess but it did show evidence of metastatic hepatitis hepatocellular carcinoma that is known, and the patient was started on IV antibiotic in the form of vancomycin as well as cefepime, infectious ease consultation as well as surgical consultation was obtained, I also consulted hematology oncology since the patient is well-known to them. Blood cultures as well as wound cultures were obtained. 11/17: Patient is laying down in bed in no apparent distress, his pain and swelling of the right groin area is a lot better, he continued to have some yellowish drainage coming out of the area, ultrasound of the scrotum did not show evidence of any acute abnormalities, CT scan of the right lower extremity that was ordered by hematology oncology was negative, except for osteoarthritis, patient will be seen by urology, he will be going for I&D of the abscess of the right groin area, continue IV antibiotic in the form of vancomycin 500 mg IV piggyback every 12 hours, continue cefepime 2 g IV piggyback every 8 hours, follow-up with the patient very closely. Decrease IV fluid to KVO, I will increase his amlodipine to 5 mg orally twice every day to optimize his blood pressure. 11/18: Patient is sitting up in bed in no apparent distress, his was at the bedside, she was updated about the current condition, he is doing much better since he has the I&D with Dr. Meek, he has been on IV antibiotic in the form of cefepime 2 g IV piggyback every 8 hours, add his culture showing E. coli that is sensitive to cefepime, he will likely be switched to oral antibiotic and can be discharged home in the next 24 hours with home health care for wound care as well as increased activity, continue current treatment plan, the plan for the patient to go home tomorrow morning. 11/19: Patient remains afebrile, vital signs are stable. No shortness of breath, no chest pain no cough. No fevers. He denies nausea or vomiting no abdominal pain and no diarrhea. Pain in the right groin is improving. Redness and swelling has decreased to the right groin and scrotal area. He has been maintained on IV antibiotics and ID has recommended Ceftin or Cipro at the time of discharge. Patient to follow-up with Dr. Meek in 1 to 2 weeks. Regarding oncology plan is to continue immunotherapy once his acute condition has been treated and resolved. Patient will be discharged today in stable condition with home care in place. DISCHARGE DIAGNOSES: 1. Right groin cellulitis with E. coli and abscess formation extending to the right scrotum with sepsis status post incision and drainage of the abscess. 2. Metastatic hepatocellular carcinoma status post a recent CT scan of the chest abdomen pelvis that showed enlarging conglomerate mass in the mesentery. 3. Hypertension and hypertensive cardiovascular disease. 4. Mixed hyperlipidemia. 5. Diabetes mellitus type II. 6. History of hypothyroidism. 7. 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 8. History of ichthyosis and dry skin. 9. Diabetic polyneuropathy. Discharge Plan is for home with [facility] Greater than 35 minutes was utilized and coordinating patient's discharge. Impression and plan of care have been directed as dictated by the signing physician. Carmella Senior nurse practitioner acting as scribe for signing physicia Plan - Discharge Summary Discharge Rx Participant: No New Discharge Prescriptions: New cefuroxime axetiL [Ceftin] 500 mg PO BID #20 tab Continue amLODIPine [Norvasc] 5 mg PO DAILY Aspirin EC [Ecotrin Low Dose] 81 mg PO HS Insulin Glargine,Hum.rec.anlog [Lantus Solostar Pen] 30 units SQ HS traMADol HCL 50 mg PO Q6H PRN PRN Reason: Pain Ondansetron [Zofran] 4 - 8 mg PO Q4H PRN PRN Reason: Nausea Metoprolol Succinate [Toprol XL] 50 mg PO DAILY Lidocaine-Prilocaine Cream [Emla Cream 2.5%/2.5%] 1 applic TOPICAL DIRECTED PRN PRN Reason: port access Changed Losartan [Cozaar] 50 mg PO BID #60 tab Discharge Medication List Aspirin EC [Ecotrin Low Dose] 81 mg PO HS 01/02/23 [History] Insulin Glargine,Hum.rec.anlog [Lantus Solostar Pen] 30 units SQ HS 09/29/24 [History] Lidocaine-Prilocaine Cream [Emla Cream 2.5%/2.5%] 1 applic TOPICAL DIRECTED PRN 11/15/24 [History] Metoprolol Succinate [Toprol XL] 50 mg PO DAILY 11/15/24 [History] Ondansetron [Zofran] 4 - 8 mg PO Q4H PRN 11/15/24 [History] amLODIPine [Norvasc] 5 mg PO DAILY 11/15/24 [History] traMADol HCL 50 mg PO Q6H PRN 11/15/24 [History] Losartan [Cozaar] 50 mg PO BID #60 tab 11/19/24 [Rx] cefuroxime axetiL [Ceftin] 500 mg PO BID #20 tab 11/19/24 [Rx] Follow up Appointment(s)/Referral(s): Nikki Reyes MD [STAFF PHYSICIAN] - 11/23/24 11:30 am Kavon Meek MD [STAFF PHYSICIAN] - 2 Weeks [facility], [NON-STAFF] - As Needed ([facility] will call you to schedule your in home nursing visits. ) Jeff Foster MD [Primary Care Provider] - 1 Week
[2024-11-19 12:22] LABS: Glucose,Whole Blood 136 mg/dL (70-110)
[2024-11-19 13:14] VITALS: BP 153/92; PULSE 67; TEMP 97.7
--- NOTE | 2024-11-19 16:22 | P.PN ---
Subjective Progress Note Date: 11/19/24 Principal diagnosis: Reason for follow-up is right groin abscess Patient is a 73-year-old male with a past medical history significant for Diabetes Mellitus, Eye Disorder, GERD/Reflux, Hypertension, Osteoarthritis (OA), Skin Disorder, Sleep Apnea/CPAP/BIPAP, Thyroid Disorder recently did have a ground-level fall with injuries mostly to the right side of her body, pr esented to hospital with worsening pain and swelling to the right coronary has been diagnosed in the abscess with spontaneous drainage. On today's evaluation that is 11/19/2024, the patient continues to be afebrile, the patient is on room air and breathing comfortably, the Pt denies having any chest pain or cough, the patient denies having any abdominal pain no vomiting or any diarrhea pain to the right groin has decreased in intensity. No new lab has been repeated today Objective - Vital Signs Vital signs: Vital Signs Temp 97.4 F L 11/19/24 07:37 Pulse 64 11/19/24 09:28 Resp 18 11/19/24 09:28 BP 138/84 11/19/24 07:37 Pulse Ox 95 11/19/24 01:34 FiO2 Intake & Output 11/18/24 11/19/24 11/19/24 18:59 06:59 18:59 Output Total 013 657 7207 Balance -375 -800 -1400 Output: Urine 411 263 8658 Other: Voiding Method Toilet Toilet Urinal Urinal Urinal # Voids 1 - Exam GENERAL DESCRIPTION: An elderly male lying in bed in no distress RESPIRATORY SYSTEM: Unlabored breathing , decreased breath sounds at bases HEART: S1 S2 regular rate and rhythm , ABDOMEN: Soft , no tenderness Right groin/scrotal area swelling redness has decreased EXTREMITIES: No edema feet - Labs CBC & Chem 7: 11/18/24 05:15 11/18/24 05:15 Labs: Abnormal Lab Results - Last 24 Hours (Table) 11/18/24 11/18/24 11/19/24 Range/Units 17:12 20:22 07:26 POC Glucose (mg/dL) 156 H 143 H 68 L (70-110) mg/dL 11/19/24 11/19/24 Range/Units 07:58 12:09 POC Glucose (mg/dL) 129 H 136 H (70-110) mg/dL Microbiology - Last 24 Hours (Table) 11/15/24 18:10 Blood Culture - Preliminary Blood 11/17/24 17:02 Blood Culture - Preliminary Blood Assessment and Plan (1) Cellulitis of groin, right Status: Acute Code(s): L03.314 - CELLULITIS OF GROIN SNOMED Code(s): 05077463 (2) Allergy to multiple antibiotics Status: Acute Code(s): Z88.1 - ALLERGY STATUS TO OTHER ANTIBIOTIC AGENTS SNOMED Code(s): 715924956 Plan: 1patient presented to hospital with increasing pain swelling to the right foot area in this patient who did have a developing abscess with spontaneous drainage will need to cover for the gram-positive skin den as well as enteric gram- negative pathogen with swelling of the scrotal area 2- scrotal ultrasound did not show any evidence of any scrotal abscess 3-patient with multiple antibiotic ALLERGIES that would limit the number of antibiotic safe to use 4-patient local culture growing E. coli which is a sensitive pathogen patient has shown clinical improvement and will finish therapy with oral Ceftin question concern answered Dictation was produced using [employer] dictation software. please excuse any grammatical, word or spelling errors. Time with Patient: Less than 30
== END 2024-11-19 14:45 | disposition home or self-care (01) | DRG 988 ==
LOC: EC 16:53 → 5NMEDONC 19:28
PROVIDERS: ADMIT Internal Medicine; ATTEND Internal Medicine
PROC: 0V950ZZ Drainage of Scrotum, Open Approach (ICD-10-PCS; principal; 2024-11-17)
DX: L02.214 Cutaneous abscess of groin (principal); C34.90 Malignant neoplasm of unspecified part of unspecified bronchus or lung; K74.60 Unspecified cirrhosis of liver; E03.9 Hypothyroidism, unspecified; B96.20 Unspecified Escherichia coli [E. coli] as the cause of diseases classified elsewhere; E11.319 Type 2 diabetes mellitus with unspecified diabetic retinopathy without macular edema; I10 Essential (primary) hypertension; E11.42 Type 2 diabetes mellitus with diabetic polyneuropathy; Z79.4 Long term (current) use of insulin; Z79.890 Hormone replacement therapy; L03.314 Cellulitis of groin; E78.2 Mixed hyperlipidemia; H54.8 Legal blindness, as defined in USA; K76.0 Fatty (change of) liver, not elsewhere classified; I25.10 Atherosclerotic heart disease of native coronary artery without angina pectoris; M47.816 Spondylosis without myelopathy or radiculopathy, lumbar region; G89.29 Other chronic pain; N40.0 Benign prostatic hyperplasia without lower urinary tract symptoms; N50.89 Other specified disorders of the male genital organs; W19.XXXA Unspecified fall, initial encounter; Z79.899 Other long term (current) drug therapy; Z82.49 Family history of ischemic heart disease and other diseases of the circulatory system; Z87.442 Personal history of urinary calculi; Z85.05 Personal history of malignant neoplasm of liver; Z88.1 Allergy status to other antibiotic agents; Z98.84 Bariatric surgery status; Z88.2 Allergy status to sulfonamides; Z90.49 Acquired absence of other specified parts of digestive tract; Z98.42 Cataract extraction status, left eye; Z98.41 Cataract extraction status, right eye
CPT/HCPCS: 36415; 71260; 74177; 76870; 80053; 80202; 83605; 85025; 85610; 85730; 87040; 87070; 87077; 87186; 87205; 93005; 93975; 96365; 96367; 99285

== ENCOUNTER 2024-12-08 17:38 | Observation (INO) | payer MEDICARE ==
[2024-12-08 17:57] LABS: Basophils # (A) 0.03 10*3/uL (0.00-0.10); Basophils % (A) 0.7 %; Eosinophils # (A) 0.13 10*3/uL (0.04-0.35); HCT 38.2 % (39.6-50.0); HGB 13.3 g/dL (13.0-17.0); Lymphocytes # (A) 1.22 10*3/uL (0.90-5.00); Lymphocytes % (A) 28.2 %; MCH 27.4 pg (27.0-32.0); MCHC 34.8 g/dL (32.0-37.0); MCV 78.6 fL (80.0-97.0); Mean Platelet Volume 9.9 fL (9.5-12.2); Monocytes # (A) 0.28 10*3/uL (0.20-1.00); Monocytes % (A) 6.5 %; Neutrophils # (A) 2.66 10*3/uL (1.80-7.70); Neutrophils % (A) 61.4 %; Platelet Count 197 10*3/uL (140-440); RBC 4.86 10*6/uL (4.40-5.60); RDW 14.6 % (11.5-14.5); WBC 4.33 10*3/uL (4.50-10.00)
[2024-12-08 18:07] LABS: ALT 28 U/L (4-49); AST 27 U/L (17-59); African American GFR (CKD) 82 (>60 ml/min/1.73 sqM); Alkaline Phosphatase 182 U/L (38-126); Anion Gap 14 mmol/L; Blood Urea Nitrogen 21 mg/dL (9-20); Calcium 8.3 mg/dL (8.4-10.2); Carbon Dioxide 16 mmol/L (22-30); Chloride 103 mmol/L (98-107); Creatine Kinase 180 U/L (55-170); Non-African American GFR(CKD) 71 (>60 ml/min/1.73 sqM); Potassium 4.9 mmol/L (3.5-5.1); Sodium 133 mmol/L (137-145); Total Bilirubin 1.5 mg/dL (0.2-1.3); Total Protein 6.8 g/dL (6.3-8.2)
--- NOTE | 2024-12-08 18:12 | CT ---
EXAMINATION TYPE: CODE STROKE: CT brain wo contr DATE OF EXAM: 12/08/2024 6:00 PM COMPARISON: 01/13/2023. CLINICAL INDICATION: Male, 74 years old with history of Neuro deficit, acute, stroke suspected, Pt pr esents to ED due to neuro symptoms. R sided weakness and slurred speech onset 30 mins ago. LKW 16:45. TECHNIQUE: Brain: Axial CT images of the brain were obtained with coronal and sagittal reformats created and rev iewed. Contrast used: None. Oral contrast used: None. CT DLP: 1174.6 mGycm, Automated exposure control for dose reduction was used. FINDINGS: Brain: Extra-axial spaces: No abnormal extra-axial fluid collections. Ventricular system: Dilatation in proportion to cerebral atrophy. Cerebral parenchyma: Cerebral atrophy. No acute intraparenchymal hemorrhage or mass effect. The dejesus -white junction is well differentiated. Scattered hypoattenuating areas are seen within the white mat ter. Cerebellum: Unremarkable. Mass effect: No evidence of midline shift. Intracranial vasculature: Atherosclerotic calcifications of the intracranial vessels. Soft tissues: Normal. Calvarium/osseous structures: No depressed skull fracture. Paranasal sinuses and mastoid air cells: Mild scattered paranasal sinus disease. Visualized orbits: Bilateral aphakia IMPRESSION: 1. No acute intracranial process. 2. Nonspecific white matter changes, likely secondary to chronic small vessel ischemic disease. Findings communicated to Milagro Bowens DO on 12/08/2024 6:[address] Keith Jin. [facility], , 12/08/2024 6:09 PM
[2024-12-08 18:13] LABS: Glucose 521 mg/dL (74-99)
[2024-12-08 18:38] LABS: Glucose,Whole Blood 509 mg/dL (70-110)
--- NOTE | 2024-12-08 18:45 | CT ---
EXAMINATION TYPE: CT angio head neck DATE OF EXAM: 12/08/2024 6:19 PM COMPARISON: CT same day. CLINICAL INDICATION: Male, 74 years old with history of Neuro deficit, acute, stroke suspected; PHH, Pt presents to ED due to neuro symptoms. R sided weakness and slurred speech onset 30 mins ago. LKW 1 6:45. ABC TECHNIQUE: Axially acquired helical CT angiogram of the head and neck was obtained with contrast. Axi al images are supplemented with 3D reconstructions and MIP images which were post-processed at an in dependent workstation. NASCET criteria used. Contrast used:65 ml mL of Isovue 370 with IV Contrast, Oral contrast used: None. CT DLP: 774.9 mGycm, Automated exposure control for dose reduction was used. FINDINGS: CTA HEAD: No evidence of acute intracranial hemorrhage, mass effect, or midline shift. The ventricles, sulci, a nd cisterns are unremarkable. Vertebral arteries: The vertebral arteries are patent. Vertebral artery dominance: Codominant Basilar artery: The basilar artery is intact. The basilar artery bifurcation is normal. Internal Carotid arteries: Atherosclerosis of the intracranial vasculature. The cervical, petrous, ca vernous and supraclinoid segments are normal. CECE: Patent with no evidence of aneurysm. ACOM: Present without evidence of aneurysm. MCA: Patent with no evidence of aneurysm. ASSOCIATE DIRECTOR OF NURSING: Patent with no evidence of aneurysm. PCOM: Hypoplastic bilaterally. Dural sinuses: Patent. CTA NECK: Right Carotid System: The common carotid artery and external carotid artery are patent. The carotid bifurcation demonstrate s no evidence of hemodynamically significant stenosis. The remaining portions of the internal carotid artery demonstrate normal size without significant narrowing. Left Carotid System: The common carotid artery and external carotid artery are patent. The carotid bifurcation demonstrate s no evidence of hemodynamically significant stenosis. The remaining portions of the internal carotid artery demonstrate normal size without significant narrowing. Vertebral arteries are patent without evidence hemodynamically significant stenosis. There is a three-vessel aortic arch. The origins of the great vessels are patent. No evidence of hemo dynamically significant stenosis. Upper thorax: Right central venous catheter Hckety-e-Bchj catheter is looped up in the right internal jugular vein before extending inferiorly into the superior vena cava where it terminates.. IMPRESSION: 1. No evidence of dissection of the cervical internal carotid arteries or vertebral arteries. 2. No any evidence of significant stenosis at the carotid bifurcations. 3. No evidence of intracranial high-grade stenosis or intracranial aneurysm. [facility], , 12/08/2024 6:43 PM
[2024-12-08 18:47] LABS: Partial Thromboplastin Time 24.7 sec (22.0-30.0); Prothrombin Time 10.8 sec (10.0-12.5)
[2024-12-08 19:50] LABS: Glucose,Whole Blood 464 mg/dL (70-110)
--- NOTE | 2024-12-08 20:03 | XR ---
EXAMINATION TYPE: XR chest 2V DATE OF EXAM: 12/08/2024 7:26 PM COMPARISON: Chest radiographs from 10/04/2024. CLINICAL INDICATION: Male, 74 years old with history of altered mental status; [facility] TECHNIQUE: XR chest 2V Frontal and lateral views of the chest. FINDINGS: Lungs/Pleura: There is no evidence of pleural effusion, focal consolidation, or pneumothorax. Pulmonary vascularity: Unremarkable. Heart/mediastinum: Cardiomediastinal silhouette is unremarkable. Musculoskeletal: No acute osseous pathology. Other findings: Encdmg-q-Pvmm tip terminating in the superior vena cava. IMPRESSION: No acute cardiopulmonary disease/process. [facility], , 12/08/2024 8:01 PM
--- NOTE | 2024-12-08 22:09 | ED ---
General Adult HPI - General Chief complaint: Neuro Symptoms/Deficit Stated complaint: CVA Time Seen by Provider: 12/08/24 17:41 Source: EMS Mode of arrival: EMS - History of Present Illness Initial comments: 84-year-old male presents to the emergency department reporting right sided weakness. Reports that at 4:45 PM he was trying to light a match and noted that he was having significant weakness in his right arm. 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 He also had weakness in his right leg and some numbness and tingling in the right side of his face. He called EMS immediately. They found that he had an elevated glucose. He does report to recent issues controlling his glucose. He does take insulin. He has a history of liver cancer and is on immunotherapy. He denies any headache or visual changes. Also has some slurred speech. No history of stroke. Patient is not on any blood thinners. No other alleviating, precipitating or modifying factors - Related Data Home Medications Medication Instructions Recorded Confirmed Aspirin EC [Ecotrin Low Dose] 81 mg PO HS 01/02/23 11/15/24 Insulin Glargine,Hum.rec.anlog 30 units SQ HS 09/29/24 11/15/24 [Lantus Solostar Pen] Lidocaine-Prilocaine Cream [Emla 1 applic TOPICAL DIRECTED PRN 11/15/24 11/15/24 Cream 2.5%/2.5%] Metoprolol Succinate [Toprol XL] 50 mg PO DAILY 11/15/24 11/15/24 Ondansetron [Zofran] 4 - 8 mg PO Q4H PRN 11/15/24 11/15/24 amLODIPine [Norvasc] 5 mg PO DAILY 11/15/24 11/15/24 traMADol HCL 50 mg PO Q6H PRN 11/15/24 11/15/24 Previous Rx's Medication Instructions Recorded Losartan [Cozaar] 50 mg PO BID #60 tab 11/19/24 cefuroxime axetiL [Ceftin] 500 mg PO BID #20 tab 11/19/24 Allergies Allergy/AdvReac Type Severity Reaction Status Date / Time clindamycin Allergy Rash/Hives Verified 12/08/24 17:43 sulfamethoxazole Allergy Rash/Hives/ Verified 12/08/24 17:43 [From Bactrim] Itching trimethoprim [From Bactrim] Allergy Rash/Hives/ Verified 12/08/24 17:43 Itching Review of Systems ROS Statement: Those systems with pertinent positive or pertinent negative responses have been documented in the HPI. ROS Other: All systems not noted in ROS Statement are negative. Past Medical History Past Medical History: Cancer, Diabetes Mellitus, Eye Disorder, GERD/Reflux, Hypertension, Osteoarthritis (OA), Skin Disorder, Sleep Apnea/CPAP/BIPAP, Thyroid Disorder Additional Past Medical History / Comment(s): No longer has sleep apena. Limps due to broken left foot in the past that didn't heal properly. Diabetic Retinopathy and Neuropathy. UMBILICAL HERNIA. Legally blind. Chronic back pain. Fatty liver. Hx kidney stones. States possibly adhesions now. Heptacellular carcinoma History of Any Multi-Drug Resistant Organisms: None Reported Past Surgical History: Bariatric Surgery, Cholecystectomy Additional Past Surgical History / Comment(s): Liver biopsy. Pilonidal cyst. Cysts removed from head. Cataract & Retinopathy surgery. Tala-en-Y. Pain proced ures, Kidney stone sx/ureteral stenting with removal last 06/2024, colonoscopy. Tumor removal, lysis of adhesions Past Anesthesia/Blood Transfusion Reactions: No Reported Reaction Past Psychological History: No Psychological Hx Reported Smoking Status: Never smoker Past Alcohol Use History: Occasional Past Drug Use History: Marijuana - Past Family History Father Family Medical History: Diabetes Mellitus, Deep Vein Thrombosis (DVT) Mother Family Medical History: Cancer, Diabetes Mellitus Additional Family Medical History / Comment(s): thyroid Sister(s) Family Medical History: Cancer, Diabetes Mellitus Additional Family Medical History / Comment(s): Uterine Cancer, Lupus, Bipolar Disorder. Course Vital Signs 12/08/24 12/08/24 12/08/24 17:39 18:25 18:30 Temperature 97.7 F Pulse Rate 83 33 L 49 L Pulse Rate [ Traffic Manager ] Respiratory 18 16 Rate Blood Pressure 91/66 Blood Pressure [Right Arm] O2 Sat by Pulse 97 96 Oximetry 12/08/24 12/09/24 19:42 00:21 Temperature 97.9 F Pulse Rate 71 Pulse Rate [ 72 Traffic Manager ] Respiratory 18 18 Rate Blood Pressure 110/77 Blood Pressure 146/88 [Right Arm] O2 Sat by Pulse 97 98 Oximetry Medical Decision Making - Medical Decision Making Was pt. sent in by a medical professional or institution (Dr., PA, SAND WHEELER, urgent care, hospital, or long-term...) When possible be specific @ -[No] Did you speak to anyone other than the patient for history (EMS, parent, family, police, friend...)? What history was obtained from this source @ -[No] Did you review nursing and triage notes (agree or disagree)? Why? @ -[I reviewed and agree with nursing and triage notes] Were old charts reviewed (outside hosp., previous admission, EMS record, old EKG, old radiological studies, urgent care reports/EKG's, long-term records)? Report findings @ -[No old charts were reviewed] Differential Diagnosis (chest pain, altered mental status, abdominal pain women, abdominal pain men, vaginal bleeding, weakness, fever, dyspnea, syncope, headache, dizziness, GI bleed, back pain, seizure, CVA, palpatations, mental health, musculoskeletal)? @ -[not applicable] EKG interpreted by me (3pts min.). @ -Yes at 1746 which demonstrates a tachycardic rate of 116. QRS 92. QTc of 363. No visible P waves. Pleated at 1842 demonstrates a tachycardic rate with no distinguishable P waves. QRS 95. QTc of 401. Rate of 104. X-rays interpreted by me (1pt min.). @ -[None done] CT interpreted by me (1pt min.). @ -[None done] U/S interpreted by me (1pt. min.). @ -[None done] What testing was considered but not performed or refused? (CT, X-rays, U/S, labs)? Why? @ -[None] What meds were considered but not given or refused? Why? @ -[None] Did you discuss the management of the patient with other professionals (professionals i.e. FARHANA Franco, SAND WHEELER, lab, RT, psych nurse, long term care social worker, top precipitator operator, teacher, legal officer, caseworker)? Give summary @ -[No] Was smoking cessation discussed for >3mins.? @ -[No] Was critical care preformed (if so, how long)? @ -[No] Were there social determinants of health that impacted care today? How? (Homelessness, low income, unemployed, alcoholism, drug addiction, transportation, low edu. Level, literacy, decrease access to med. care, group home, rehab)? @ -[No] Was there de-escalation of care discussed even if they declined (Discuss DNR or withdrawal of care, Hospice)? DNR status @ -[No] What co-morbidities impacted this encounter? (DM, HTN, Smoking, COPD, CAD, Cancer, CVA, ARF, Chemo, Hep., AIDS, mental health diagnosis, sleep apnea, morbid obesity)? @ -[None] Was patient admitted / discharged? Hospital course, mention meds given and route, prescriptions, significant lab abnormalities, going to OR and other pertinent info. @ -[hospital course] Undiagnosed new problem with uncertain prognosis? @ -[No] Drug Therapy requiring intensive monitoring for toxicity (Heparin, Nitro, Insulin, Cardizem)? @ -[No] Were any procedures done? @ -[No] Diagnosis/symptom? @ -[default] Acute, or Chronic, or Acute on Chronic? @ -[default] Uncomplicated (without systemic symptoms) or Complicated (systemic symptoms)? @ -[default] Side effects of treatment? @ -[No] Exacerbation, Progression, or Severe Exacerbation? @ -[No] Poses a threat to life or bodily function? How? (Chest pain, [place], [place], pneumonia, PE, COPD, DKA, ARF, appy, cholecystitis, CVA, Diverticulitis, Homicidal, Suicidal, threat to staff... and all critical care pts) @ -[No] - Lab Data Result diagrams: 12/08/24 17:42 12/08/24 17:42 Lab Results 12/08/24 12/08/24 12/08/24 Range/Units 17:42 17:42 17:42 WBC 4.33 L (4.50-10.00) 10*3/uL RBC 4.86 (4.40-5.60) 10*6/uL Hgb 13.3 (13.0-17.0) g/dL Hct 38.2 L (39.6-50.0) % MCV 78.6 L (80.0-97.0) fL MCH 27.4 (27.0-32.0) pg MCHC 34.8 (32.0-37.0) g/dL Plt Count 197 (140-440) 10*3/uL MPV 9.9 (9.5-12.2) fL Immature Gran % (Auto) 0.2 % Neutrophils % 61.4 % Lymphocytes % 28.2 % Monocytes % 6.5 % Eosinophils % 3.0 % Basophils % 0.7 % Immature Gran # 0.01 (0.00-0.04) 10*3/uL Neutrophils # 2.66 (1.80-7.70) 10*3/uL Lymphocytes # 1.22 (0.90-5.00) 10*3/uL Monocytes # 0.28 (0.20-1.00) 10*3/uL Eosinophils # 0.13 (0.04-0.35) 10*3/uL Basophils # 0.03 (0.00-0.10) 10*3/uL PT (10.0-12.5) sec INR (<1.2) APTT (22.0-30.0) sec Sodium 133 L (137-145) mmol/L Potassium 4.9 (3.5-5.1) mmol/L Chloride 103 (98-107) mmol/L Carbon Dioxide 16 L (22-30) mmol/L Anion Gap 14 mmol/L BUN 21 H (9-20) mg/dL Creatinine 1.04 (0.66-1.25) mg/dL Est GFR (CKD-EPI)AfAm 82 (>60 ml/min/1.73 sqM) Est GFR (CKD-EPI)NonAf 71 (>60 ml/min/1.73 sqM) Glucose 521 H* (74-99) mg/dL POC Glucose (mg/dL) (70-110) mg/dL POC Glu Width Stripper ID Calcium 8.3 L (8.4-10.2) mg/dL Total Bilirubin 1.5 H (0.2-1.3) mg/dL AST 27 (17-59) U/L ALT 28 (4-49) U/L Alkaline Phosphatase 182 H (38-126) U/L Creatine Kinase 180 H (55-170) U/L Troponin I <0.012 (0.000-0.034) ng/mL Total Protein 6.8 (6.3-8.2) g/dL Albumin 4.0 (3.5-5.0) g/dL 04/09/25 04/09/25 04/09/25 Range/Units 18:29 18:30 19:49 WBC (4.50-10.00) 10*3/uL RBC (4.40-5.60) 10*6/uL Hgb (13.0-17.0) g/dL Hct (39.6-50.0) % MCV (80.0-97.0) fL MCH (27.0-32.0) pg MCHC (32.0-37.0) g/dL Plt Count (140-440) 10*3/uL MPV (9.5-12.2) fL Immature Gran % (Auto) % Neutrophils % % Lymphocytes % % Monocytes % % Eosinophils % % Basophils % % Immature Gran # (0.00-0.04) 10*3/uL Neutrophils # (1.80-7.70) 10*3/uL Lymphocytes # (0.90-5.00) 10*3/uL Monocytes # (0.20-1.00) 10*3/uL Eosinophils # (0.04-0.35) 10*3/uL Basophils # (0.00-0.10) 10*3/uL PT 10.8 (10.0-12.5) sec INR 1.0 (<1.2) APTT 24.7 (22.0-30.0) sec Sodium (137-145) mmol/L Potassium (3.5-5.1) mmol/L Chloride (98-107) mmol/L Carbon Dioxide (22-30) mmol/L Anion Gap mmol/L BUN (9-20) mg/dL Creatinine (0.66-1.25) mg/dL Est GFR (CKD-EPI)AfAm (>60 ml/min/1.73 sqM) Est GFR (CKD-EPI)NonAf (>60 ml/min/1.73 sqM) Glucose (74-99) mg/dL POC Glucose (mg/dL) 509 H* 464 H (70-110) mg/dL POC Glu Width Stripper ID Gustavo Harris Calcium (8.4-10.2) mg/dL Total Bilirubin (0.2-1.3) mg/dL AST (17-59) U/L ALT (4-49) U/L Alkaline Phosphatase (38-126) U/L Creatine Kinase (55-170) U/L Troponin I (0.000-0.034) ng/mL Total Protein (6.3-8.2) g/dL Albumin (3.5-5.0) g/dL Disposition Clinical Impression: Right sided weakness, CVA (cerebral vascular accident), Hyperglycemia Disposition: ADMITTED IP TO THIS [facility] Condition: Serious Is patient prescribed a controlled substance at d/c from ED?: No Time of Disposition: 22:28 Decision to Admit Reason: Admit from EC Decision Date: 12/08/24 Decision Time: 22:28
[2024-12-08] MEDS ORDERED: NALOXONE 0.4 MG/ML 1 ML VIAL IV PRN (22:29)
[2024-12-08] MEDS ORDERED: DEXTROSE 50% SYRINGE 50 ML IVP PRN (22:38)
[2024-12-08] MEDS: INSULIN GLARGINE (LANTUS) 100 UNIT/ML SYR SQ SCH (23:25)
[2024-12-08] MEDS: SODIUM CHLORIDE 0.9% 1,000 ML IV SCH (23:29)
[2024-12-09 00:25] LABS: Glucose,Whole Blood 385 mg/dL (70-110)
[2024-12-09] MEDS: ASPIRIN 325 MG TAB PO STA (00:29)
[2024-12-09] MEDS: INSULIN LISPRO (HumaLOG) 100 UNIT/ML 10 mL VL SQ SCH (00:52)
[2024-12-09 06:24] LABS: Glucose,Whole Blood 169 mg/dL (70-110)
[2024-12-09] MEDS ORDERED: INSULIN LISPRO (HumaLOG) 100 UNIT/ML 10 mL VL SQ SCH (07:30)
[2024-12-09] MEDS: ASPIRIN 325 MG TAB PO SCH (09:20)
[2024-12-09 09:39] LABS: Basophils # (A) 0.05 10*3/uL (0.00-0.10); Basophils % (A) 1.1 %; Eosinophils # (A) 0.24 10*3/uL (0.04-0.35); Eosinophils % (A) 5.2 %; HCT 39.7 % (39.6-50.0); HGB 12.7 g/dL (13.0-17.0); Lymphocytes # (A) 1.63 10*3/uL (0.90-5.00); Lymphocytes % (A) 35.3 %; MCH 26.1 pg (27.0-32.0); MCV 81.7 fL (80.0-97.0); Mean Platelet Volume 9.6 fL (9.5-12.2); Monocytes # (A) 0.39 10*3/uL (0.20-1.00); Monocytes % (A) 8.4 %; Neutrophils % (A) 49.8 %; Platelet Count 218 10*3/uL (140-440); RBC 4.86 10*6/uL (4.40-5.60); RDW 15.1 % (11.5-14.5); WBC 4.62 10*3/uL (4.50-10.00)
[2024-12-09] MEDS: LOSARTAN 50 MG TAB PO SCH (09:58)
[2024-12-09] MEDS: METOPROLOL SUCCINATE (ER) 50 MG TAB.ER.24H PO SCH (09:58)
[2024-12-09] MEDS: amLODIPine 5 MG TAB PO SCH (09:58)
[2024-12-09] MEDS: LEVOTHYROXINE 75 MCG TAB PO SCH (09:58)
[2024-12-09 10:03] LABS: African American GFR (CKD) >90 (>60 ml/min/1.73 sqM); Anion Gap 13 mmol/L; Blood Urea Nitrogen 18 mg/dL (9-20); Calcium 8.3 mg/dL (8.4-10.2); Carbon Dioxide 16 mmol/L (22-30); Chloride 107 mmol/L (98-107); Glucose 142 mg/dL (74-99); Non-African American GFR(CKD) 88 (>60 ml/min/1.73 sqM); Potassium 4.1 mmol/L (3.5-5.1); Sodium 136 mmol/L (137-145)
--- NOTE | 2024-12-09 10:27 | P.CNNES ---
History of Present Illness Consult date: 12/09/24 Requesting physician: Milagro Bowens Reason for Consult: right sided weakness, suspect cva History of Present Illness: This is a 74-year-old gentleman who presents emergency department because of right hand shaking and numbness. He stated that he was trying to light a match and he noted. That his right hand was flexed and was clenched and he could not open it up and that was around 3 PM yesterday. Then he had right hand shaking then afterwards he noticed that right side of the body including the face was numb and the episode lasted 10 minutes. Patient denies any history of stroke or seizure in the past. He was recently diagnosed with liver cancer in the August 2024. He is on aspirin 81 mg daily. He does have underlying history of diabetes type 2, hypertension. He denies tobacco, alcohol use or illicit drug use. He feels back to baseline. ED team he notified them that he had some slurring of the speech and that his glucose is uncontrolled recently and he takes insulin. Patient is on immunotherapy for his liver cancer. Some of the workup during this hospital visit consisted of: Initial serum glucose is 521, alkaline phosphatase 182, CK is 180. I reviewed the rest of the lab workup CT of the head is reported as no acute intracranial process. I personally reviewed the CT and agree with the report CT angiography of the head and neck is reported as no evidence of dissection of cervical internal carotid artery or vertebral artery. No any evidence of significant stenosis at the carotid bifurcation. No evidence of intracranial high-grade stenosis or intracranial aneurysm. Review of Systems As per HPI. Past Medical History Past Medical History: Cancer, Diabetes Mellitus, Eye Disorder, GERD/Reflux, Hypertension, Osteoarthritis (OA), Skin Disorder, Sleep Apnea/CPAP/BIPAP, Thyroid Disorder Additional Past Medical History / Comment(s): No longer has sleep apena. Limps due to broken left foot in the past that didn't heal properly. Diabetic Retinopathy and Neuropathy. UMBILICAL HERNIA. Legally blind. Chronic back pain. Fatty liver. Hx kidney stones. States possibly adhesions now. Heptacellular carcinoma History of Any Multi-Drug Resistant Organisms: None Reported Past Surgical History: Bariatric Surgery, Cholecystectomy Additional Past Surgical History / Comment(s): Liver biopsy. Pilonidal cyst. Cysts removed from head. Cataract & Retinopathy surgery. Tala-en-Y. Pain procedures, Kidney stone sx/ureteral stenting with removal last 06/2024, colonoscopy. Tumor removal, lysis of adhesions Past Anesthesia/Blood Transfusion Reactions: No Reported Reaction Past Psychological History: No Psychological Hx Reported Smoking Status: Never smoker Past Alcohol Use History: Occasional Past Drug Use History: Marijuana - Past Family History Father Family Medical History: Diabetes Mellitus, Deep Vein Thrombosis (DVT) Mother Family Medical History: Cancer, Diabetes Mellitus Additional Family Medical History / Comment(s): thyroid Sister(s) Family Medical History: Cancer, Diabetes Mellitus Additional Family Medical History / Comment(s): Uterine Cancer, Lupus, Bipolar Disorder. Medications and Allergies Home Medications Medication Instructions Recorded Confirmed Type Aspirin EC [Ecotrin Low Dose] 81 mg PO HS 01/02/23 12/09/24 History Insulin Glargine,Hum.rec.anlog 30 units SQ HS 09/29/24 12/09/24 History [Lantus Solostar Pen] Lidocaine-Prilocaine Cream [Emla 1 applic TOPICAL DIRECTED PRN 11/15/24 12/09/24 History Cream 2.5%/2.5%] Metoprolol Succinate [Toprol XL] 50 mg PO DAILY 11/15/24 12/09/24 History Ondansetron [Zofran] 4 - 8 mg PO Q4H PRN 11/15/24 12/09/24 History amLODIPine [Norvasc] 5 mg PO DAILY 11/15/24 12/09/24 History traMADol HCL 50 mg PO Q6H PRN 11/15/24 12/09/24 History Losartan [Cozaar] 50 mg PO BID #60 tab 11/19/24 12/09/24 Rx Levothyroxine Sodium [Synthroid] 150 mcg PO DAILY 12/09/24 12/09/24 History Allergies Allergy/AdvReac Type Severity Reaction Status Date / Time clindamycin Allergy Rash/Hives Verified 12/09/24 08:30 sulfamethoxazole Allergy Rash/Hives/ Verified 12/09/24 08:30 [From Bactrim] Itching trimethoprim [From Bactrim] Allergy Rash/Hives/ Verified 12/09/24 08:30 Itching Physical Examination - Vital Signs Vital Signs: Vital Signs Temp Pulse Pulse Resp BP BP Pulse Ox 12/09/24 08:59 98.1 F 75 16 142/101 98 04/10/25 04:00 67 20 141/91 98 12/09/24 00:21 97.9 F 72 18 146/88 98 12/08/24 19:42 71 18 110/77 97 12/08/24 18:30 49 L 16 91/66 96 12/08/24 18:25 33 L 12/08/24 17:39 97.7 F 83 18 97 Intake and Output 12/08/24 12/09/24 12/09/24 22:59 06:59 14:59 Output Total 1000 Balance -1000 Output: Urine 1000 Other: Voiding Method Urinal Weight 90.718 kg GENERAL: The patient is lying in bed and is not in acute distress. NEUROLOGICAL: Higher mental function: The patient is awake, alert, oriented to self, place and time. Patient is following commands. No aphasia and no neglect. Cranial nerves: The pupils are round, equal and reactive to light and accommodation. Visual soriano has some difficulty since at baseline has poor vision at baseline but with multiple attempts are full to confrontation throughout. Extraocular movement is intact no nystagmus is noted. Facial sensation is normal to touch throughout. The facial strength is normal throughout. Hearing is severely decreased bilaterally to hand rub (per patient is baseline). Tongue is midline and moved [id number] without any difficulty. No dysarthria is noted. Shoulder shrug is normal bilaterally. Motor: The strength is bilateral hand comb machine operator are 4+ to 5- bilaterally. Otherwise 5 over 5 throughout. Has atrophy of bilateral first dorsal interosseous. Otherwise normal tone and bulk. Cerebellum: Normal finger to nose bilaterally. Sensation: Sensation is normal to touch throughout. Reflexes (right/left): 1+ brachioradiais bilaterally. Tricpes are 1-2+ bilaterally. Biceps are 2+ bilaterally. While lowers is limited because of his cooperation. Plantars are mute bilaterally. Results - Laboratory Findings CBC and BMP: 12/09/24 09:04 12/09/24 09:04 Abnormal Lab Findings: Abnormal Labs 12/08/24 12/08/24 12/08/24 17:42 17:42 18:29 WBC 4.33 L Hgb Hct 38.2 L MCV 78.6 L MCH Sodium 133 L Carbon Dioxide 16 L BUN 21 H Glucose 521 H* POC Glucose (mg/dL) 509 H* Calcium 8.3 L Total Bilirubin 1.5 H Alkaline Phosphatase 182 H Creatine Kinase 180 H 12/08/24 12/09/24 12/09/24 19:49 00:23 06:23 WBC Hgb Hct MCV MCH Sodium Carbon Dioxide BUN Glucose POC Glucose (mg/dL) 464 H 385 H 169 H Calcium Total Bilirubin Alkaline Phosphatase Creatine Kinase 12/09/24 12/09/24 09:04 09:04 WBC Hgb 12.7 L Hct MCV MCH 26.1 L Sodium 136 L Carbon Dioxide 16 L BUN Glucose 142 H POC Glucose (mg/dL) Calcium 8.3 L Total Bilirubin Alkaline Phosphatase Creatine Kinase Assessment and Plan Assessment: This is a 74-year-old gentleman with recent diagnosis of liver cancer who is on immunotherapy. who presents emergency department because of right hand flexed in position then jerking of arm the noticed right sided numbness including face. Episode lasted for 10 minutes. His glucose was in 500's. New onset focal seizure without loss of consciousness. Rule out due to brain mets. Another etiology could be due to metabolic derangement Hyperglycemia and his sugar has not been controlled recently and the patient has underlying DM type 2 is on insulin. Sugar on presentation was in the 500s Recent Liver cancer in August 2024 and the patient is on immunotherapy Plan: I ordered MRI of the brain with and without I ordered routine EEG. I will not start the patient on any antiseizure medication this is a first seizure-like activity but he continues to have further seizure-like activity or there is any abnormality on the EEG or MRI then I will start him on antiseizure medication Seizure precautions seizure pads Per [facility] because of the seizure, avoid driving for 6 months until seizure-free, avoid heights, avoid swimming unassisted or using heavy machinery Patient is resumed on his home dose of aspirin 81 mg daily Recommend better control of diabetes mellitus Continue neurochecks Cardiac monitoring PT, OT and MANAGER COMM[employer]ITY are consulted Will defer the rest of the medical management to primary team Thank you for the consultation Time with Patient: Greater than 30
[2024-12-09 11:41] LABS: Glucose,Whole Blood 69 mg/dL (70-110)
--- NOTE | 2024-12-09 12:20 | P.HPIM ---
History of Present Illness H&P Date: 12/09/24 Chief Complaint: TIA rule out CVA HISTORY OF PRESENT ILLNESS: This is a 74-year-old male with a previous medical history significant for hypertension and hypertensive cardiovascular disease, mixed hyperlipidemia, diabetes mellitus type 2 insulin requiring, history of significant ichthyosis, coronary artery disease under the care of Dr. George, diabetic polyneuropathy, hypothyroidism, enlarged prostate, recently was diagnosed of having metastatic hepatocellular carcinoma has been receiving treatment for hematology oncology and has been on Tercentriq and Avastin , patient did receive about 3 cycles of that treatment so far, patient was recently hospitalized at [facility] because of a scrotal abscess status post I&D and IV antibiotic treatment, due to E. coli, discharged home follow up with me as an outpatient he was having issues with blood pressure control, we have adjusted his medication quite a bit, patient apparently 3:00 yesterday in the afternoon he was using the restroom, after he was washing his hand all of a sudden he was using his toothpaste, and he could not even loosen the cane stripper on the tooth brush, and the patient suddenly developed to have a significant numbness on the right side of the face right upper extremity lateral lower extremity, and he could not even use his right lower extremity, he called his Melissa who had contacted 911, the patient was brought into the ER for evaluation, apparently patient underwent significant stroke evaluation after code stroke was called, including CT scan of the brain without contrast followed by a CT angiography of the carotid and the brain they were all negative, and the patient symptoms started to get better after that, because of that he was admitted to the hospital for evaluation by neurology and neurology consultation was obtained from Dr. Hill. Patient sitting up in his bed in ER, he is feeling a lot better, his strength is back, he has no evidence of any residual deficits he continues to be a bit weaker in the right upper extremity. REVIEW OF SYSTEMS: Constitutional: No documented fever, no chills, no night sweats. positive for weight change. positive for weakness, fatigue or lethargy. No daytime sleepiness. EENT: Occipital headache. No blurred vision or double vision, positive for decreased vision. No loss of Hearing, no ringing in the ears, positive for dizziness. No nasal drainage or congestion. No epistaxis. No sore throat. Lungs: No shortness of breath, no cough, no sputum production. No wheezing. Reports dyspnea with activity. Cardiovascular: No chest pain, no lower extremity edema. No palpitations. No paroxysmal nocturnal dyspnea. No orthopnea. No lightheadedness or dizziness. No syncopal episodes. Abdominal: Reports no abdominal pain. No nausea, vomiting. No diarrhea. No constipation. No bloody or tarry stools reports loss of appetite. Genitourinary: No dysuria, increased frequency, urgency. No urinary retention. Musculoskeletal: No myalgias. Positive for muscle weakness, positive for gait dysfunction, positive for frequent falls. positive for back pain. No neck pain. Positive for neuropathy in both lower extremities. Integumentary: Right groin swelling with wound draining brown purulent material no lesions. No rash or pruritus. No unusual bruising. No change in hair or nails, positive for calluses Neurologic: No aphasia. No facial droop. No change in mentation. No head injury. Positive for occipital headache. No paralysis. positive for paresthesia. Transient paresthesia in the right side of his body that has resolved completely. Psychiatric: No depression. No anxiety. No mood swings. Endocrine: positive for abnormal blood sugars. positive for weight change. PAST MEDICAL HISTORY: Coronary artery disease Hypertension and hypertensive cardiovascular disease. Mixed hyperlipidemia. Hypothyroidism. Diabetes mellitus type 2. Diabetic polyneuropathy. Ichthyosis. Vitamin D deficiency. 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 Hepatocellular carcinoma metastatic. Enlarged prostate. PAST SURGICAL HISTORY: Bariatric surgery 2015 Tonsillectomy sebaceous cyst removed from the scalp Sebaceous cyst removed of his back Cholecystectomy. Kidney stone 01/19/2024 Mesenteric mass resection August 2024 Port a catheter September 2024 SOCIAL HISTORY: Lifelong non-smoker, he denies any alcohol ingestion, no drug use or abuse. 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 FAMILY HISTORY: Father at the age of 85 from diabetes complication and also had CAD, mother at the age of 80 from complications of diabetes went blind and she has PAD patient has 5 sisters all diabetic and 3 sons healthy. PHYSICAL EXAMINATION: General: 74-year-old male laying down in bed in no distress. HEENT: Head is atraumatic, normocephalic, pupils were equal round reactive to light and recommendation, extraocular muscle movement were intact, sclera nonicteric, conjunctivae were pale, mucous membranes of the mouth are somewhat dry. Neck: Supple, no JVP, normal carotid upstroke bilaterally, no lymphadenopathy. Chest: Decreased breath sounds at the bases, few rhonchi, no expiratory wheezes, no chest wall tenderness, no intercostal retractions. Heart: First heart sound is normal, second heart sounds normal there is systolic ejection murmur 2 over systolic in the left sternal border. Abdomen: Soft, distended moderate tenderness all over the abdomen, there is si gnificant tenderness to the right groin area extending to the right scrotum and the right testicle with the wound draining brown material. Extremities: There is no edema no calf tenderness DP +2 bilaterally. Neurologic examination: Patient is awake alert and oriented x3, cranial nerves II-12 appear grossly intact, muscle power were 4 out of 5 in upper extremities and 4 out of 5 in bilateral lower extremities, deep tendon reflexes normal bilaterally,, [id number] sign appears to be abnormal [id number] sign appears to be abnormal as well. Babinski's were flat bilaterally. ASSESSMENT AND PLAN: 1. TIA rule out CVA, rule out focal seizure, rule out brain mets from his metastatic hepatocellular carcinoma. Admit the patient to the hospital, patient had a code stroke with a CT of the brain without contrast followed by CT angiography of the carotid as well as the brain as well no evidence of acute dissection or any significant carotid stenosis, no evidence of acute aneurysm or dissection of the intracranial arteries, patient neurologic exam is back to baseline at this time, continue patient on current treatment plan, follow-up with the patient very closely, neurology consultation, neurocheck [id number], MRI of the brain with and without jarek. 2. Metastatic hepatocellular carcinoma status post a recent CT scan of the chest abdomen pelvis that showed enlarging conglomerate mass in the mesentery post third cycle of Avastin and Tercentriq 3. Hypertension and hypertensive cardiovascular disease. Continue patient on losartan 50 mg once every day, amlodipine 5 mg once every day, metoprolol ER 50 mg once every day monitor the patient blood pressure very closely. 4. Mixed hyperlipidemia patient is not taking any statin at this point in time. 5. Diabetes mellitus type II. Continue patient on Lantus 30 units at bedtime along with a sliding scale insulin. 6. History of hypothyroidism . Continue Synthroid 112 mcg orally once every day. 7. 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 Continue current pain management. 8. History of ichthyosis and dry skin. Stable at this time. 9. Diabetic polyneuropathy. Controlled diabetes. Patient was not able to tolerate Lyrica. 10. DVT prophylaxis. Lovenox 40 mg subcutaneous every 24 hours. 11. GI prophylaxis. Famotidine 20 mg orally twice every day. 12. Admit to inpatient. Estimated length of stay 2 midnights 13. Patient is full code. Past Medical History Past Medical History: Cancer, Diabetes Mellitus, Eye Disorder, GERD/Reflux, Hypertension, Osteoarthritis (OA), Skin Disorder, Sleep Apnea/CPAP/BIPAP, Thyroid Disorder Additional Past Medical History / Comment(s): No longer has sleep apena. Limps due to broken left foot in the past that didn't heal properly. Diabetic Retinopathy and Neuropathy. UMBILICAL HERNIA. Legally blind. Chronic back pain. Fatty liver. Hx kidney stones. States possibly adhesions now. Heptacellular carcinoma History of Any Multi-Drug Resistant Organisms: None Reported Past Surgical History: Bariatric Surgery, Cholecystectomy Additional Past Surgical History / Comment(s): Liver biopsy. Pilonidal cyst. Cysts removed from head. Cataract & Retinopathy surgery. Tala-en-Y. Pain procedures, Kidney stone sx/ureteral stenting with removal last 06/2024, colonoscopy. Tumor removal, lysis of adhesions Past Anesthesia/Blood Transfusion Reactions: No Reported Reaction Past Psychological History: No Psychological Hx Reported Smoking Status: Never smoker Past Alcohol Use History: Occasional Past Drug Use History: Marijuana - Past Family History Father Family Medical History: Diabetes Mellitus, Deep Vein Thrombosis (DVT) Mother Family Medical History: Cancer, Diabetes Mellitus Additional Family Medical History / Comment(s): thyroid Sister(s) Family Medical History: Cancer, Diabetes Mellitus Additional Family Medical History / Comment(s): Uterine Cancer, Lupus, Bipolar Disorder. Medications and Allergies Home Medications Medication Instructions Recorded Confirmed Type Aspirin EC [Ecotrin Low Dose] 81 mg PO HS 01/02/23 12/09/24 History Insulin Glargine,Hum.rec.anlog 30 units SQ HS 09/29/24 12/09/24 History [Lantus Solostar Pen] Lidocaine-Prilocaine Cream [Emla 1 applic TOPICAL DIRECTED PRN 11/15/24 12/09/24 History Cream 2.5%/2.5%] Metoprolol Succinate [Toprol XL] 50 mg PO DAILY 11/15/24 12/09/24 History Ondansetron [Zofran] 4 - 8 mg PO Q4H PRN 11/15/24 12/09/24 History amLODIPine [Norvasc] 5 mg PO DAILY 11/15/24 12/09/24 History traMADol HCL 50 mg PO Q6H PRN 11/15/24 12/09/24 History Losartan [Cozaar] 50 mg PO BID #60 tab 11/19/24 12/09/24 Rx Levothyroxine Sodium [Synthroid] 150 mcg PO DAILY 12/09/24 12/09/24 History Allergies Allergy/AdvReac Type Severity Reaction Status Date / Time clindamycin Allergy Rash/Hives Verified 12/09/24 08:30 sulfamethoxazole Allergy Rash/Hives/ Verified 12/09/24 08:30 [From Bactrim] Itching trimethoprim [From Bactrim] Allergy Rash/Hives/ Verified 12/09/24 08:30 Itching Physical Exam Vitals: Vital Signs Temp Pulse Pulse Resp BP BP Pulse Ox 12/09/24 08:59 98.1 F 75 16 142/101 98 12/09/24 04:00 67 20 141/91 98 12/09/24 00:21 97.9 F 72 18 146/88 98 12/08/24 19:42 71 18 110/77 97 12/08/24 18:30 49 L 16 91/66 96 12/08/24 18:25 33 L 12/08/24 17:39 97.7 F 83 18 97 Intake and Output 12/08/24 12/09/24 12/09/24 22:59 06:59 14:59 Output Total 1000 Balance -1000 Output: Urine 1000 Other: Voiding Method Urinal Weight 90.718 kg Results CBC & Chem 7: 12/09/24 09:04 12/09/24 09:04 Labs: Abnormal Lab Results - Last 24 Hours (Table) 12/08/24 12/08/24 12/08/24 Range/Units 17:42 17:42 18:29 WBC 4.33 L (4.50-10.00) 10*3/uL Hgb (13.0-17.0) g/dL Hct 38.2 L (39.6-50.0) % MCV 78.6 L (80.0-97.0) fL MCH (27.0-32.0) pg Sodium 133 L (137-145) mmol/L Carbon Dioxide 16 L (22-30) mmol/L BUN 21 H (9-20) mg/dL Glucose 521 H* (74-99) mg/dL POC Glucose (mg/dL) 509 H* (70-110) mg/dL Calcium 8.3 L (8.4-10.2) mg/dL Total Bilirubin 1.5 H (0.2-1.3) mg/dL Alkaline Phosphatase 182 H (38-126) U/L Creatine Kinase 180 H (55-170) U/L 12/08/24 12/09/24 12/09/24 Range/Units 19:49 00:23 06:23 WBC (4.50-10.00) 10*3/uL Hgb (13.0-17.0) g/dL Hct (39.6-50.0) % MCV (80.0-97.0) fL MCH (27.0-32.0) pg Sodium (137-145) mmol/L Carbon Dioxide (22-30) mmol/L BUN (9-20) mg/dL Glucose (74-99) mg/dL POC Glucose (mg/dL) 464 H 385 H 169 H (70-110) mg/dL Calcium (8.4-10.2) mg/dL Total Bilirubin (0.2-1.3) mg/dL Alkaline Phosphatase (38-126) U/L Creatine Kinase (55-170) U/L 12/09/24 12/09/24 Range/Units 09:04 09:04 WBC (4.50-10.00) 10*3/uL Hgb 12.7 L (13.0-17.0) g/dL Hct (39.6-50.0) % MCV (80.0-97.0) fL MCH 26.1 L (27.0-32.0) pg Sodium 136 L (137-145) mmol/L Carbon Dioxide 16 L (22-30) mmol/L BUN (9-20) mg/dL Glucose 142 H (74-99) mg/dL POC Glucose (mg/dL) (70-110) mg/dL Calcium 8.3 L (8.4-10.2) mg/dL Total Bilirubin (0.2-1.3) mg/dL Alkaline Phosphatase (38-126) U/L Creatine Kinase (55-170) U/L
[2024-12-09 17:06] LABS: Glucose,Whole Blood 251 mg/dL (70-110)
[2024-12-09 20:23] LABS: Glucose,Whole Blood 306 mg/dL (70-110)
[2024-12-09] MEDS: ASPIRIN 81 MG PO SCH (20:39)
--- NOTE | 2024-12-09 21:06 | EEG ---
ELECTROENCEPHALOGRAM REPORT CLINICAL HISTORY: This is a 74-year-old gentleman with right arm jerking. The video EEG is obtained to evaluate for seizure epileptiform activity. RELEVANT MEDICATION: The patient is not on any antiseizure medication. EEG TYPE: This is a routine 21-channel EEG with video using the 10/20 electrode placement system. DESCRIPTION: Wakefulness and drowsiness are obtained. During awake state, the posterior-dominant rhythm consists of [id number] voltage of 7.5 to 8 hertz activity that is well modulated, and well sustained. There is no physiological stage 2 sleep architecture. There is no focal slowing. Interictal and ictal is none. ACTIVATION PROCEDURE: Photic stimulation did not evoke a posterior driving response. There is no abnormality during the photic stimulation. Hyperventilation is not performed. CLINICAL INTERPRETATION: This is an abnormal routine EEG during awake and drowsy state. The background slowing is suggestive of mild encephalopathy. Otherwise, there is no focal slowing, epileptiform discharge, or seizure on the EEG. Lack of epileptiform discharges does not rule out underlying epilepsy. Clinical correlation is recommended. MMODL / IJN: [id number] /
[2024-12-10 01:24] LABS: Glucose,Whole Blood 49 mg/dL (70-110)
[2024-12-10 01:37] LABS: Glucose,Whole Blood 63 mg/dL (70-110)
[2024-12-10 01:53] LABS: Glucose,Whole Blood 127 mg/dL (70-110)
[2024-12-10 03:13] LABS: Basophils # (A) 0.02 10*3/uL (0.00-0.10); Basophils % (A) 0.6 %; Eosinophils % (A) 3.1 %; HCT 33.8 % (39.6-50.0); HGB 11.6 g/dL (13.0-17.0); Lymphocytes # (A) 0.84 10*3/uL (0.90-5.00); Lymphocytes % (A) 26.4 %; MCHC 34.3 g/dL (32.0-37.0); MCV 78.8 fL (80.0-97.0); Mean Platelet Volume 9.7 fL (9.5-12.2); Monocytes # (A) 0.29 10*3/uL (0.20-1.00); Monocytes % (A) 9.1 %; Neutrophils # (A) 1.92 10*3/uL (1.80-7.70); Neutrophils % (A) 60.5 %; Platelet Count 137 10*3/uL (140-440); RBC 4.29 10*6/uL (4.40-5.60); WBC 3.18 10*3/uL (4.50-10.00)
[2024-12-10 03:36] LABS: ALT 24 U/L (4-49); AST 29 U/L (17-59); African American GFR (CKD) >90 (>60 ml/min/1.73 sqM); Albumin 3.5 g/dL (3.5-5.0); Alkaline Phosphatase 133 U/L (38-126); Anion Gap 10 mmol/L; Blood Urea Nitrogen 17 mg/dL (9-20); Calcium 8.1 mg/dL (8.4-10.2); Carbon Dioxide 22 mmol/L (22-30); Chloride 101 mmol/L (98-107); Glucose 200 mg/dL (74-99); Non-African American GFR(CKD) 88 (>60 ml/min/1.73 sqM); Potassium 3.6 mmol/L (3.5-5.1); Sodium 133 mmol/L (137-145)
[2024-12-10 06:12] LABS: Glucose,Whole Blood 162 mg/dL (70-110)
--- NOTE | 2024-12-10 09:30 | P.DS ---
Providers Date of admission: 12/08/24 22:32 Expected date of discharge: 12/10/24 Attending physician: Jeff Foster Consults: 12/08/24 22:29 Consult Physician Urgent Consulting Provider: Gurwinder Hill Consult Reason/Comments: right sided weakness, suspected cva Do you want consulting provider notified?: Yes Primary care physician: Jeff Foster Hospital Course: HISTORY OF PRESENT ILLNESS: This is a 74-year-old male with a previous medical history significant for hypertension and hypertensive cardiovascular disease, mixed hyperlipidemia, diabetes mellitus type 2 insulin requiring, history of significant ichthyosis, coronary artery disease under the care of Dr. George, diabetic polyneuropathy, hypothyroidism, enlarged prostate, recently was diagnosed of having metastatic hepatocellular carcinoma has been receiving treatment for hematology oncology and has been on Tercentriq and Avastin , patient did receive about 3 cycles of that treatment so far, patient was recently hospitalized at [facility] because of a scrotal abscess status post I&D and IV antibiotic treatment, due to E. coli, discharged home follow up with me as an outpatient he was having issues with blood pressure control, we have adjusted his medication quite a bit, patient apparently 3:00 yesterday in the afternoon he was using the restroom, after he was washing his hand all of a sudden he was using his toothpaste, and he could not even loosen the sfdc solution architect on the tooth brush, and the patient suddenly developed to have a significant numbness on the right side of the face right upper extremity lateral lower extremity, and he could not even use his right lower extremity, he called his Melissa who had contacted 911, the patient was brought into the ER for evaluation, apparently patient underwent significant stroke evaluation after code stroke was called, including CT scan of the brain without contrast followed by a CT angiography of the carotid and the brain they were all negative, and the patient symptoms started to get better after that, because of that he was admitted to the hospital for evaluation by neurology and neurology consultation was obtained from Dr. Hill. Patient sitting up in his bed in ER, he is feeling a lot better, his strength is back, he has no evidence of any residual deficits he continues to be a bit weaker in the right upper extremity. 12/10: Patient sitting up in bed in no apparent distress, MRI of the brain with and without jarek is not done yet, we are awaiting the MRI to be done, EEG was done no evidence of any epileptic form at this point in time, we will continue current treatment plan, once the MRI is done the patient can be discharged home and follow-up with us as an outpatient. Discharge diagnoses: 1. TIA rule out CVA, rule out focal seizure, rule out brain mets from his metastatic hepatocellular carcinoma. 2. Metastatic hepatocellular carcinoma 3. Hypertension and hypertensive cardiovascular disease. 4. Mixed hyperlipidemia 5. Diabetes mellitus type II. 6. History of hypothyroidism . 7. 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 8. History of ichthyosis and dry skin. 9. Diabetic polyneuropathy. Patient Condition at Discharge: Serious Plan - Discharge Summary Discharge Rx Participant: Yes New Discharge Prescriptions: No Action amLODIPine [Norvasc] 5 mg PO DAILY Losartan [Cozaar] 50 mg PO BID #60 tab Aspirin EC [Ecotrin Low Dose] 81 mg PO HS Insulin Glargine,Hum.rec.anlog [Lantus Solostar Pen] 30 units SQ HS traMADol HCL 50 mg PO Q6H PRN PRN Reason: Pain Ondansetron [Zofran] 4 - 8 mg PO Q4H PRN PRN Reason: Nausea Metoprolol Succinate [Toprol XL] 50 mg PO DAILY Lidocaine-Prilocaine Cream [Emla Cream 2.5%/2.5%] 1 applic TOPICAL DIRECTED PRN PRN Reason: port access Levothyroxine Sodium [Synthroid] 150 mcg PO DAILY Discharge Medication List Aspirin EC [Ecotrin Low Dose] 81 mg PO HS 01/02/23 [History] Insulin Glargine,Hum.rec.anlog [Lantus Solostar Pen] 30 units SQ HS 09/29/24 [History] Lidocaine-Prilocaine Cream [Emla Cream 2.5%/2.5%] 1 applic TOPICAL DIRECTED PRN 11/15/24 [History] Metoprolol Succinate [Toprol XL] 50 mg PO DAILY 11/15/24 [History] Ondansetron [Zofran] 4 - 8 mg PO Q4H PRN 11/15/24 [History] amLODIPine [Norvasc] 5 mg PO DAILY 11/15/24 [History] traMADol HCL 50 mg PO Q6H PRN 11/15/24 [History] Losartan [Cozaar] 50 mg PO BID #60 tab 11/19/24 [Rx] Levothyroxine Sodium [Synthroid] 150 mcg PO DAILY 12/09/24 [History] Follow up Appointment(s)/Referral(s): Jeff Foster MD [Primary Care Provider] - 1-2 days
[2024-12-10] MEDS: ENOXAPARIN 40 MG/0.4 ML SYRINGE SQ SCH (10:43)
[2024-12-10 12:10] LABS: Glucose,Whole Blood 257 mg/dL (70-110)
--- NOTE | 2024-12-10 13:35 | P.PN ---
Subjective Progress Note Date: 12/10/24 I am following-up with patient and he feels he is doing better. Denies any new neurological issues. MRI is scheduled for tomorrow per nurse. Objective - Vital Signs Vital signs: Vital Signs Temp 97.8 F 12/10/24 09:51 Pulse 77 12/10/24 13:18 Resp 15 12/10/24 13:18 BP 158/98 12/10/24 09:51 Pulse Ox 96 12/10/24 09:51 FiO2 Intake & Output 12/09/24 12/10/24 12/10/24 18:59 06:59 18:59 Intake Total 100 100 Balance 100 100 Weight 90.718 kg Intake: Oral 100 100 Other: Voiding Method Urinal Urinal Urinal # Voids 1 - Exam GENERAL: The patient is lying in bed and is not in acute distress. NEUROLOGICAL: Higher mental function: The patient is awake, alert, oriented to self, place and time. Patient is following commands. No aphasia and no neglect. Cranial nerves: The pupils are round, equal and reactive to light and accommodation. Visual soriano has some difficulty since at baseline has poor vision at baseline but with multiple attempts are full to confrontation throughout. Extraocular movement is intact no nystagmus is noted. Facial sensation is normal to touch throughout. The facial strength is normal throughout. Hearing is severely decreased bilaterally to hand rub (per patient is baseline). Tongue is midline and moved [id number] without any difficulty. No dysarthria is noted. Shoulder shrug is normal bilaterally. Motor: The strength is bilateral hand insurance broker are 4+ to 5- bilaterally. Otherwise 5 over 5 throughout. Has atrophy of bilateral first dorsal interosseous. Otherwise normal tone and bulk. Cerebellum: Normal finger to nose bilaterally. Sensation: Sensation is normal to touch throughout. Reflexes (right/left): 1+ brachioradiais bilaterally. Tricpes are 1-2+ bilaterally. Biceps are 2+ bilaterally. While lowers is limited because of his cooperation. Plantars are mute bilaterally. Some of the workup during this hospital visit consisted of: Initial serum glucose is 521, alkaline phosphatase 182, CK is 180. During this hospital visit his sugar as low as 40's then improved. I reviewed the rest of the lab workup CT of the head is reported as no acute intracranial process. I personally reviewed the CT and agree with the report CT angiography of the head and neck is reported as no evidence of dissection of cervical internal carotid artery or vertebral artery. No any evidence of s ignificant stenosis at the carotid bifurcation. No evidence of intracranial high-grade stenosis or intracranial aneurysm. Routine EEG: There is abnormal. The background slowing is suggestive of mild encephalopathy. Otherwise there is no focal slowing, epileptiform discharge or seizure on the EEG. Lack of epileptiform discharges does not rule out underlying epilepsy. - Labs CBC & Chem 7: 12/10/24 02:39 12/10/24 02:39 Labs: Abnormal Lab Results - Last 24 Hours (Table) 12/09/24 12/09/24 12/09/24 Range/Units 09:04 17:04 20:22 WBC (4.50-10.00) 10*3/uL RBC (4.40-5.60) 10*6/uL Hgb (13.0-17.0) g/dL Hct (39.6-50.0) % MCV (80.0-97.0) fL Plt Count (140-440) 10*3/uL Lymphocytes # (0.90-5.00) 10*3/uL Sodium (137-145) mmol/L Glucose (74-99) mg/dL POC Glucose (mg/dL) 251 H 306 H (70-110) mg/dL Hemoglobin A1c 9.1 H (<=6.0) % Calcium (8.4-10.2) mg/dL Alkaline Phosphatase (38-126) U/L Total Protein (6.3-8.2) g/dL 12/10/24 12/10/24 12/10/24 Range/Units 01:17 01:31 01:50 WBC (4.50-10.00) 10*3/uL RBC (4.40-5.60) 10*6/uL Hgb (13.0-17.0) g/dL Hct (39.6-50.0) % MCV (80.0-97.0) fL Plt Count (140-440) 10*3/uL Lymphocytes # (0.90-5.00) 10*3/uL Sodium (137-145) mmol/L Glucose (74-99) mg/dL POC Glucose (mg/dL) 49 L* 63 L 127 H (70-110) mg/dL Hemoglobin A1c (<=6.0) % Calcium (8.4-10.2) mg/dL Alkaline Phosphatase (38-126) U/L Total Protein (6.3-8.2) g/dL 12/10/24 12/10/24 12/10/24 Range/Units 02:39 02:39 06:10 WBC 3.18 L (4.50-10.00) 10*3/uL RBC 4.29 L (4.40-5.60) 10*6/uL Hgb 11.6 L (13.0-17.0) g/dL Hct 33.8 L (39.6-50.0) % MCV 78.8 L (80.0-97.0) fL Plt Count 137 L (140-440) 10*3/uL Lymphocytes # 0.84 L (0.90-5.00) 10*3/uL Sodium 133 L (137-145) mmol/L Glucose 200 H (74-99) mg/dL POC Glucose (mg/dL) 162 H (70-110) mg/dL Hemoglobin A1c (<=6.0) % Calcium 8.1 L (8.4-10.2) mg/dL Alkaline Phosphatase 133 H (38-126) U/L Total Protein 6.0 L (6.3-8.2) g/dL 12/10/24 Range/Units 12:08 WBC (4.50-10.00) 10*3/uL RBC (4.40-5.60) 10*6/uL Hgb (13.0-17.0) g/dL Hct (39.6-50.0) % MCV (80.0-97.0) fL Plt Count (140-440) 10*3/uL Lymphocytes # (0.90-5.00) 10*3/uL Sodium (137-145) mmol/L Glucose (74-99) mg/dL POC Glucose (mg/dL) 257 H (70-110) mg/dL Hemoglobin A1c (<=6.0) % Calcium (8.4-10.2) mg/dL Alkaline Phosphatase (38-126) U/L Total Protein (6.3-8.2) g/dL Assessment and Plan Assessment: This is a 74-year-old gentleman with recent diagnosis of liver cancer who is on immunotherapy. who presents emergency department because of right hand flexed in position then jerking of arm the noticed right sided numbness including face. Episode lasted for 10 minutes. His glucose was in 500's. New onset focal seizure without loss of consciousness. Rule out due to brain mets. Another etiology could be due to metabolic derangement Hyperglycemia and his sugar has not been controlled recently and the patient has underlying DM type 2 is on insulin. Sugar on presentation was in the 500s--then was overcorrected and was in 40's then improved. Recent Liver cancer in August 2024 and the patient is on immunotherapy Plan: Pending MRI of the brain with and without Routine EEG is negative for seizure. I will not start the patient on any antiseizure medication this is a first seizure-like activity but he continues to have further seizure-like activity or there is any abnormality on MRI then I will start him on antiseizure medication Seizure precautions seizure pads Per [facility] because of the seizure, avoid driving for 6 months until seizure-free, avoid heights, avoid swimming unassisted or using heavy machinery Patient is resumed on his home dose of aspirin 81 mg daily Recommend better control of diabetes mellitus. Avoid hypoglycemic events as well. Continue neurochecks Cardiac monitoring PT, OT and [employer] W[employer]ER are consulted Will defer the rest of the medical management to primary team Recommend the patient to follow-up with neurologist as outpatient within 2-3 weeks. If MRI Brain is negative then no furthe neurological work-up. Dr. Smith will resume neurology service tomorrow A.M. Time with Patient: Less than 30
--- NOTE | 2024-12-10 16:08 | P.PN ---
Subjective Progress Note Date: 12/10/24 HISTORY OF PRESENT ILLNESS: This is a 74-year-old male with a previous medical history significant for hypertension and hypertensive cardiovascular disease, mixed hyperlipidemia, diabetes mellitus type 2 insulin requiring, history of significant ichthyosis, coronary artery disease under the care of Dr. George, diabetic polyneuropathy, hypothyroidism, enlarged prostate, recently was diagnosed of having metastatic hepatocellular carcinoma has been receiving treatment for hematology oncology a nd has been on Tercentriq and Avastin , patient did receive about 3 cycles of that treatment so far, patient was recently hospitalized at [facility] because of a scrotal abscess status post I&D and IV antibiotic treatment, due to E. coli, discharged home follow up with me as an outpatient he was having issues with blood pressure control, we have adjusted his medication quite a bit, patien t apparently 3:00 yesterday in the afternoon he was using the restroom, after he was washing his hand all of a sudden he was using his toothpaste, and he could not even loosen the mixologist on the tooth brush, and the patient suddenly developed to have a significant numbness on the right side of the face right upper extremity lateral lower extremity, and he could not even use his right lower extremity, he called his Melissa who had contacted 911, the patient was brought into the ER for evaluation, apparently patient underwent significant stroke evaluation after code stroke was called, including CT scan of the brain without contrast followed by a CT angiography of the carotid and the brain they were all negative, and the patient symptoms started to get better after that, because of that he was admitted to the hospital for evaluation by neurology and neurology consultation was obtained from Dr. Hill. Patient sitting up in his bed in ER, he is feeling a lot better, his strength is back, he has no evidence of any residual deficits he continues to be a bit weaker in the right upper extremity. 12/09: Patient is sitting at the edge of the bed in no apparent distress, he had an episode of hypoglycemia in the morning with his sugar dropped to 47, he denies any chest pain, he denies any shortness of breath, he is feeling little bit better, his sugar is up to 126, he is eating his breakfast, he denies any abdominal pain, nausea vomiting or diarrhea, he does not have any more numbness or weakness in the upper or lower extremities, beside his neuropathy and instability gait he was fine, he was supposed to have his MRI done today, however because of the situation he was not able to get the MRI today therefore he will be kept in the hospital for another 24 hours, he will be done for [facility] in the morning and then he can be discharged home and follow-up with me as an outpatient after the MRI is done. REVIEW OF SYSTEMS: Constitutional: No documented fever, no chills, no night sweats. positive for weight change. positive for weakness, fatigue or lethargy. No daytime sleepiness. EENT: Occipital headache. No blurred vision or double vision, positive for decreased vision. No loss of Hearing, no ringing in the ears, positive for dizziness. No nasal drainage or congestion. No epistaxis. No sore throat. Lungs: No shortness of breath, no cough, no sputum production. No wheezing. Reports dyspnea with activity. Cardiovascular: No chest pain, no lower extremity edema. No palpitations. No paroxysmal nocturnal dyspnea. No orthopnea. No lightheadedness or dizziness. No syncopal episodes. Abdominal: Reports no abdominal pain. No nausea, vomiting. No diarrhea. No co nstipation. No bloody or tarry stools reports loss of appetite. Genitourinary: No dysuria, increased frequency, urgency. No urinary retention. Musculoskeletal: No myalgias. Positive for muscle weakness, positive for gait dysfunction, positive for frequent falls. positive for back pain. No neck pain. Positive for neuropathy in both lower extremities. Integumentary: Right groin swelling with wound draining brown purulent material no lesions. No rash or pruritus. No unusual bruising. No change in hair or nails, positive for calluses Neurologic: No aphasia. No facial droop. No change in mentation. No head injury. Positive for occipital headache. No paralysis. positive for paresthesia. Transient paresthesia in the right side of his body that has resolved completely. Psychiatric: No depression. No anxiety. No mood swings. Endocrine: positive for abnormal blood sugars. positive for weight change. PHYSICAL EXAMINATION: General: 74-year-old male sitting up in bed in no apparent distress. HEENT: Head is atraumatic, normocephalic, pupils were equal round reactive to light and recommendation, extraocular muscle movement were intact, sclera nonicteric, conjunctivae were pale, mucous membranes of the mouth are somewhat dry. Neck: Supple, no JVP, normal carotid upstroke bilaterally, no lymphadenopathy. Chest: Decreased breath sounds at the bases, few rhonchi, no expiratory wheezes, no chest wall tenderness, no intercostal retractions. Heart: First heart sound is normal, second heart sounds normal there is systolic ejection murmur 2 over systolic in the left sternal border. Abdomen: Soft, distended moderate tenderness all over the abdomen, there is significant tenderness to the right groin area extending to the right scrotum and the right testicle with the wound draining brown material. Extremities: There is no edema no calf tenderness DP +2 bilaterally. Neurologic examination: Patient is awake alert and oriented x3, cranial nerves II-12 appear grossly intact, muscle power were 4 out of 5 in upper extremities and 4 out of 5 in bilateral lower extremities, deep tendon reflexes normal bilaterally,, [id number] sign appears to be abnormal [id number] sign appears to be abnormal as well. Babinski's were flat bilaterally. ASSESSMENT AND PLAN: 1. TIA rule out CVA, rule out focal seizure, rule out brain mets from his metastatic hepatocellular carcinoma. Status post CT scan of the brain did not show evidence of acute normalities, CT angiography of the neck and the brain did not show evidence of significant stenosis or any significant aneurysm, continue aspirin 81 mg once every day, continue with neurocheck, patient had an EEG was done yesterday did not show evidence of any acute seizure activity, will follow- up with the patient very closely, await MRI of the brain with and without jarek for further evaluation recommendation, once the MRI is done the patient can be discharged home. 2. Metastatic hepatocellular carcinoma status post a recent CT scan of the chest abdomen pelvis that showed enlarging conglomerate mass in the mesentery post third cycle of Avastin and Tercentriq 3. Hypertension and hypertensive cardiovascular disease. Continue patient on losartan 50 mg orally twice every day,, amlodipine 5 mg once every day, metoprolol ER 50 mg once every day monitor the patient blood pressure very closely. 4. Mixed hyperlipidemia patient is not taking any statin at this point in time. 5. Diabetes mellitus type II. Continue patient on Lantus 30 units at bedtime along with a sliding scale insulin. Monitor for hypoglycemic episodes, offered the patient snack before bedtime. 6. History of hypothyroidism . Continue Synthroid 112 mcg orally once every day. 7. 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 Continue current pain management. 8. History of ichthyosis and dry skin. Stable at this time. 9. Diabetic polyneuropathy. Controlled diabetes. Patient was not able to tolerate Lyrica. 10. DVT prophylaxis. Lovenox 40 mg subcutaneous every 24 hours. 11. GI prophylaxis. Famotidine 20 mg orally twice every day. 12. Observation. 13. Home tomorrow morning after MRIs done. Objective - Vital Signs Vital signs: Vital Signs Temp 98.1 F 12/10/24 14:45 Pulse 76 12/10/24 14:45 Resp 16 12/10/24 14:45 BP 123/85 12/10/24 14:45 Pulse Ox 96 12/10/24 14:45 FiO2 Intake & Output 12/09/24 12/10/24 12/10/24 18:59 06:59 18:59 Intake Total 100 100 Balance 100 100 Weight 90.718 kg Intake: Oral 100 100 Other: Voiding Method Urinal Urinal Urinal # Voids 1 - Labs CBC & Chem 7: 12/10/24 02:39 12/10/24 02:39 Labs: Abnormal Lab Results - Last 24 Hours (Table) 12/09/24 12/09/24 12/10/24 Range/Units 17:04 20:22 01:17 WBC (4.50-10.00) 10*3/uL RBC (4.40-5.60) 10*6/uL Hgb (13.0-17.0) g/dL Hct (39.6-50.0) % MCV (80.0-97.0) fL Plt Count (140-440) 10*3/uL Lymphocytes # (0.90-5.00) 10*3/uL Sodium (137-145) mmol/L Glucose (74-99) mg/dL POC Glucose (mg/dL) 251 H 306 H 49 L* (70-110) mg/dL Calcium (8.4-10.2) mg/dL Alkaline Phosphatase (38-126) U/L Total Protein (6.3-8.2) g/dL 12/10/24 12/10/24 12/10/24 Range/Units 01:31 01:50 02:39 WBC 3.18 L (4.50-10.00) 10*3/uL RBC 4.29 L (4.40-5.60) 10*6/uL Hgb 11.6 L (13.0-17.0) g/dL Hct 33.8 L (39.6-50.0) % MCV 78.8 L (80.0-97.0) fL Plt Count 137 L (140-440) 10*3/uL Lymphocytes # 0.84 L (0.90-5.00) 10*3/uL Sodium (137-145) mmol/L Glucose (74-99) mg/dL POC Glucose (mg/dL) 63 L 127 H (70-110) mg/dL Calcium (8.4-10.2) mg/dL Alkaline Phosphatase (38-126) U/L Total Protein (6.3-8.2) g/dL 12/10/24 12/10/24 12/10/24 Range/Units 02:39 06:10 12:08 WBC (4.50-10.00) 10*3/uL RBC (4.40-5.60) 10*6/uL Hgb (13.0-17.0) g/dL Hct (39.6-50.0) % MCV (80.0-97.0) fL Plt Count (140-440) 10*3/uL Lymphocytes # (0.90-5.00) 10*3/uL Sodium 133 L (137-145) mmol/L Glucose 200 H (74-99) mg/dL POC Glucose (mg/dL) 162 H 257 H (70-110) mg/dL Calcium 8.1 L (8.4-10.2) mg/dL Alkaline Phosphatase 133 H (38-126) U/L Total Protein 6.0 L (6.3-8.2) g/dL
[2024-12-10 16:56] LABS: Glucose,Whole Blood 555 mg/dL (70-110)
[2024-12-10 16:58] LABS: Glucose,Whole Blood 571 mg/dL (70-110)
[2024-12-10 21:00] LABS: Glucose,Whole Blood 334 mg/dL (70-110)
[2024-12-10] MEDS: traMADol 50 MG TAB PO PRN (21:23)
[2024-12-11 06:47] LABS: Glucose,Whole Blood 64 mg/dL (70-110)
[2024-12-11 07:52] VITALS: RESP 18
[2024-12-11 10:02] LABS: Glucose,Whole Blood 238 mg/dL (70-110)
[2024-12-11] MEDS: ONDANSETRON 4 MG/2 ML VIAL IVP PRN (10:06)
[2024-12-11 10:38] VITALS: BMI 28.7
--- NOTE | 2024-12-11 12:53 | MR ---
EXAMINATION TYPE: MR brain wo/w con DATE OF EXAM: 12/11/2024 12:13 PM COMPARISON: None. CLINICAL INDICATION: Male, 74 years old with history of new onset seizure. r/o brain mets vs stroke, New onset seizure. r/o brain mets vs stroke TECHNIQUE: Multiplanar, multiecho imaging on a 3.0 Marian magnet is performed through the brain. Stud y is performed within 24 hours of arrival to the hospital.Multiplanar, multiecho imaging on a 3.0 Mercedes la magnet is performed through the knee. IV Contrast: 9 mL Gadobutrol (None, if empty) FINDINGS: The craniovertebral junction is normal. The pituitary is normal. Diffusion-weighted imaging is performed. No abnormal hyperintensity is present to suggest an acute i ntracranial infarct or acute ischemic change. Minimal periventricular white matter hypodensity is present, likely on the basis of chronic white mat ter ischemic changes. May be a couple of small cavernous angiomas within the inferior right basal tiffany glia. This area has blooming artifact on the gradient imaging. Ventricles and sulci are appropriate for the patient age. Temporal lobes appear symmetrical. No abnormal enhancement is evident. IMPRESSION: 1. Mild periventricular white matter ischemic type changes. 2. Probable small vascular malformations inferior right basal ganglion compatible with cavernous ananth omas. [facility], , 12/11/2024 12:51 PM
[2024-12-11 13:07] VITALS: BP 154/91; PULSE 79; TEMP 97.4
[2024-12-11] MEDS: amLODIPine 5 MG TAB PO SCH (13:07)
--- NOTE | 2024-12-11 14:03 | P.PN ---
Subjective Progress Note Date: 12/11/24 The patient was patient is a 74-year-old male follow-up on December 11, 2024, in collaboration with Steffany Arechiga, via teleneurology. The patient's chart has been reviewed. This morning, the patient reports that he is feeling fine. He does tell me that he was advised by nursing, that his heart rate dropped to 28 bpm last p.m. The patient denies any further episodes of shaking of his right upper extremity. The events surrounding his admission were reviewed. The patient reports that he had some slurring of his speech as well as some word finding difficulties. In addition, the patient reportedly had some decrease in right-sided strength. This morning, the patient is feeling fine. He denies tongue biting. There is no loss of bowel or bladder control. There is no loss of consciousness. Objective - Vital Signs Vital signs: Vital Signs Temp 97.6 F 12/11/24 02:18 Pulse 74 12/11/24 07:51 Resp 18 12/11/24 07:51 BP 151/69 12/11/24 07:51 Pulse Ox 100 12/11/24 07:51 FiO2 Intake & Output 12/10/24 12/11/24 12/11/24 18:59 06:59 18:59 Intake Total 100 658 Balance 100 658 Intake: Oral 100 658 Other: Voiding Method Urinal - Exam General: The patient is seated in the bedside chair, well-nourished, well- developed and in no acute distress. HEENT: Head is atraumatic, normocephalic. Fundus not visualized. There is no scleral icterus. Mucous membranes are moist. Neck: Supple without carotid bruits Heart: Regular rate and rhythm Lungs: Essentially clear to auscultation Extremities: Without edema Neurological examination Mental status: The patient is awake, alert and oriented x 3. Speech is clear. There is no dysarthria or aphasia. Cranial nerves: Pupils are equal, and reactive at 3 mm. Visual soriano are full to confrontation. Extraocular movements are intact. There is no nystagmus. Facial sensation is intact. There is no facial asymmetry. Hearing is grossly intact. Uvula and palate are midline. Shoulder shrug is symmetric. Tongue protrudes midline, without bite. Motor: Strength is 5/5 throughout. Sensation: Intact to light touch throughout. There is no extinction with double simultaneous stimulation. Deep tendon reflexes: 2+/4+ at the bilateral biceps, triceps, brachial radialis, patellar reflexes. Plantar responses are flexor bilaterally. Gait: Not assessed - Labs CBC & Chem 7: 12/10/24 02:39 12/10/24 02:39 Labs: Abnormal Lab Results - Last 24 Hours (Table) 12/10/24 12/10/24 12/10/24 Range/Units 12:08 16:54 16:56 POC Glucose (mg/dL) 257 H 555 H* 571 H* (70-110) mg/dL 12/10/24 12/11/24 Range/Units 20:53 06:45 POC Glucose (mg/dL) 334 H 64 L (70-110) mg/dL Assessment and Plan Assessment: -New onset focal seizure without loss of consciousness. Rule out due to brain mets. Another etiology could be due to metabolic derangement Hyperglycemia and his sugar has not been controlled recently and the patient has underlying DM type 2 is on insulin. Sugar on presentation was in the 500s -Recent Liver cancer in August 2024 and the patient is on immunotherapy - MRI of the brain is negative for acute ischemia and cerebral metastases -EEG is negative for epileptiform activity Plan: Antiepileptic medication will not be started at this time. This is a first seizure-like activity but if he continues to have further seizure-like activity, then antiseizure medication will be started Seizure precautions seizure pads Per [facility] because of the seizure, avoid driving for 6 months until seizure-free, avoid heights, avoid swimming unassisted or using heavy machinery Patient is resumed on his home dose of aspirin 81 mg daily Recommend better control of diabetes mellitus Continue neurochecks Cardiac monitoring PT, OT and VALUER are consulted Will defer the rest of the medical management to primary team The patient is neurologically stable for discharge Time with Patient: Greater than 30 (40 minutes were spent caring for this patient today including, obtaining history, examining patient, reviewing imaging, chart documentation, labs and creating this note)
--- NOTE | 2024-12-11 14:33 | P.PN ---
Subjective Progress Note Date: 12/11/24 HISTORY OF PRESENT ILLNESS: This is a 74-year-old male with a previous medical history significant for hypertension and hypertensive cardiovascular disease, mixed hyperlipidemia, diabetes mellitus type 2 insulin requiring, history of significant ichthyosis, coronary artery disease under the care of Dr. George, diabetic polyneuropathy, hypothyroidism, enlarged prostate, recently was diagnosed of having metastatic hepatocellular carcinoma has been receiving treatment for hematology oncology a nd has been on Tercentriq and Avastin , patient did receive about 3 cycles of that treatment so far, patient was recently hospitalized at [facility] because of a scrotal abscess status post I&D and IV antibiotic treatment, due to E. coli, discharged home follow up with me as an outpatient he was having issues with blood pressure control, we have adjusted his medication quite a bit, patien t apparently 3:00 yesterday in the afternoon he was using the restroom, after he was washing his hand all of a sudden he was using his toothpaste, and he could not even loosen the gate keeper on the tooth brush, and the patient suddenly developed to have a significant numbness on the right side of the face right upper extremity lateral lower extremity, and he could not even use his right lower extremity, he called his Melissa who had contacted 911, the patient was brought into the ER for evaluation, apparently patient underwent significant stroke evaluation after code stroke was called, including CT scan of the brain without contrast followed by a CT angiography of the carotid and the brain they were all negative, and the patient symptoms started to get better after that, because of that he was admitted to the hospital for evaluation by neurology and neurology consultation was obtained from Dr. Hill. Patient sitting up in his bed in ER, he is feeling a lot better, his strength is back, he has no evidence of any residual deficits he continues to be a bit weaker in the right upper extremity. 12/09: Patient is sitting at the edge of the bed in no apparent distress, he had an episode of hypoglycemia in the morning with his sugar dropped to 47, he denies any chest pain, he denies any shortness of breath, he is feeling little bit better, his sugar is up to 126, he is eating his breakfast, he denies any abdominal pain, nausea vomiting or diarrhea, he does not have any more numbness or weakness in the upper or lower extremities, beside his neuropathy and instability gait he was fine, he was supposed to have his MRI done today, however because of the situation he was not able to get the MRI today therefore he will be kept in the hospital for another 24 hours, he will be done for Barger in the morning and then he can be discharged home and follow-up with me as an outpatient after the MRI is done. 12/11: Patient had an episode of bradycardia with heart rate dipping in the low 20s and 30s and 3-second pauses while he was asleep, patient was taken off beta- cholo completely, cardiology consultation was obtained, patient follows regularly with Dr. George as an outpatient, patient will be monitor, patient also underwent MRI of the brain with and without jarek that showed evidence of possible vascular malformation at the inferior right basal ganglia, without evidence of acute stroke, patient was seen by Dr. George and he was recommended to continue Lodine 5 mg twice every day losartan 50 mg twice a day keep off the beta-cholo for now, I will give the patient a prescription of hydralazine 25 mg orally twice a day if his systolic blood pressure is greater than 150 and okng stolic greater than 90. REVIEW OF SYSTEMS: Constitutional: No documented fever, no chills, no night sweats. positive for weight change. positive for weakness, fatigue or lethargy. No daytime sle epiness. EENT: Occipital headache. No blurred vision or double vision, positive for decreased vision. No loss of Hearing, no ringing in the ears, positive for dizziness. No nasal drainage or congestion. No epistaxis. No sore throat. Lungs: No shortness of breath, no cough, no sputum production. No wheezing. Reports dyspnea with activity. Cardiovascular: No chest pain, no lower extremity edema. No palpitations. No paroxysmal nocturnal dyspnea. No orthopnea. No lightheadedness or dizziness. No syncopal episodes. Abdominal: Reports no abdominal pain. No nausea, vomiting. No diarrhea. No constipation. No bloody or tarry stools reports loss of appetite. Genitourinary: No dysuria, increased frequency, urgency. No urinary retention. Musculoskeletal: No myalgias. Positive for muscle weakness, positive for gait dysfunction, positive for frequent falls. positive for back pain. No neck pain. Positive for neuropathy in both lower extremities. Integumentary: Right groin swelling with wound draining brown purulent material no lesions. No rash or pruritus. No unusual bruising. No change in hair or nails, positive for calluses Neurologic: No aphasia. No facial droop. No change in mentation. No head injury. Positive for occipital headache. No paralysis. positive for paresthesia. Transient paresthesia in the right side of his body that has resolved completely. Psychiatric: No depression. No anxiety. No mood swings. Endocrine: positive for abnormal blood sugars. positive for weight change. PHYSICAL EXAMINATION: General: 74-year-old male sitting up in bed in no apparent distress. HEENT: Head is atraumatic, normocephalic, pupils were equal round reactive to light and recommendation, extraocular muscle movement were intact, sclera nonicteric, conjunctivae were pale, mucous membranes of the mouth are somewhat dry. Neck: Supple, no JVP, normal carotid upstroke bilaterally, no lymphadenopathy. Chest: Decreased breath sounds at the bases, few rhonchi, no expiratory wheezes, no chest wall tenderness, no intercostal retractions. Heart: First heart sound is normal, second heart sounds normal there is systolic ejection murmur 2 over systolic in the left sternal border. Abdomen: Soft, distended moderate tenderness all over the abdomen, there is significant tenderness to the right groin area extending to the right scrotum and the right testicle with the wound draining brown material. Extremities: There is no edema no calf tenderness DP +2 bilaterally. Neurologic examination: Patient is awake alert and oriented x3, cranial nerves II-12 appear grossly intact, muscle power were 4 out of 5 in upper extremities and 4 out of 5 in bilateral lower extremities, deep tendon reflexes normal bilaterally,, [id number] sign appears to be abnormal [id number] sign appears to be abnormal as well. Babinski's were flat bilaterally. ASSESSMENT AND PLAN: 1. TIA rule out CVA, rule out focal seizure, rule out brain mets from his metastatic hepatocellular carcinoma. Status post CT scan of the brain did not show evidence of acute normalities, CT angiography of the neck and the brain did not show evidence of significant stenosis or any significant aneurysm, continue aspirin 81 mg once every day, continue with neurocheck, patient had an EEG was done yesterday did not show evidence of any acute seizure activity, MRI of the brain with and without jarek showed evidence of cavernous angioma in the inferior right basal ganglia and no evidence of any cerebrovascular accident. 2. Asymptomatic sinus bradycardia with first-degree AV block and with episodes of pauses up to 2 to 3 seconds. Patient was taken off beta-cholo completely, continue monitor the patient off beta-cholo, cardiology consultation is pending, patient may need to have a 30-day event monitor prior to his discharge. If the patient is totally asymptomatic can be discharged home and follow-up with us as an outpatient. If okay with cardiology 3 Metastatic hepatocellular carcinoma status post a recent CT scan of the chest abdomen pelvis that showed enlarging conglomerate mass in the mesentery post third cycle of Avastin and Tercentriq 4. Hypertension and hypertensive cardiovascular disease. Continue patient on losartan 50 mg orally twice every day,, increase amlodipine to 5 mg orally twice every day, add hydralazine 25 mg orally twice every day if this his blood pressures greater than 150/90. 5. Mixed hyperlipidemia patient is not taking any statin at this point in time because of significant statin induced myopathy 6. Diabetes mellitus type II. Continue patient on Lantus 30 units at bedtime along with a sliding scale insulin. Monitor for hypoglycemic episodes, offered the patient snack before bedtime. 7. History of hypothyroidism . Continue Synthroid 112 mcg orally once every day. 8. 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 Continue current pain management. 9. History of ichthyosis and dry skin. Stable at this time. 10. Diabetic polyneuropathy. Controlled diabetes. Patient was not able to tolerate Lyrica. 11. DVT prophylaxis. Lovenox 40 mg subcutaneous every 24 hours. 12. GI prophylaxis. Famotidine 20 mg orally twice every day. 13. patient will be discharged home today, follow-up with me as an outpatient next week Objective - Vital Signs Vital signs: Vital Signs Temp 97.4 F L 12/11/24 13:06 Pulse 79 12/11/24 13:06 Resp 18 12/11/24 13:06 BP 154/91 12/11/24 13:06 Pulse Ox 100 12/11/24 13:06 FiO2 Intake & Output 12/10/24 12/11/24 12/11/24 18:59 06:59 18:59 Intake Total 100 658 Balance 100 658 Weight 90.718 kg Intake: Oral 100 658 Other: Voiding Method Urinal - Labs CBC & Chem 7: 12/10/24 02:39 12/10/24 02:39 Labs: Abnormal Lab Results - Last 24 Hours (Table) 12/10/24 12/10/24 12/10/24 Range/Units 16:54 16:56 20:53 POC Glucose (mg/dL) 555 H* 571 H* 334 H (70-110) mg/dL 12/11/24 12/11/24 Range/Units 06:45 10:01 POC Glucose (mg/dL) 64 L 238 H (70-110) mg/dL
--- NOTE | 2024-12-11 14:35 | P.DS ---
Providers Date of admission: 12/08/24 22:32 Expected date of discharge: 12/11/24 Attending physician: Jeff Foster Consults: 12/08/24 22:29 Consult Physician Urgent Consulting Provider: Gurwinder Hill Consult Reason/Comments: right sided weakness, suspected cva Do you want consulting provider notified?: Yes 12/11/24 05:52 Consult Physician Routine Consulting Provider: Israel Villanueva Consult Reason/Comments: Patient having Pauses Do you want consulting provider notified?: Yes, Notify in am [facility] Course: HISTORY OF PRESENT ILLNESS: This is a 74-year-old male with a previous medical history significant for hypertension and hypertensive cardiovascular disease, mixed hyperlipidemia, diabetes mellitus type 2 insulin requiring, history of significant ichthyosis, coronary artery disease under the care of Dr. George, diabetic polyneuropathy, hypothyroidism, enlarged prostate, recently was diagnosed of having metastatic hepatocellular carcinoma has been receiving treatment for hematology oncology and has been on Tercentriq and Avastin , patient did receive about 3 cycles of that treatment so far, patient was recently hospitalized at [facility] because of a scrotal abscess status post I&D and IV antibiotic treatment, due to E. coli, discharged home follow up with me as an outpatient he was having issues with blood pressure control, we have adjusted his medication quite a bit, patient apparently 3:00 yesterday in the afternoon he was using the restroom, after he was washing his hand all of a sudden he was using his toothpaste, and he could not even loosen the business operations manager on the tooth brush, and the patient suddenly developed to have a significant numbness on the right side of the face right upper extremity lateral lower extremity, and he could not even use his right lower extremity, he called his Melissa who had contacted 911, the patient was brought into the ER for evaluation, apparently patient underwent significant stroke evaluation after code stroke was called, including CT scan of the brain without contrast followed by a CT angiography of the carotid and the brain they were all negative, and the patient symptoms started to get better after that, because of that he was admitted to the hospital for evaluation by neurology and neurology consultation was obtained from Dr. Hill. Patient sitting up in his bed in ER, he is feeling a lot better, his strength is back, he has no evidence of any residual deficits he continues to be a bit weaker in the right upper extremity. 12/09: Patient is sitting at the edge of the bed in no apparent distress, he had an episode of hypoglycemia in the morning with his sugar dropped to 47, he denies any chest pain, he denies any shortness of breath, he is feeling little bit better, his sugar is up to 126, he is eating his breakfast, he denies any abdominal pain, nausea vomiting or diarrhea, he does not have any more numbness or weakness in the upper or lower extremities, beside his neuropathy and instability gait he was fine, he was supposed to have his MRI done today, however because of the situation he was not able to get the MRI today therefore he will be kept in the hospital for another 24 hours, he will be done for Barger in the morning and then he can be discharged home and follow-up with me as an outpatient after the MRI is done. 12/11: Patient had an episode of bradycardia with heart rate dipping in the low 20s and 30s and 3-second pauses while he was asleep, patient was taken off beta- cholo completely, cardiology consultation was obtained, patient follows regularly with Dr. George as an outpatient, patient will be monitor, patient also underwent MRI of the brain with and without jarek that showed evidence of possible vascular malformation at the inferior right basal ganglia, without evidence of acute stroke, patient was seen by Dr. George and he was recommended to continue Lodine 5 mg twice every day losartan 50 mg twice a day keep off the beta-cholo for now, I will give the patient a prescription of hydralazine 25 mg orally twice a day if his systolic blood pressure is greater than 150 and diastolic greater than 90. Discharge diagnoses: 1. TIA ruled out for CVA, ruled out focal seizure, rule out brain mets from his metastatic hepatocellular carcinoma. 2. Right inferior basal ganglia cavernous malformation/angioma . 2. Asymptomatic sinus bradycardia with first-degree AV block and with episodes of pauses up to 2 to 3 seconds. 3 Metastatic hepatocellular carcinoma 4. Hypertension and hypertensive cardiovascular disease. 5. Mixed hyperlipidemia 6. Diabetes mellitus type II. 7. History of hypothyroidism . 8. 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 9. History of ichthyosis and dry skin. 10. Diabetic polyneuropathy. Patient Condition at Discharge: Serious Plan - Discharge Summary Discharge Rx Participant: Yes New Discharge Prescriptions: Continue amLODIPine [Norvasc] 5 mg PO DAILY Losartan [Cozaar] 50 mg PO BID #60 tab Aspirin EC [Ecotrin Low Dose] 81 mg PO HS Insulin Glargine,Hum.rec.anlog [Lantus Solostar Pen] 30 units SQ HS traMADol HCL 50 mg PO Q6H PRN PRN Reason: Pain Ondansetron [Zofran] 4 - 8 mg PO Q4H PRN PRN Reason: Nausea Metoprolol Succinate [Toprol XL] 50 mg PO DAILY Lidocaine-Prilocaine Cream [Emla Cream 2.5%/2.5%] 1 applic TOPICAL DIRECTED PRN PRN Reason: port access Levothyroxine Sodium [Synthroid] 150 mcg PO DAILY Discharge Medication List Aspirin EC [Ecotrin Low Dose] 81 mg PO HS 01/02/23 [History] Insulin Glargine,Hum.rec.anlog [Lantus Solostar Pen] 30 units SQ HS 09/29/24 [History] Lidocaine-Prilocaine Cream [Emla Cream 2.5%/2.5%] 1 applic TOPICAL DIRECTED PRN 11/15/24 [History] Metoprolol Succinate [Toprol XL] 50 mg PO DAILY 11/15/24 [History] Ondansetron [Zofran] 4 - 8 mg PO Q4H PRN 11/15/24 [History] amLODIPine [Norvasc] 5 mg PO DAILY 11/15/24 [History] traMADol HCL 50 mg PO Q6H PRN 11/15/24 [History] Losartan [Cozaar] 50 mg PO BID #60 tab 11/19/24 [Rx] Levothyroxine Sodium [Synthroid] 150 mcg PO DAILY 12/09/24 [History] Follow up Appointment(s)/Referral(s): Jeff Foster MD [Primary Care Provider] - 1 Week Discharge Disposition: HOME WITH HOME HEALTH SERVICES
--- NOTE | 2024-12-11 14:36 | P.CRDCN ---
History of Present Illness Consult date: 12/11/24 Requesting physician: Jeff Foster Reason for Consult (text): patient having pauses Chief complaint: Right sided weakness, numbness History of present illness: This is a pleasant 74-year-old gentleman patient of Dr. George with past medical history of CAD, nonischemic cardiomyopathy, hypertension, diabetes, metastatic hepatocellular carcinoma. Presented to the hospital with complaints of right sided weakness and numbness and what he felt to be a seizure just in his right arm. He is being worked up from neurological standpoint for possible CVA and recently underwent MRI. Results are pending. We were asked to see the patient in consultation for pauses. He has been having episodes of complete heart block on telemetry, asymptomatic. He is otherwise been feeling okay from a cardiac st andpoint. Diagnostics -EKG: Sinus rhythm with a first-degree AV block -Chest x-ray: No acute cardiopulmonary disease/process -Brain CT: No acute intracranial process -CT angio head and neck: No evidence of dissection of the cervical internal carotid arteries or vertebral arteries, no evidence of significant stenosis at the carotid bifurcations, no evidence of intracranial high-grade stenosis or i ntracranial aneurysm -Laboratory studies: White blood cell count 3.18, hemoglobin 11.6, sodium 133, potassium 3.6, BUN 17, creatinine 0.81, hemoglobin A1c 9.1 -Home cardiac medications: Amlodipine 5 mg p.o. daily, metoprolol succinate 50 mg p.o. daily, losartan 50 mg p.o. twice daily and aspirin 81 mg p.o. daily -Prior stress test: October 2022 apical lateral ischemia -Echocardiogram: October 2024, ejection fraction 45% with mild to moderate MR and mild TR -Cardiac catheterization: January 18 2340% stenosis involving the proximal LAD, 50% stenosis involving the ostial first diagonal branch and 20% stenosis in the mid RCA Review Of Systems: At the time of my exam: CONSTITUTIONAL: Denies fever or chills. HEENT: Denies blurred vision, vision changes. CARDIOVASCULAR: Denies chest pain. Denies orthopnea. Denies PND. Denies palpitations, dizziness, or syncope. RESPIRATORY: Denies shortness of breath, wheezing, or cough. Denies hemoptysis. GASTROINTESTINAL: Denies abdominal pain. Denies nausea or vomiting. Denies bleeding. HEMATOLOGIC: Denies bleeding disorders. GENITOURINARY: Denies hematuria. SKIN: Denies puritis. Denies rash. PHYSICAL EXAMINATION: This is a 74-year-old gentleman in no apparent distress at the time of my examination. VITAL SIGNS: Reviewed. HEENT: Head is atraumatic, normocephalic. Pupils are equal, round. Sclerae anicteric. Conjunctivae are clear. Mucous membranes of the mouth are moist. Neck is supple. There is no elevated jugular venous pressure. No carotid bruit is heard. CHEST EXAMINATION: Clear to auscultation bilaterally. No wheezes rales or rhonchi. Respirations even and nonlabored. HEART EXAMINATION: Heart regular, positive S1 and S2. No S3. No S4. No clicks, rubs or murmurs. ABDOMEN: Soft, nontender. Bowel sounds are heard. No organomegaly noted. EXTREMITIES: 2+ peripheral pulses with no evidence of peripheral edema and no calf tenderness noted. NEUROLOGIC EXAMINATION: Patient is awake, alert and oriented x3. Assessment: 1. Brief episodes complete heart block 2. Nonischemic cardiomyopathy 3. Hypertension 4. Metastatic malignancy Plan: From cardiology's perspective we will hold beta-cholo. Patient may be discharged home when okay by primary. He will follow-up in the office for an event monitor as an outpatient. Depending on findings patient may require pacemaker. Thank you kindly for this consultation. Nurse practitioner note has been reviewed, I agree with documented findings and plan of care. Patient was seen and examined. Past Medical History Past Medical History: Cancer, Diabetes Mellitus, Eye Disorder, GERD/Reflux, Hypertension, Osteoarthritis (OA), Skin Disorder, Sleep Apnea/CPAP/BIPAP, Thyroid Disorder Additional Past Medical History / Comment(s): No longer has sleep apena. Limps due to broken left foot in the past that didn't heal properly. Diabetic Retinopathy and Neuropathy. UMBILICAL HERNIA. Legally blind. Chronic back pain. Fatty liver. Hx kidney stones. States possibly adhesions now. Heptacellular carcinoma History of Any Multi-Drug Resistant Organisms: None Reported Past Surgical History: Bariatric Surgery, Cholecystectomy Additional Past Surgical History / Comment(s): Liver biopsy. Pilonidal cyst. Cysts removed from head. Cataract & Retinopathy surgery. Tala-en-Y. Pain procedures, Kidney stone sx/ureteral stenting with removal last 06/2024, col onoscopy. Tumor removal, lysis of adhesions Past Anesthesia/Blood Transfusion Reactions: No Reported Reaction Past Psychological History: No Psychological Hx Reported Smoking Status: Never smoker Past Alcohol Use History: Occasional Past Drug Use History: Marijuana - Past Family History Father Family Medical History: Diabetes Mellitus, Deep Vein Thrombosis (DVT) Mother Family Medical History: Cancer, Diabetes Mellitus Additional Family Medical History / Comment(s): thyroid Sister(s) Family Medical History: Cancer, Diabetes Mellitus Additional Family Medical History / Comment(s): Uterine Cancer, Lupus, Bipolar Disorder. Medications and Allergies Home Medications Medication Instructions Recorded Confirmed Type Aspirin EC [Ecotrin Low Dose] 81 mg PO HS 01/02/23 12/09/24 History Insulin Glargine,Hum.rec.anlog 30 units SQ HS 09/29/24 12/09/24 History [Lantus Solostar Pen] Lidocaine-Prilocaine Cream [Emla 1 applic TOPICAL DIRECTED PRN 11/15/24 12/09/24 History Cream 2.5%/2.5%] Metoprolol Succinate [Toprol XL] 50 mg PO DAILY 11/15/24 12/09/24 History Ondansetron [Zofran] 4 - 8 mg PO Q4H PRN 11/15/24 12/09/24 History amLODIPine [Norvasc] 5 mg PO DAILY 11/15/24 12/09/24 History traMADol HCL 50 mg PO Q6H PRN 11/15/24 12/09/24 History Losartan [Cozaar] 50 mg PO BID #60 tab 11/19/24 12/09/24 Rx Levothyroxine Sodium [Synthroid] 150 mcg PO DAILY 12/09/24 12/09/24 History Allergies Allergy/AdvReac Type Severity Reaction Status Date / Time clindamycin Allergy Rash/Hives Verified 12/09/24 08:30 sulfamethoxazole Allergy Rash/Hives/ Verified 12/09/24 08:30 [From Bactrim] Itching trimethoprim [From Bactrim] Allergy Rash/Hives/ Verified 12/09/24 08:30 Itching Physical Exam Vitals: Vital Signs Temp Pulse Resp BP BP Pulse Ox 12/11/24 13:06 97.4 F L 79 18 154/91 100 12/11/24 10:06 67 157/101 12/11/24 07:51 74 18 151/69 100 12/11/24 02:18 97.6 F 62 20 119/77 12/10/24 20:00 97.8 F 77 18 143/90 98 12/10/24 14:45 98.1 F 76 16 123/85 96 Intake and Output 12/10/24 12/11/24 12/11/24 22:59 06:59 14:59 Intake Total 60 598 450 Balance 60 598 450 Intake: Oral 60 598 450 Other: # Voids 2 Weight 90.718 kg Results 12/10/24 02:39 12/10/24 02:39 Current Medications Generic Name Dose Route Start Last Admin Trade Name Freq PRN Reason Stop Dose Admin Amlodipine Besylate 5 mg 12/11/24 09:00 12/11/24 13:07 Amlodipine 5 Mg Tab PO 5 mg BID COLTON Administration Aspirin 81 mg 12/09/24 21:00 12/10/24 21:22 Aspirin 81 Mg PO 81 mg HS COLTON Administration Dextrose/Water 25 ml 12/08/24 22:38 Dextrose 50% Syringe 50 Ml IVP PER PROTOCOL PRN Hypoglycemia Protocol Enoxaparin Sodium 40 mg 12/10/24 09:00 12/11/24 13:07 Enoxaparin 40 Mg/0.4 Ml Syringe SQ 40 mg DAILY COLTON Administration Hydralazine HCl 25 mg 12/11/24 21:00 Hydralazine Hcl 25 Mg Tab PO BID COLTON Insulin Glargine 30 unit 12/08/24 23:00 12/10/24 21:24 Insulin Glargine (Lantus) 100 Unit/Ml Syr SQ 30 unit HS COLTON Administration Insulin Human Lispro 0 unit 12/09/24 00:33 12/11/24 13:07 Insulin Lispro (Humalog) 100 Unit/Ml 10 Ml Vl SQ 4 unit ACHS COLTON Administration Protocol Levothyroxine Sodium 150 mcg 12/09/24 09:30 12/11/24 06:51 Levothyroxine 75 Mcg Tab PO 150 mcg DAILY@0630 COLTON Administration Losartan Potassium 50 mg 12/09/24 09:15 12/11/24 13:07 Losartan 50 Mg Tab PO 50 mg BID COLTON Administration Naloxone HCl 0.2 mg 12/08/24 22:29 Naloxone 0.4 Mg/Ml 1 Ml Vial IV Q2M PRN Opioid Reversal Ondansetron HCl 4 mg 12/11/24 09:45 12/11/24 10:06 Ondansetron 4 Mg/2 Ml Vial IVP 4 mg Q6HR PRN Administration Nausea And Vomiting Tramadol HCl 50 mg 12/09/24 09:11 12/10/24 21:23 Tramadol 50 Mg Tab PO 50 mg Q6H PRN Administration Pain Intake and Output 12/10/24 12/11/24 12/11/24 22:59 06:59 14:59 Intake Total 60 598 450 Balance 60 598 450 Intake: Oral 60 598 450 Other: # Voids 2 Weight 90.718 kg Patient Weight 12/12/24 06:59 Weight 90.718 kg 12/10/24 02:39 12/10/24 02:39
[2024-12-11] MEDS ORDERED: hydrALAZINE HCL 25 MG TAB PO SCH (21:00)
== END 2024-12-11 15:21 | disposition home health service (06) ==
LOC: EC 17:38 → 3SCARD 22:32 → 1SOBS 12-09 16:58
PROVIDERS: ADMIT Internal Medicine; ATTEND Internal Medicine
DX: R53.1 Weakness (principal); R56.9 Unspecified convulsions; R20.0 Anesthesia of skin; I42.8 Other cardiomyopathies; C78.7 Secondary malignant neoplasm of liver and intrahepatic bile duct; I11.9 Hypertensive heart disease without heart failure; I44.2 Atrioventricular block, complete; E78.2 Mixed hyperlipidemia; E11.42 Type 2 diabetes mellitus with diabetic polyneuropathy; E11.319 Type 2 diabetes mellitus with unspecified diabetic retinopathy without macular edema; E11.65 Type 2 diabetes mellitus with hyperglycemia; E03.9 Hypothyroidism, unspecified; D18.02 Hemangioma of intracranial structures; M47.816 Spondylosis without myelopathy or radiculopathy, lumbar region; H54.8 Legal blindness, as defined in USA; I25.10 Atherosclerotic heart disease of native coronary artery without angina pectoris; K76.0 Fatty (change of) liver, not elsewhere classified; N40.0 Benign prostatic hyperplasia without lower urinary tract symptoms; E55.9 Vitamin D deficiency, unspecified; K21.9 Gastro-esophageal reflux disease without esophagitis; Z79.4 Long term (current) use of insulin; Z79.82 Long term (current) use of aspirin; Z79.890 Hormone replacement therapy; Z79.899 Other long term (current) drug therapy; Z82.1 Family history of blindness and visual loss; Z88.1 Allergy status to other antibiotic agents; Z88.2 Allergy status to sulfonamides
CPT/HCPCS: 96372 ×2; 96374; 99285; 36415; 95816; 93005; 97116; 97162; 97166; 92523; 80053 ×2; 80048; 82550; 84484; 85025 ×3; 85610; 85730; 83036; 71046; 70496; 70450; 70498; 70553; G0378 ×5; J2405; J1650 ×2; Q9967; A9585

== ENCOUNTER → 2024-12-23 | Outpatient (CLI) | payer MEDICARE ==
[2024-12-23 21:27] LABS: Basophils # (A) 0.04 X 10*3/uL (0.00-0.10); Basophils % (A) 1.1 %; Eosinophils # (A) 0.12 X 10*3/uL (0.04-0.35); Eosinophils % (A) 3.4 %; HCT 37.3 % (39.6-50.0); HGB 11.9 g/dL (13.0-17.0); Lymphocytes # (A) 1.09 X 10*3/uL (0.90-5.00); Lymphocytes % (A) 30.6 %; MCH 26.6 pg (27.0-32.0); MCHC 31.9 g/dL (32.0-37.0); MCV 83.4 FL (80.0-97.0); Mean Platelet Volume 10.3 FL (9.5-12.2); Monocytes # (A) 0.28 X 10*3/uL (0.20-1.00); Monocytes % (A) 7.9 %; NRBC Per 100 WBC 0 X 10*3/uL (0.00-0.01); Neutrophils # (A) 2.02 X 10*3/uL (1.80-7.70); Neutrophils % (A) 56.7 %; Platelet Count 213 X 10*3/uL (140-440); RBC 4.47 X 10*6/uL (4.40-5.60); RDW 15.6 % (11.5-14.5); WBC 3.56 X 10*3/uL (4.50-10.00)
[2024-12-23 21:41] LABS: ALT 34 U/L (10-49); AST 37 U/L (14-35); Albumin 3.9 g/dL (3.8-4.9); Albumin/Globulin Ratio 1.62 Ratio (1.60-3.17); Alkaline Phosphatase 153 U/L (41-126); BUN/Creat Ratio 23.42 Ratio (12.00-20.00); Blood Urea Nitrogen 28.1 mg/dL (9.0-27.0); Calcium 8.2 mg/dL (8.7-10.3); Carbon Dioxide 18.4 mmol/L (21.6-31.8); Chloride 107 mmol/L (96-109); Chol/HDL Ratio 4.09 Ratio; Globulin 2.4 g/dL (1.6-3.3); Glucose 113 mg/dL (70-110); LDL Cholesterol,Calculated 79.1 mg/dL (0.0-131.0); Potassium 4.4 mmol/L (3.5-5.5); Sodium 139 mmol/L (135-145); Total Protein 6.3 g/dL (6.2-8.2)
[2024-12-23 22:08] LABS: % Iron Saturation 16.67 (15.00-50.00); Ferritin 34.2 ng/mL (22.0-322.0); T4, Free (Free Thyroxine) 1.36 ng/dL (0.80-1.80)
== END | disposition home or self-care (01) ==
LOC: LABWHC1 11:56
PROVIDERS: ATTEND Internal Medicine Endocrinology, Diabetes & Metabolism
DX: E11.65 Type 2 diabetes mellitus with hyperglycemia (principal)
CPT/HCPCS: 36415; 80053; 80061; 82550; 82607; 82728; 82746; 83036; 83540; 83550; 84439; 84443; 85025

== ENCOUNTER → 2024-12-30 | Outpatient (CLI) | payer MEDICARE ==
--- NOTE | 2024-12-30 14:20 | CT ---
EXAMINATION TYPE: CT ChestAbdPelvis w con DATE OF EXAM: 12/30/2024 11:12 AM COMPARISON: 11/15/2024 CLINICAL INDICATION: Male, 74 years old with history of C22.0 LIVER CANCER; PHH, hx of liver ca. prio r on pacs. IV Contrast only Technique: CT ChestAbdPelvis with contrast. Delayed images through the kidneys and coronal/sagittal r econstructions performed. Contrast used:100 ml mL of Isovue 300 with IV Contrast, CT DLP: 1994 mGycm, Automated exposure control for dose reduction was used. Findings: CHEST: Right anterior chest wall injection port. Catheter again noted to be looped upward into the right IJV prior to coming down and terminating in the right brachiocephalic vein. Heart normal size without pericardial effusion. Aorta normal caliber with conventional arch vessel branching anatomy. No thoracic lymphadenopathy by CT size criteria. Some mild strandy atelectasis in the lower lungs. There may be some minimal interstitial fibrosis at the costophrenic angles as well. No consolidation or pleural effusion. ABDOMEN: Approximately 3, very subtle hepatic lesions are identified as slightly hypodense areas on delayed ki dney scan. This measures 1.9 cm at the anterior right hepatic dome versus 2.4 cm, previously. The oth er 2 lesions segment 7 posterior right liver lobe measure 1.8 and 1.4 cm, not significantly changed. Portal venous system is patent. Cholecystectomy clips. No biliary ductal dilatation. Postsurgical change of Tala-en-Y gastric bypass. No dilated small bowel, free fluid, or free air. Scattered mesenteric nodes, largest anterior left paramedian mid abdomen measures 2.7 cm versus 2.6 c m, previously. Other scattered smaller nodes and peritoneal deposits throughout relatively similar as well, the largest of which measured 2.5 cm left flank and 1.8 cm right paracolic gutter. Enlarged portacaval lymph node at 1.8 cm previously measured 1.5 cm. Adrenal glands, spleen with anterior splenule, and atrophic pancreas show no gross abnormality. There are bilateral nephrolithiasis, some of which represent casting small staghorn calculi in the mi nor calyces, measuring up to 1.5 cm on the right and aggregate stone dimension measuring up to 2.1 cm on the left. Vague cortical hypodense area posterior upper pole left kidney is unchanged measuring 1.2 cm, likely a debris-filled cyst. Additional smaller benign cysts are present bilaterally. No dilated small bowel, free fluid, or free air. Scattered moderate stool. No pericolonic inflammatory change. Moderate stool distending the rectum up to 5.5 cm wide. PELVIS: Mild/moderate circumferential bladder wall thickening. Prostate gland mildly enlarged 4.7 cm wide. No abnormal fluid collection in the pelvis or pelvic lymphadenopathy. BONES: Moderate degenerative change at the hips. Moderate degenerative disc disease L3-L4 and L5-S1. No osse ous destructive process is seen. IMPRESSION: 1. 3 subtle lesions within the right liver lobe are fairly stable. The dominant lesion in the right h epatic dome is slightly smaller at 1.9 cm versus 2.4 cm, previously. 2. Scattered mesenteric and peritoneal deposits/lymph nodes measuring up to 2.7 cm are largely unchan ged as well. 3. However, the portacaval lymph node has increased in size now 1.8 cm versus 1.5 cm, previously. [place] oing close surveillance follow-up recommended. 4. Bilateral nephrolithiasis redemonstrated some of which represent small staghorn calculi. 5. Right anterior chest wall injection port catheter again noted to be looped up into the IJV. [facility], , 12/30/2024 2:18 PM
== END | disposition home or self-care (01) ==
LOC: RADCTMAIN 10:05
PROVIDERS: ATTEND Internal Medicine Hematology & Oncology
DX: C22.0 Liver cell carcinoma (principal); E03.9 Hypothyroidism, unspecified; E11.9 Type 2 diabetes mellitus without complications; M10.9 Gout, unspecified; N20.0 Calculus of kidney; K76.89 Other specified diseases of liver
CPT/HCPCS: 71260; 74177; Q9967

== ENCOUNTER 2025-02-16 17:42 | Emergency (ER) | payer MEDICARE ==
[2025-02-16 17:47] LABS: Glucose,Whole Blood 128 mg/dL (70-110)
[2025-02-16 17:51] VITALS: TEMP 97.4
[2025-02-16 18:10] LABS: Basophils # (A) 0.01 10*3/uL (0.00-0.10); Basophils % (A) 0.3 %; Eosinophils # (A) 0.04 10*3/uL (0.04-0.35); Eosinophils % (A) 1.2 %; HCT 29.6 % (39.6-50.0); HGB 9.6 g/dL (13.0-17.0); Lymphocytes # (A) 0.44 10*3/uL (0.90-5.00); Lymphocytes % (A) 13.1 %; MCH 26.1 pg (27.0-32.0); MCHC 32.4 g/dL (32.0-37.0); MCV 80.4 fL (80.0-97.0); Mean Platelet Volume 9.9 fL (9.5-12.2); Monocytes # (A) 0.24 10*3/uL (0.20-1.00); Monocytes % (A) 7.2 %; Neutrophils # (A) 2.61 10*3/uL (1.80-7.70); Neutrophils % (A) 77.9 %; Platelet Count 138 10*3/uL (140-440); RBC 3.68 10*6/uL (4.40-5.60); RDW 13.7 % (11.5-14.5); WBC 3.35 10*3/uL (4.50-10.00)
[2025-02-16 18:37] LABS: ALT 20 U/L (4-49); African American GFR (CKD) 73 (>60 ml/min/1.73 sqM); Albumin 3.5 g/dL (3.5-5.0); Anion Gap 9 mmol/L; Blood Urea Nitrogen 31 mg/dL (9-20); Calcium 8.2 mg/dL (8.4-10.2); Carbon Dioxide 16 mmol/L (22-30); Chloride 111 mmol/L (98-107); Glucose 111 mg/dL (74-99); Non-African American GFR(CKD) 63 (>60 ml/min/1.73 sqM); Sodium 136 mmol/L (137-145); Total Bilirubin 0.9 mg/dL (0.2-1.3)
--- NOTE | 2025-02-16 18:38 | ED ---
General Adult HPI - General Chief complaint: Recheck/Abnormal Lab/Rx Stated complaint: abn labs Time Seen by Provider: 02/16/25 17:46 Source: patient, EMS, RN notes reviewed, old records reviewed Mode of arrival: EMS - History of Present Illness Initial comments: 74-year-old male presenting with hypoglycemia and hypotension. Patient was found by paramedics to be hypoglycemic with a blood glucose of 50 he was also hypotensive. His states that she had given him his hydralazine prior to this event. Patient also believes that he may have taken insulin prior to lunch and is uncertain if he ate lunch. Patient was given dextrose by paramedics. He is awake and alert at the time my evaluation without specific complaint. He states he has liver cancer. History of hypertension and diabetes. - Related Data Home Medications Medication Instructions Recorded Confirmed Aspirin EC [Ecotrin Low Dose] 81 mg PO HS 01/02/23 12/09/24 Insulin Glargine,Hum.rec.anlog 30 units SQ HS 09/29/24 12/09/24 [Lantus Solostar Pen] Lidocaine-Prilocaine Cream [Emla 1 applic TOPICAL DIRECTED PRN 11/15/24 12/09/24 Cream 2.5%/2.5%] Ondansetron [Zofran] 4 - 8 mg PO Q4H PRN 11/15/24 12/09/24 amLODIPine [Norvasc] 5 mg PO DAILY 11/15/24 12/09/24 traMADol HCL 50 mg PO Q6H PRN 11/15/24 12/09/24 Levothyroxine Sodium [Synthroid] 150 mcg PO DAILY 12/09/24 12/09/24 Previous Rx's Medication Instructions Recorded Losartan [Cozaar] 50 mg PO BID #60 tab 11/19/24 amLODIPine [Norvasc] 5 mg PO BID #60 tab 12/11/24 hydrALAZINE HCL [Apresoline] 25 mg PO BID #60 tab 12/11/24 Allergies Allergy/AdvReac Type Severity Reaction Status Date / Time clindamycin Allergy Rash/Hives Verified 02/16/25 17:51 sulfamethoxazole Allergy Rash/Hives/ Verified 02/16/25 17:51 [From Bactrim] Itching trimethoprim [From Bactrim] Allergy Rash/Hives/ Verified 02/16/25 17:51 Itching Review of Systems ROS Statement: Those systems with pertinent positive or pertinent negative responses have been documented in the HPI. ROS Other: All systems not noted in ROS Statement are negative. Past Medical History Past Medical History: Cancer, Diabetes Mellitus, Eye Disorder, GERD/Reflux, Hypertension, Osteoarthritis (OA), Skin Disorder, Sleep Apnea/CPAP/BIPAP, Thyroid Disorder Additional Past Medical History / Comment(s): No longer has sleep apena. Limps due to broken left foot in the past that didn't heal properly. Diabetic Retinopathy and Neuropathy. UMBILICAL HERNIA. Legally blind. Chronic back pain. Fatty liver. Hx kidney stones. States possibly adhesions now. Heptacellular carcinoma History of Any Multi-Drug Resistant Organisms: None Reported Past Surgical History: Bariatric Surgery, Cholecystectomy Additional Past Surgical History / Comment(s): Liver biopsy. Pilonidal cyst. Cysts removed from head. Cataract & Retinopathy surgery. Tala-en-Y. Pain pro cedures, Kidney stone sx/ureteral stenting with removal last 06/2024, colonoscopy. Tumor removal, lysis of adhesions Past Anesthesia/Blood Transfusion Reactions: No Reported Reaction Past Psychological History: No Psychological Hx Reported Smoking Status: Never smoker Past Alcohol Use History: Occasional Past Drug Use History: Marijuana - Past Family History Father Family Medical History: Diabetes Mellitus, Deep Vein Thrombosis (DVT) Mother Family Medical History: Cancer, Diabetes Mellitus Additional Family Medical History / Comment(s): thyroid Sister(s) Family Medical History: Cancer, Diabetes Mellitus Additional Family Medical History / Comment(s): Uterine Cancer, Lupus, Bipolar Disorder. General Exam General appearance: alert, in no apparent distress Head exam: Present: atraumatic, normocephalic Eye exam: Present: normal appearance, PERRL ENT exam: Present: normal exam Neck exam: Present: normal inspection. Absent: tenderness, meningismus Respiratory exam: Present: normal lung sounds bilaterally. Absent: respiratory distress, wheezes Cardiovascular Exam: Present: regular rate, normal rhythm GI/Abdominal exam: Present: soft. Absent: distended Neurological exam: Present: alert, oriented X3, CN II-XII intact. Absent: motor sensory deficit Psychiatric exam: Present: normal affect, normal mood Skin exam: Present: warm, dry, intact. Absent: cyanosis, diaphoretic Course Vital Signs 02/16/25 17:43 Temperature 97.4 F L Pulse Rate 70 Respiratory 20 Rate Blood Pressure 137/83 O2 Sat by Pulse 99 Oximetry - Reevaluation(s) Reevaluation #1: 02/16/25 19:55 Patient reevaluated, eager for discharge. Medical Decision Making - Medical Decision Making Was pt. sent in by a medical professional or institution (FARHANA Franco, ALLIGATOR SHEAR OPERATOR, urgent care, hospital, or fci...) When possible be specific @ -No Did you speak to anyone other than the patient for history (EMS, parent, family, police, friend...)? What history was obtained from this source @ -No Did you review nursing and triage notes (agree or disagree)? Why? @ -I reviewed and agree with nursing and triage notes Were old charts reviewed (outside hosp., previous admission, EMS record, old EKG, old radiological studies, urgent care reports/EKG's, fci records)? Report findings @ -No old charts were reviewed Differential Diagnosis (chest pain, altered mental status, abdominal pain women, abdominal pain men, vaginal bleeding, weakness, fever, dyspnea, syncope, head ache, dizziness, GI bleed, back pain, seizure, CVA, palpatations, mental health, musculoskeletal)? @ -Not applicable EKG interpreted by me (3pts min.). @Narrow complex rhythm rate of 97, no definitive P wave. QRS duration 103, QTc [address] segment elevation. X-rays interpreted by me (1pt min.). @ -None done CT interpreted by me (1pt min.). @ -None done U/S interpreted by me (1pt. min.). @ -None done What testing was considered but not performed or refused? (CT, X-rays, U/S, labs)? Why? @ -None What meds were considered but not given or refused? Why? @ -None Did you discuss the management of the patient with other professionals (professionals i.e. FARHANA Franco, ALLIGATOR SHEAR OPERATOR, lab, RT, psych nurse, manager social responsibility, adjunct instructor in economics, teacher, fire information officer, case management associate)? Give summary @ -No Was smoking cessation discussed for >3mins.? @ -No Was critical care preformed (if so, how long)? @ -No Were there social determinants of health that impacted care today? How? (Homelessness, low income, unemployed, alcoholism, drug addiction, transportation, low edu. Level, literacy, decrease access to med. care, [facility], rehab)? @ -No Was there de-escalation of care discussed even if they declined (Discuss DNR or withdrawal of care, Hospice)? DNR status @ -No What co-morbidities impacted this encounter? (DM, HTN, Smoking, COPD, CAD, Cancer, CVA, ARF, Chemo, Hep., AIDS, mental health diagnosis, sleep apnea, mo rbid obesity)? @ -None Was patient admitted / discharged? Hospital course, mention meds given and r oute, prescriptions, significant lab abnormalities, going to OR and other pertinent info. @74-year-old male presenting with an episode of hypoglycemia and hypotension. Patient is normotensive upon arrival. Blood sugar has improved after paramedics gave IV dextrose. Patient does believe that he took his insulin without eating prior to lunch. Laboratory studies reveal an anemia and leukopenia. The patient states he is on immunotherapy for known liver cancer. Patient blood sugar is monitored in the emergency department. This does normalize and stabilized. The patient is eager for discharge. He will monitor both blood pressure and blood sugar closely at home and reduce insulin dose accordingly. Undiagnosed new problem with uncertain prognosis? @ -No Drug Therapy requiring intensive monitoring for toxicity (Heparin, Nitro, Insulin, Cardizem)? @ -No Were any procedures done? @ -No Diagnosis/symptom? @Hypoglycemia Acute, or Chronic, or Acute on Chronic? @ -[Acute Uncomplicated (without systemic symptoms) or Complicated (systemic symptoms)? @ -Default Side effects of treatment? @ -No Exacerbation, Progression, or Severe Exacerbation? @ -No Poses a threat to life or bodily function? How? (Chest pain, [place], [place], pneumonia, PE, COPD, DKA, ARF, appy, cholecystitis, CVA, Diverticulitis, Homicidal, Suicidal, threat to staff... and all critical care pts) @ -[Low risk at this time - Lab Data Result diagrams: 02/16/25 17:58 02/16/25 17:58 Lab Results 02/16/25 02/16/25 02/16/25 Range/Units 17:45 17:58 17:58 WBC 3.35 L (4.50-10.00) 10*3/uL RBC 3.68 L (4.40-5.60) 10*6/uL Hgb 9.6 L (13.0-17.0) g/dL Hct 29.6 L (39.6-50.0) % MCV 80.4 (80.0-97.0) fL MCH 26.1 L (27.0-32.0) pg MCHC 32.4 (32.0-37.0) g/dL Plt Count 138 L (140-440) 10*3/uL MPV 9.9 (9.5-12.2) fL Immature Gran % (Auto) 0.3 % Neutrophils % 77.9 % Lymphocytes % 13.1 % Monocytes % 7.2 % Eosinophils % 1.2 % Basophils % 0.3 % Immature Gran # 0.01 (0.00-0.04) 10*3/uL Neutrophils # 2.61 (1.80-7.70) 10*3/uL Lymphocytes # 0.44 L (0.90-5.00) 10*3/uL Monocytes # 0.24 (0.20-1.00) 10*3/uL Eosinophils # 0.04 (0.04-0.35) 10*3/uL Basophils # 0.01 (0.00-0.10) 10*3/uL Sodium 136 L (137-145) mmol/L Potassium 4.6 (3.5-5.1) mmol/L Chloride 111 H (98-107) mmol/L Carbon Dioxide 16 L (22-30) mmol/L Anion Gap 9 mmol/L BUN 31 H (9-20) mg/dL Creatinine 1.15 (0.66-1.25) mg/dL Est GFR (CKD-EPI)AfAm 73 (>60 ml/min/1.73 sqM) Est GFR (CKD-EPI)NonAf 63 (>60 ml/min/1.73 sqM) Glucose 111 H (74-99) mg/dL POC Glucose (mg/dL) 128 H (70-110) mg/dL POC Glu Layboy Operator ID Ryder Dottie Calcium 8.2 L (8.4-10.2) mg/dL Total Bilirubin 0.9 (0.2-1.3) mg/dL AST 35 (17-59) U/L ALT 20 (4-49) U/L Alkaline Phosphatase 135 H (38-126) U/L Total Protein 6.0 L (6.3-8.2) g/dL Albumin 3.5 (3.5-5.0) g/dL Disposition Clinical Impression: Hypoglycemia Disposition: ADMITTED IP TO THIS HOSP Condition: Stable Instructions (If sedation given, give patient instructions): Hypoglycemia in a Person with Diabetes (DC) Additional Instructions: Please monitor blood sugar and blood pressure closely at home. Is patient prescribed a controlled substance at d/c from ED?: No Referrals: Jeff Foster MD [Primary Care Provider] - 1-2 days
[2025-02-16 18:43] LABS: AST 35 U/L (17-59); Alkaline Phosphatase 135 U/L (38-126); Potassium 4.6 mmol/L (3.5-5.1)
[2025-02-16 19:58] LABS: Glucose,Whole Blood 261 mg/dL (70-110)
[2025-02-16 21:02] VITALS: BP 127/83; PULSE 88; RESP 20
== END 2025-02-16 21:04 | disposition other institution (70) ==
LOC: EC 17:42
DX: E11.649 Type 2 diabetes mellitus with hypoglycemia without coma (principal); Z88.2 Allergy status to sulfonamides; Z88.1 Allergy status to other antibiotic agents
CPT/HCPCS: 36415; 80053; 85025; 93005; 99285

== ENCOUNTER → 2025-03-17 | Outpatient (CLI) | payer MEDICARE ==
[2025-03-17 16:02] LABS: ALT 24 U/L (10-49); AST 37 U/L (14-35); Albumin 4.0 g/dL (3.8-4.9); Albumin/Globulin Ratio 1.90 Ratio (1.60-3.17); Alkaline Phosphatase 167 U/L (41-126); Anion Gap 11.10 mmol/L (4.00-12.00); BUN/Creat Ratio 21.45 Ratio (12.00-20.00); Blood Urea Nitrogen 23.6 mg/dL (9.0-27.0); Calcium 8.1 mg/dL (8.7-10.3); Carbon Dioxide 18.9 mmol/L (21.6-31.8); Chloride 106 mmol/L (96-109); Globulin 2.1 g/dL (1.6-3.3); Glucose 170 mg/dL (70-110); Potassium 4.4 mmol/L (3.5-5.5); Sodium 136 mmol/L (135-145); Total Protein 6.1 g/dL (6.2-8.2)
[2025-03-17 19:17] LABS: Basophils # (A) 0.04 X 10*3/uL (0.00-0.10); Basophils % (A) 1.0 %; Eosinophils # (A) 0.17 X 10*3/uL (0.04-0.35); Eosinophils % (A) 4.2 %; HCT 32.0 % (39.6-50.0); HGB 9.8 g/dL (13.0-17.0); Immature Grans, Automated 0.20 %; Lymphocytes # (A) 1.05 X 10*3/uL (0.90-5.00); Lymphocytes % (A) 26.0 %; MCH 24.6 pg (27.0-32.0); MCHC 30.6 g/dL (32.0-37.0); MCV 80.4 FL (80.0-97.0); Monocytes # (A) 0.31 X 10*3/uL (0.20-1.00); Monocytes % (A) 7.7 %; NRBC Per 100 WBC 0 X 10*3/uL (0.00-0.01); Neutrophils # (A) 2.46 X 10*3/uL (1.80-7.70); Neutrophils % (A) 60.9 %; Platelet Count 229 X 10*3/uL (140-440); RBC 3.98 X 10*6/uL (4.40-5.60); RDW 13.5 % (11.5-14.5); WBC 4.04 X 10*3/uL (4.50-10.00)
== END | disposition home or self-care (01) ==
LOC: LABWHC1 11:27
PROVIDERS: ATTEND Internal Medicine Endocrinology, Diabetes & Metabolism
DX: N20.0 Calculus of kidney (principal); N39.0 Urinary tract infection, site not specified; E11.65 Type 2 diabetes mellitus with hyperglycemia
CPT/HCPCS: 36415; 80053; 83036; 84443; 85025; 87086